=== PATIENT | female | born 1940 | race Caucasian/White ===

== ENCOUNTER 2019-07-07 08:59 | Outpatient (CLI) | payer MEDICARE, SELFPAY ==
--- NOTE | ~2019-07-07 | MM_ITS ---
EXAMINATION: MM screening [facility] BI w mihaela HISTORY: Screening mammogram TECHNIQUE: Craniocaudal and mediolateral oblique 3-D tomosynthesis images were obtained and synthetic 2-D images were generated. CAD analysis was submitted and interpreted. COMPARISON: 08/16/2017, 07/07/2016 BREAST PARENCHYMAL COMPOSITION: There are scattered areas of fibroglandular density. FINDINGS: Scattered benign-appearing calcifications are present. There is no evidence of suspicious m ass, calcification, or architectural distortion to suggest malignancy in either breast. There has bee n no suspicious interval change. IMPRESSION: 1. No mammographic evidence of malignancy. 2. Recommend routine screening mammography in one year. BI-RADS Category 2: Benign finding(s). Reviewed, dictated and finalized at location A.
== END 2019-07-07 09:00 | disposition home or self-care (01) ==
LOC: ANHIMG 09:05
PROVIDERS: PCP Nurse Practitioner Family; Visit Provider Nurse Practitioner Family
DX: Z12.31 Encounter for screening mammogram for malignant neoplasm of breast (principal)
CPT/HCPCS: 77063; 77067

== ENCOUNTER 2019-09-05 00:14 | Outpatient (CLI) | payer MEDICARE, SELFPAY ==
[2019-09-05 17:26] LABS: SARS-CoV-2 RNA PCR Negative
== END 2019-09-05 00:15 | disposition home or self-care (01) ==
PROVIDERS: PCP Nurse Practitioner Family; Visit Provider Internal Medicine Gastroenterology
DX: Z01.812 Encounter for preprocedural laboratory examination (principal); Z20.828 Contact with and (suspected) exposure to other viral communicable diseases
CPT/HCPCS: 87635; C9803; U0003

== ENCOUNTER 2019-09-08 00:06 | Day surgery (SDC) | payer MEDICARE, SELFPAY ==
[2019-08-28 14:21] VITALS: BMI 28.4
[2019-09-08] MEDS: LACTATED RINGERS 1,000 ML 150 ML IV CONT (06:40)
[2019-09-08 06:42] VITALS: BP 153/73; PULSE 80; RESP 18; TEMP 36.6; O2SAT 97; BMI 27.3
--- NOTE | 2019-09-08 07:20 | WPDANESEPPF ---
Anes - Initial Pre Proc Eval Procedure: Operation Date: 09/08/19 07:30 Proposed Procedures p Screening Colonoscopy - Rosas Yuen MD Date/Time: 09/08/19 07:20 Surgeon: Rosas Yuen MD Pre Op Diagnosis: Hx Colon Polyps Patient Data Age: 79 Gender: F Height: 5 ft 10 in Weight: 86.3 kg Last Vital Signs Temp 97.8 F 09/08/19 06:42 Pulse 80 09/08/19 06:42 Resp 18 09/08/19 06:42 BP 153/73 H 09/08/19 06:42 Pulse Ox 97 09/08/19 06:42 Allergies Allergy/AdvReac Type Severity Reaction Status Date / Time No Known Allergies Allergy Unverified 11/08/16 09:32 Home Medications Medication Instructions Recorded Confirmed Type aspirin 325 mg PO DAILY 08/28/19 08/28/19 History atorvastatin 80 mg PO DAILY 08/28/19 08/28/19 History coenzyme Q10 [CoQ-10] 100 mg PO DAILY 08/28/19 08/28/19 History omeprazole 20 mg PO DAILY 08/28/19 08/28/19 History Patient hx anesthesia problems: none Family hx anesthesia problems: none [facility] Past Medical History Medical History (Updated 09/08/19 @ 07:20 by Ankit Gonzáles MD) Hyperlipidemia TIA (transient ischemic attack) had one episode while on vacation in [place]; none since; w/u normal Family History Family History (Updated 10/05/16 @ 08:22 by DOCTOR UNKNOWN) Other Family history of Alzheimer's disease Family history of cardiovascular disease Hypertension Social History Social History Smoking status: Never smoker Alcohol intake: current Anes - Eval Final PreProcedure Day of Procedure 09/08/19 07:20 Patient weight: overweight Heart: regular rate and rhythm Lungs: clear to auscultation Airway: Mallampati scale class III Neurological: alert and oriented Last oral intake: >/= 8 hours ASA classification: II Emergent: no Anesthetic plan: proceed Anesthesia type and monitoring: general GIVS and standard monitoring Informed Consent: The patient's anesthetic plan and its attendant risks and benefits were discussed with the patient/family/POA. Questions were solicited and answers provided to the satisfaction of the patient/family/POA.
--- NOTE | 2019-09-08 07:55 | WPDGICN ---
Assessment and Plan Assessment and plan (1) Encounter for colonoscopy due to history of adenomatous colonic polyps: Code(s): Z12.11 - Encounter for screening for malignant neoplasm of colon; Z86.010 - Personal history of colonic polyps Status: Acute Assessment and Plan: Patient has a history of a rectal polyp at the anal verge in 2016. She presents today for follow-up examination. Repeat colonoscopy will be performed further recommendations will be given after endoscopy. GI Consult Note Consult date/time: 09/08/19 07:55 HPI: Catherine Murphy is a 79 year old female Seen in evaluation at the request of nurse practitioner Chavez Guardado. Patient has a history of a rectal polyp removed by endoscopic snare in 2016. This was found to be an adenomatous colon polyp. Her current weight appetite bowel movements are normal. She denies abdominal pain. She returns today for follow-up examination. Her family history is Noncontributory. Current medications include atorvastatin, omeprazole. No stated drug allergies. Review of Systems Review of Systems: All systems reviewed & are unremarkable except as noted in HPI and below PMFSH Past Medical History Medical History Hyperlipidemia TIA (transient ischemic attack) had one episode while on vacation in [place]; none since; w/u normal Family History Family History (Updated 10/05/16 @ 08:22 by DOCTOR UNKNOWN) Other Family history of Alzheimer's disease Family history of cardiovascular disease Hypertension Social History Social History Smoking status: Never smoker Alcohol intake: current Meds Home Medications and Allergies Home Medications Medication Instructions Recorded Confirmed Type aspirin 325 mg PO DAILY 08/28/19 08/28/19 History atorvastatin 80 mg PO DAILY 08/28/19 08/28/19 History coenzyme Q10 [CoQ-10] 100 mg PO DAILY 08/28/19 08/28/19 History omeprazole 20 mg PO DAILY 08/28/19 08/28/19 History Allergies Allergy/AdvReac Type Severity Reaction Status Date / Time No Known Allergies Allergy Unverified 11/08/16 09:32 Vital Signs Vital Signs - 24 hr 09/08/19 06:42 Temperature 36.6 C Pulse Rate 80 Respiratory Rate 18 Blood Pressure 153/73 H Pulse Oximetry 97 Exam Narrative: Exam Narrative: Physical exam reveals patient to be alert. Vital signs are stable. HEENT exam unremarkable. Lungs are clear to auscultation and percussion. Heart is without murmur or extra sounds. Abdominal exam bowel sounds are present soft nontender with no hepatosplenomegaly. Digital external rectal exam is normal.
[2019-09-08 07:57] VITALS: BP 101/51; PULSE 70; RESP 26; O2SAT 99
[2019-09-08 08:07] VITALS: BP 130/65; PULSE 68; RESP 15; O2SAT 99
[2019-09-08 08:17] VITALS: BP 141/64; PULSE 73; RESP 20; O2SAT 99
== END 2019-09-08 08:36 | disposition home or self-care (01) ==
PROVIDERS: PCP Nurse Practitioner Family; Visit Provider Internal Medicine Gastroenterology
PROC: 0DJD8ZZ Inspection of Lower Intestinal Tract, Via Natural or Artificial Opening Endoscopic (ICD-10-PCS; CPT 45378; principal; 2019-09-08 07:30)
DX: Z12.11 Encounter for screening for malignant neoplasm of colon (principal); D12.8 Benign neoplasm of rectum; K57.30 Diverticulosis of large intestine without perforation or abscess without bleeding; E78.5 Hyperlipidemia, unspecified; Z79.82 Long term (current) use of aspirin
CPT/HCPCS: 45385; 88305; J2704; J7120

== ENCOUNTER 2020-09-02 10:58 | Outpatient (CLI) | payer MEDICARE, SELFPAY ==
--- NOTE | ~2020-09-02 | MM_ITS ---
EXAMINATION: MM screening [facility] BI w mihaela HISTORY: Screening mammogram TECHNIQUE: Craniocaudal and mediolateral oblique 3-D tomosynthesis images were obtained and synthetic 2-D images were generated. CAD analysis was submitted and interpreted. COMPARISON: 07/07/2019, 08/16/2017, 07/07/2016, 07/01/2015, 06/23/2014, 05/06/2013 bilateral digital screen ing mammogram examinations BREAST PARENCHYMAL COMPOSITION: There are scattered areas of fibroglandular density. FINDINGS: There is no evidence of suspicious mass, calcification, or architectural distortion to sugg est malignancy in either breast. There has been no suspicious interval change. IMPRESSION: 1. No mammographic evidence of malignancy. 2. Recommend routine screening mammography in one year. BI-RADS Category 1: Negative Reviewed, dictated and finalized at location A.
== END 2020-09-02 10:59 | disposition home or self-care (01) ==
PROVIDERS: PCP Nurse Practitioner Family; Visit Provider Nurse Practitioner Family
DX: Z12.31 Encounter for screening mammogram for malignant neoplasm of breast (principal)
CPT/HCPCS: 77063; 77067

== ENCOUNTER → 2020-09-28 01:23 | Outpatient (CLI) | payer MEDICARE, SELFPAY ==
[2020-09-30 08:35] LABS: SARS-CoV-2 RNA PCR Negative
== END ==
PROVIDERS: PCP Nurse Practitioner Family; Visit Provider Internal Medicine Gastroenterology
DX: Z01.812 Encounter for preprocedural laboratory examination (principal); Z20.822 Contact with and (suspected) exposure to COVID-19
CPT/HCPCS: C9803; U0003; U0005

== ENCOUNTER 2020-10-01 01:02 | Day surgery (SDC) | payer MEDICARE, SELFPAY ==
[2020-09-13 13:44] VITALS: BMI 34.7
--- NOTE | 2020-09-30 12:23 | WPDANESEPPF ---
Anes - Initial Pre Proc Eval Procedure: Operation Date: 10/01/20 07:30 Proposed Procedures p Screening Colonoscopy - Rosas Yuen MD Date/Time: 09/30/20 12:23 Surgeon: Rosas Yuen MD Pre Op Diagnosis: hx of colon polyp Patient Data Age: 80 Gender: F Height: 1.57 m Weight: 86.3 kg Allergies Allergy/AdvReac Type Severity Reaction Status Date / Time No Known Allergies Allergy Verified 10/01/20 06:28 Home Medications Medication Instructions Recorded Confirmed Type aspirin 325 mg PO DAILY 08/28/19 10/01/20 History atorvastatin 80 mg PO DAILY 08/28/19 10/01/20 History coenzyme Q10 [CoQ-10] 100 mg PO DAILY 08/28/19 10/01/20 History omeprazole 20 mg PO DAILY 08/28/19 10/01/20 History sodium,potassium,mag sulfates 17.5 See Rx Instructions PO .COMPLEX 08/26/20 10/01/20 Rx gram-3.13 gram-1.6 gram oral soln #354 ml Patient hx anesthesia problems: none Family hx anesthesia problems: none PMFSH Past Medical History Medical History (Updated 09/30/20 @ 12:24 by Srinivasa Potts MD) Hyperlipidemia Obesity TIA (transient ischemic attack) had one episode while on vacation in [place]; none since; w/u normal Family History Family History (Updated 10/05/16 @ 08:22 by DOCTOR UNKNOWN) Other Family history of Alzheimer's disease Family history of cardiovascular disease Hypertension Social History Social History Smoking status: Never smoker Alcohol intake: current Substance use type: does not use Living arrangements: alone Gender identity (if verbalized by the patient): Female Spiritual care concerns: No Anes - Eval Final PreProcedure Day of Procedure 09/30/20 12:23 Patient weight: overweight Heart: regular rate and rhythm Lungs: clear to auscultation and normal air movement Airway: Mallampati scale class II Neurological: alert and oriented Last oral intake: >/= 8 hours ASA classification: II Emergent: no Anesthetic plan: proceed Anesthesia type and monitoring: general GIVS Informed Consent: The patient's anesthetic plan and its attendant risks and benefits were discussed with the patient/family/POA. Questions were solicited and answers provided to the satisfaction of the patient/family/POA.
[2020-10-01 06:29] VITALS: BP 158/75; PULSE 73; RESP 16; TEMP 36; O2SAT 98; BMI 34.9
[2020-10-01] MEDS: LACTATED RINGERS 1,000 ML 150 ML IV CONT (06:43)
--- NOTE | 2020-10-01 07:23 | P.CONGI_ITS ---
Assessment and Plan Assessment and plan (1) Encounter for colonoscopy due to history of adenomatous colonic polyps: Code(s): Z12.11 - Encounter for screening for malignant neoplasm of colon; Z86.010 - Personal history of colonic polyps Status: Acute Assessment and Plan: Patient has had recurrent colon polyps in the past. Most recent colonoscopy was 2015. Patient presents today for surveillance examination. Plan is for high-fiber diet. Further recommendations will be given after endoscopy. (2) Obesity: Code(s): E66.9 - Obesity, unspecified Status: Acute Assessment and Plan: Patient should continue to monitor her calorie intake. Increase activity and try to control or weight. GI Consult Note Consult date/time: 10/01/20 07:23 HPI: Catherine Murphy is a 80 year old female Presents for follow-up colonoscopy. Patient has a history of colon polyps in the past. Most recently 2015. At various time she has had larger colon polyps. Patient states that her current weight appetite bowel movements are normal. Patient denies abdominal pain. She has had no bleeding. Her family history is noncontributory. Review of Systems Review of Systems: All systems reviewed & are unremarkable except as noted in HPI and below PMFSH Past Medical History Medical History (Updated 09/30/20 @ 12:24 by Srinivasa Potts MD) Hyperlipidemia Obesity TIA (transient ischemic attack) had one episode while on vacation in [place]; none since; w/u normal Family History Family History (Updated 10/05/16 @ 08:22 by DOCTOR UNKNOWN) Other Family history of Alzheimer's disease Family history of cardiovascular disease Hypertension Social History Social History Smoking status: Never smoker Alcohol intake: current Substance use type: does not use Living arrangements: alone Gender identity (if verbalized by the patient): Female Spiritual care concerns: No Meds Home Medications and Allergies Home Medications Medication Instructions Recorded Confirmed Type aspirin 325 mg PO DAILY 08/28/19 10/01/20 History atorvastatin 80 mg PO DAILY 08/28/19 10/01/20 History coenzyme Q10 [CoQ-10] 100 mg PO DAILY 08/28/19 10/01/20 History omeprazole 20 mg PO DAILY 08/28/19 10/01/20 History sodium,potassium,mag sulfates 17.5 See Rx Instructions PO .COMPLEX 08/26/20 10/01/20 Rx gram-3.13 gram-1.6 gram oral soln #354 ml Allergies Allergy/AdvReac Type Severity Reaction Status Date / Time No Known Allergies Allergy Verified 10/01/20 06:28 Vital Signs Vital Signs - 24 hr 10/01/20 06:29 Temperature 96.8 F L Pulse Rate 73 Respiratory Rate 16 Blood Pressure 158/75 H Pulse Oximetry 98 Exam Narrative: Exam Narrative: Physical exam reveals patient be alert. Vital signs stable. HEENT exam is unremarkable. Patient is anicteric. Lungs are clear to auscultation and percussion. Heart is without murmur or extra sounds. Abdominal exam bowel sounds are present soft nontender with no organomegaly. Digital external rectal exam is normal.
[2020-10-01 07:57] VITALS: BP 123/59; PULSE 65; RESP 21; O2SAT 98
[2020-10-01 08:07] VITALS: BP 138/55; PULSE 63; RESP 21; O2SAT 97
[2020-10-01 08:17] VITALS: BP 141/78; PULSE 63; RESP 15; O2SAT 98
== END 2020-10-01 08:28 | disposition home or self-care (01) ==
PROVIDERS: PCP Nurse Practitioner Family; Visit Provider Internal Medicine Gastroenterology
PROC: 0DJD8ZZ Inspection of Lower Intestinal Tract, Via Natural or Artificial Opening Endoscopic (ICD-10-PCS; CPT 45378; principal; 2020-10-01 07:30)
DX: Z12.11 Encounter for screening for malignant neoplasm of colon (principal); K57.30 Diverticulosis of large intestine without perforation or abscess without bleeding; E78.5 Hyperlipidemia, unspecified; Z86.73 Personal history of transient ischemic attack (TIA), and cerebral infarction without residual deficits; Z79.82 Long term (current) use of aspirin; K62.1 Rectal polyp
CPT/HCPCS: 45385; 88305; J2001; J2704; J7120

== ENCOUNTER 2021-10-18 09:07 | Outpatient (CLI) | payer MEDICARE, SELFPAY ==
--- NOTE | ~2021-10-18 | MM_ITS ---
EXAMINATION: MM screening [facility] BI w mihaela HISTORY: Screening mammogram TECHNIQUE: Craniocaudal and mediolateral oblique 3-D tomosynthesis images were obtained and synthetic 2-D images were generated. CAD analysis was submitted and interpreted. COMPARISON: 09/02/2020, 07/07/2019, 08/16/2017 BREAST PARENCHYMAL COMPOSITION: There are scattered areas of fibroglandular density. FINDINGS: There is no suspicious mass, calcification, or architectural distortion to suggest malignan cy in either breast. There has been no suspicious interval change. IMPRESSION: 1. No mammographic evidence of malignancy. 2. Recommend routine screening mammography while the patient remains in good health. BI-RADS Category 1: Negative Reviewed, dictated and finalized at location A. IMPRESSION: 1. No mammographic evidence of malignancy. 2. Recommend routine screening mammography while the patient remains in good he alth. BI-RADS Category 1: Negative
== END 2021-10-18 09:08 | disposition home or self-care (01) ==
PROVIDERS: PCP Nurse Practitioner Family; Visit Provider Nurse Practitioner Family
DX: Z12.31 Encounter for screening mammogram for malignant neoplasm of breast (principal)
CPT/HCPCS: 77063; 77067

== ENCOUNTER 2022-12-27 13:10 | Outpatient (CLI) | payer MEDICARE, SELFPAY ==
--- NOTE | ~2022-12-27 | MM_ITS ---
EXAMINATION: MM screening [facility] BI w mihaela HISTORY: Screening TECHNIQUE: Craniocaudal and mediolateral oblique 3-D tomosynthesis images were obtained and synthetic 2-D images were generated. CAD analysis was submitted and interpreted. COMPARISON: Comparison to multiple prior studies sequentially, with oldest reviewed study dated 06/30. BREAST PARENCHYMAL COMPOSITION: Breast composed of scattered areas of fibroglandular density FINDINGS: There is no evidence of suspicious mass, calcification, or architectural distortion to sugg est malignancy in either breast. There has been no suspicious interval change. IMPRESSION: 1. No mammographic evidence of malignancy. 2. Recommend routine screening mammography in one year. BI-RADS Category 1: Negative Reviewed, dictated and finalized at location A.
== END 2022-12-27 13:11 | disposition home or self-care (01) ==
LOC: ANHIMG 13:12
PROVIDERS: PCP Nurse Practitioner Family; Visit Provider Nurse Practitioner Family
DX: Z12.31 Encounter for screening mammogram for malignant neoplasm of breast (principal)
CPT/HCPCS: 77063; 77067

== ENCOUNTER 2023-01-08 02:48 | Day surgery (SDC) | payer MEDICARE, SELFPAY ==
[2022-12-27 13:43] VITALS: BMI 33.0
[2023-01-08 06:30] VITALS: BP 153/72; PULSE 74; RESP 16; TEMP 36.3; O2SAT 97; BMI 32.6
[2023-01-08] MEDS: LACTATED RINGERS 1,000 ML 150 ML IV CONT (06:53)
--- NOTE | 2023-01-08 07:51 | PM.HPGS ---
History of Present Illness History of Present Illness Consent: Risks, benefits, and alternatives have been discussed and questions answered. Patient agrees to proceed with procedure. Chief complaint: hx of colon polyps Narrative: Catherine Murpyh is a 82 year old female Presents for screening colonoscopy. Patient's current weight appetite and bowel movements are normal. Patient denies abdominal pain. She has had no bleeding. Family history noncontributory. Previous colonoscopy in 2020 revealed adenomatous colon polyps. She has had colon polyps in the past. She presents today for screening colonoscopy. Review of Systems Review of Systems: Review of systems noncontributory. [facility] Past Medical History Medical History (Updated 09/30/20 @ 12:24 by Srinivasa Potts MD) Hyperlipidemia Obesity TIA (transient ischemic attack) had one episode while on vacation in [place]; none since; w/u normal Family History Family History (Updated 10/05/16 @ 08:22 by DOCTOR UNKNOWN) Other Family history of Alzheimer's disease Family history of cardiovascular disease Hypertension Social History Social History Smoking status: Never smoker Alcohol intake: current Substance use type: does not use Living arrangements: alone Gender identity (if verbalized by the patient): Female Spiritual care concerns: No Meds Home Medications and Allergies Home Medications Medication Instructions Recorded Confirmed Type aspirin 325 mg tablet 325 mg PO DAILY 08/28/19 01/08/23 History atorvastatin 80 mg tablet 80 mg PO DAILY 08/28/19 01/08/23 History coenzyme Q10 100 mg capsule 100 mg PO DAILY 08/28/19 01/08/23 History (CoQ-10) omeprazole 20 mg capsule,delayed 20 mg PO DAILY 08/28/19 01/08/23 History release Allergies Allergy/AdvReac Type Severity Reaction Status Date / Time No Known Allergies Allergy Verified 01/08/23 06:39 Vital Signs Vital Signs - 24 hr 01/08/23 06:30 Temperature 97.3 F L Pulse Rate 74 Respiratory Rate 16 Blood Pressure 153/72 H Pulse Oximetry 97 Oxygen Delivery Room Air Exam Narrative: Physical exam reveals patient to be alert. Vital signs stable. HEENT exam is unremarkable. Patient is anicteric. Lungs are clear to auscultation and percussion. Heart is without murmur or extra sounds. Abdomen bowel sounds are present soft nontender with no organomegaly. Digital external rectal exam is normal. Assessment and Plan Assessment and plan (1) Encounter for colonoscopy due to history of adenomatous colonic polyps: Code(s): Z12.11 - Encounter for screening for malignant neoplasm of colon; Z86.010 - Personal history of colonic polyps Status: Acute Assessment and Plan: Patient presents today for screening colonoscopy. She has a prior history of colon polyps. Further recommendations may be given after endoscopy.
--- NOTE | 2023-01-08 07:56 | P.PNAN_ITS ---
Anes - Initial Pre Proc Eval Procedure: Operation Date: 01/08/23 08:00 Proposed Procedures p Colonoscopy - Rosas Yuen MD Date/Time: 01/08/23 07:56 Surgeon: Rosas Yuen MD Pre Op Diagnosis: hx of colon polyps Patient Data Age: 82 Gender: F Height: 1.57 m Weight: 81 kg Last Vital Signs Temp 97.3 F L 01/08/23 06:30 Pulse 74 01/08/23 06:30 Resp 16 01/08/23 06:30 BP 153/72 H 01/08/23 06:30 Pulse Ox 97 01/08/23 06:30 O2 Del Method Room Air 01/08/23 06:30 Allergies Allergy/AdvReac Type Severity Reaction Status Date / Time No Known Allergies Allergy Verified 01/08/23 06:39 Home Medications Medication Instructions Recorded Confirmed Type aspirin 325 mg tablet 325 mg PO DAILY 08/28/19 01/08/23 History atorvastatin 80 mg tablet 80 mg PO DAILY 08/28/19 01/08/23 History coenzyme Q10 100 mg capsule 100 mg PO DAILY 08/28/19 01/08/23 History (CoQ-10) omeprazole 20 mg capsule,delayed 20 mg PO DAILY 08/28/19 01/08/23 History release Patient hx anesthesia problems: none Family hx anesthesia problems: none Results Review: All pre-operative results and documents have been reviewed as part of the pre- operative evaluation. [facility] Past Medical History Medical History (Updated 09/30/20 @ 12:24 by Srinivasa Potts MD) Hyperlipidemia Obesity TIA (transient ischemic attack) had one episode while on vacation in [place]; none since; w/u normal Family History Family History (Updated 10/05/16 @ 08:22 by DOCTOR UNKNOWN) Other Family history of Alzheimer's disease Family history of cardiovascular disease Hypertension Social History Social History Smoking status: Never smoker Alcohol intake: current Substance use type: does not use Living arrangements: alone Gender identity (if verbalized by the patient): Female Spiritual care concerns: No Anes - Eval Final PreProcedure Day of Procedure 01/08/23 07:56 Patient weight: obese Heart: regular rate and rhythm Lungs: clear to auscultation Airway: Mallampati scale class II Neurological: alert and oriented Last oral intake: >/= 8 hours ASA classification: III Emergent: no Anesthetic plan: proceed Anesthesia type and monitoring: general GIVS and standard monitoring Results Review: All pre-operative results and documents have been reviewed as part of the pre- operative evaluation. Informed Consent: The patient's anesthetic plan and its attendant risks and benefits were discussed with the patient/family/POA. Questions were solicited and answers provided to the satisfaction of the patient/family/POA.
[2023-01-08 08:24] VITALS: BP 116/58; PULSE 63; RESP 16; O2SAT 100
[2023-01-08 08:34] VITALS: BP 126/67; PULSE 63; RESP 21; O2SAT 100
[2023-01-08 08:44] VITALS: BP 151/61; PULSE 61; RESP 18; O2SAT 100
== END 2023-01-08 09:00 | disposition home or self-care (01) ==
PROVIDERS: PCP Nurse Practitioner Family; Visit Provider Internal Medicine Gastroenterology
PROC: 0DJD8ZZ Inspection of Lower Intestinal Tract, Via Natural or Artificial Opening Endoscopic (ICD-10-PCS; CPT 45378; principal; 2023-01-08 08:00)
DX: Z12.11 Encounter for screening for malignant neoplasm of colon (principal); K62.1 Rectal polyp; K64.8 Other hemorrhoids; E78.5 Hyperlipidemia, unspecified; Z86.73 Personal history of transient ischemic attack (TIA), and cerebral infarction without residual deficits; E66.9 Obesity, unspecified; Z68.32 Body mass index [BMI] 32.0-32.9, adult; Z79.82 Long term (current) use of aspirin
CPT/HCPCS: 45385; 88305; J2704; J7120

== ENCOUNTER 2023-01-24 17:56 | Emergency (ER) | payer MEDICARE, SELFPAY ==
[2023-01-24 18:14] VITALS: BP 147/70; PULSE 75; RESP 18; TEMP 36.9; O2SAT 96
[2023-01-24 18:39] LABS: Basophils Percent Auto 0.3 % (0.2-1.2); Eosinophils Absolute Auto 0.1 K/mm3 (0-0.3); Eosinophils Percent Auto 0.8 % (0-4.4); Hemoglobin 11.6 g/dL (12.0-15.0); Immature Granulocyte Absolute 0.04 K/mm3 (0.00-0.031); Immature Granulocyte Percent A 0.4 % (0-0.5); Lymphocytes Absolute Auto 1.71 K/mm3 (0.9-3.2); Lymphocytes Percent Auto 16.1 % (18.3-44.2); Mean Corpuscular HGB Conc 31.4 g/dl (32-36); Mean Corpuscular Hemoglobin 29.4 pg (26-34); Mean Corpuscular Volume 93.7 fl (80-100); Monocytes Percent Auto 9.4 % (2.6-8.5); Neutrophils Absolute Auto 7.7 K/mm3 (1.3-6.7); Platelet Count Result 265 k/mm3 (150-375); Red Blood Count 3.95 M/mm3 (4.2-5.4); White Blood Count 10.6 K/mm3 (4.5-10.0)
[2023-01-24 18:48] LABS: Alanine Aminotransferase 12 U/L (6-35); Albumin Level 4.1 g/dL (3.5-5.1); Alkaline Phosphatase 124 U/L (38-126); Anion Gap 6 mmol/L (8-16); Aspartate Amino Transferase 21 U/L (14-36); Bilirubin,Total 0.7 mg/dL (0.2-1.3); Blood Urea Nitrogen 24 mg/dL (7-17); Calcium 8.6 mg/dL (8.4-10.2); Carbon Dioxide 29 mmol/L (22-30); Chloride 101 mmol/L (98-107); Estimated CRCL calculation 46 ml/min; Estimated Glomerular Filt Rate > 60; Glucose 118 mg/dL (65-110); Lipase 43 U/L (23-300); Potassium 3.8 mmol/L (3.4-5.0); Sodium 136 mmol/L (137-145)
[2023-01-24 20:04] LABS: Appearance Urine Cloudy (Clear); Bacteria Urine 4+ /hpf; Bilirubin Urine Negative (Negative); Blood Urine Negative (Negative); Color Urine Dark Yellow (Yellow); Glucose Urine UA Negative (Negative); Ketones Urine Negative (Negative); Leukocyte Esterase Ur 1+ LEU/UL (Negative); Nitrate Urine Negative (Negative); Protein Urine Trace mg/dL (Negative); RBC Urine 0-2 /hpf (0-2); Specific Grav Ur 1.024 (1.001-1.035); Squamous Epithelial Cell Urine Moderate /hpf (Few); pH Urine 5.5 (5.0-9.0)
[2023-01-24 20:11] LABS: Add Urine Microscopic? YES
--- NOTE | 2023-01-24 20:37 | PC.NURSE ---
Pt wants to leave, left before being seen.
== END 2023-01-24 21:18 | disposition left against medical advice (07) ==
PROVIDERS: Emergency Medicine; PCP Nurse Practitioner Family
DX: R10.9 Unspecified abdominal pain (principal)
CPT/HCPCS: 36415; 80053; 81001; 83690; 85025; 87077; 87086; 87186; 99199

== ENCOUNTER 2023-01-25 06:06 | Emergency (ER) | payer MEDICARE, SELFPAY ==
[2023-01-25] VITALS (8 sets, daily range): BP systolic 117–144; BP diastolic 55–79; PULSE 79–97; RESP 13–20; TEMP 36.6–37.1; O2SAT 95–99
--- NOTE | ~2023-01-25 | CT_ITS ---
Impression: Moderate abdominopelvic ascites, with extensive infiltrative change of the mese ntery, which presumably represents mesenteric edema. Peritoneal carcinomatosis is difficult to exclude based on imaging appearance. Correlate clinically. Cons ider diagnostic paracentesis for cytology as indicated. Wall thickening of the transverse colon, presumably reactive due to the presenc e of ascites. Correlate for infectious/inflammatory colitis. Suspected early cirrhotic change of the liver. CT of the Abdomen and Pelvis: Indication: Abdominal pain Technique: 2.5 mm axial scans were obtained through the abdomen and pelvis following intravenous adm inistration of 100 cc of Omnipaque 350. Dose reduction technique was used on this scan by utilizing a utomated exposure control and iterative reconstruction technique. The dose-length product (DLP) was 6 57.39 mGy-cm. Findings: Scans through the lung bases are unremarkable. Probable micronodular contour of liver. The spleen, pancreas, gallbladder, adrenals and kidneys are w ithin normal limits. There are atherosclerotic calcifications of the aorta. No lymphadenopathy. No bowel obstruction. Wall thickening of the transverse colon is present. There is small to moderate abdominopelvic ascites with extensive infiltrative changes in the mesentery. Images through the pelvis were performed. Urinary bladder unremarkable. No definite abnormal adnexal mass seen. Impression: Moderate abdominopelvic ascites, with extensive infiltrative change of the mesentery, which presumabl y represents mesenteric edema. Peritoneal carcinomatosis is difficult to exclude based on imaging sandra earance. Correlate clinically. Consider diagnostic paracentesis for cytology as indicated. Wall thickening of the transverse colon, presumably reactive due to the presence of ascites. Correlat e for infectious/inflammatory colitis. Suspected early cirrhotic change of the liver. Reviewed, dictated and finalized at location M.
--- NOTE | ~2023-01-25 | US_ITS ---
EXAMINATION: US paracentesis abd w/image DATE: 01/25/2023 13:03 INDICATION: Ascites. TECHNIQUE: The procedure and its risks and benefits were discussed with the patient. Potential risks discussed included bleeding and infection. The skin was prepped and draped in sterile fashion. 1% lid ocaine was used for local anesthesia. Under ultrasound guidance, a 5 Fr catheter with trochar was adv anced into the ascites in the right lower quadrant. Fluid was aspirated into vacuum bottles. The cath eter was removed, and a dressing was applied. There were no immediate complications. FINDINGS: Ultrasound images demonstrate ascites and the catheter within the fluid. IMPRESSION: 1. Successful ultrasound-guided paracentesis yielding 700 mL of dark orange fluid. Reviewed, dictated and finalized at location A. IMPRESSION: 1. Successful ultrasound-guided paracentesis yielding 700 mL of dark orange fl uid.
[2023-01-25 07:07] LABS: Alanine Aminotransferase 12 U/L (6-35); Alkaline Phosphatase 132 U/L (38-126); Anion Gap 9 mmol/L (8-16); Aspartate Amino Transferase 22 U/L (14-36); Blood Urea Nitrogen 21 mg/dL (7-17); Calcium 8.8 mg/dL (8.4-10.2); Carbon Dioxide 24 mmol/L (22-30); Chloride 104 mmol/L (98-107); Estimated CRCL calculation 45 ml/min; Estimated Glomerular Filt Rate > 60; Glucose 116 mg/dL (65-110); Lipase 30 U/L (23-300); Sodium 137 mmol/L (137-145)
--- NOTE | 2023-01-25 07:17 | ED.ABDPAIN ---
HPI - Abdominal Pain General Chief Complaint: Abdominal Pain Stated Complaint: cramps and pressure in stomach, clear stool Time Seen by Provider: 01/25/23 06:54 History of Present Illness HPI narrative: 82-year-old female presenting to the emergency department for evaluation of increasing generalized abdominal pain and pressure. Patient states that she has had increased cough and had been having increased lower abdominal pressure. Patient denies any pain with urination. Patient suspected constipation and did take a laxative. Patient states that she did have a clear bowel movement in response to laxative but has not been passing much other stool. Patient states she has had decreased p.o. intake as well. Patient now describes increased abdominal pain throughout her entire abdomen that feels like menstrual cramping. Patient does have a prior history of a partial hysterectomy and a cholecystectomy bladder surgery. Patient had a colonoscopy in January. Related Data Home Medications Medication Instructions Recorded Confirmed aspirin 325 mg tablet 325 mg PO DAILY 08/28/19 01/08/23 atorvastatin 80 mg tablet 80 mg PO DAILY 08/28/19 01/08/23 coenzyme Q10 100 mg capsule 100 mg PO DAILY 08/28/19 01/08/23 (CoQ-10) omeprazole 20 mg capsule,delayed 20 mg PO DAILY 08/28/19 01/08/23 release Allergies Allergy/AdvReac Type Severity Reaction Status Date / Time No Known Allergies Allergy Verified 01/08/23 06:39 Review of Systems Review of Systems: All systems reviewed & are unremarkable except as noted in HPI and below PMFSH Past Medical History Medical History (Updated 01/25/23 @ 14:17 by Reji Mace MD) Hyperlipidemia Obesity TIA (transient ischemic attack) had one episode while on vacation in [place]; none since; w/u normal Family History Family History (Updated 10/05/16 @ 08:22 by DOCTOR UNKNOWN) Other Family history of Alzheimer's disease Family history of cardiovascular disease Hypertension Social History Social History Smoking status: Never smoker Alcohol intake: current Substance use type: does not use Living arrangements: alone Gender identity (if verbalized by the patient): Female Spiritual care concerns: No Exam Narrative: APPEARANCE: Well appearing, no pain, no distress, well-nourished. HEAD: normocephalic, atraumatic. EYES: PERRLA/EOMI, conjunctivae clear. NOSE: Normal no drainage NECK: Supple. No adenopathy, no masses. RESPIRATORY: Airway patent, respirations nonlabored. Clear to auscultation bilaterally, no rales, rhonchi, wheezing. CARDIOVASCULAR: Regular rate and rhythm without murmurs rubs or gallops. ABDOMINAL: Normal bowel sounds, generalized tenderness to palpation without rebound MUSCULOSKELETAL: Moves all extremities. Strength/ROM intact, No edema, No calf tenderness. NEURO: Alert. Cranial nerves II through XII intact. SKIN: Warm, dry. Normal Color Course Course Emergency Course: 82-year-old female with significant abdominal surgical history presenting to the ED for evaluation of constipation and increased abdominal pressure. Baseline labs were ordered. Patient denies any current nausea or vomiting. Patient and family are updated on the plan for labs and imaging. 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 Ultrasound-guided paracentesis with fluid analysis was ordered. Patient was agreeable to have the paracentesis with analysis but patient does not want to stay. Family is present during the discussion when trying to convince patient to stay. I did discuss the case with the patient's primary care physician and she will follow up in with the patient's labs. After the paracentesis patient states she does feel improved. Patient is afebrile but does have a leukocytosis of 10.7. Hemoglobin is stable. No significant electrolyte abnormalities including normal AST ALT. Slightly elevated alk phos but no massimo
[2023-01-25 07:22] LABS: Basophils Percent Auto 0.3 % (0.2-1.2); Eosinophils Absolute Auto 0.1 K/mm3 (0-0.3); Eosinophils Percent Auto 0.8 % (0-4.4); Hematocrit 37.5 % (37.0-47.0); Hemoglobin 11.9 g/dL (12.0-15.0); Immature Granulocyte Absolute 0.04 K/mm3 (0.00-0.031); Immature Granulocyte Percent A 0.4 % (0-0.5); Lymphocytes Absolute Auto 1.83 K/mm3 (0.9-3.2); Lymphocytes Percent Auto 17.1 % (18.3-44.2); Mean Corpuscular HGB Conc 31.7 g/dl (32-36); Mean Corpuscular Hemoglobin 29.2 pg (26-34); Mean Corpuscular Volume 92.1 fl (80-100); Mean Platelet Volume 9.6 fl (7.4-10.4); Monocytes Percent Auto 8.9 % (2.6-8.5); Neutrophils Absolute Auto 7.8 K/mm3 (1.3-6.7); Neutrophils Percent Auto 72.5 % (45.5-73.1); Platelet Count Result 290 k/mm3 (150-375); Red Blood Count 4.07 M/mm3 (4.2-5.4); Red Cell Distribution Width 14.1 % (11.5-14.5); White Blood Count 10.7 K/mm3 (4.5-10.0)
[2023-01-25 09:02] LABS: INR 1.1
[2023-01-25 09:03] LABS: Partial Thromboplastin Time 30.5 SECONDS (22.3-36.8)
--- NOTE | 2023-01-25 12:15 | PC.NURSE ---
PT TAKEN TO IR FOR PROCEDURE
[2023-01-25 14:01] LABS: Appearance Peritoneal Fluid Cloudy (Clear); Color Peritoneal Fluid Yellow (Colorless); Source Peritoneal Fluid Peritoneal Fluid
[2023-01-25 14:02] LABS: Nucleated Cells Peritoneal Flu 4339 /uL (0-500); RBC Peritoneal Fluid 4000 /uL (0-100000)
[2023-01-25 14:04] LABS: Lymphocytes Peritoneal Fluid 17 %; Macrophages Peritoneal Fluid 27 %; Mesothelial Cells Peritoneal Fluid 22 %; Neutrophils Peritoneal Fluid 34 % (0-25)
[2023-01-28 21:43] LABS: Amylase Peritoneal Fluid <10 U/L; Lipase Peritoneal Fluid 5 U/L (<10)
[2023-01-29 06:12] LABS: Glucose Peritoneal Fluid 94 mg/dL
[2023-01-29 06:35] LABS: LDH Peritoneal Fluid 674 U/L (<63); Total Protein Peritoneal Fluid 4.8 g/dL
[2023-01-30 22:17] LABS: Albumin Peritoneal Fluid 2.8 g/dL
== END 2023-01-25 14:31 | disposition home or self-care (01) ==
PROVIDERS: Student in an Organized Health Care Education/Training Program; Emergency Provider Emergency Medicine; PCP Nurse Practitioner Family
DX: R18.8 Other ascites (principal); R10.84 Generalized abdominal pain; E78.5 Hyperlipidemia, unspecified; E66.9 Obesity, unspecified; Z68.32 Body mass index [BMI] 32.0-32.9, adult; Z86.73 Personal history of transient ischemic attack (TIA), and cerebral infarction without residual deficits; Z90.49 Acquired absence of other specified parts of digestive tract; Z90.711 Acquired absence of uterus with remaining cervical stump
CPT/HCPCS: 36415; 49083; 74177; 80053; 82042; 82150; 82945; 83615; 83690; 84157; 84478; 85025; 85610; 85730; 87070; 87075; 87205; 88104; 88108; 88271; 88275; 88291; 88305; 88342; 89051; 99284; Q9967

== ENCOUNTER 2023-01-25 16:49 | Inpatient (IN) | payer MEDICARE, SELFPAY ==
[2023-01-25 17:21] VITALS: BP 145/81; PULSE 85; RESP 18; TEMP 36.2; O2SAT 98
--- NOTE | 2023-01-25 17:37 | ED.GENADULT ---
HPI - General Adult General Chief complaint: Recheck/Abnormal Lab/Rx Stated complaint: Infection Time Seen by Provider: 01/25/23 16:52 History of Present Illness HPI narrative: 82-year-old female present to the emergency department for evaluation of abdominal pain. Patient was seen earlier in the day and had a paracentesis and patient was recommended to stay. The paracentesis cell count came back concerning for SBP and GI recommended the patient return to the emergency department. Patient is being started on Rocephin and blood cultures are being ordered. Case was discussed with the hospitalist patient was accepted for admission. Related Data Home Medications Medication Instructions Recorded Confirmed aspirin 325 mg tablet 325 mg PO DAILY 08/28/19 01/08/23 atorvastatin 80 mg tablet 80 mg PO DAILY 08/28/19 01/08/23 coenzyme Q10 100 mg capsule 100 mg PO DAILY 08/28/19 01/08/23 (CoQ-10) omeprazole 20 mg capsule,delayed 20 mg PO DAILY 08/28/19 01/08/23 release Allergies Allergy/AdvReac Type Severity Reaction Status Date / Time No Known Allergies Allergy Verified 01/08/23 06:39 Review of Systems Review of Systems: All systems reviewed & are unremarkable except as noted in HPI and below PMFSH Past Medical History Medical History (Updated 01/25/23 @ 19:08 by Reji Mace MD) Hyperlipidemia Obesity TIA (transient ischemic attack) had one episode while on vacation in [place]; none since; w/u normal Family History Family History (Updated 10/05/16 @ 08:22 by DOCTOR UNKNOWN) Other Family history of Alzheimer's disease Family history of cardiovascular disease Hypertension Social History Social History Smoking status: Never smoker Alcohol intake: current Substance use type: does not use Living arrangements: alone Gender identity (if verbalized by the patient): Female Spiritual care concerns: No Exam Narrative: APPEARANCE: Well appearing, no pain, no distress, well-nourished. HEAD: normocephalic, atraumatic. EYES: PERRLA/EOMI, conjunctivae clear. NOSE: Normal no drainage NECK: Supple. No adenopathy, no masses. RESPIRATORY: Airway patent, respirations nonlabored. Clear to auscultation bilaterally, no rales, rhonchi, wheezing. CARDIOVASCULAR: Regular rate and rhythm without murmurs rubs or gallops. ABDOMINAL: Soft, nontender, nondistended, normal bowel sounds MUSCULOSKELETAL: Moves all extremities. Strength/ROM intact, No edema, No calf tenderness. NEURO: Alert. Cranial nerves II through XII intact. Good gait. Good coordination SKIN: Warm, dry. Normal Color Course Course Emergency Course: 82-year-old female returning to the emergency department. Patient was started on antibiotics blood cultures were ordered. Case was discussed with the hospitalist and patient was accepted for admission. Vital Signs Vital signs: Vital Signs Temperature 97.1 F L 01/25/23 17:21 Pulse Rate 85 01/25/23 17:21 Respiratory Rate 18 01/25/23 17:21 Blood Pressure 145/81 H 01/25/23 17:21 Pulse Oximetry 98 01/25/23 17:21 Oxygen Delivery Room Air 01/25/23 17:21 Temperature 97.1 F L 01/25/23 17:21 Pulse Rate 94 01/25/23 18:13 Respiratory Rate 15 01/25/23 18:13 Blood Pressure 137/68 01/25/23 18:13 Pulse Oximetry 94 01/25/23 18:13 Oxygen Delivery Room Air 01/25/23 17:21 Medical Decision Making Vital Signs Vital Signs: Vital Signs Temperature 97.1 F L 01/25/23 17:21 Pulse Rate 85 01/25/23 17:21 Respiratory Rate 18 01/25/23 17:21 Blood Pressure 145/81 H 01/25/23 17:21 Pulse Oximetry 98 01/25/23 17:21 Oxygen Delivery Room Air 01/25/23 17:21 Temperature 97.1 F L 01/25/23 17:21 Pulse Rate 94 01/25/23 18:13 Respiratory Rate 15 01/25/23 18:13 Blood Pressure 137/68 01/25/23 18:13 Pulse Oximetry 94 01/25/23 18:13 Oxygen Delivery Room Air 01/25/23 17:21 Discharge Plan Discharge Clinical Impression: SB
[2023-01-25] MEDS: cefTRIAXone 2 GM/NS 100 ML 2 GM/100 ML BAG IVPB (18:01)
[2023-01-25 18:13] VITALS: BP 137/68; PULSE 94; RESP 15; O2SAT 94
--- NOTE | 2023-01-25 20:06 | PM.IMHP ---
H&P: HPI History of Present Illness Date/Time: 01/25/23 20:06 Chief Complaint: ABDOMINAL PAIN Narrative: THIS IS AN 82-YEAR-OLD FEMALE WITH PAST MEDICAL HISTORY SIGNIFICANT FOR DEPRESSION, DYSLIPIDEMIA, GERD. PATIENT PRESENTS TO THE EMERGENCY ROOM DUE TO LOWER ABDOMEN DISTENSION AND PAIN CRAMPING, NO NAUSEA NO VOMITING NO DIARRHEA NO FEVERS NO RIGORS NO CHILLS. PRELIMINARY WORKUP WAS SIGNIFICANT FOR CT OF ABDOMEN AND PELVIS WITH ASCITES PATIENT HAD PARACENTESES PERFORMED AND WENT HOME HOWEVER RETURNED DUE TO ABNORMAL FINDINGS ON THE PERITONEAL FLUID ANALYSIS WAS CALLED IN. PATIENT IS BEEN ADMITTED FOR FURTHER EVALUATION MANAGEMENT AND TREATMENT. CT of the Abdomen and Pelvis: Indication: Abdominal pain Technique:? 2.5 mm axial scans were obtained through the abdomen and pelvis following intravenous administration of 100 cc of Omnipaque 350. Dose reduction technique was used on this scan by utilizing automated exposure control and iterative reconstruction technique. The dose-length product (DLP) was 657.39 mGy-cm. Findings:? Scans through the lung bases are unremarkable. Probable micronodular contour of liver. The spleen, pancreas, gallbladder, adrenals and kidneys are within normal limits. There are atherosclerotic calcifications of the aorta.? No lymphadenopathy. No bowel obstruction. Wall thickening of the transverse colon is present. There is small to moderate abdominopelvic ascites with extensive infiltrative changes in the mesentery. Images through the pelvis were performed. Urinary bladder unremarkable. No definite abnormal adnexal mass seen. Impression: Moderate abdominopelvic ascites, with extensive infiltrative change of the mesentery, which presumably represents mesenteric edema. Peritoneal carcinomatosis is difficult to exclude based on imaging appearance. Correlate clinically. Consider diagnostic paracentesis for cytology as indicated. Wall thickening of the transverse colon, presumably reactive due to the presence of ascites. Correlate for infectious/inflammatory colitis. Suspected early cirrhotic change of the liver. Review of Systems Review of Systems: ABDOMINAL PAIN, ABDOMINAL DISTENTION Constitutional: Constitutional: Denies chills, Denies fatigue, Denies fever(s), Denies malaise, Denies night sweats, Denies poor appetite and Denies weakness Eyes: Eyes: Denies change in vision ENT: Denies dysphagia and Denies odynophagia Cardiovascular: Cardiovascular: Denies chest pain, Denies radiating jaw, neck or arm pain and Denies palpitations Respiratory: Respiratory: Denies cough, Denies excessive phlegm production and Denies dyspnea Gastrointestinal: Gastrointestinal: Reports abdominal pain, Denies melena, Denies hematochezia, Denies coffee ground emesis, Reports GI cramping, Denies dyspepsia, Denies heartburn, Denies diarrhea, Denies nausea and Denies vomiting Genitourinary: Genitourinary: Denies dysuria and Denies flank pain Musculoskeletal: Musculoskeletal: Denies abnormal gait, Denies arthralgias and Denies joint swelling Integumentary/Breasts: Skin/Breast: Denies rash Neurologic: Denies vertigo, Denies dizziness, Denies focal weakness and Denies Sensory deficit (Neuro) Psychiatric: Psychiatric: Reports no additional psychiatric complaints and Reports as per HPI Endocrine: Endocrine: Denies cold intolerance, Denies fatigue, Denies flushing, Denies heat intolerance, Denies polyphagia, Denies polydipsia and Denies palpitations Hematologic/Lymphatic: Hematologic/Lymphatic: Reports no additional hematologic/lymphatic complaints and Reports as per HPI Allergic/Immunologic: Allergic/Immunologic: Reports no additional allergic/immunologic complaints and Reports as per HPI [facility] Past Medical History Medical History (Updated 01/26/23 @ 00:01 by Background Daemon) Hyperlipidemia Obesity TIA (transient ischemic attack) had one episode while on vacation in [place]; none since; w/u normal Family
[2023-01-25 20:14] VITALS: BP 144/49; PULSE 72; RESP 16; TEMP 37; O2SAT 98
[2023-01-25 21:45] VITALS: BMI 32.6
--- NOTE | 2023-01-25 21:51 | ADMGEN ---
This patient, Catherine Murphy, was admitted to 3 Med Surg Room 307-02. Patient/family oriented to hospital policies and general routines including ID bracelet, bed and alarms, visiting hours, pain management, procedures, bathroom and other care routines, personal items, smoking policy, room service/diet, and visiting hours. Information on how to activate the Rapid Response Team has been discussed. Patient/Family are encouraged to report perceived risks to care and to ask questions if they do not understand what they are told or what they should do.
[2023-01-25 22:13] VITALS: BMI 32.2
[2023-01-26 04:45] VITALS: BP 117/40; PULSE 76; RESP 16; TEMP 36.2; O2SAT 96
[2023-01-26] MEDS: cefTRIAXone 2 GM/NS 100 ML 2 GM/100 ML BAG IVPB ×2 (06:40→17:23)
[2023-01-26] MEDS: ASPIRIN 325 MG TABLET PO (08:25)
[2023-01-26] MEDS: PANTOPRAZOLE 40 MG TABLET PO (08:25)
[2023-01-26 10:00] VITALS: BP 123/53; PULSE 81; RESP 16; O2SAT 98
--- NOTE | 2023-01-26 10:55 | PM.IMPN ---
Progress Note: A&P Assessment and Plan (1) SBP (spontaneous bacterial peritonitis): Code(s): K65.2 - Spontaneous bacterial peritonitis Status: Acute Assessment and Plan: Rocephin initiated 01/25, follow-up cultures from paracentesis (2) Abdominal pain: Code(s): R10.9 - Unspecified abdominal pain Status: Acute Assessment and Plan: See above (3) Abdominal ascites: Code(s): R18.8 - Other ascites Status: Inactive Assessment and Plan: New onset, unsure of etiology, concerning for underlying carcinomatosis GI consult ordered and pending, may also need Oncology consult, hold off for now Follow-up cytology from paracentesis Plan DVT prophylaxis with SCDs GI prophylaxis with PPI Code status full code Subjective Date/time seen: 01/26/23 10:55 Interval history: 82-year-old female with history of GERD, hyperlipidemia and depression presenting with abdominal pain and found to have ascites, concerning for underlying carcinomatosis, status post paracentesis 01/25. No overnight events noted. No chest pain or shortness of breath. No nausea, vomiting or diarrhea. No fevers or chills. Patient states she feels much better than when she came in, almost no abdominal pain today. Review of Systems Review of Systems: 12 point review of systems was assessed and was negative except as noted in the HPI Exam Narrative: General: No acute distress, alert and oriented per baseline HEENT: Atraumatic, normocephalic, mucous membranes moist CV: Regular rate and rhythm, S1, S2 Lungs: Clear to auscultation bilaterally, no rales or crackles noted, no wheezes, good air entry Abdomen: Soft, nontender, mildly distended Extremities: Normal to inspection Skin: No rashes noted, no lesions or wounds seen Psych: Euthymic, normal affect Objective Data Vital Signs Vital Signs: Vital Signs - 24 hr 01/25/23 17:21 01/25/23 18:13 01/25/23 20:14 Temperature 97.1 F L 98.6 F Pulse Rate 85 94 72 Respiratory Rate 18 15 16 Blood Pressure 145/81 H 137/68 144/49 H Pulse Oximetry 98 94 98 Oxygen Delivery Room Air 01/26/23 04:45 01/26/23 08:25 01/26/23 10:00 Temperature 97.2 F L Pulse Rate 76 81 Respiratory Rate 16 16 Blood Pressure 117/40 L 123/53 L Pulse Oximetry 96 98 Oxygen Delivery Room Air Intake/Output Intake/Output: Intake & Output 01/23/23 01/24/23 01/25/23 01/26/23 23:59 23:59 23:59 23:59 Intake Total 100 428 Balance 100 428 Meds/Results Medications: Active Medications Generic Name Dose Route Start Last Admin Trade Name Freq PRN Reason Stop Dose Admin Aspirin 325 mg 01/26/23 08:00 01/26/23 08:25 Aspirin 325 Mg Tablet PO 325 mg DAILY@0800 [facility] Administration Atorvastatin Calcium 80 mg 01/26/23 18:00 Atorvastatin 40 Mg Tablet PO QPM [facility] Escitalopram Oxalate 5 mg 01/26/23 18:00 Escitalopram Oxalate 5 Mg Tablet PO QPM [facility] Fentanyl Citrate 50 mcg 01/25/23 17:39 Fentanyl Citrate Inj (*Crx) 100 Mcg/2 Ml Vial IV PUSH Q2H PRN Pain Rated 7-10 Ceftriaxone Sodium 2 gm in 100 mls @ 200 mls/hr 01/26/23 06:00 01/26/23 07:27 Rocephin 2 Gm/Ns 100 Ml IVPB Infused Q12H [facility] Infusion Non-Formulary Medication 1 each 01/26/23 09:00 Nonformulary Nutritional Supplement XX 02/25/23 08:59 DAILY [facility] Ondansetron HCl 4 mg 01/25/23 17:39 Ondansetron Inj 4 Mg/2 Ml Vial IV PUSH Q4H PRN Nausea Pantoprazole Sodium 40 mg 01/26/23 09:00 01/26/23 08:25 Pantoprazole 40 Mg Tablet PO 40 mg QAM [facility] Administration
--- NOTE | 2023-01-26 13:42 | WPDGICN ---
Assessment and Plan Assessment and plan (1) SBP (spontaneous bacterial peritonitis): Code(s): K65.2 - Spontaneous bacterial peritonitis Status: Acute Assessment and Plan: Patient with markedly elevated PMNs on ascitic fluid analysis suggesting SBP. Agree with broad-spectrum antibiotic coverage. Additional lab tests from paracentesis are pending. Etiology for infection and ascites remains unclear. Workup for underlying cirrhosis will be implemented . (2) Abdominal pain: Code(s): R10.9 - Unspecified abdominal pain Status: Acute Assessment and Plan: patient's initial abdominal pain is improved after paracentesis and implementation of a antibiotics. Diuretics and low-salt diet may be of additional benefit pending review of Ascitic fluid. (3) Abnormal CT scan: Code(s): R93.89 - Abnormal findings on diagnostic imaging of other specified body structures Status: Acute Assessment and Plan: CT scan suggest possible underlying cirrhosis. Laboratory analysis for is cirrhosis will be obtain. Liver biopsy may be consider but should be deferred until ascitic fluid has diminished to some degree. CT scan suggest the potential for underlying carcinomatosis. Ascitic fluid for cytology is pending will be reviewed. She may benefit from follow-up CT scan imaging if this fails to identify etiology for ascitic fluid. (4) History of colon polyps: Code(s): Z86.010 - Personal history of colonic polyps Status: Acute Assessment and Plan: Benign colon polyps were identified. Plan follow-up colonoscopy in 3 years. GI Consult Note Consult date/time: 01/26/23 13:42 Reason for consult: Spontaneous bacterial peritonitis HPI: Catherine Murphy is a 82 year old female I am asked to see at the request of the hospitalist service because of spontaneous bacterial peritonitis. Patient has a history of rectal polyps dating back to 2019. Most recent colonoscopy 3-4 weeks ago was performed in small rectal polyp was identified. Patient apparently did well however has noticed some vague generalized abdominal pain over recent weeks. Pain became rather intense in on Sunday call the office was advised to go to the ER. Patient subsequently presented the ER with rather significant diffuse abdominal pain on . CT scan imaging was obtained which revealed evidence of ascites. There was edema and thickening of the mesentery. there is a question of possible nodularity in the liver raising the question of cirrhosis of the liver. Patient denies significant alcohol intake. She has no prior history of hepatitis. She denies any recent travel. She has never had ascites or liver disease previous to this. Last evening paracentesis was performed and she was placed on broad-spectrum antibiotics with some improved symptoms. Paracentesis revealed a large amount a white blood cell counts in her ascitic fluid. Review of Systems Review of Systems: Review of systems noncontributory. [facility] Past Medical History Medical History (Updated 01/26/23 @ 13:46 by Rosas Yuen MD) Hyperlipidemia Obesity TIA (transient ischemic attack) had one episode while on vacation in [place]; none since; w/u normal Family History Family History (Updated 10/05/16 @ 08:22 by DOCTOR UNKNOWN) Other Family history of Alzheimer's disease Family history of cardiovascular disease Hypertension Social History Social History Smoking status: Never smoker Alcohol intake: never Substance use: never Substance use type: does not use Lack of Transportation: No Lack of Food: Never True Current Housing: I Have Housing Concerned About Future Housing: No Difficulty Paying Gas/Electric Bills: No Difficulty Paying for Meds: No Currently Unemployed: No Education: High School Diploma/GED Difficulty w/ Childcare or Family Care: No Living arrangements: alone Gender identity (if
[2023-01-26 14:00] VITALS: BP 134/56; PULSE 87; RESP 14; TEMP 36.8; O2SAT 99
[2023-01-26] MEDS: ATORVASTATIN 40 MG TABLET 80 MG PO (17:23)
[2023-01-26] MEDS: ESCITALOPRAM OXALATE 5 MG TABLET PO (17:23)
[2023-01-26 20:06] VITALS: BP 140/60; PULSE 80; RESP 16; TEMP 36.2; O2SAT 96
[2023-01-27 05:26] VITALS: BP 115/48; PULSE 74; RESP 16; TEMP 36.5; O2SAT 92
[2023-01-27] MEDS: cefTRIAXone 2 GM/NS 100 ML 2 GM/100 ML BAG IVPB ×2 (05:30→17:38)
[2023-01-27 06:50] LABS: Basophils Percent Auto 0.3 % (0.2-1.2); Eosinophils Absolute Auto 0.1 K/mm3 (0-0.3); Eosinophils Percent Auto 1.6 % (0-4.4); Hematocrit 34.4 % (37.0-47.0); Hemoglobin 10.7 g/dL (12.0-15.0); Immature Granulocyte Absolute 0.03 K/mm3 (0.00-0.031); Immature Granulocyte Percent A 0.4 % (0-0.5); Lymphocytes Absolute Auto 1.47 K/mm3 (0.9-3.2); Lymphocytes Percent Auto 18.5 % (18.3-44.2); Mean Corpuscular HGB Conc 31.1 g/dl (32-36); Mean Corpuscular Hemoglobin 28.9 pg (26-34); Mean Platelet Volume 8.6 fl (7.4-10.4); Monocytes Absolute Auto 0.7 K/mm3 (0.1-0.6); Monocytes Percent Auto 9.2 % (2.6-8.5); Neutrophils Absolute Auto 5.6 K/mm3 (1.3-6.7); Platelet Count Result 250 k/mm3 (150-375); White Blood Count 7.9 K/mm3 (4.5-10.0)
[2023-01-27 07:03] LABS: Alanine Aminotransferase 13 U/L (6-35); Albumin Level 3.5 g/dL (3.5-5.1); Alkaline Phosphatase 110 U/L (38-126); Anion Gap 6 mmol/L (8-16); Aspartate Amino Transferase 24 U/L (14-36); Bilirubin,Total 0.5 mg/dL (0.2-1.3); Blood Urea Nitrogen 20 mg/dL (7-17); Calcium 8.5 mg/dL (8.4-10.2); Carbon Dioxide 27 mmol/L (22-30); Chloride 103 mmol/L (98-107); Estimated CRCL calculation 51 ml/min; Estimated Glomerular Filt Rate > 60; Glucose 114 mg/dL (65-110); Potassium 3.8 mmol/L (3.4-5.0); Sodium 136 mmol/L (137-145)
[2023-01-27 08:00] VITALS: PULSE 74; RESP 16; O2SAT 92
[2023-01-27 08:56] LABS: Hepatitis B Surface Antigen Negative (Negative)
--- NOTE | 2023-01-27 08:56 | WPDGIPROGNO ---
Progress Note: A&P Assessment and Plan (1) SBP (spontaneous bacterial peritonitis): Code(s): K65.2 - Spontaneous bacterial peritonitis Status: Acute Assessment and Plan: Patient with apparent spontaneous bacterial peritonitis. Etiology unclear. CT scan imaging raises the question of micronodular cirrhosis. Also a question of whether there could be carcinomatosis. Await results of ascitic fluid analysis. Will start low-dose diuretic. Low-salt diet. Daily weights. Laboratory workup in progress for possible underlying cirrhosis. Await cytology results. (2) Abnormal CT scan: Code(s): R93.89 - Abnormal findings on diagnostic imaging of other specified body structures Status: Acute Assessment and Plan: CT scan imaging revealed ascites. Now known to be consistent with SBP. There is a question of underlying cirrhosis as well as a question of possible carcinomatosis. Await cytology. Liver biopsy may be considered ultimately but we would be safer if ascitic fluid has diminished. (3) History of colon polyps: Code(s): Z86.010 - Personal history of colonic polyps Status: Acute Assessment and Plan: Benign colon polyps noted in past. Subjective Date/time seen: 01/27/23 08:56 Interval history: Patient alert. Reports being fairly comfortable. Some residual vague diffuse abdominal pain but is improved somewhat. Tolerating diet. Review of Systems Review of Systems: Review of systems noncontributory. Exam Narrative: Physical exam reveals patient to be alert. Vital signs stable. HEENT exam is unremarkable she is anicteric. Lungs are clear. Heart without murmur. Abdomen bowel sounds are present soft , Mild tenderness diffusely. Modest distention noted. No obvious shifting dullness. No obvious organomegaly. Objective Data Vital Signs Vital Signs: Vital Signs - 24 hr 01/26/23 10:00 01/26/23 14:00 01/26/23 20:00 Temperature 98.3 F Pulse Rate 81 87 Respiratory Rate 16 14 Blood Pressure 123/53 L 134/56 L Pulse Oximetry 98 99 Oxygen Delivery Room Air 01/26/23 20:06 01/27/23 05:26 Temperature 97.2 F L 97.7 F Pulse Rate 80 74 Respiratory Rate 16 16 Blood Pressure 140/60 115/48 L Pulse Oximetry 96 92 Oxygen Delivery Intake/Output Intake/Output: Intake & Output 01/24/23 01/25/23 01/26/23 01/27/23 23:59 23:59 23:59 23:59 Intake Total 100 768 Balance 100 768 Meds/Results Medications: Active Medications Generic Name Dose Route Start Last Admin Trade Name Melinda PRN Reason Stop Dose Admin Aspirin 325 mg 01/26/23 08:00 01/26/23 08:25 Aspirin 325 Mg Tablet PO 325 mg DAILY@0800 [facility] Administration Atorvastatin Calcium 80 mg 01/26/23 18:00 01/26/23 17:23 Atorvastatin 40 Mg Tablet PO 80 mg QPM [facility] Administration Escitalopram Oxalate 5 mg 01/26/23 18:00 01/26/23 17:23 Escitalopram Oxalate 5 Mg Tablet PO 5 mg QPM [facility] Administration Fentanyl Citrate 50 mcg 01/25/23 17:39 Fentanyl Citrate Inj (*Crx) 100 Mcg/2 Ml Vial IV PUSH Q2H PRN Pain Rated 7-10 Ceftriaxone Sodium 2 gm in 100 mls @ 200 mls/hr 01/26/23 06:00 01/27/23 05:30 Rocephin 2 Gm/Ns 100 Ml IVPB 200 mls/hr Q12H [facility] Administration Non-Formulary Medication 1 each 01/26/23 09:00 Nonformulary Nutritional Supplement XX 02/25/23 08:59 DAILY [facility] Ondansetron HCl 4 mg 01/25/23 17:39 Ondansetron Inj 4 Mg/2 Ml Vial IV PUSH Q4H PRN Nausea Pantoprazole Sodium 40 mg 01/26/23 09:00 01/26/23 08:25 Pantoprazole 40 Mg Tablet PO 40 mg QAM [facility] Administration Spironolactone 25 mg 01/27/23 09:00 Spironolactone 25 Mg Tablet PO BID [facility] Labs Labs: Laboratory Results - last 24 hr 01/26/23 01/27/23 01/27/23 16:44 06:43 06:45 WBC 7.9 RBC 3.70 L Hgb 10.7 L Hct 34.4 L MCV 93.0 MCH 28.9 MCHC 31.1 L RDW 14.0 Plt Count 250 MP
[2023-01-27 09:01] LABS: HAV RESULT Negative (Negative); Hepatitis B Core IgM Result Negative (Negative)
[2023-01-27 09:13] LABS: Hepatitis C Virus Antibody Negative (Negative)
--- NOTE | 2023-01-27 09:13 | PM.IMPN ---
Progress Note: A&P Assessment and Plan (1) SBP (spontaneous bacterial peritonitis): Code(s): K65.2 - Spontaneous bacterial peritonitis Status: Acute Assessment and Plan: Rocephin initiated 01/25 Paracentesis 01/25 showed elevated PMNs consistent with SBP, follow-up cytology and culture results (2) Abdominal pain: Code(s): R10.9 - Unspecified abdominal pain Status: Acute Assessment and Plan: See above (3) Abdominal ascites: Code(s): R18.8 - Other ascites Status: Inactive Assessment and Plan: New onset, unsure of etiology, concerning for underlying carcinomatosis GI consult ordered and appreciated, may also need Oncology consult, hold off for now Follow-up cytology from paracentesis Recommending low-salt diet, started on low-dose diuretic Plan DVT prophylaxis with SCDs GI prophylaxis with PPI Code status full code Subjective Date/time seen: 01/27/23 09:13 Interval history: 82-year-old female with history of GERD, hyperlipidemia and depression presenting with abdominal pain and found to have ascites, concerning for underlying carcinomatosis, status post paracentesis 01/25. No overnight events noted. No chest pain or shortness of breath. No nausea, vomiting or diarrhea. No fevers or chills. Patient feels much better than yesterday and is eager to go home. Review of Systems Review of Systems: 12 point review of systems was assessed and was negative except as noted in the HPI Exam Narrative: General: No acute distress, alert and oriented per baseline HEENT: Atraumatic, normocephalic, mucous membranes moist CV: Regular rate and rhythm, S1, S2 Lungs: Clear to auscultation bilaterally, no rales or crackles noted, no wheezes, good air entry Abdomen: Soft, nontender, mildly distended Extremities: Normal to inspection Skin: No rashes noted, no lesions or wounds seen Psych: Euthymic, normal affect Objective Data Vital Signs Vital Signs: Vital Signs - 24 hr 01/26/23 10:00 01/26/23 14:00 01/26/23 20:00 Temperature 98.3 F Pulse Rate 81 87 Respiratory Rate 16 14 Blood Pressure 123/53 L 134/56 L Pulse Oximetry 98 99 Oxygen Delivery Room Air 01/26/23 20:06 01/27/23 05:26 Temperature 97.2 F L 97.7 F Pulse Rate 80 74 Respiratory Rate 16 16 Blood Pressure 140/60 115/48 L Pulse Oximetry 96 92 Oxygen Delivery Intake/Output Intake/Output: Intake & Output 01/24/23 01/25/23 01/26/23 01/27/23 23:59 23:59 23:59 23:59 Intake Total 100 768 Balance 100 768 Meds/Results Medications: Active Medications Generic Name Dose Route Start Last Admin Trade Name Freq PRN Reason Stop Dose Admin Aspirin 325 mg 01/26/23 08:00 01/26/23 08:25 Aspirin 325 Mg Tablet PO 325 mg DAILY@0800 [facility] Administration Atorvastatin Calcium 80 mg 01/26/23 18:00 01/26/23 17:23 Atorvastatin 40 Mg Tablet PO 80 mg QPM [facility] Administration Escitalopram Oxalate 5 mg 01/26/23 18:00 01/26/23 17:23 Escitalopram Oxalate 5 Mg Tablet PO 5 mg QPM [facility] Administration Fentanyl Citrate 50 mcg 01/25/23 17:39 Fentanyl Citrate Inj (*Crx) 100 Mcg/2 Ml Vial IV PUSH Q2H PRN Pain Rated 7-10 Ceftriaxone Sodium 2 gm in 100 mls @ 200 mls/hr 01/26/23 06:00 01/27/23 05:30 Rocephin 2 Gm/Ns 100 Ml IVPB 200 mls/hr Q12H [facility] Administration Non-Formulary Medication 1 each 01/26/23 09:00 Nonformulary Nutritional Supplement XX 02/25/23 08:59 DAILY [facility] Ondansetron HCl 4 mg 01/25/23 17:39 Ondansetron Inj 4 Mg/2 Ml Vial IV PUSH Q4H PRN Nausea Pantoprazole Sodium 40 mg 01/26/23 09:00 01/26/23 08:25 Pantoprazole 40 Mg Tablet PO 40 mg QAM [facility] Administration Spironolactone 25 mg 01/27/23 09:00 Spironolactone 25 Mg Tablet PO BID [facility] Labs Labs: Laboratory Results - last 24 hr 01/26/23 01/27/23 01/27/23 16:44 06:43 06:45 WBC 7.9 RBC
[2023-01-27] MEDS: SPIRONOLACTONE 25 MG TABLET PO ×2 (10:26→17:38)
[2023-01-27] MEDS: PANTOPRAZOLE 40 MG TABLET PO (10:27)
[2023-01-27] MEDS: ASPIRIN 325 MG TABLET PO (10:27)
[2023-01-27 14:00] VITALS: BP 139/66; PULSE 84; RESP 18; TEMP 37.2; O2SAT 99
[2023-01-27] MEDS: ATORVASTATIN 40 MG TABLET 80 MG PO (17:38)
[2023-01-27] MEDS: ESCITALOPRAM OXALATE 5 MG TABLET PO (17:38)
[2023-01-27 20:00] VITALS: PULSE 83; RESP 20; O2SAT 94
[2023-01-27 21:07] VITALS: BP 133/62; PULSE 83; RESP 20; TEMP 36.5; O2SAT 94
[2023-01-28] MEDS: cefTRIAXone 2 GM/NS 100 ML 2 GM/100 ML BAG IVPB ×2 (05:13→16:08)
[2023-01-28 06:00] VITALS: BP 103/61; PULSE 70; RESP 18; TEMP 36.5; O2SAT 95
[2023-01-28 06:09] LABS: Basophils Percent Auto 0.1 % (0.2-1.2); Eosinophils Absolute Auto 0.2 K/mm3 (0-0.3); Eosinophils Percent Auto 2.1 % (0-4.4); Hematocrit 32.4 % (37.0-47.0); Immature Granulocyte Absolute 0.03 K/mm3 (0.00-0.031); Immature Granulocyte Percent A 0.4 % (0-0.5); Lymphocytes Absolute Auto 1.56 K/mm3 (0.9-3.2); Lymphocytes Percent Auto 19.3 % (18.3-44.2); Mean Corpuscular HGB Conc 30.9 g/dl (32-36); Mean Corpuscular Hemoglobin 28.7 pg (26-34); Mean Corpuscular Volume 93.1 fl (80-100); Mean Platelet Volume 9.1 fl (7.4-10.4); Monocytes Absolute Auto 0.8 K/mm3 (0.1-0.6); Monocytes Percent Auto 9.7 % (2.6-8.5); Neutrophils Absolute Auto 5.5 K/mm3 (1.3-6.7); Neutrophils Percent Auto 68.4 % (45.5-73.1); Platelet Count Result 249 k/mm3 (150-375); Red Blood Count 3.48 M/mm3 (4.2-5.4); Red Cell Distribution Width 13.8 % (11.5-14.5); White Blood Count 8.1 K/mm3 (4.5-10.0)
[2023-01-28 06:30] LABS: Alanine Aminotransferase 11 U/L (6-35); Albumin Level 3.1 g/dL (3.5-5.1); Alkaline Phosphatase 95 U/L (38-126); Anion Gap 7 mmol/L (8-16); Aspartate Amino Transferase 22 U/L (14-36); Bilirubin,Total 0.3 mg/dL (0.2-1.3); Blood Urea Nitrogen 20 mg/dL (7-17); Calcium 8.1 mg/dL (8.4-10.2); Carbon Dioxide 24 mmol/L (22-30); Chloride 106 mmol/L (98-107); Estimated CRCL calculation 52 ml/min; Estimated Glomerular Filt Rate > 60; Glucose 112 mg/dL (65-110); Sodium 137 mmol/L (137-145)
[2023-01-28 08:00] VITALS: O2SAT 95
[2023-01-28] MEDS: SPIRONOLACTONE 25 MG TABLET PO ×2 (08:07→16:10)
[2023-01-28] MEDS: ASPIRIN 325 MG TABLET PO (08:07)
[2023-01-28] MEDS: PANTOPRAZOLE 40 MG TABLET PO (08:08)
--- NOTE | 2023-01-28 09:46 | WPDGIPROGNO ---
Progress Note: A&P Assessment and Plan (1) UTI (urinary tract infection): Code(s): N39.0 - Urinary tract infection, site not specified Status: Acute Assessment and Plan: Patient with Klebsiella urinary tract infection confirmed by urinalysis. Remains on broad-spectrum antibiotic coverage. (2) SBP (spontaneous bacterial peritonitis): Code(s): K65.2 - Spontaneous bacterial peritonitis Status: Acute Assessment and Plan: Patient with SBP. Ascitic fluid analysis not yet complete. Await cytology results specifically. Continue broad-spectrum antibiotics. Oral antibiotics after discharge suggested for an extended period of time. Aldactone started along with low-salt diet to encourage diuresis. Will monitor daily weights and follow electrolytes. (3) Abnormal CT scan: Code(s): R93.89 - Abnormal findings on diagnostic imaging of other specified body structures Status: Acute Assessment and Plan: CT scan imaging raises the question carcinomatosis. Await cytology of ascitic fluid. (4) History of colon polyps: Code(s): Z86.010 - Personal history of colonic polyps Status: Acute Assessment and Plan: History of colon polyps. Follow-up colonoscopy at 5 year intervals advised. Subjective Date/time seen: 01/28/23 09:46 Interval history: Patient is alert comfortable this morning. She reports being somewhat more bloated and distended this morning. She denies overt abdominal pain. Review of Systems Review of Systems: Review of systems noncontributory. Exam Narrative: Physical exam reveals patient be lying in bed comfortable at rest. Vital signs stable. HEENT exam reveals no icterus. Lungs are clear. Heart without murmur. Abdomen bowel sounds present soft nontender. Only mild distention noted. No specific tenderness nor organomegaly. Objective Data Vital Signs Vital Signs: Vital Signs - 24 hr 01/27/23 14:00 01/27/23 21:07 01/27/23 20:00 Temperature 98.9 F 97.7 F Pulse Rate 84 83 83 Respiratory Rate 18 20 20 Blood Pressure 139/66 133/62 Pulse Oximetry 99 94 94 Oxygen Delivery Room Air 01/28/23 06:00 Temperature 97.7 F Pulse Rate 70 Respiratory Rate 18 Blood Pressure 103/61 Pulse Oximetry 95 Oxygen Delivery Intake/Output Intake/Output: Intake & Output 01/25/23 01/26/23 01/27/23 01/28/23 23:59 23:59 23:59 23:59 Intake Total 100 366 803 1259 Balance 100 251 355 2929 Meds/Results Medications: Active Medications Generic Name Dose Route Start Last Admin Trade Name Duongq PRN Reason Stop Dose Admin Aspirin 325 mg 01/26/23 08:00 01/28/23 08:07 Aspirin 325 Mg Tablet PO 325 mg DAILY@0800 [facility] Administration Atorvastatin Calcium 80 mg 01/26/23 18:00 01/27/23 17:38 Atorvastatin 40 Mg Tablet PO 80 mg QPM [facility] Administration Escitalopram Oxalate 5 mg 01/26/23 18:00 01/27/23 17:38 Escitalopram Oxalate 5 Mg Tablet PO 5 mg QPM [facility] Administration Fentanyl Citrate 50 mcg 01/25/23 17:39 Fentanyl Citrate Inj (*Crx) 100 Mcg/2 Ml Vial IV PUSH Q2H PRN Pain Rated 7-10 Ceftriaxone Sodium 2 gm in 100 mls @ 200 mls/hr 01/26/23 06:00 01/28/23 05:58 Rocephin 2 Gm/Ns 100 Ml IVPB Infused Q12H [facility] Infusion Non-Formulary Medication 1 each 01/26/23 09:00 Nonformulary Nutritional Supplement XX 02/25/23 08:59 DAILY [facility] Ondansetron HCl 4 mg 01/25/23 17:39 Ondansetron Inj 4 Mg/2 Ml Vial IV PUSH Q4H PRN Nausea Pantoprazole Sodium 40 mg 01/26/23 09:00 01/28/23 08:08 Pantoprazole 40 Mg Tablet PO 40 mg QAM [facility] Administration Polyethylene Glycol 238 gm 01/28/23 09:44 Polyethylene Glycol 3350 238 Gm Bottle PO 01/28/23 09:45 ONCE ONE Polyethylene Glycol 17 gm 01/28/23 09:44 Polyethylene Glycol 3350 17 Gm Powd.Pack PO QAM PRN Constipation Spironolactone 25 mg 01/27/23 09:00 01/28/23 08:07 Spironolactone 25 Mg
--- NOTE | 2023-01-28 12:14 | PM.IMPN ---
Progress Note: A&P Assessment and Plan (1) SBP (spontaneous bacterial peritonitis): Code(s): K65.2 - Spontaneous bacterial peritonitis Status: Acute Assessment and Plan: Rocephin initiated 01/25 Paracentesis 01/25 showed elevated PMNs consistent with SBP, follow-up cytology and culture results (2) Abdominal pain: Code(s): R10.9 - Unspecified abdominal pain Status: Acute Assessment and Plan: See above (3) Abdominal ascites: Code(s): R18.8 - Other ascites Status: Inactive Assessment and Plan: New onset, unsure of etiology, concerning for underlying carcinomatosis GI consult ordered and appreciated, may also need Oncology consult, hold off for now Follow-up cytology from paracentesis Recommending low-salt diet, started on low-dose diuretic (4) Constipation: Code(s): K59.00 - Constipation, unspecified Status: Acute Assessment and Plan: miralax + senna-s Plan DVT prophylaxis with SCDs GI prophylaxis with PPI Code status full code Subjective Date/time seen: 01/28/23 12:14 Interval history: 82-year-old female with history of GERD, hyperlipidemia and depression presenting with abdominal pain and found to have ascites, concerning for underlying carcinomatosis, status post paracentesis 01/25. No overnight events noted. No chest pain or shortness of breath. No nausea, vomiting or diarrhea. No fevers or chills. Patient is complaining of some constipation. She would like to stay here until all of the cytology results come back regarding her possible carcinomatosis. Review of Systems Review of Systems: 12 point review of systems was assessed and was negative except as noted in the HPI Exam Narrative: General: No acute distress, alert and oriented per baseline HEENT: Atraumatic, normocephalic, mucous membranes moist CV: Regular rate and rhythm, S1, S2 Lungs: Clear to auscultation bilaterally, no rales or crackles noted, no wheezes, good air entry Abdomen: Soft, nontender, mildly distended Extremities: Normal to inspection Skin: No rashes noted, no lesions or wounds seen Psych: Euthymic, normal affect Objective Data Vital Signs Vital Signs: Vital Signs - 24 hr 01/27/23 14:00 01/27/23 21:07 01/27/23 20:00 Temperature 98.9 F 97.7 F Pulse Rate 84 83 83 Respiratory Rate 18 20 20 Blood Pressure 139/66 133/62 Pulse Oximetry 99 94 94 Oxygen Delivery Room Air 01/28/23 06:00 Temperature 97.7 F Pulse Rate 70 Respiratory Rate 18 Blood Pressure 103/61 Pulse Oximetry 95 Oxygen Delivery Intake/Output Intake/Output: Intake & Output 01/25/23 01/26/23 01/27/23 01/28/23 23:59 23:59 23:59 23:59 Intake Total 100 093 760 3254 Balance 100 470 590 4782 Meds/Results Medications: Active Medications Generic Name Dose Route Start Last Admin Trade Name Freq PRN Reason Stop Dose Admin Aspirin 325 mg 01/26/23 08:00 01/28/23 08:07 Aspirin 325 Mg Tablet PO 325 mg DAILY@0800 [facility] Administration Atorvastatin Calcium 80 mg 01/26/23 18:00 01/27/23 17:38 Atorvastatin 40 Mg Tablet PO 80 mg QPM [facility] Administration Escitalopram Oxalate 5 mg 01/26/23 18:00 01/27/23 17:38 Escitalopram Oxalate 5 Mg Tablet PO 5 mg QPM [facility] Administration Fentanyl Citrate 50 mcg 01/25/23 17:39 Fentanyl Citrate Inj (*Crx) 100 Mcg/2 Ml Vial IV PUSH Q2H PRN Pain Rated 7-10 Ceftriaxone Sodium 2 gm in 100 mls @ 200 mls/hr 01/26/23 06:00 01/28/23 05:58 Rocephin 2 Gm/Ns 100 Ml IVPB Infused Q12H [facility] Infusion Non-Formulary Medication 1 each 01/26/23 09:00 Nonformulary Nutritional Supplement XX 02/25/23 08:59 DAILY [facility] Ondansetron HCl 4 mg 01/25/23 17:39 Ondansetron Inj 4 Mg/2 Ml Vial IV PUSH Q4H PRN Nausea Pantoprazole Sodium 40 mg 01/26/23 09:00 01/28/23 08:08 Pantoprazole 40 Mg Tablet PO 40 mg QAM [facility] Administration Polye
[2023-01-28] MEDS: SENNA/DOCUSATE SODIUM TABLET 1 TAB PO ×2 (12:39→20:42)
[2023-01-28] MEDS: polyethylene glycoL 3350 238 GM BOTTLE PO (12:40)
[2023-01-28 14:00] VITALS: BP 114/73; PULSE 70; RESP 18; TEMP 37.2; O2SAT 95
[2023-01-28] MEDS: ESCITALOPRAM OXALATE 5 MG TABLET PO (16:10)
[2023-01-28] MEDS: ATORVASTATIN 40 MG TABLET 80 MG PO (16:10)
[2023-01-28 20:00] VITALS: PULSE 70; RESP 18; O2SAT 95
[2023-01-28 22:00] VITALS: BP 112/55; PULSE 73; RESP 17; TEMP 36.2; O2SAT 96
[2023-01-29 05:43] VITALS: BP 130/59; PULSE 80; RESP 17; TEMP 36.2; O2SAT 97
[2023-01-29] MEDS: cefTRIAXone 2 GM/NS 100 ML 2 GM/100 ML BAG IVPB (06:17)
[2023-01-29 06:36] LABS: Basophils Percent Auto 0.2 % (0.2-1.2); Eosinophils Absolute Auto 0.2 K/mm3 (0-0.3); Eosinophils Percent Auto 1.9 % (0-4.4); Hematocrit 33.2 % (37.0-47.0); Hemoglobin 10.2 g/dL (12.0-15.0); Immature Granulocyte Absolute 0.04 K/mm3 (0.00-0.031); Immature Granulocyte Percent A 0.5 % (0-0.5); Lymphocytes Percent Auto 19.4 % (18.3-44.2); Mean Corpuscular HGB Conc 30.7 g/dl (32-36); Mean Corpuscular Hemoglobin 28.5 pg (26-34); Mean Corpuscular Volume 92.7 fl (80-100); Mean Platelet Volume 9.3 fl (7.4-10.4); Monocytes Absolute Auto 0.6 K/mm3 (0.1-0.6); Monocytes Percent Auto 7.6 % (2.6-8.5); Neutrophils Absolute Auto 5.8 K/mm3 (1.3-6.7); Neutrophils Percent Auto 70.4 % (45.5-73.1); Platelet Count Result 275 k/mm3 (150-375); Red Blood Count 3.58 M/mm3 (4.2-5.4); Red Cell Distribution Width 13.8 % (11.5-14.5); White Blood Count 8.2 K/mm3 (4.5-10.0)
[2023-01-29 06:48] LABS: Alanine Aminotransferase 11 U/L (6-35); Albumin Level 3.2 g/dL (3.5-5.1); Alkaline Phosphatase 102 U/L (38-126); Anion Gap 5 mmol/L (8-16); Aspartate Amino Transferase 22 U/L (14-36); Bilirubin,Total 0.4 mg/dL (0.2-1.3); Blood Urea Nitrogen 19 mg/dL (7-17); Calcium 8.2 mg/dL (8.4-10.2); Carbon Dioxide 27 mmol/L (22-30); Chloride 104 mmol/L (98-107); Estimated CRCL calculation 52 ml/min; Estimated Glomerular Filt Rate > 60; Glucose 105 mg/dL (65-110); Potassium 3.9 mmol/L (3.4-5.0); Sodium 136 mmol/L (137-145)
[2023-01-29 08:00] VITALS: PULSE 80; RESP 17; O2SAT 97
[2023-01-29] MEDS: SPIRONOLACTONE 25 MG TABLET PO (09:53)
[2023-01-29] MEDS: ASPIRIN 325 MG TABLET PO (09:53)
[2023-01-29] MEDS: PANTOPRAZOLE 40 MG TABLET PO (09:53)
[2023-01-29] MEDS: polyethylene glycoL 3350 17 GM POWD.PACK PO (10:02)
--- NOTE | 2023-01-29 12:49 | WPDGIPROGNO ---
Progress Note: A&P Assessment and Plan (1) SBP (spontaneous bacterial peritonitis): Code(s): K65.2 - Spontaneous bacterial peritonitis Status: Acute Assessment and Plan: Patient with complaints of abdominal distention pain ascitic fluid identified initial analysis shows large amount of PMNs suggesting spontaneous bacterial peritonitis. she may have underlying cirrhosis x-ray imaging suggests possibility of carcinomatosis. Plan to continue oral antibiotics after discharge. Diuretics have been started along with low-salt diet. Daily weights. Currently monitoring electrolytes. (2) Abnormal CT scan: Code(s): R93.89 - Abnormal findings on diagnostic imaging of other specified body structures Status: Acute Assessment and Plan: Question of underlying cirrhosis and possible carcinomatosis. Awaiting final lab studies from paracentesis. (3) History of colon polyps: Code(s): Z86.010 - Personal history of colonic polyps Status: Acute Subjective Date/time seen: 01/29/23 12:49 Interval history: Patient alert comfortable this morning. Tolerating diet. Still notes abdominal distention. No significant change in diuresis after starting diuretics. Histology and studies from ascitic fluid analysis still pending. Review of Systems Review of Systems: Review of systems noncontributory. Exam Narrative: Physical exam reveals patient be alert. Vital signs stable. HEENT exam reveals no icterus. Lungs are clear. Heart without murmur. Abdomen somewhat distended. Question of shifting dullness no organomegaly appreciated. Objective Data Vital Signs Vital Signs: Vital Signs - 24 hr 01/28/23 14:00 01/28/23 20:00 01/28/23 22:00 Temperature 98.9 F 97.1 F L Pulse Rate 70 70 73 Respiratory Rate 18 18 17 Blood Pressure 114/73 112/55 L Pulse Oximetry 95 95 96 Oxygen Delivery Room Air 01/29/23 05:43 01/29/23 08:00 Temperature 97.1 F L Pulse Rate 80 80 Respiratory Rate 17 17 Blood Pressure 130/59 L Pulse Oximetry 97 97 Oxygen Delivery Room Air Intake/Output Intake/Output: Intake & Output 01/26/23 01/27/23 01/28/23 01/29/23 23:59 23:59 23:59 23:59 Intake Total 300 399 7994 240 Balance 610 363 1582 240 Meds/Results Medications: Active Medications Generic Name Dose Route Start Last Admin Trade Name Freq PRN Reason Stop Dose Admin Aspirin 325 mg 10/20/23 08:00 01/29/23 09:53 Aspirin 325 Mg Tablet PO 325 mg DAILY@0800 [facility] Administration Atorvastatin Calcium 80 mg 01/26/23 18:00 01/28/23 16:10 Atorvastatin 40 Mg Tablet PO 80 mg QPM [facility] Administration Escitalopram Oxalate 5 mg 01/26/23 18:00 01/28/23 16:10 Escitalopram Oxalate 5 Mg Tablet PO 5 mg QPM [facility] Administration Fentanyl Citrate 50 mcg 01/25/23 17:39 Fentanyl Citrate Inj (*Crx) 100 Mcg/2 Ml Vial IV PUSH Q2H PRN Pain Rated 7-10 Ceftriaxone Sodium 2 gm in 100 mls @ 200 mls/hr 01/26/23 06:00 01/29/23 06:17 Rocephin 2 Gm/Ns 100 Ml IVPB 200 mls/hr Q12H [facility] Administration Non-Formulary Medication 1 each 01/26/23 09:00 Nonformulary Nutritional Supplement XX 02/25/23 08:59 DAILY [facility] Ondansetron HCl 4 mg 01/25/23 17:39 Ondansetron Inj 4 Mg/2 Ml Vial IV PUSH Q4H PRN Nausea Pantoprazole Sodium 40 mg 01/26/23 09:00 01/29/23 09:53 Pantoprazole 40 Mg Tablet PO 40 mg QAM [facility] Administration Polyethylene Glycol 17 gm 01/28/23 09:44 01/29/23 10:02 Polyethylene Glycol 3350 17 Gm Powd.Pack PO 17 gm QAM PRN Administration Constipation Senna/Docusate Sodium 1 tab 01/28/23 12:15 01/28/23 20:42 Senna/Docusate Sodium Tablet PO 1 tab HS [facility] Administration Spironolactone 25 mg 01/27/23 09:00 01/29/23 09:53 Spironolactone 25 Mg Tablet PO 25 mg BID [facility] Administration Labs Labs: Laboratory Results - last 24 hr 01/29/23 05:54 WBC 8.2 RBC 3.58 L Hgb
[2023-01-29 14:00] VITALS: BP 111/45; PULSE 72; RESP 16; TEMP 36.7; O2SAT 96
--- NOTE | 2023-01-29 16:01 | PM.IMPN ---
Progress Note: A&P Assessment and Plan (1) SBP (spontaneous bacterial peritonitis): Code(s): K65.2 - Spontaneous bacterial peritonitis Status: Acute Assessment and Plan: Rocephin initiated 01/25 Paracentesis 01/25 showed elevated PMNs consistent with SBP, follow-up cytology and culture results (2) Abdominal pain: Code(s): R10.9 - Unspecified abdominal pain Status: Acute Assessment and Plan: See above (3) Abdominal ascites: Code(s): R18.8 - Other ascites Status: Inactive Assessment and Plan: New onset, unsure of etiology, concerning for underlying carcinomatosis GI consult ordered and appreciated, may also need Oncology consult, hold off for now Follow-up cytology from paracentesis Recommending low-salt diet, started on low-dose diuretic (4) Constipation: Code(s): K59.00 - Constipation, unspecified Status: Acute Assessment and Plan: miralax + senna-s Plan DVT prophylaxis with SCDs GI prophylaxis with PPI Code status full code Subjective Date/time seen: 01/29/23 16:01 Interval history: 82-year-old female with history of GERD, hyperlipidemia and depression presenting with abdominal pain and found to have ascites, concerning for underlying carcinomatosis, status post paracentesis 01/25. No overnight events noted. No chest pain or shortness of breath. No nausea, vomiting or diarrhea. No fevers or chills. Constipation resolved. Awaiting cytology results. Review of Systems Review of Systems: 12 point review of systems was assessed and was negative except as noted in the HPI Exam Narrative: General: No acute distress, alert and oriented per baseline HEENT: Atraumatic, normocephalic, mucous membranes moist CV: Regular rate and rhythm, S1, S2 Lungs: Clear to auscultation bilaterally, no rales or crackles noted, no wheezes, good air entry Abdomen: Soft, nontender, mildly distended Extremities: Normal to inspection Skin: No rashes noted, no lesions or wounds seen Psych: Euthymic, normal affect Objective Data Vital Signs Vital Signs: Vital Signs - 24 hr 01/28/23 20:00 01/28/23 22:00 01/29/23 05:43 Temperature 97.1 F L 97.1 F L Pulse Rate 70 73 80 Respiratory Rate 18 17 17 Blood Pressure 112/55 L 130/59 L Pulse Oximetry 95 96 97 Oxygen Delivery Room Air 01/29/23 08:00 01/29/23 14:00 Temperature 98.1 F Pulse Rate 80 72 Respiratory Rate 17 16 Blood Pressure 111/45 L Pulse Oximetry 97 96 Oxygen Delivery Room Air Intake/Output Intake/Output: Intake & Output 01/26/23 01/27/23 01/28/23 01/29/23 23:59 23:59 23:59 23:59 Intake Total 462 201 1828 660 Balance 475 166 0988 660 Meds/Results Medications: Active Medications Generic Name Dose Route Start Last Admin Trade Name Freq PRN Reason Stop Dose Admin Aspirin 325 mg 01/26/23 08:00 01/29/23 09:53 Aspirin 325 Mg Tablet PO 325 mg DAILY@0800 [facility] Administration Atorvastatin Calcium 80 mg 01/26/23 18:00 01/28/23 16:10 Atorvastatin 40 Mg Tablet PO 80 mg QPM [facility] Administration Escitalopram Oxalate 5 mg 01/26/23 18:00 01/28/23 16:10 Escitalopram Oxalate 5 Mg Tablet PO 5 mg QPM [facility] Administration Fentanyl Citrate 50 mcg 01/25/23 17:39 Fentanyl Citrate Inj (*Crx) 100 Mcg/2 Ml Vial IV PUSH Q2H PRN Pain Rated 7-10 Ceftriaxone Sodium 2 gm in 100 mls @ 200 mls/hr 01/26/23 06:00 01/29/23 06:17 Rocephin 2 Gm/Ns 100 Ml IVPB 200 mls/hr Q12H [facility] Administration Non-Formulary Medication 1 each 01/26/23 09:00 Nonformulary Nutritional Supplement XX 02/25/23 08:59 DAILY [facility] Ondansetron HCl 4 mg 01/25/23 17:39 Ondansetron Inj 4 Mg/2 Ml Vial IV PUSH Q4H PRN Nausea Pantoprazole Sodium 40 mg 01/26/23 09:00 01/29/23 09:53 Pantoprazole 40 Mg Tablet PO 40 mg QAM [facility] Administration Polyethylene Glycol 17 gm 01/28/23 09:44 01/29/23 10:02
[2023-01-29] MEDS: ATORVASTATIN 40 MG TABLET 80 MG PO (17:03)
[2023-01-29] MEDS: SPIRONOLACTONE 50 MG TABLET PO (17:03)
[2023-01-29] MEDS: ESCITALOPRAM OXALATE 5 MG TABLET PO (17:03)
[2023-01-29] MEDS: SENNA/DOCUSATE SODIUM TABLET 1 TAB PO (20:09)
[2023-01-29 22:00] VITALS: BP 143/71; PULSE 86; RESP 16; TEMP 36.9; O2SAT 96
[2023-01-30 06:00] VITALS: BP 117/55; PULSE 72; RESP 16; TEMP 36.8; O2SAT 94
[2023-01-30] MEDS: cefTRIAXone 2 GM/NS 100 ML 2 GM/100 ML BAG IVPB (06:03)
[2023-01-30 06:56] LABS: Basophils Percent Auto 0.2 % (0.2-1.2); Eosinophils Absolute Auto 0.1 K/mm3 (0-0.3); Eosinophils Percent Auto 1.6 % (0-4.4); Hematocrit 34.1 % (37.0-47.0); Hemoglobin 10.4 g/dL (12.0-15.0); Immature Granulocyte Absolute 0.03 K/mm3 (0.00-0.031); Immature Granulocyte Percent A 0.3 % (0-0.5); Lymphocytes Absolute Auto 1.69 K/mm3 (0.9-3.2); Lymphocytes Percent Auto 18.9 % (18.3-44.2); Mean Corpuscular HGB Conc 30.5 g/dl (32-36); Mean Corpuscular Hemoglobin 28.4 pg (26-34); Mean Corpuscular Volume 93.2 fl (80-100); Mean Platelet Volume 9.2 fl (7.4-10.4); Monocytes Absolute Auto 0.8 K/mm3 (0.1-0.6); Monocytes Percent Auto 9.2 % (2.6-8.5); Neutrophils Absolute Auto 6.3 K/mm3 (1.3-6.7); Neutrophils Percent Auto 69.8 % (45.5-73.1); Platelet Count Result 312 k/mm3 (150-375); Red Blood Count 3.66 M/mm3 (4.2-5.4); Red Cell Distribution Width 13.9 % (11.5-14.5)
[2023-01-30 08:09] LABS: Alanine Aminotransferase 12 U/L (6-35); Albumin Level 3.4 g/dL (3.5-5.1); Alkaline Phosphatase 107 U/L (38-126); Anion Gap 6 mmol/L (8-16); Aspartate Amino Transferase 22 U/L (14-36); Bilirubin,Total 0.4 mg/dL (0.2-1.3); Blood Urea Nitrogen 20 mg/dL (7-17); Calcium 8.6 mg/dL (8.4-10.2); Carbon Dioxide 27 mmol/L (22-30); Chloride 104 mmol/L (98-107); Estimated CRCL calculation 52 ml/min; Estimated Glomerular Filt Rate > 60; Glucose 101 mg/dL (65-110); Potassium 4.1 mmol/L (3.4-5.0); Sodium 137 mmol/L (137-145)
[2023-01-30] MEDS: PANTOPRAZOLE 40 MG TABLET PO (09:12)
[2023-01-30] MEDS: SPIRONOLACTONE 50 MG TABLET PO (09:13)
[2023-01-30] MEDS: ASPIRIN 325 MG TABLET PO (09:13)
--- NOTE | 2023-01-30 13:54 | WPDGIPROGNO ---
Progress Note: A&P Assessment and Plan (1) SBP (spontaneous bacterial peritonitis): Code(s): K65.2 - Spontaneous bacterial peritonitis Status: Acute Assessment and Plan: Patient with spontaneous bacterial peritonitis. Okay with me for discharge. She will continue diuretics and low-salt diet. Continuing Oral antibiotics long tolerated term is advised. we will see her in follow-up in the office a week or 2 after discharge. Cytology of her ascitic fluid is pending at this time and will need to be reviewed. 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 Also suspicious for carcinomatosis. Patient will follow up in the office. Currently laboratory workup for cirrhosis in progress. Cytology pending from ascitic fluid analysis. Patient may need liver biopsy but hopefully this can be deferred until ascitic fluid diminishes as this will be safer approach. Patient should follow up in the office 1-2 weeks after discharge. May discharge from GI perspective when okay with primary care service. (3) History of colon polyps: Code(s): Z86.010 - Personal history of colonic polyps Status: Acute Subjective Date/time seen: 01/30/23 13:54 Interval history: Patient alert comfortable this morning. Tolerating diet. Continues to have abdominal distention. No severe pain described. Review of Systems Review of Systems: Review of systems noncontributory. Exam Narrative: Physical exam reveals patient be alert. She is afebrile and anicteric. Comfortable at rest. HEENT exam unremarkable. Lungs are clear. Heart without murmur. Abdomen is somewhat distended. No organomegaly or tenderness appreciated. Objective Data Vital Signs Vital Signs: Vital Signs - 24 hr 01/29/23 14:00 01/29/23 20:00 01/29/23 22:00 Temperature 98.1 F 98.4 F Pulse Rate 72 86 Respiratory Rate 16 16 Blood Pressure 111/45 L 143/71 H Pulse Oximetry 96 96 Oxygen Delivery Room Air 01/30/23 06:00 01/30/23 08:00 Temperature 98.3 F Pulse Rate 72 Respiratory Rate 16 Blood Pressure 117/55 L Pulse Oximetry 94 Oxygen Delivery Room Air Intake/Output Intake/Output: Intake & Output 01/27/23 01/28/23 01/29/23 10/24/23 23:59 23:59 23:59 23:59 Intake Total 800 3582 1340 576 Output Total 5 Balance 800 3582 1335 576 Meds/Results Medications: Active Medications Generic Name Dose Route Start Last Admin Trade Name Freq PRN Reason Stop Dose Admin Aspirin 325 mg 01/26/23 08:00 01/30/23 09:13 Aspirin 325 Mg Tablet PO 325 mg DAILY@0800 [facility] Administration Atorvastatin Calcium 80 mg 01/26/23 18:00 01/29/23 17:03 Atorvastatin 40 Mg Tablet PO 80 mg QPM [facility] Administration Escitalopram Oxalate 5 mg 01/26/23 18:00 01/29/23 17:03 Escitalopram Oxalate 5 Mg Tablet PO 5 mg QPM [facility] Administration Fentanyl Citrate 50 mcg 01/25/23 17:39 Fentanyl Citrate Inj (*Crx) 100 Mcg/2 Ml Vial IV PUSH Q2H PRN Pain Rated 7-10 Ceftriaxone Sodium 2 gm in 100 mls @ 200 mls/hr 01/30/23 06:00 01/30/23 06:35 Rocephin 2 Gm/Ns 100 Ml IVPB 01/31/23 06:29 Infused Q24H [facility] Infusion Non-Formulary Medication 1 each 01/26/23 09:00 Nonformulary Nutritional Supplement XX 02/25/23 08:59 DAILY [facility] Ondansetron HCl 4 mg 01/25/23 17:39 Ondansetron Inj 4 Mg/2 Ml Vial IV PUSH Q4H PRN Nausea Pantoprazole Sodium 40 mg 01/26/23 09:00 01/30/23 09:12 Pantoprazole 40 Mg Tablet PO 40 mg QAM [facility] Administration Polyethylene Glycol 17 gm 01/28/23 09:44 01/29/23 10:02 Polyethylene Glycol 3350 17 Gm Powd.Pack PO 17 gm QAM PRN Administration Constipation Senna/Docusate Sodium 1 tab 01/28/23 12:15 01/29/23 20:09 Senna/Docusate Sodium Tablet PO 1 tab
[2023-01-30 14:00] VITALS: BP 141/65; PULSE 78; RESP 26; TEMP 36.4; O2SAT 95
--- NOTE | 2023-01-30 14:19 | PM.DS ---
DS: Admitting Diagnosis Discharge Date 01/30/23 Admitting Diagnosis abdominal pain DS: Discharge Diagnosis Discharge Diagnosis (1) SBP (spontaneous bacterial peritonitis): Code(s): K65.2 - Spontaneous bacterial peritonitis Status: Acute Assessment and Plan: Rocephin initiated 01/25 Paracentesis 01/25 showed elevated PMNs consistent with SBP, follow-up cytology and culture results (2) Abdominal pain: Code(s): R10.9 - Unspecified abdominal pain Status: Acute Assessment and Plan: See above (3) Abdominal ascites: Code(s): R18.8 - Other ascites Status: Inactive Assessment and Plan: New onset, unsure of etiology, concerning for underlying carcinomatosis GI consult ordered and appreciated, may also need Oncology consult, hold off for now Follow-up cytology from paracentesis Recommending low-salt diet, started on low-dose diuretic (4) Constipation: Code(s): K59.00 - Constipation, unspecified Status: Acute Assessment and Plan: miralax + senna-s Plan DVT prophylaxis with SCDs GI prophylaxis with PPI Code status full code DS: Summary Hospital Course Hospital Course: 82-year-old female with history of GERD, hyperlipidemia and depression presenting with abdominal pain and found to have ascites, concerning for underlying carcinomatosis, status post paracentesis 01/25. Paracentesis 01/25 showed elevated PMNs consistent with SBP, follow-up cytology and culture results. New onset, unsure of etiology, concerning for underlying carcinomatosis GI consult ordered and appreciated, may also need Oncology consult, hold off for now Follow-up cytology from paracentesis Recommending low-salt diet, started on low-dose diuretic Please see above and med rec for details. Patient was discharged in stable condition with close outpatient follow up. Time Spent with Patient Time attestation: Total time spent providing and/or coordinating discharge services: Exam Narrative: General: No acute distress, alert and oriented per baseline HEENT: Atraumatic, normocephalic, mucous membranes moist CV: Regular rate and rhythm, S1, S2 Lungs: Clear to auscultation bilaterally, no rales or crackles noted, no wheezes, good air entry Abdomen: Soft, nontender, mildly distended Extremities: Normal to inspection Skin: No rashes noted, no lesions or wounds seen Psych: Euthymic, normal affect DS: Data Data Completed and Pending Labs on day of discharge: Labs from last 24 hours 01/30/23 06:09 WBC 9.0 RBC 3.66 L Hgb 10.4 L Hct 34.1 L MCV 93.2 MCH 28.4 MCHC 30.5 L RDW 13.9 Plt Count 312 MPV 9.2 Immature Gran % (Auto) 0.3 Neut % (Auto) 69.8 Lymph % (Auto) 18.9 Grimes % (Auto) 9.2 H Eos % (Auto) 1.6 Baso % (Auto) 0.2 Lymph # (Auto) 1.69 Grimes # (Auto) 0.8 H Eos # (Auto) 0.1 Baso # (Auto) 0.0 Abs Immat Gran (auto) 0.03 Absolute Neuts (auto) 6.3 Absolute Nucleated RBC 0.0 Nucleated RBC % 0.0 Sodium 137 Potassium 4.1 Chloride 104 Carbon Dioxide 27 Anion Gap 6 L BUN 20 H Creatinine 0.70 Estim Creat Clear Calc 52 Estimated GFR > 60 Glucose 101 Calcium 8.6 Total Bilirubin 0.4 AST 22 ALT 12 Alkaline Phosphatase 107 Total Protein 6.0 L Albumin 3.4 L Preliminary micro results at discharge 01/25/23 18:00 Blood Culture - Preliminary Blood 01/25/23 18:00 Blood Culture - Preliminary Blood Discharge Plan Discharge Attending physician on discharge: Jailene Mueller Consulting providers: Rosas Yuen Discharging Clinician: Jailene Mueller Patient Disposition: Home, Self-Care Activity: as tolerated Diet: as tolerated Patient Instructions: Antibiotic Form Stand Alone Forms: General Discharge Information Follow-up/Referrals: Louis Montanez MD [Physician] - Debby,LEXX Andrews- [Primary Care Provider] - Rosas Yuen MD [Physician] -
--- NOTE | 2023-01-30 15:51 | PC.NURSE ---
iv out, patient picked up by family member, d/c papers signed, no questions, taken out by wheelchair.
[2023-01-30 21:28] LABS: Mitochondrial (M2) Ab (IgG) <=20.0 U (<=20.0)
[2023-02-01 13:12] LABS: Ceruloplasmin 42 mg/dL (18-53)
[2023-02-02 17:12] LABS: Alpha Fetoprotein Tumor Marker 2.8 ng/mL (<6.1)
== END 2023-01-30 15:30 | disposition home or self-care (01) | DRG 372 ==
LOC: ANHED 17:54 → ANH3MEDSUR 18:41
PROVIDERS: Internal Medicine Gastroenterology; Admitting Provider Chiropractor; Emergency Provider Emergency Medicine; PCP Nurse Practitioner Family; Visit Provider Student in an Organized Health Care Education/Training Program
DX: K65.2 Spontaneous bacterial peritonitis (principal); R18.8 Other ascites; E78.5 Hyperlipidemia, unspecified; E66.9 Obesity, unspecified; F32.A Depression, unspecified; K21.9 Gastro-esophageal reflux disease without esophagitis; Z86.010 Personal history of colon polyps; Z79.82 Long term (current) use of aspirin; Z86.73 Personal history of transient ischemic attack (TIA), and cerebral infarction without residual deficits
CPT/HCPCS: 36415; 49083; 74177; 80053; 80074; 82042; 82105; 82150; 82390; 82728; 82945; 83520; 83615; 83690; 84157; 84478; 85025; 85610; 85730; 86235; 87040; 87070; 87075; 87205; 88104; 88108; 88271; 88275; 88305; 88342; 89051; 96365; 96366; 99284; 99285; A9270; G0378; J0696; Q9967

== ENCOUNTER 2023-03-04 19:33 | Emergency (ER) | payer MEDICARE, SELFPAY ==
[2023-03-04] VITALS (12 sets, daily range): BP systolic 109–162; BP diastolic 60–83; PULSE 71–96; RESP 12–21; TEMP 36.5; O2SAT 95–100
--- NOTE | ~2023-03-04 | CT_ITS ---
EXAMINATION: CT abdomen pelvis w con DATE: 03/04/2023 21:46 INDICATION: abdominal pain, recent sbp, no bowel mvmt in 7 day TECHNIQUE: Computed tomography (CT) of the abdomen and pelvis was performed with 100 mL Omnipaque-350 intravenous contrast. Automated exposure control and iterative reconstruction technique were employe d. The dose-length product was 715.30 mGy-cm. COMPARISON: 01/25/2023. FINDINGS: Lower thorax: Moderate hiatal hernia. Liver: Slightly nodular liver contour.. Biliary/Gallbladder: Gallbladder is absent. No bile duct dilation. Pancreas: Fatty atrophy. Spleen: Normal. Adrenals:No mass. Kidneys: No suspicious mass, obstructing stone, or hydronephrosis. GI tract: Mild distal esophageal and moderate antral wall edema. Mild dilation of the rectum to 5.3 c m, by formed stool. Colonic fluid in the ascending and transverse colon. No small bowel dilation. Nor mal appendix. Mesentery/Peritoneum: Moderate volume ascites. Fluid and soft tissue stranding throughout the mesente ry. Irregular hyperdense debris or thickening along the pelvic sidewalls and dependent pleural surfac e. Retroperitoneum: No mass. Atherosclerotic abdominal aortic and/or arterial calcifications. Pelvis: Partially distended urinary bladder. Absent uterus. Soft Tissues: Soft tissues and body wall unremarkable. Bones: No acute osseous finding. IMPRESSION: Possible early cirrhotic liver changes. Esophagitis/gastritis. Interval resolution of the edema/inflammation and the transverse colon. Similar moderate volume, complex ascites, with inferior peritoneal enhancement/debris. Diffuse mesent cathy edema and stranding, infection and carcinomatosis are not excluded. Mild fecal impaction. Reviewed, dictated and finalized at location K. ERSET PRESS SET UP OPERATOR IMPRESSION: Possible early cirrhotic liver changes. Esophagitis/gastritis. Interval resolution of the edema/inflammation and the transverse colon. Similar moderate volume, complex ascites, with inferior peritoneal enhancement/ debris. Diffuse mesenteric edema and stranding, infection and carcinomatosis ar e not excluded. Mild fecal impaction.
--- NOTE | ~2023-03-04 | XR_ITS ---
EXAMINATION: XR chest 1V portable Exam Date/Time: 03/04/2023 20:39 REFURBISH TECHNICIAN HISTORY: cough Comparison: 01/01/2009. RESULT: Lines, tubes, and devices: None. Lungs and pleura: Streaky bibasilar opacities, likely atelectasis, otherwise clear. Cardiomediastinal silhouette: Stable. Other: No acute osseous or upper abdominal finding. IMPRESSION: No acute cardiopulmonary process. Reviewed, dictated and finalized at location K. RBISH TECHNICIAN
--- NOTE | 2023-03-04 20:32 | ED.GENADULT ---
HPI - General Adult General Chief complaint: Nausea/Vomiting/Diarrhea Stated complaint: n/v, dizziness, constipation Time Seen by Provider: 03/04/23 20:20 History of Present Illness HPI narrative: Patient is a 82-year-old female who presents to emergency department with chief complaint of abdominal pain nausea vomiting and dizziness. The patient reports that she was recently diagnosed with ascites had a tap had SBP and then ultimately has been found to have a neoplasm the 3rd determining what the primary is. Patient states that she went to [place] and just got back has not had a bowel movement in 7 days the patient reports she is passing gas denies fever reports that she has had 2 episodes of vomiting and had had nausea she also reports that she had a couple of episodes of dizziness which she described as feeling lightheaded. Related Data Home Medications Medication Instructions Recorded Confirmed aspirin 325 mg tablet 325 mg PO DAILY 08/28/19 01/25/23 atorvastatin 80 mg tablet 80 mg PO QPM 08/28/19 01/25/23 coenzyme Q10 100 mg capsule 100 mg PO DAILY 08/28/19 01/25/23 (CoQ-10) omeprazole 20 mg capsule,delayed 20 mg PO DAILY 08/28/19 01/25/23 release escitalopram oxalate 5 mg tablet 5 mg PO QPM anxiety 01/25/23 01/25/23 ibuprofen 600 mg tablet 600 mg PO TID PRN Pain 01/25/23 01/25/23 Allergies Allergy/AdvReac Type Severity Reaction Status Date / Time No Known Allergies Allergy Verified 02/07/23 15:25 Review of Systems Review of Systems: A 10 system review of systems was completed on the patient and is negative except for what is stated in the HPI. Nursing and ancillary documentation was reviewed. [facility], [facility] Past Medical History Medical History Hyperlipidemia Obesity TIA (transient ischemic attack) had one episode while on vacation in [place]; none since; w/u normal Family History Family History Other Family history of Alzheimer's disease Family history of cardiovascular disease Hypertension Social History Social History Smoking status: Never smoker Alcohol intake: never Substance use: never Substance use type: does not use Lack of Transportation: No Lack of Food: Never True Current Housing: I Have Housing Concerned About Future Housing: No Difficulty Paying Gas/Electric Bills: No Difficulty Paying for Meds: No Currently Unemployed: No Education: High School Diploma/GED Difficulty w/ Childcare or Family Care: No Living arrangements: alone Gender identity (if verbalized by the patient): Female Spiritual care concerns: No Exam Narrative: GENERAL: Well-appearing, well-nourished, and in no acute distress. HEAD: Normocephalic, atraumatic. EYES: PERRLA and EOMI. ENT: Nares clear, no rhinorrhea or epistaxis. Mucous membranes moist. NECK: Supple. CHEST: Clear to auscultation. No respiratory distress. HEART: Regular rate and rhythm. No murmur heard. Normal peripheral pulses. ABDOMEN: Soft, mild tenderness in the left upper quadrant, nondistended, normal active bowel sounds. EXTREMITIES: Normal range of motion. No edema. SKIN: Warm, dry, no rash. NEURO: No focal deficits. Alert and oriented x3. PSYCH: Normal mood and affect. Course Vital Signs Vital signs: Vital Signs Temperature 36.5 C 03/04/23 19:36 Pulse Rate 90 03/04/23 19:36 Respiratory Rate 18 03/04/23 19:36 Blood Pressure 142/60 H 03/04/23 19:36 Pulse Oximetry 97 03/04/23 19:36 Oxygen Delivery Room Air 03/04/23 19:36 Temperature 36.5 C 03/04/23 19:36 Pulse Rate 71 03/04/23 23:44 Respiratory Rate 15 03/04/23 23:44 Blood Pressure 126/62 03/04/23 23:44 Pulse Oximetry 95 03/04/23 23:44 Oxygen Delivery Room Air 03/04/23 19:36 Medical Decision Making MDM Narrat
[2023-03-04 21:04] LABS: Basophils Percent Auto 0.2 % (0.2-1.2); Eosinophils Absolute Auto 0.1 K/mm3 (0-0.3); Eosinophils Percent Auto 0.7 % (0-4.4); Hematocrit 35.9 % (37.0-47.0); Hemoglobin 11.2 g/dL (12.0-15.0); Immature Granulocyte Absolute 0.03 K/mm3 (0.00-0.031); Immature Granulocyte Percent A 0.4 % (0-0.5); Lymphocytes Absolute Auto 1.94 K/mm3 (0.9-3.2); Mean Corpuscular HGB Conc 31.2 g/dl (32-36); Mean Corpuscular Hemoglobin 28.1 pg (26-34); Mean Corpuscular Volume 90.2 fl (80-100); Mean Platelet Volume 9.4 fl (7.4-10.4); Monocytes Absolute Auto 0.6 K/mm3 (0.1-0.6); Monocytes Percent Auto 7.5 % (2.6-8.5); Neutrophils Absolute Auto 5.8 K/mm3 (1.3-6.7); Neutrophils Percent Auto 68.2 % (45.5-73.1); Platelet Count Result 239 k/mm3 (150-375); Red Blood Count 3.98 M/mm3 (4.2-5.4); Red Cell Distribution Width 14.7 % (11.5-14.5); White Blood Count 8.4 K/mm3 (4.5-10.0)
[2023-03-04 21:26] LABS: Alanine Aminotransferase 15 U/L (6-35); Albumin Level 4.3 g/dL (3.5-5.1); Alkaline Phosphatase 137 U/L (38-126); Anion Gap 13 mmol/L (8-16); Aspartate Amino Transferase 26 U/L (14-36); Bilirubin,Total 0.8 mg/dL (0.2-1.3); Blood Urea Nitrogen 35 mg/dL (7-17); Calcium 9.4 mg/dL (8.4-10.2); Carbon Dioxide 21 mmol/L (22-30); Chloride 102 mmol/L (98-107); Estimated CRCL calculation 36 ml/min; Estimated Glomerular Filt Rate 53; Glucose 133 mg/dL (65-110); Lipase 48 U/L (23-300); Potassium 4.2 mmol/L (3.4-5.0); Sodium 136 mmol/L (137-145)
[2023-03-04] MEDS: SODIUM CHLORIDE 0.9% IV 1,000 ML 999 ML IV CONT (21:30)
[2023-03-04] MEDS: ONDANSETRON INJ 4 MG/2 ML VIAL IV PUSH (21:31)
[2023-03-04 22:43] LABS: Appearance Urine Clear (Clear); Bilirubin Urine Negative (Negative); Blood Urine Negative (Negative); Color Urine Yellow (Yellow); Glucose Urine UA Negative (Negative); Ketones Urine Negative (Negative); Leukocyte Esterase Ur Negative LEU/UL (Negative); Nitrate Urine Negative (Negative); Protein Urine Negative (Negative); Urobilinogen Urine 0.2 mg/dL (<2.0); pH Urine 5.5 (5.0-9.0)
[2023-03-04 23:01] LABS: Specific Grav Ur 1.037 (1.001-1.035)
[2023-03-04 23:37] LABS: Add Urine Microscopic? NO
[2023-03-05 00:30] VITALS: BP 125/60; PULSE 72; RESP 15; O2SAT 95
== END 2023-03-05 00:30 | disposition home or self-care (01) ==
PROVIDERS: Emergency Provider Emergency Medicine; PCP Nurse Practitioner Family
DX: K59.00 Constipation, unspecified (principal); R10.9 Unspecified abdominal pain; C80.1 Malignant (primary) neoplasm, unspecified; E78.5 Hyperlipidemia, unspecified; E66.9 Obesity, unspecified; Z68.30 Body mass index [BMI] 30.0-30.9, adult; Z86.73 Personal history of transient ischemic attack (TIA), and cerebral infarction without residual deficits; Z79.82 Long term (current) use of aspirin; K20.90 Esophagitis, unspecified without bleeding; K29.70 Gastritis, unspecified, without bleeding
CPT/HCPCS: 36415; 71045; 74177; 80053; 81003; 83690; 85025; 96361; 96374; 99284; J2405; J7030; Q9967

== ENCOUNTER 2023-03-15 14:14 | Outpatient (CLI) | payer MEDICARE, SELFPAY ==
[2023-03-15 14:32] LABS: Basophils Percent Auto 0.3 % (0.2-1.2); Eosinophils Absolute Auto 0.1 K/mm3 (0-0.3); Eosinophils Percent Auto 1.3 % (0-4.4); Hematocrit 36.2 % (37.0-47.0); Hemoglobin 11.2 g/dL (12.0-15.0); Immature Granulocyte Absolute 0.02 K/mm3 (0.00-0.031); Immature Granulocyte Percent A 0.3 % (0-0.5); Lymphocytes Absolute Auto 2.21 K/mm3 (0.9-3.2); Lymphocytes Percent Auto 29.4 % (18.3-44.2); Mean Corpuscular HGB Conc 30.9 g/dl (32-36); Mean Corpuscular Hemoglobin 28.4 pg (26-34); Mean Corpuscular Volume 91.9 fl (80-100); Mean Platelet Volume 8.9 fl (7.4-10.4); Monocytes Absolute Auto 0.6 K/mm3 (0.1-0.6); Monocytes Percent Auto 7.8 % (2.6-8.5); Neutrophils Absolute Auto 4.6 K/mm3 (1.3-6.7); Neutrophils Percent Auto 60.9 % (45.5-73.1); Platelet Count Result 233 k/mm3 (150-375); Red Blood Count 3.94 M/mm3 (4.2-5.4); Red Cell Distribution Width 15.2 % (11.5-14.5); White Blood Count 7.5 K/mm3 (4.5-10.0)
[2023-03-15 17:00] LABS: Alanine Aminotransferase 13 U/L (6-35); Alkaline Phosphatase 150 U/L (38-126); Anion Gap 7 mmol/L (8-16); Aspartate Amino Transferase 27 U/L (14-36); Bilirubin,Total 0.9 mg/dL (0.2-1.3); Blood Urea Nitrogen 20 mg/dL (7-17); Calcium 9.2 mg/dL (8.4-10.2); Carbon Dioxide 30 mmol/L (22-30); Chloride 102 mmol/L (98-107); Estimated Glomerular Filt Rate 60; Glucose 106 mg/dL (65-110); Potassium 4.2 mmol/L (3.4-5.0); Sodium 139 mmol/L (137-145)
[2023-03-17 23:42] LABS: CA-125 439 U/mL (<35)
== END 2023-03-15 14:15 | disposition home or self-care (01) ==
LOC: ANHLAB 14:17
PROVIDERS: PCP Nurse Practitioner Family; Visit Provider Internal Medicine Hematology & Oncology
DX: C56.9 Malignant neoplasm of unspecified ovary (principal)
CPT/HCPCS: 36415; 80053; 85025; 86304

== ENCOUNTER 2023-03-28 12:26 | Outpatient (CLI) | payer MEDICARE, SELFPAY ==
--- NOTE | ~2023-03-28 | MR_ITS ---
EXAMINATION: MR pelvis wo/w con DATE: 03/28/2023 14:22 INDICATION: Malignant neoplasm of ovary. TECHNIQUE: Magnetic resonance imaging (MRI) of the pelvis was performed without and with 15 mL MultiH ance intravenous contrast. COMPARISON: CT abdomen and pelvis 03/04/2023 FINDINGS: There are no dilated loops of bowel. There is diverticulosis of the colon without evidence of diverti culitis. There is a large volume of ascites. There is nodular peroneal thickening, consistent with ca rcinomatosis. IMPRESSION: 1. 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 Reviewed, dictated and finalized at location E. T CUSTODIAN
--- NOTE | ~2023-03-28 | MR_ITS ---
EXAMINATION: MR abdomen wo/w con DATE: 03/28/2023 14:22 INDICATION: Malignant neoplasm of ovary. TECHNIQUE: Magnetic resonance imaging (MRI) of the abdomen was performed without and with 15 mL Multi Laxmi intravenous contrast. COMPARISON: CT abdomen and pelvis 03/04/2023 FINDINGS: The liver is normal. There are changes of cholecystectomy. There is a small sliding hiatal hernia. Th e spleen, pancreas, and adrenal glands are normal. There is cortical thinning of the kidneys. There a re no dilated loops of bowel. There is a large volume of ascites. There is nodular thickening of the peritoneum, consistent with carcinomatosis. There are no pathologically enlarged lymph nodes. IMPRESSION: 1. 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 2. Small sliding hiatal hernia. Reviewed, dictated and finalized at location E. AR STITCHER
--- NOTE | ~2023-03-28 | CT_ITS ---
EXAMINATION:CT diagnostic chest w con DATE: 03/28/2023 14:27 INDICATION: Malignant neoplasm of ovary. TECHNIQUE: Computed tomography (CT) of the chest was performed with 75 mL Omnipaque 350 intravenous c ontrast. Automated exposure control and iterative reconstruction technique were employed. The dose-le ngth product (DLP) was 227.38 mGy-cm. COMPARISON: CT abdomen and pelvis 03/04/2023 FINDINGS: The lungs demonstrate mild atelectasis. There is mild bronchiectasis in right middle lobe a nd lingula. There is mild scarring at the lung apices and in paraspinal right lower lobe. Calcified r ight lung nodules and calcified mediastinal lymph nodes are consistent with old granulomatous disease . No pleural effusion. The heart size is normal. No pericardial effusion. There is a small sliding hi atal hernia. There is a large volume of ascites. There is nodular peritoneal thickening, consistent w ith carcinomatosis. There is severe thoracic spondylosis. IMPRESSION: 1. 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 2. Small sliding hiatal hernia. Reviewed, dictated and finalized at location E. ARY DIRECTOR
== END 2023-03-28 12:27 | disposition home or self-care (01) ==
LOC: ANHIMG 12:35
PROVIDERS: PCP Nurse Practitioner Family; Visit Provider Internal Medicine Hematology & Oncology
DX: C56.9 Malignant neoplasm of unspecified ovary (principal); K44.9 Diaphragmatic hernia without obstruction or gangrene; R18.8 Other ascites
CPT/HCPCS: 71260; 72197; 74183; A9577; Q9967

== ENCOUNTER 2023-04-11 11:44 | Outpatient (CLI) | payer MEDICARE, SELFPAY ==
--- NOTE | ~2023-04-11 | US_ITS ---
EXAMINATION: US paracentesis abd w/image DATE: 04/11/2023 13:08 INDICATION: Ascites. TECHNIQUE: The procedure and its risks and benefits were discussed with the patient. Potential risks discussed included bleeding and infection. The skin was prepped and draped in sterile fashion. 1% lid ocaine was used for local anesthesia. Under ultrasound guidance, a 5 Fr catheter with trochar was adv anced into the ascites in the right lower quadrant. Fluid was aspirated into vacuum bottles. The cath eter was removed, and a dressing was applied. There were no immediate complications. FINDINGS: Ultrasound images demonstrate ascites and the catheter within the fluid. IMPRESSION: 1. Successful ultrasound-guided paracentesis yielding 4350 mL of cloudy dark yellow fluid. Reviewed, dictated and finalized at location A. SETTER IMPRESSION: 1. Successful ultrasound-guided paracentesis yielding 4350 mL of cloudy dark y ellow fluid.
[2023-04-11 12:02] LABS: Platelet Count Result 241 k/mm3 (150-375)
== END 2023-04-11 11:45 | disposition home or self-care (01) ==
LOC: ANHIMG 11:45
PROVIDERS: PCP Nurse Practitioner Family; Referring Provider Radiology Diagnostic Radiology; Visit Provider Internal Medicine Hematology & Oncology
DX: C56.9 Malignant neoplasm of unspecified ovary (principal); R18.0 Malignant ascites
CPT/HCPCS: 36415; 49083; 85049; 85610

== ENCOUNTER 2023-04-20 03:51 | Day surgery (SDC) | payer MEDICARE, SELFPAY ==
[2023-04-17 12:41] VITALS: BMI 30.7
--- NOTE | 2023-04-17 12:42 | PC.NURSE ---
Report to the Outpatient Waiting Room, entrance under the green pavilion located off [facility], at time _1130_ on date _[id number]_. Planned Procedure Time: _130pm_. Time changes happen often and if your time is changed the preop area will call you the afternoon before. - You and your visitor will be asked to self-screen and do not enter if you have any COVID symptoms. - A mask is optional within the hospital at this time. Patients may have clear liquids (water, carbonated beverages, clear teas, apple juice) until 3 hours prior to surgery with a maximum of 20 ounces. - No food from midnight until time of surgery Take the following medications with a SIP of water the morning of surgery: __None DO NOT STOP ANY OF YOUR OTHER PRESCRIPTION MEDICATIONS PRIOR TO SURGERY ?EXCEPT THE FOLLOWING Medications to discontinue per physician ___CoQ10 Date to take last bsdz___[id number] Please no make-up, nail vietnamese, hairspray, perfume, deodorant, or body powder the day of surgery. No jewelry (including any body piercings) or valuables the day of surgery, leave them at home. Please take a shower or bath the night before, or the morning of, surgery with an antibacterial soap. Wear comfortable, loose fitting clothing. - Jewelry must be removed prior to entering the operating room. Rings and piercings that are not removed may be cut off. - The hospital will not accept responsibility for valuables. - Please leave all valuables, including medications, at home the day of surgery. If you are going home after surgery, a licensed [employer] company driver must drive you home. - NO public transportation without another adult if you receive anesthesia. - We recommend that an adult stay with you for 24 hours following discharge. - We also recommend that you do not drive, make important decision, drink alcoholic beverages, or take any drugs that were not prescribed by your health care provider for at least 24 hours after your discharge time. Follow any additional instructions given to you from your surgeon. If you or anyone in your household have experienced Covid symptoms in the past week, please notify your surgeon or the nurse liaison at the phone number below for possible testing. Telephone instructions given to __Donna___and asked if any additional questions and then verbalized understanding. Patient advised to call surgeon office or pre surgery nurse liaison [phone] if any additional questions.
--- NOTE | ~2023-04-20 | XR_ITS ---
EXAMINATION: XR fl guide central line place DATE: 04/20/2023 13:30 AQUATIC INSTRUCTOR INDICATION: INSERT TENISHA CATH . TECHNIQUE: 1 fluoroscopic image of the chest were obtained during Port-A-Cath insertion performed by the surgeon. I was not present in the operating room. Fluoroscopy exposure time was 18 seconds. Air K ramiro 3.3365 mGy. DAP 0.0661 mGym2. COMPARISON: 04/20/2023 at 2:15 PM FINDINGS: A single image demonstrates the Port-A-Cath tip at the cavoatrial junction. IMPRESSION: Fluoroscopic documentation of Port-A-Cath insertion. Please refer to the operative note for complete procedural details . Reviewed, dictated and finalized at location K. TIC INSTRUCTOR IMPRESSION: Fluoroscopic documentation of Port-A-Cath insertion. Please refer to the operat christian note for complete procedural details .
--- NOTE | ~2023-04-20 | XR_ITS ---
XR chest port-a-cath/central DATE: 04/20/2023 14:17 INDICATION: Port-A-Cath insertion TECHNIQUE: Portable AP chest on 04/20/2023 at 1414 hours COMPARISON: 03/04/2023 portable AP chest 03/28/2023 CT chest FINDINGS: Right internal jugular Port-A-Cath catheter tip overlies the lower superior vena cava near the superior cavoatrial junction. No pneumothorax. Heart size appears normal. Thoracic aortic arch calcification. No hilar or mediastinal enlargement. Minimal infiltrate or atelectasis is suggested at the lung bases. The lungs otherwise appear clear. N o pleural effusion or pulmonary vascular congestion or pneumothorax. IMPRESSION: Right Port-A-Cath insertion, distal tip overlying superior vena cava near superior cavoat rial junction Reviewed, dictated and finalized at Location A. Reviewed, dictated and finalized at location B. Y MAKER HELPER IMPRESSION: Right Port-A-Cath insertion, distal tip overlying superior vena cav a near superior cavoatrial junction
[2023-04-20 11:55] VITALS: BP 139/69; PULSE 84; RESP 18; TEMP 36.4; O2SAT 94
[2023-04-20] MEDS: LACTATED RINGERS 1,000 ML 30 ML IV CONT (12:00)
--- NOTE | 2023-04-20 12:44 | WPDANESEPPF ---
Anes - Initial Pre Proc Eval Procedure: Operation Date: 04/20/23 13:30 Proposed Procedures p Insertion Morris Cath - Miguel Pillai DO Date/Time: 04/20/23 12:44 Surgeon: Miguel Pillai DO Pre Op Diagnosis: Malig Neoplasm of Ovary Patient Data Age: 82 Gender: F Height: 1.59 m Weight: 76 kg Last Vital Signs Temp 36.4 C 04/20/23 11:55 Pulse 84 04/20/23 11:55 Resp 18 04/20/23 11:55 BP 139/69 04/20/23 11:55 Pulse Ox 94 04/20/23 11:55 O2 Del Method Room Air 04/20/23 11:55 Allergies Allergy/AdvReac Type Severity Reaction Status Date / Time No Known Allergies Allergy Verified 04/20/23 12:03 Home Medications Medication Instructions Recorded Confirmed Type aspirin 325 mg tablet 325 mg PO DAILY 08/28/19 04/20/23 History atorvastatin 80 mg tablet 80 mg PO QPM 08/28/19 04/20/23 History omeprazole 20 mg capsule,delayed 20 mg PO DAILY 08/28/19 04/20/23 History release escitalopram oxalate 5 mg tablet 5 mg PO QPM anxiety 01/25/23 04/20/23 History ibuprofen 600 mg tablet 600 mg PO TID PRN Pain 01/25/23 04/20/23 History coenzyme Q10 100 mg capsule 300 mg PO DAILY 03/07/23 04/20/23 History (CoQ-10) lorazepam 0.5 mg tablet 0.5 mg PO DAILY PRN Anxiety 03/07/23 04/20/23 History polyethylene glycol 3350 17 17 g PO DAILY 03/07/23 04/20/23 History gram/dose oral powder (Miralax) Laboratory Tests 04/20/23 12:31 APTT Pending Patient hx anesthesia problems: none Family hx anesthesia problems: none Results Review: All pre-operative results and documents have been reviewed as part of the pre-operative evaluation. [facility] Past Medical History Medical History Hyperlipidemia Obesity TIA (transient ischemic attack) had one episode while on vacation in [place]; none since; w/u normal Family History Family History Other Family history of Alzheimer's disease Family history of cardiovascular disease Hypertension Social History Social History Smoking status: Never smoker Alcohol intake: never Substance use: never Substance use type: does not use Lack of Transportation: No Lack of Food: Never True Current Housing: I Have Housing Concerned About Future Housing: No Difficulty Paying Gas/Electric Bills: No Difficulty Paying for Meds: No Currently Unemployed: No Education: High School Diploma/GED Difficulty w/ Childcare or Family Care: No Living arrangements: alone Gender identity (if verbalized by the patient): Female Spiritual care concerns: No Anes - Eval Final PreProcedure Day of Procedure 04/20/23 12:44 Patient weight: overweight Heart: regular rate and rhythm Lungs: clear to auscultation Airway: Mallampati scale class II Neurological: alert and oriented Last oral intake: >/= 8 hours ASA classification: III Emergent: no Anesthetic plan: proceed Anesthesia type and monitoring: general GIVS and standard monitoring Results Review: All pre-operative results and documents have been reviewed as part of the pre-operative evaluation. Informed Consent: The patient's anesthetic plan and its attendant risks and benefits were discussed with the patient/family/POA. Questions were solicited and answers provided to the satisfaction of the patient/family/POA.
--- NOTE | 2023-04-20 12:48 | WPDHPUPDATE1 ---
History and Physical Update Update Date/Time: 04/20/23 12:48 History and Physical has been reviewed, including an updated exam of the patient. There are NO changes in the patient's condition. Risks, benefits, and alternatives have been discussed and questions answered. Patient agrees to proceed with procedure.
--- NOTE | 2023-04-20 12:48 | PM.IMHP ---
H&P: HPI History of Present Illness Date/Time: 04/20/23 12:48 Chief Complaint: Ovarian cancer Narrative: This is an 82-year-old woman who presents with stage IIIC ovarian cancer. 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 She has seen Gynecologic Oncology and Medical Oncology. She is now in need of port placement to start chemotherapy. Review of Systems Review of Systems: All systems reviewed & are unremarkable except as noted in HPI and below Constitutional: Constitutional: Denies chills, Denies fever(s), Denies headache(s) and Denies weight loss Eyes: Eyes: Denies change in vision ENT: Denies dizziness, Denies headache(s), Denies neck mass and Denies throat swelling Cardiovascular: Cardiovascular: Denies chest pain, Denies lightheadedness and Denies dyspnea Respiratory: Respiratory: Denies cough, Denies dyspnea and Denies wheezing Gastrointestinal: Gastrointestinal: Denies abdominal pain, Denies change in bowel habits, Denies nausea and Denies vomiting Genitourinary: Genitourinary: Denies hematuria and Denies dysuria Musculoskeletal: Musculoskeletal: Reports as per HPI Integumentary/Breasts: Skin/Breast: Reports as per HPI Neurologic: Denies dizziness and Denies headache(s) Allergic/Immunologic: Allergic/Immunologic: Denies throat swelling and Denies wheezing PMFSH Past Medical History Medical History Hyperlipidemia Obesity TIA (transient ischemic attack) had one episode while on vacation in [place]; none since; w/u normal Family History Family History Other Family history of Alzheimer's disease Family history of cardiovascular disease Hypertension Social History Social History Smoking status: Never smoker Alcohol intake: never Substance use: never Substance use type: does not use Lack of Transportation: No Lack of Food: Never True Current Housing: I Have Housing Concerned About Future Housing: No Difficulty Paying Gas/Electric Bills: No Difficulty Paying for Meds: No Currently Unemployed: No Education: High School Diploma/GED Difficulty w/ Childcare or Family Care: No Living arrangements: alone Gender identity (if verbalized by the patient): Female Spiritual care concerns: No Meds Home Medications and Allergies Home Medications Medication Instructions Recorded Confirmed Type aspirin 325 mg tablet 325 mg PO DAILY 08/28/19 04/20/23 History atorvastatin 80 mg tablet 80 mg PO QPM 08/28/19 04/20/23 History omeprazole 20 mg capsule,delayed 20 mg PO DAILY 08/28/19 04/20/23 History release escitalopram oxalate 5 mg tablet 5 mg PO QPM anxiety 01/25/23 04/20/23 History ibuprofen 600 mg tablet 600 mg PO TID PRN Pain 01/25/23 04/20/23 History coenzyme Q10 100 mg capsule 300 mg PO DAILY 03/07/23 04/20/23 History (CoQ-10) lorazepam 0.5 mg tablet 0.5 mg PO DAILY PRN Anxiety 03/07/23 04/20/23 History polyethylene glycol 3350 17 17 g PO DAILY 03/07/23 04/20/23 History gram/dose oral powder (Miralax) Allergies Allergy/AdvReac Type Severity Reaction Status Date / Time No Known Allergies Allergy Verified 04/20/23 12:03 Vital Signs Vital Signs - 24 hr 04/20/23 11:55 Temperature 36.4 C Pulse Rate 84 Respiratory Rate 18 Blood Pressure 139/69 Pulse Oximetry 94 Oxygen Delivery Room Air Exam Const: General: no acute distress and alert Orientation/consciousness: patient oriented x3 HENMT: Head: normocephalic and atraumatic Ears: hearing grossly normal bilaterally Face/Nose/Sinus: Normal nares present Mouth: Yes Normal oral and palatal mucosa present Eyes: Periorbital: periorbital findings normal Sclera: sclerae normal EOM: EOMs intact bilaterally Neck: Neck: normal visual inspection, no lymphadenopathy and trachea midline Chest: Ches
[2023-04-20 12:54] LABS: Partial Thromboplastin Time 27.6 SECONDS (22.3-36.8)
[2023-04-20] MEDS: ceFAZolin 2 GM/D5W 50 ML 2 GM/50 ML BAG IVPB (13:06)
[2023-04-20] MEDS: LIDO 1%/EPINEPHRINE 1:100,000 50 ML VIAL 20 ML INFILTRATE (13:43)
[2023-04-20] MEDS: HEPARIN SODIUM, PORCINE 10,000 UNITS/10 ML VIAL 10000 UNITS IV PUSH (13:44)
[2023-04-20] MEDS: HEPARIN SODIUM 5,000 UNITS/ML VIAL 5000 UNITS IRRIGATION (13:46)
--- NOTE | 2023-04-20 13:59 | W.PM.PROC2 ---
Procedure Note - Detailed Date of Procedure 04/20/23 Pre-op Diagnosis Malig Neoplasm of Ovary Post-op Diagnosis Same Procedure Performed Right Internal Jugular tunneled Port-a-Cath placement using ultrasound and fluoroscopic guidance Surgeon Miguel Pillai, DO Anesthesia MAC and Local (0.5% bupivicaine with epinephrine) Indications This is an 82-year-old woman who presented with a recent finding of ovarian cancer. She was noted to have malignant ascites with signs of peritoneal carcinomatosis. 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 She now is in need of Port-A-Cath placement to initiate chemotherapy. Findings SonoSite ultrasound was used to identify the right internal jugular vein. This was visualized as a compressible vessel just lateral to the pulsatile carotid artery. The 18 gauge introducer needle was advanced under ultrasound guidance directly into the lumen of the right internal jugular vein. Dark nonpulsatile blood was aspirated. Fluoroscopy was then used to guide advancement of the guidewire followed by the dilator and sheath. The final fluoroscopic images demonstrated the catheter tip in the distal SVC and no kinks along its path. Description of Procedure Procedure as well as risks, benefits, and alternatives were discussed with patient. Written consent was obtained and placed in chart prior to procedure. Patient was brought back to surgical suite. Was placed supine on operating table. Time-out was done confirm patient procedure. IV sedation was then administered by the Anesthesia Department. The chest and neck area was prepped and draped in sterile fashion using chlorhexidine prep. Patient was placed in Trendelenburg position. SonoSite ultrasound was used to identify the right internal jugular vein. It was visualized as a compressible vessel just lateral to the carotid artery. 1% lidocaine with epinephrine was infiltrated directly over the vessel under ultrasound guidance. An 18 gauge introducer needle was then advanced under ultrasound guidance directly into the right internal jugular vein. Dark nonpulsatile blood was aspirated. A 0.035 in guidewire was then advanced through the needle under fluoroscopic guidance. The guidewire was visualized advancing all the way down into the superior vena cava. 1% lidocaine with epinephrine was then infiltrated on the right anterior chest and along the tract up to the guidewire insertion site. A 3 cm incision was made with a 15 blade scalpel, and electrocautery was then used for dissection down through the subcutaneous tissue to the pectoral fascia. A pocket was created just inferior to the incision using blunt dissection. A small kassandra incision was then also made at the insertion site at the neck. The tunneler was then advanced from the chest incision up to the neck incision and the catheter tubing was brought up through this tract. The dilator and sheath were then advanced over the guidewire under fluoroscopic visualization. The dilator and guidewire were then removed leaving the sheath in place. The catheter tubing was then advanced through the sheath under fluoroscopic guidance. The sheath was unsnapped and carefully peeled away. The catheter tubing was released underneath the neck incision. Fluoroscopy was used to confirm proper placement of the catheter tubing and no kinks along its path. The catheter was then cut to proper length and secured to the port. The port was then accessed with a Manley needle and aspirated and flushed with heparinized saline. The port function with ease. The port was then hep-locked with Hep-Lock solution. The port was then placed within the pocket that was created, and was secured to the fascia using 3 0 Prolene simple interrupted sutures. The patient was flattened out in bed. Babar's fascia was reapproximated using 3 0 Vicryl simple interrupted sutures. The skin of the incisions was then approximated using 4-0 Monoc
[2023-04-20 14:00] VITALS: BP 121/100; PULSE 63; RESP 16; O2SAT 96
[2023-04-20 14:20] VITALS: BP 130/66; PULSE 67; RESP 17; O2SAT 100
[2023-04-20 14:50] VITALS: BP 132/64; PULSE 72; RESP 16; O2SAT 96
== END 2023-04-20 14:56 | disposition home or self-care (01) ==
PROVIDERS: PCP Nurse Practitioner Family; Visit Provider Surgery
PROC: (CPT 36561; principal; 2023-04-20 13:30)
DX: C56.9 Malignant neoplasm of unspecified ovary (principal); R18.0 Malignant ascites; E78.5 Hyperlipidemia, unspecified; Z86.73 Personal history of transient ischemic attack (TIA), and cerebral infarction without residual deficits; E66.9 Obesity, unspecified; Z68.30 Body mass index [BMI] 30.0-30.9, adult; Z79.82 Long term (current) use of aspirin
CPT/HCPCS: 36561; 36415; 77001; 85730; C1788; J0690; J1644; J2371; J2704; J3010; J7030; J7120

== ENCOUNTER 2023-06-18 08:26 | Outpatient (CLI) | payer MEDICARE, SELFPAY ==
--- NOTE | ~2023-06-18 | CT_ITS ---
Clinical Indication: Ovarian cancer CT Scan of the Chest, Abdomen, and Pelvis with Contrast: Technique: Contiguous sections were acquired throughout the chest, abdomen, and pelvis after intraven ous administration of 100 cc of Omnipaque 350. Dose reduction technique was used on this scan by keyur guido automated exposure control and iterative reconstruction technique. The dose-length product (DL P) was 818.74 mGy-cm. COMPARISON: 03/28/2023 Findings: There is no evidence of any significant mediastinal, hilar or axillary lymphadenopathy. The mediastin al soft tissues and vascular structures appear normal. There is no evidence of pleural or pericardial effusion. The lungs are clear. No pulmonary nodules or infiltrates are noted. The liver, spleen, pancreas, adrenals and kidneys are within normal limits. Gallbladder absent. No ev idence of aortic aneurysm. No lymphadenopathy. No bowel obstruction. Scattered areas of bowel thickening and presumably reactive related to the pres ence of ascites.. There is probable peritoneal carcinomatosis predominantly the left upper quadrant, possibly mildly improved from prior exam. Moderate ascites present. Urinary bladder is unremarkable. Patient is post hysterectomy. Impression: Peritoneal carcinomatosis and moderate abdominal ascites, consistent with metastatic ovarian cancer. Extent of peritoneal carcinomatosis is probably similar to possibly mildly improved from prior exam. Reviewed, dictated and finalized at location M. Impression: Peritoneal carcinomatosis and moderate abdominal ascites, consistent with metas tatic ovarian cancer. Extent of peritoneal carcinomatosis is probably similar t o possibly mildly improved from prior exam.
== END 2023-06-18 08:27 | disposition home or self-care (01) ==
PROVIDERS: PCP Nurse Practitioner Family; Visit Provider Internal Medicine Hematology & Oncology
DX: C56.9 Malignant neoplasm of unspecified ovary (principal)
CPT/HCPCS: 71260; 74177; Q9967

== ENCOUNTER 2023-08-20 13:15 | Outpatient (CLI) | payer MEDICARE, SELFPAY ==
[2023-08-20 15:43] LABS: Cholesterol 155 mg/dL (0-200); HDL Direct 45 mg/dL; Triglycerides 148 mg/dL (<150)
[2023-08-20 15:54] LABS: LDL Cholesterol Direct 78 mg/dL
== END 2023-08-20 13:16 | disposition home or self-care (01) ==
LOC: ANHLAB 13:18
PROVIDERS: PCP Nurse Practitioner Family; Visit Provider Internal Medicine Hematology & Oncology
DX: R10.9 Unspecified abdominal pain (principal); K59.00 Constipation, unspecified; E78.00 Pure hypercholesterolemia, unspecified
CPT/HCPCS: 36415; 80061; 84443

== ENCOUNTER 2023-11-07 07:39 | Outpatient (CLI) | payer MEDICARE, SELFPAY ==
--- NOTE | ~2023-11-07 | CT_ITS ---
Clinical Indication: Ovarian cancer CT Scan of the Chest, Abdomen, and Pelvis with Contrast: Technique: Contiguous sections were acquired throughout the chest, abdomen, and pelvis after intraven ous administration of 100 cc of Omnipaque 350. Dose reduction technique was used on this scan by keyur tamezing automated exposure control and iterative reconstruction technique. The dose-length product (DL P) was 690.15 mGy-cm. COMPARISON: 06/18/2023 Findings: There is no evidence of any significant mediastinal, hilar or axillary lymphadenopathy. The mediastin al soft tissues appear normal. There is no evidence of pleural or pericardial effusion. The lungs are clear, aside from calcified right upper lobe granuloma. There is diffuse hepatic steatosis. Cholecystectomy clips are present. The spleen, pancreas, adrenals and kidneys are within normal limits. There are atherosclerotic calcifications of the aorta. No lym phadenopathy. Possible mild wall thickening of distal sigmoid colon/rectum. There is also probable wall thickening of the cecum/proximal ascending colon. No bowel obstruction. Peritoneal carcinomatosis is significant ly improved from prior exam, with probable several scattered small peritoneal nodules/implants presen t. Urinary bladder is unremarkable. No pelvic mass evident. No ascites. Impression: Significant interval improvement in peritoneal carcinomatosis from prior exam, with several scattered residual small peritoneal nodules/implants present. Ascites is resolved. Probable wall thickening of the cecum/proximal ascending colon, as well as the distal sigmoid/rectum. Correlate for infectious/inflammatory colitis. Diffuse hepatic steatosis. Reviewed, dictated and finalized at [facility]. Impression: Significant interval improvement in peritoneal carcinomatosis from prior exam, with several scattered residual small peritoneal nodules/implants present. Asci tang is resolved. Probable wall thickening of the cecum/proximal ascending colon, as well as the distal sigmoid/rectum. Correlate for infectious/inflammatory colitis. Diffuse hepatic steatosis.
== END 2023-11-07 07:40 | disposition home or self-care (01) ==
PROVIDERS: PCP Nurse Practitioner Family; Visit Provider Internal Medicine Hematology & Oncology
DX: C56.9 Malignant neoplasm of unspecified ovary (principal); K76.0 Fatty (change of) liver, not elsewhere classified
CPT/HCPCS: 71260; 74177; Q9967

== ENCOUNTER 2024-02-18 09:41 | Outpatient (CLI) | payer MEDICARE, SELFPAY ==
--- NOTE | ~2024-02-18 | CT_ITS ---
EXAMINATION: CT abdomen pelvis w con DATE: 02/18/2024 10:18 INDICATION: Ovarian cancer TECHNIQUE: Computed tomography (CT) of the abdomen and pelvis was performed with 100 mL Omnipaque-350 intravenous contrast. Automated exposure control and iterative reconstruction technique were employe d. The dose-length product was 519.09 mGy-cm. COMPARISON: 02/07/2024 FINDINGS: Lung bases are clear. Heart size normal. No pericardial or pleural effusion. Distal tip of a central venous catheter extends from the superior vena cava into the right atrium. Small sliding-type hiatal hernia. Cholecystectomy clips the gallbladder fossa. Liver, pancreas, bilateral adrenal glands and ki dneys are normal. Splenic calcification consistent with old granulomatous disease. Bladder is normal. The uterus is not identified and has likely been surgically resected. There is persistent colonic wa ll thickening most prominent at the proximal colon and to lesser degree at the sigmoid colon consiste nt with colitis. No bowel obstruction. Normal appendix. Compressed bladder is unremarkable. The uteru s and bilateral ovaries are not identified and have likely been surgically resected. Small amount of free fluid in the pelvis. No abscess or free intraperitoneal gas. No pathologically enlarged abdomina l or pelvic lymphadenopathy or definitive peritoneal nodularity to suggest residual peritoneal implan ts. Moderate lumbar spondylosis with minimal anterolisthesis L4 on L5. There is unilateral right-side d L5 pars interarticularis defects without spondylolisthesis. IMPRESSION: 1. Persistent colonic wall thickening consistent with colitis which could be infectious, inflammatory , ischemic in etiology or given the chronicity potentially related to radiation or chemotherapy treat ment. 2. Minimal ascites in the deep pelvis. No evident metastatic disease. Reviewed, dictated and finalized at location B. OVOLTAIC INSTALLATION TECHNICIAN IMPRESSION: 1. Persistent colonic wall thickening consistent with colitis which could be in fectious, inflammatory, ischemic in etiology or given the chronicity potentiall y related to radiation or chemotherapy treatment. 2. Minimal ascites in the deep pelvis. No evident metastatic disease.
[2024-02-18 10:07] LABS: Estimated Glomerular Filt Rate > 60
== END 2024-02-18 09:42 | disposition home or self-care (01) ==
LOC: ANHIMG 09:42
PROVIDERS: PCP Nurse Practitioner Family; Visit Provider Internal Medicine Hematology & Oncology
DX: C56.9 Malignant neoplasm of unspecified ovary (principal)
CPT/HCPCS: 74177; Q9967

== ENCOUNTER 2024-05-05 08:15 | Outpatient (CLI) | payer MEDICARE, SELFPAY ==
--- NOTE | ~2024-05-05 | CT_ITS ---
CT of the Abdomen and Pelvis: Indication: Lung cancer Technique: 2.5 mm axial scans were obtained through the abdomen and pelvis following intravenous adm inistration of 100 cc of Omnipaque 350. Dose reduction technique was used on this scan by utilizing a utomated exposure control and iterative reconstruction technique. The dose-length product (DLP) was 4 15.18 mGy-cm. COMPARISON: 02/18/2024 Findings: Scans through the lung bases are unremarkable. The liver, spleen, pancreas, adrenals and kidneys are within normal limits. Cholecystectomy clips are present. There are atherosclerotic calcifications of the aorta. No lymphadenopathy. There is probable diffuse large bowel wall thickening with extensive pericolonic inflammatory change, especially at the rectum. Small amount of pelvic ascites. Images through the pelvis were performed. Urinary bladder unremarkable. No pelvic mass evident. Impression: Diffuse infectious/inflammatory colitis, similar to prior exam. No distinct evidence for active malignancy or metastatic disease. Reviewed, dictated and finalized at [facility]. [employer] CHIEF EXPERIENCE OFFICER Impression: Diffuse infectious/inflammatory colitis, similar to prior exam. No distinct evidence for active malignancy or metastatic disease.
--- OUTSIDE RECORDS SUMMARY | 2024-05-05 08:23 | XMS_ITS | Clinical Summary ---
Author Organization [facility] Address [address] [place] [address] Care Team Providers Care Parts Chaser Name Role Phone Tanika Bardales MD Primary Care Provider [phone] Source Comments [facility],non-owned Affiliates and Associated Physician Practices is amultiple site organization consisting of ambulatory clinics and hospital sitesin [place], [place], [place] and [place]. This disclosure is being madepursuant to the Care Everywhere program and may not contain all information available regarding this patient. Last updated 17.[employer] Allergies No known active allergies Medications * Be aware that medications may not be up to date on this document. Alwaysverify current medications with the patient. Medication Sig Dispensed Refills Start Date End Date Status aspirin (ASPIRIN) 325 MG tablet every 24 hours Active Coenzyme Q10 400 MG Co Q-10 400 mg capsule Take by oral route. Active atorvastatin (LIPITOR) 80 MG tablet atorvastatin 80 mg tablet TAKE 1 TABLET BY MOUTH EVERY DAY 01/22/2019 Active omeprazole (PRILOSEC) 20 MG capsule omeprazole 20 mg capsule,delayed release Take by oral route. Active Active Problems Problem Noted Date Diagnosed Date Anxiety 04/01/2020 Gastroesophageal reflux disease 04/01/2020 Hyperlipidemia 04/01/2020 Borderline high blood pressure 01/22/2019 Social History Tobacco Use Types Packs/Day Years Used Date Smoking Tobacco: Never Assessed Sex and Gender Information Value Date Recorded Sex Assigned at Not on file Gender Identity Not on file Sexual Orientation Not on file Last Filed Vital Signs Vital Sign Reading Time Taken Comments Blood Pressure 138/80 07/12/2020 2:23 PM CDT Pulse 80 07/12/2020 2:23 PM CDT Temperature 36.6 ??C (97.9 ??F) 07/12/2020 2:23 PM CD T Respiratory Rate 20 07/12/2020 2:23 PM CDT Oxygen Saturation 99% 04/01/2020 12:31 PM BREAKFAST SERVER Inhaled Oxygen Concentration - - Weight - - Height - - Body Mass Index - - Plan of Treatment Health Maintenance Due Date Last Done Comments BONE DENSITY TESTING 1940 MEDICARE AWV ? 12 MONTHS 1940 DTAP/TDAP/TD VACCINES (1 - Tdap) 1958 PNEUMOCOCCAL VACCINE 50+ (1 of 1 - PCV) 1989 ZOSTER VACCINE (1 of 2) 1989 Respiratory Syncytial Virus (RSV) Vaccine Pt: or over 60 yrs (1 - 1-dose 75+ series) 2014 COVID-19 VACCINE ( - season) 2023 07/03/2020, 06/04/2020 INFLUENZA VACCINE (#1) 2023 , 01/08/2018, 01/20/2017, Additional history exists DEPRESSION SCREENING 04/09/2024 MEDICARE AWV ? CALENDAR YEAR 2024 HEPATITIS B VACCINE Aged Out No longe r eligible based on patient's age to complete this topic HIB VACCINE Aged Out No longer eligi ble based on patient's age to complete this topic HPV VACCINE Aged Out No longer eligi ble based on patient's age to complete this topic MENINGOCOCCAL (Group B) VACCINE Aged Out No longer eligible based on patient's age to complete this topic MENINGOCOCCAL VACCINE Aged Out No delfino joslyn eligible based on patient's age to complete this topic Care Teams Parts Chaser Relationship Specialty Start Date End Date Tanika Bardales MD [facility] [place] [address] PCP - General 09/09/19
--- OUTSIDE RECORDS SUMMARY | 2024-05-05 08:23 | XMS_ITS | Referral Summary ---
Author Organization [facility] Address [address] [place] [address] Care Team Providers Care Pie Chef Name Role Phone Tanika Bardales MD Primary Care Provider [phone] Source Comments [facility],non-owned Affiliates and Associated Physician Practices is amultiple site organization consisting of ambulatory clinics and hospital sitesin [place], [place], [place] and [place]. This disclosure is being madepursuant to the Care Everywhere program and may not contain all information available regarding this patient. Last updated 17.[employer] Allergies No known active allergies Medications * [...] CDT Oxygen Saturation 99% 04/01/2020 12:31 PM TEST MAN Inhaled Oxygen Concentration - - Weight - - Height - - Body Mass Index - - Plan of Treatment Not on file Care Teams Pie Chef Relationship Specialty Start Date End Date Tanika Bardales MD [address] [place] [address] [address] [place] [id number] (work) PCP - General 09/09/19
--- OUTSIDE RECORDS SUMMARY | 2024-05-05 08:23 | XMS_ITS | Clinical Summary ---
Author Organization [facility] Betzy Montoya Address [address] [place] [address] Care Team Providers Care Top Icer Name Role Phone Unavailable Primary Care Provider Unavailabl e Allergies No known active allergies Medications aspirin (MARISEL) 325 mg tablet Take 325 mg by mouth daily. Active atorvastatin (LIPITOR) 80 mg tablet Take 80 mg by mouth daily. 05/07/19 21 Active escitalopram oxalate (LEXAPRO) 5 mg tablet Take 5 mg by mouth daily. 07/06/19 22 Active omeprazole (PriLOSEC) 20 mg Capsule, Delayed Release(E.C.) Take 20 mg by mouth daily. Active Coenzyme Q10 400 mg Capsule Take 400 mg by mouth daily. Active magnesium citrate solution Take 296 mL by mouth one time only. Active polyethylene glycol (MIRALAX) 17 gram Powder in Packet Take by mouth daily. Active lidocaine-prilo wade (EMLA) 2.5-2.5 % CreamIndication s:Malignant neoplasm of ovary, unspecified laterality (CMS/HCC) Apply to affected area see administration instructions. 30 Gram 1 04/25/19 24 Active ondansetron (ZOFRAN ODT) 8 mg Tablet, Rapid DissolveIndicat ions:Malignant neoplasm of ovary, unspecified laterality (CMS/HCC) Dissolve 1 tablet on top of tongue then swallow with saliva every 8 hours as needed for nausea or vomiting 30 Tablet 1 04/25/19 24 Active IRON, CARBONYL ORAL Take by mouth. Activ e CYANOCOBALAMIN, VITAMIN B-12, ORAL Take by mouth. Activ e dexAMETHasone (DECADRON) 4 mg tabletIndicatio ns:Malignant neoplasm of ovary, unspecified laterality (CMS/HCC) TAKE 1 TABLET BY MOUTH TWICE A DAY THE DAY BEFORE TREATMENT, DAY OF TREATMENT, AND DAY AFTER TREATMENT 6 Tablet 3 08/21/19 24 Active Active Problems Problem Noted Date Diagnosed Date Family history of melanoma 09/13/2023 Encounters Date Type Department Care Team Description 2024 External Device Data STL ABSTRACTION Provider, Abstract 04/28/2024 Orders Only [facility] Oncology and Hematology - Alo 222Agnes Charles [address] Louis Montanez MD Malignant neoplasm of ovary, unspecified laterality (CMS/HCC) 04/25/2024 Orders Only [facility] On[facility] Hematology - Alo 222Agnes Charles [address] Louis Montanez MD 04/21/2024 Orders Only [facility] Oncology and Hematology - Alo 222Agnes [address] Louis Montanez MD Malignant neoplasm of ovary, unspecified laterality (CMS/HCC) 04/17/2024 Telephone [facility] Oncology and Hematology - Alo Agnes Charles [address] [place] [id number] Louis Montanez MD Lab Results 04/14/2024 Orders Only [facility] Hematology - Alo Josselyn Charles [address] [place] [phone] Louis Montanez MD Malignant neoplasm of ovary, unspecified laterality (CMS/HCC) 04/10/2024 Orders Only [facility] Oncology and Hematology - Alo 222Agnes [address] [place] [phone] Louis Montanez MD 04/07/2024 Orders Only [facility] Oncology and Hematology - [place]o Josselyn Charles [address] [place] [phone] Louis Montanez MD Malignant neoplasm of ovary, unspecified laterality (CMS/HCC) 04/04/2024 Orders Only [facility] Oncology and Hematology - Alo 222Agnes Charles [address] Louis Montanez MD 04/03/2024 9:00 AM LOGISTICS OPERATIONS DIRECTOR Office Visit [facility] Oncology and Hematology [facility] Josselyn Charles [address] Regine Prajapati MD Malignant neoplasm of ovary, unspecified laterality (CMS/HCC) (Primary Dx) 03/31/2024 Orders Only [facility] Oncology and Hematology [facility] Josselyn Charles [address] [place] [id number] Louis Montanez MD Malignant neoplasm of ovary, unspecified laterality (CMS/HCC) 03/24/2024 Orders Only [facility] Hematology [facility] Josselyn Charles [address] [place] [id number] Louis Montanez MD Malignant neoplasm of ovary, unspecified laterality (CMS/HCC) 03/17/2024 Orders Only [facility] Oncology and Hematology [facility] Josselyn Charles [address] [place] [phone] Louis Montanez MD Malignant neoplasm of ovary, unspecified laterality (CMS/HCC) 03/10/2024 Orders Only [facility] Oncology and Hematology [facility] Josselyn Charles [address] Louis Montanez MD Malignant neoplasm of ovary, unspecified laterality (CMS/HCC) 03/04/2024 Telephone [facility] Oncology and Hematology [facility] Josselyn Charles [address] [place] [phone] Louis Montanez MD Lab Results 03/03/2024 Orders Only [facility] Oncology and Hematology - [place] Josselyn Charles [address] [place] [phone] Louis Montanez MD Malignant neoplasm of ovary, unspecified laterality (CMS/HCC) 02/29/2024 Orders Only [facility] Oncology and Hematology - [place]o Josselyn Charles [address] [place] [phone] Louis Montanez MD 02/25/2024 9:45 AM LOGISTICS OPERATIONS DIRECTOR Office Visit [facility] Oncology and Hematology - Alo 222 Lindsay Charles [address] [place] [phone] Louis Montanez MD Malignant neoplasm of ovary, unspecified laterality (CMS/HCC) 02/21/2024 Orders Only [facility] Oncology and Hematology - Alo [address] Lindsay [address] [place] [address] Louis Montanez MD 02/20/2024 Orders Only [facility] Oncology and Hematology - Alo Lindsay Charles [address] [place] [phone] Louis Montanez MD 02/18/2024 Orders Only [facility] Oncology and Hematology - Alo [address] Lindsay [address] [place] [phone] Louis Montanez MD Malignant neoplasm of ovary, unspecified laterality (CMS/HCC) 02/11/2024 Orders Only [facility] Oncology and Hematology - Alo 7 Lindsay [address] [place] [phone] Louis Montanez MD Malignant neoplasm of ovary, unspecified laterality (CMS/HCC) 02/04/2024 Telephone [facility] Oncology and Hematology - Alo [address] [place] [address] Louis Montanez MD Minor Surgery (Medication questions) 02/04/2024 Orders Only [facility] Oncology and Hematology - Aol [address] [place] [address] Louis Montanez MD Malignant neoplasm of ovary, unspecified laterality (CMS/HCC) from Last 3 Months Family History Medical History Relation Name Comments Diabetes Brother 1 Heart Disease Brother 1 Stomach Cancer Brother 1 Diabetes Brother 2 Heart Disease Brother 2 Heart Disease Brother 3 Skin Cancer Brother 3 Ovarian Cancer Daughter 1 No Known Problems Daughter 2 Heart Attack Father Heart Disease Father Obesity Grandson Heart Attack Maternal Grandfather Alzheimer's Disease Maternal Grandmother Alzheimer's Disease Mother Cervical Cancer Mother Diabetes Mother Alcohol abuse Nephew 1 Drug Abuse Nephew 1 Breast Cancer Nephew 2 No Known Problems Niece/Nephew x5 Unknown Paternal Grandfather Unknown Paternal Grandmother Melanoma Son sun, neck Relation Name Status Comments Brother 1 Brother 2 Brother 3 Daughter 1 Daughter 2 Alive Father Granddaughter Alive Grandson Alive Maternal Aunt x4 Maternal Grandfather Maternal Grandmother Maternal Uncle Mother Nephew 1 Alive Nephew 2 Alive Niece/Nephew x5 Alive Paternal Aunt x4 Paternal Grandfather Paternal Grandmother Paternal Uncle x2 Son Alive Social History Tobacco Use Types Packs/Day Years Used Date Smoking Tobacco: Never Smokeless Tobacco: Never Tobacco Cessation:Counseling Given: Not Answered Alcohol Use Standard Drinks/Week Comments Not Currently 0 (1 standard drink = 0.6 oz pur e alcohol) Feeling Safe Answer Date Recorded Are you in a relationship wi th someone who hurts you emotionally and/or physically? No 07/30/2023 Food Insecurity Answer Date Recorded Social/Environmental Concerns No concerns Transportation Needs Answer Date Record ed Social/Environmental Concerns No concerns Housing Stability Answer Date Recorded Social/Environmental Concerns No concerns Utility Needs Answer Date Recorded Social/Environmental Concerns No concerns Comments No Sex and Gender Information Value Date Recorded Sex Assigned at Not on file Legal Sex Female 8:31 AM LOGISTICS OPERATIONS DIRECTOR Gender Identity Not on file Sexual Orientation Not on file Last Filed Vital Signs Vital Sign Reading Time Taken Comments Blood Pressure 140/83 04/03/2024 8:54 AM LOGISTICS OPERATIONS DIRECTOR Pulse 90 04/03/2024 8:54 AM LOGISTICS OPERATIONS DIRECTOR Temperature 36.3 ??C (97.3 ??F) 04/03/2024 8:54 AM CS T Respiratory Rate 18 04/03/2024 8:54 AM LOGISTICS OPERATIONS DIRECTOR Oxygen Saturation 93% 04/03/2024 8:54 AM LOGISTICS OPERATIONS DIRECTOR Inhaled Oxygen Concentration - - Weight 65.3 kg (144 lb) 04/03/2024 8:54 AM LOGISTICS OPERATIONS DIRECTOR Height 157.5 cm (5' 2 ) 08/16/2023 2:37 PM CDT Body Mass Index 26.34 08/16/2023 2:37 PM CDT Plan of Treatment Upcoming Encounters Date Type Department Care Team (Late st Contact Info) Description 05/15/2024 8:30 AM LOGISTICS OPERATIONS DIRECTOR Office Visit [facility] Oncology and Hematology - Alo [address] [facility] [address] [place] [address] Louis Montanez MD [address] [place] [address] Health Maintenance Due Date Last Done Comments DTAP/TDAP/TD VACCINES (1 - Tdap) 1958 PNEUMOCOCCAL VACCINE 65+ YEARS (1 of 1 - PCV) 05/01/18 90 ZOSTER VACCINE (1 of 2) 1989 OSTEOPOROSIS SCREENING 2004 RSV VACCINE (60+ or ) (1 - 1-dose 75+ series) 2014 INFLUENZA VACCINE (#1) 2023 Procedures Procedure Name Priority Date/Time Associated Diagnosis Comments BASIC METABOLIC PANEL Routine 04/24/2024 12:47 PM LOGISTICS OPERATIONS DIRECTOR COMPREHENSIVE METABOLIC PANEL Routine 04/03/2024 3:36 PM LOGISTICS OPERATIONS DIRECTOR BASIC METABOLIC PANEL Routine 04/03/2024 2:10 PM LOGISTICS OPERATIONS DIRECTOR CBC WITH DIFFERENTIAL Routine 04/03/2024 1:53 PM LOGISTICS OPERATIONS DIRECTOR CANCER ANTIGEN 15-3 Routine 04/03/2024 1 0:59 AM LOGISTICS OPERATIONS DIRECTOR BASIC METABOLIC PANEL Routine 03/13/2024 9:31 AM LOGISTICS OPERATIONS DIRECTOR CBC WITH DIFFERENTIAL Routine 03/13/2024 9:29 AM LOGISTICS OPERATIONS DIRECTOR URINALYSIS DIPSTICK ONLY Routine 024 8:27 AM LOGISTICS OPERATIONS DIRECTOR CANCER ANTIGEN 125 Routine 02/27/2024 1: 36 PM LOGISTICS OPERATIONS DIRECTOR BASIC METABOLIC PANEL Routine 02/20/2024 11:31 AM LOGISTICS OPERATIONS DIRECTOR CBC WITH DIFFERENTIAL Routine 02/20/2024 10:51 AM LOGISTICS OPERATIONS [address] CT ABDOMEN PELVIS W CONTRAST Routine 02/18/2024 10:53 AM LOGISTICS OPERATIONS DIRECTOR from Last 3 Months Results * BASIC METABOLIC PANEL (04/24/2024 12:47 PM LOGISTICS OPERATIONS DIRECTOR) Only the most recent of4 resultswithin the time period is included. Blood us Louis Montanez MD CHEMISTRY ORDERABLES Final Resu lt * COMPREHENSIVE METABOLIC PANEL (04/03/2024 3:36 PM LOGISTICS OPERATIONS DIRECTOR) Blood Result Janene Montanez MD CHEMISTRY ORDERABLES Final Resu lt * CBC WITH DIFFERENTIAL (04/03/2024 1:53 PM LOGISTICS OPERATIONS DIRECTOR) Only the most recent of3 resultswithin the time period is included. Blood Result Janene Montanez MD HEMATOLOGY ORDERABLES Final Res ult * CANCER ANTIGEN 15-3 (04/03/2024 10:59 AM LOGISTICS OPERATIONS DIRECTOR) Blood Result Janene Montanez MD CHEMISTRY ORDERABLES Final Resu lt * URINALYSIS DIPSTICK ONLY (03/13/2024 8:27 AM LOGISTICS OPERATIONS DIRECTOR) Urine URINE SPECIMEN OBTAINED BY CLEAN CATCH PROCEDURE / Unknown Result Janene Montanez MD URINE ORDERABLES Final Result * CANCER ANTIGEN 125 (02/27/2024 1:36 PM LOGISTICS OPERATIONS DIRECTOR) Blood Result Janene Montanez MD CHEMISTRY ORDERABLES Final Resu lt * CT ABDOMEN PELVIS W CONTRAST (02/18/2024 10:53 AM LOGISTICS OPERATIONS DIRECTOR) Anatomical Region Laterality Modality Abdomen Other Result Janene Montanez MD CT ORDERABLES Final Result from Last 3 Months Insurance [facility] SUPP MEDICARE PART A AND B MEDICARE PART A AND B BCBS SUPP RX [employer] Medicare Part D [facility] Commercial Advance Directives For more information, please contact: [phone] * Full Code (Latest Code Status on File) Date Activated Date Inactivated Comments 07/30/2023 8:32 PM 07/31/2023 12:10 PM * Full Code Date Activated Date Inactivated Comments 07/30/2023 12:16 PM 07/30/2023 8:32 PM * Full Code Date Activated Date Inactivated Comments 07/30/2023 10:39 AM 07/30/2023 12:16 PM
--- OUTSIDE RECORDS SUMMARY | 2024-05-05 08:23 | XMS_ITS | Continuity of Care Document ---
Author Organization [facility] Address [address] [place] [address] Phone Care Team Providers Care Joint Setter Name Role Phone Daniel Mcfarland MD Unavailable Unavailable Allergies, Adverse Reactions, Alerts Substance Reaction Status Criticality No Known allergies Medications Medication Instructions Dosage Effective Dates (start - stop) Status Comments POTASSIUM (unknown strength) Not Available - Active BIOTIN (unknown strength) Not Available - Active SIMVASTATIN (unknown strength) Not Available - Active VITAMIN D2 (unknown strength) Not Available - Active Procedures Procedure Date OFFICE/OUTPATIENT VISIT [facility] Advance Directives Directive Yes / No Effective Date File Name Resuscitation Not Answered N/A N/A Life Support Not Answered N/A N/A Intubation Not Answered N/A N/A Antibiotics Not Answered N/A N/A IV Fluid Support Not Answered N/A N/A Tube Feed Not Answered N/A N/A Other Directive N/A N/A WARNING:The information contained in this section is historical and is provided for information only and does not constitute a legal document or any assurance that the information is still accurate. Please verify the information with the espana of the legal document before using it for clinical purposes. Encounters Encounter Description Practice Location Reason(s) For Visit Diagnoses Date Provider Providers Copied on Encounter OFFICE/OUTPAT IENT VISIT [facility], [address], [place], [address], [place] tel:[phone] [facility] knee arthritis 3 Bruna Sanchez. [address], [place], [place], [id number] . tel: [phone] Family History Family Member Type Diagnosis Age At Onset No Information Payers Payer name Insurance type Covered constitution party ID Authoriza tion(s) No Information Social History Type Description Quantity Date Captured Comments Alcohol Use Details Unknown Caffeine Use Details Unknown Tobacco Use Status No Information Smoking Status Never smoker Non-Smoking Tobacco Use Details : No Details Available : No Details Available Sex Female Vital Signs Date / Time: Height Weight BMI Pulse Rate Blood Pressure Temperature Respiratory Rate Body Surface Area Head Circumference Head Circ. Percentile Wt./Erasmo. Percentile BMI percentile Pulse Ox Inhaled Ox 10:50 AM 62.00 in 200.00 lbs 36.5 8 kg/m eter (2) 151/83 mm[Hg] Chief Complaint And Reason For Visit No Information Reason For Referral Reason For Referral No Information Plan Of Treatment Date Type Action Status Referral Ordered: RADEX KNE 3 VIEWS RT ordered History Of Present Illness Encounter Date Complaint History Of Prese nt Illness No Information Functional Status Date Functional Assessmen t No Information Instructions Date Instruction Additional Infor mation No Information Assessments Type Assessment Date No Information Patient Care Teams Name Effective Dates (start - stop) Status Members No Information
--- OUTSIDE RECORDS SUMMARY | 2024-05-05 08:23 | XMS_ITS | Patient Health Summary ---
Author Organization [facility] [employer] Address [address] [place] [address] Care Team Providers Care Reacher Name Role Phone Tanika Bardales MD Primary Care Provider [phone] Note from [facility] [employer] [facility] [employer],non-owned Affiliates and Associated Physician Practices is amultiple site organization consisting of ambulatory clinics and hospital sitesin [place], [place], [place] and [place]. This disclosure is being madepursuant to the Care Everywhere program and may not contain all information available regarding this patient. Last updated 17.[facility] [employer] Allergies No known active allergies Medications * Be aware that medications may not be up to date on this document. Alwaysverify current medications with the patient. * aspirin (ASPIRIN) 325 MG tablet every 24 hours * Coenzyme Q10 400 MG Co Q-10 400 mg capsule Take by oral route. * atorvastatin (LIPITOR) 80 MG tablet(Started 01/22/2019) atorvastatin 80 mg tablet TAKE 1 TABLET BY MOUTH EVERY DAY * omeprazole (PRILOSEC) 20 MG capsule omeprazole 20 mg capsule,delayed release Take by oral route. Active Problems Problem Noted Date Diagnosed Date [...] CDT Oxygen Saturation 99% 04/01/2020 12:31 PM [employer] Inhaled Oxygen Concentration - - Weight - - Height - - Body Mass Index - - Care Teams Reacher Relationship Specialty Start Date End Date Tanika Bardales MD [address] [place] [address] PCP - General 09/09/19
== END 2024-05-05 08:16 | disposition home or self-care (01) ==
PROVIDERS: PCP Nurse Practitioner Family; Visit Provider Internal Medicine Medical Oncology
DX: C56.9 Malignant neoplasm of unspecified ovary (principal)
CPT/HCPCS: 74177; Q9967

== ENCOUNTER 2024-05-22 01:22 | Day surgery (SDC) | payer MEDICARE, SELFPAY ==
[2024-05-16 13:15] VITALS: BMI 25.7
--- OUTSIDE RECORDS SUMMARY | 2024-05-22 01:24 | XMS_ITS | Referral Summary ---
Author Organization [facility] Address [address] [place] [address] Care Team Providers Care Social Science Professor Name Role Phone Alfonso Guardadoapolinar Bravo PATEL Primary Care Provider + Encounters Date Type Department Care Team Description 05/06/2024 Telephone [facility] Ophthalmology [address] [place] [phone] Shruthi Whittaker MD PhD 05/06/2024 Telephone [facility] Ophthalmology [address] [place] [phone] Shruthi Whittaker MD PhD 04/23/2024 9:45 AM WAXING MACHINE OPERATOR Office Visit [facility] Ophthalmology [address] [place] [phone] Sue Diaz MD S/P cataract surgery, right (Primary Dx) 03/31/2024 10:00 AM WAXING MACHINE OPERATOR Office Visit [facility] Ophthalmology [address] [place] [phone] Sue Diaz MD S/P cataract surgery, right (Primary Dx) 03/26/2024 9:15 AM WAXING MACHINE OPERATOR Office Visit [facility] Ophthalmology [address] [place] [phone] Shruthi Whittaker MD PhD S/P cataract surgery, right (Primary Dx); Cataract, left 03/25/2024 9:10 AM WAXING MACHINE OPERATOR - 03/25/2024 10:00 AM WAXING MACHINE OPERATOR Surgery [facility] Operating Room [address] [place] [address] Shruthi Whittaker MD PhD RIGHT EXTRACTION CATARACT - PHACOEMULSIFICATION AND LENS IMPLANT 03/25/2024 9:34 AM WAXING MACHINE OPERATOR Anesthesia Event [facility] Operating Room [address] [place] [address] Chavez Schuster MD Wilkinson, Christina A., NP 03/25/2024 7:21 AM WAXING MACHINE OPERATOR - 03/25/2024 10:35 AM WAXING MACHINE OPERATOR Hospital Encounter [facility] Operating Room [address] [place] [address] Shruthi Whittaker MD PhD Age-related nuclear cataract of right eye (Primary Dx) Discharge Disposition: Discharge to home or self care 03/10/2024 Telephone [facility] Ophthalmology [address] [place] [phone] Shruthi Whittaker MD PhD SX check list 02/21/2024 Telephone [facility] Ophthalmology [address] [place] [phone] Shruthi Whittaker MD PhD 02/21/2024 8:00 AM WAXING MACHINE OPERATOR Imaging Exam [facility] Ophthalmology [address] [place] [phone] Age-related nuclear cataract of both eyes 02/21/2024 8:45 AM WAXING MACHINE OPERATOR Office Visit [facility] Ophthalmology [address] [place] [phone] Shruthi Whittaker MD PhD Age-related nuclear cataract of both eyes (Primary Dx); Fuchs' corneal dystrophy of both eyes from Last 3 Months Allergies No known active allergies Medications sodium chloride (DEANNA 128) 5 % ophthalmic solutionIndication s:Corneal Edema Administer 1 drop into both eyes 2 (two) times a day Active aspirin 325 mg tabletIndications: prevention of thrombosis Take 1 tablet (325 mg total) by mouth every morning Active coenzyme Q10 400 mg capsuleIndications :health Take 300 mg by mouth every morning Active LORazepam (ATIVAN) 0.5 mg tabletIndications: anxiety Take 1 tablet (0.5 mg total) by mouth as needed for anxiety Takes when she flies - none in past month 0 11/27/19 19 Active atorvastatin (LIPITOR) 80 mg tabletIndications: TIA (transient ischemic attack) Take 1 tablet (80 mg total) by mouth daily 90 tablet 1 05/07/19 21 Active Additional Information Patient taking differently:80 mg oralNightly, Indications: hyperlipidemia, Informant: Self, Reported on 05/08/2024 escitalopram (LEXAPRO) 5 mg tabletIndications: Anxiety with Depression Take 1 tablet (5 mg total) by mouth nightly 07/06/19 22 Active omeprazole (PriLOSEC) 20 mg capsuleIndications :Treatment of Non-Bleeding Gastric Disorder Take 1 capsule (20 mg total) by mouth every morning Active ondansetron ODT (ZOFRAN-ODT) 8 mg disintegrating tablet Take 1 tablet (8 mg total) by mouth every 8 (eight) hours as needed for nausea None in past month (used when in chemo) - Never had to take this 04/25/19 24 Active lidocaine-prilocai ne cream Apply 1 g (1 Application total) topically as needed for pain Uses every time she goes for infusion every 3 weeks - Next infusion in Mar 13, 2024 12/21/19 24 Active ferrous sulfate 325 mg (65 mg of elemental iron) tabletIndications: health Take 1 tablet (325 mg total) by mouth daily with breakfast With Vitamin C Active cyanocobalamin (Vitamin B-12) 1,000 mcg sublingual tabletIndications: Prevention of Vitamin B12 Deficiency Take 1 tablet (1,000 mcg total) by mouth nightly Active moxifloxacin (VIGAMOX) 0.5 % ophthalmic solution Administer 1 drop into the left eye 4 (four) times a day for 7 days For use after surgery with Dr. Whittaker 3 mL 05/27/19 25 025 Active prednisoLONE acetate (PRED FORTE) 1 % ophthalmic suspension Administer 1 drop into the left eye 4 (four) times a day For use after surgery with Dr. Whittaker 5 mL 05/27/19 25 025 Active prednisoLONE acetate (PRED FORTE) 1 % ophthalmic suspension Administer 1 drop into the right eye 4 (four) times a day For use after surgery with Dr. Whittaker 5 mL 03/25/20 24 025 Active Problems Problem Noted Date Diagnosed Date Anterior subcapsular polar cataract, nonsenile 0 05/06/2024 Nuclear sclerotic cataract of left eye 5 Age-related nuclear cataract of right eye 2023 Arthritis of knee 02/21/2024 Anxiety 04/01/2020 Gastroesophageal reflux disease 04/01/2020 TIA (transient ischemic attack) 01/22/2019 Borderline high blood pressure 01/22/2019 Obesity (BMI 30-39.9) 01/22/2019 Myelinated optic nerve fiber layer, left 019 Assessment & Plan (01/26/2020 9:19 AM CDT): Follow Impaired glucose tolerance 08/11/2014 Overview (07/14/2016): Prediabetes Hyperlipidemia 06/26/2012 Overview (07/14/2016): Hypercholesterolemia Fuchs' corneal dystrophy 11/21/2010 Assessment & Plan (09/06/2022 11:37 AM CDT): Annual exam for Fuchs OU, cat both eyes (OU) TODAY VA 20/40 and 20/20 (stable) BAT VA 20/60 OD CCT 609/618 (stable) DIFFICULTY IN DRIVING AT NIGHT, feels OD is worse than OS Corneal pachymetry 2012 2016 2018 2020 2021 2022 right eye (OD) 610 [phone] 609 left eye (OS) 605 606 [phone] 618 Moderate cat OU Defer EK or cataract extraction (CE) for now CPM: Deanna 128 QID both eyes (OU) RTC one year Assessment & Plan (08/01/2021 11:07 AM CDT): Minimal visual significance, although now with early Annual exam for Fuchs OU, cat both eyes (OU) DIFFICULTY IN DRIVING AT NIGHT, She feels tOD is worse than OS Stable and defer EK or cataract extraction (CE) CPM: Deanna 128 QID both eyes (OU) Corneal pachymetry 2012 2016 2018 2020 2021 right eye (OD) 610 616 633 620 605 left eye (OS) 605 606 627 609 610 Moderate cat OU BCVA 20/50 and 20.30 today Defer cataract extraction (CE) for now RTC one year Assessment & Plan (07/26/2020 10:51 AM CDT): Annual exam for Fuchs OU, cat both eyes (OU) Doing well Stable and defer EK or cataract extraction (CE) CPM: Deanna 128 QID both eyes (OU) Corneal pachymetry 2012 2016 2018 2020 right eye (OD) 610 616 633 620 left eye (OS) 605 [phone] Assessment & Plan (01/26/2020 8:37 AM CDT): Annual exam for Fuchs OU, cat OU Doing well Stable, defer cataract extraction (CE) CPM: Deanna 128 QID OU Assessment & Plan (10/21/2018 2:31 PM CDT): Annual exam for Fuchs OU, cat OU Doing well Stable and defer EK or cataract extraction (CE) CPM: Deanna 128 QID OU Assessment & Plan (10/17/2017 3:40 PM CDT): Annual exam for Fuchs OU, cat OU No pain or discomfort Stable and defer EK or cataract extraction (CE) CPM: Deanna 128 QID OU Cataract of both eyes 06/15/2010 Assessment & Plan (07/26/2020 10:48 AM CDT): Minimal visual significance, although now with early cortical changes. BCVA 20/25 OU with MRx today Defer cataract extraction (CE) for now Assessment & Plan (01/26/2020 9:18 AM CDT): Visually sig right eye (OD). Patient would like to defer cat eval until spring due to COVID Hold new srx Dr Osman 6 months Assessment & Plan (10/21/2018 2:31 PM CDT): Minimal visual significance, although now with early cortical changes. BCVA 20/25 OU with updated MRx. Patient interested in updated prescription today. Social History Tobacco Use Types Packs/Day Years Used Date Smoking Tobacco: Never Passive Smoke Exposure: Never Smokeless Tobacco: Never Tobacco Cessation:Counseling Given: Not Answered Alcohol Use Standard Drinks/Week Comments No 0 (1 standard drink = 0.6 oz pur e alcohol) AUDIT-C Answer Date Recorded Q1: How often do you have a drink containing alc ohol? Monthly or less 05/08/2024 Q2: How many drinks containi ng alcohol do you have on a typical day when you are drinking? 1 or 2 05/08/2024 Q3: How often do you have si x or more drinks on one occasion? Never 05/08/2024 Personal Safety Answer Date Recorded Have you ever been in or are you currently in a harmful physical or emotional relationship or is someone making you feel afraid or unsafe? Denies 03/25/2024 Comments No Sex and Gender Information Value Date Recorded Sex Assigned at Not on file Legal Sex Female 4:23 AM WAXING MACHINE OPERATOR Gender Identity Not on file Sexual Orientation Not on file Last Filed Vital Signs Vital Sign Reading Time Taken Comments Blood Pressure 167/82 03/25/2024 10:25 AM WAXING MACHINE OPERATOR Pulse 68 03/25/2024 10:30 AM WAXING MACHINE OPERATOR Temperature 36.1 C (97 F) 03/25/2024 10:10 AM WAXING MACHINE OPERATOR Respiratory Rate 19 03/25/2024 10:30 AM WAXING MACHINE OPERATOR Oxygen Saturation 98% 03/25/2024 10:30 AM WAXING MACHINE OPERATOR Inhaled Oxygen Concentration - - Weight 66 kg (145 lb 8.1 oz) 05/08/2024 1:00 PM WAXING MACHINE OPERATOR Height 158.8 cm (5' 2.5 ) 05/08/2024 1:00 PM WAXING MACHINE OPERATOR Body Mass Index 26.19 05/08/2024 1:00 PM WAXING MACHINE OPERATOR Plan of Treatment Upcoming Encounters Date Type Department Care Team (Latest Contact Info) Description 05/27/2024 10:45 AM WAXING MACHINE OPERATOR Hospital Encounter [facility] Operating Room [address] [facility] [place] [phone] Shruthi Whittaker MD PhD [address] [place] [address] 05/27/2024 10:45 AM WAXING MACHINE OPERATOR Anesthesia Event [facility] [place] Operating Room [address] [place] [phone] GanglKaelyn walters, LABOR GANG SUPERVISOR [address] [facility] [phone] [place] [address] 05/27/2024 10:45 AM WAXING MACHINE OPERATOR - 05/27/2024 11:30 AM WAXING MACHINE OPERATOR Surgery [facility] Operating Room [address] [place] [phone] Shruthi Whittaker MD PhD [address] [place] [address] EXTRACTION CATARACT - PHACOEMULSIFICATION AND LENS IMPLANT - left eye Scheduled Procedures Name Priority Associated Diagnoses Date/Ti me EXTRACTION CATARACT - PHACOEMULSIFICATION AND LENS IMPLANT Anterior subcapsular polar cataract, nonsenile Nuclear sclerotic cataract of left eye 05/27/2024 10:45 AM WAXING MACHINE OPERATOR Medical Devices Implanted Type Area Legal Operations Manager Device Identifier Shelf Expiration Date Model / Serial / Lot [employer] Lens Iol Tecnis Smplcty 1-Pc Clr [place] 21.5 Diopter [id number] - [id number] - [id number] Implanted:Qty: 1 on 03/25/2024 by Shruthi Whittaker MD PhD at [facility] [place] Right: Eye [employer] [id number] 03/06/2026 [id number] / [id number] / Procedures Procedure Name Priority Date/Time Associated Diagnosis Comments IOL CALCULATION 2ND EYE 65968 - OS - LEFT EYE Routine 03/26/2024 9:15 AM WAXING MACHINE OPERATOR Cataract, left EXTRACTION CATARACT - PHACOEMULSIFICATION AND LENS IMPLANT 03/25/2024 9:37 AM WAXING MACHINE OPERATOR Age-related nuclear cataract of right eye IOL BIOMETRY - OU - BOTH EYES Routine 02/21/2024 7:50 AM WAXING MACHINE OPERATOR Age-related nuclear cataract of both eyes from Last 3 Months Results * IOL Calculation 2nd Eye 69382 - OS - Left Eye (03/26/2024 9:15 AM WAXING MACHINE OPERATOR) Anatomical Region Laterality Modality Head Ophthalmic Axial Measurements Narrative 05/03/2024 12:45 PM WAXING MACHINE OPERATOR Reviewed IOLM, lens choices entered in cataract planning tab Shruthi Whittaker MD PhD OPH ULTRASOUND Claribel l Result * IOL Biometry - OU - Both Eyes (02/21/2024 7:50 AM WAXING MACHINE OPERATOR) AC IOL (OS) 3.52 mm CONTINUUM AC IOL (OD) 3.75 mm CONTINUUM White to White (OS) 12.2 mm CONTINUUM White to White (OD) 11.9 mm CONTINUUM A LENGTH (OS) 23.64 mm CONTINUUM A LENGTH (OD) 23.85 mm CONTINUUM Anatomical Region Laterality Modality Head Ophthalmic Axial Measurements Narrative 02/21/2024 2:42 PM WAXING MACHINE OPERATOR Right Eye Axial length was 23.85 mm. White to white was 11.9 mm. AC Depth was 3.75 mm. Left Eye Axial length was 23.64 mm. White to white was 12.2 mm. AC Depth was 3.52 mm. Notes Reviewed IOLM, lens choices entered in cataract planning tab Shruthi Whittaker MD PhD OPHTH ULTRASOUND Claribel l Result from Last 3 Months Insurance MEDICARE FORMERLY [facility] MEDICARE BLUE CROSS MEDIC[place] [address] [facility] MEDICARE SUPPLEMENT Care Teams Social Science Professor Relationship Specialty Start Date End Date Minna Guardado NP PCP - General Nurse Practitioner 05/08/18
--- OUTSIDE RECORDS SUMMARY | 2024-05-22 01:24 | XMS_ITS | Referral Summary ---
Author Organization [facility] Address [address] [facility] [place] [address] Care Team Providers Care Ream Cutter Name Role Phone Tanika Bardales MD Primary Care Provider [phone] Source Comments [facility],non-owned Affiliates and Associated Physician Practices is amultiple site organization consisting of ambulatory clinics and hospital sitesin [place], [place], [place] and [place]. This disclosure is being madepursuant to the Care Everywhere program and may not contain all information available regarding this patient. Last updated 17.[employer] Allergies No known active allergies Medications * [...] 80 07/12/2020 2:23 PM CDT Temperature 36.6 C (97.9 F) 07/12/2020 2:23 PM CDT Respiratory Rate 20 07/12/2020 2:23 PM CDT Oxygen Saturation 99% 04/01/2020 12:31 PM CLAIMS AUDITOR Inhaled Oxygen Concentration - - Weight - - Height - - Body Mass Index - - Plan of Treatment Not on file Care Teams Ream Cutter Relationship Specialty Start Date End Date Tanika Bardales MD [address] [place] [address] [address] [place] [address] [facility] - General 09/09/19
--- OUTSIDE RECORDS SUMMARY | 2024-05-22 01:24 | XMS_ITS | Clinical Summary ---
Author Organization [facility] Address [address] [place] [address] Care Team Providers Care Engineer Internship Name Role Phone Minna Guardado SALES ASSISTANT Primary Care Provider + Allergies No known active allergies Medications sodium [...] MRx. Patient interested in updated prescription today. Encounters Date Type Department Care Team Description 05/06/2024 Telephone [facility] Ophthalmology [address] [place] [phone] Shruthi Whittaker MD PhD 05/06/2024 Telephone [facility] Ophthalmology [address] [place] [phone] Shruthi Whittaker MD PhD 04/23/2024 9:45 AM PEWTER FABRICATOR Office Visit [facility] Ophthalmology [address] [place] [phone] Sue Diaz MD S/P cataract surgery, right (Primary Dx) 03/31/2024 10:00 AM PEWTER FABRICATOR Office Visit [facility] Ophthalmology [address] [place] [phone] Sue Diaz MD S/P cataract surgery, right (Primary Dx) 03/26/2024 9:15 AM PEWTER FABRICATOR Office Visit [facility] Ophthalmology [address] [place] [phone] Shruthi Whittaker MD PhD S/P cataract surgery, right (Primary Dx); Cataract, left 03/25/2024 9:34 AM PEWTER FABRICATOR Anesthesia Event [facility] Operating Room [address] [place] [facility] [place] [phone] Chavez Schuster MD Wilkinson, Christina A., NP 03/25/2024 9:10 AM PEWTER FABRICATOR - 03/25/2024 10:00 AM PEWTER FABRICATOR Surgery [facility] Operating Room [address] [place] [phone] Shruthi Whittaker MD PhD RIGHT EXTRACTION CATARACT - PHACOEMULSIFICATION AND LENS IMPLANT 03/25/2024 7:21 AM PEWTER FABRICATOR - 03/25/2024 10:35 AM PEWTER FABRICATOR Hospital Encounter [facility] Operating Room [address] [place] [phone] Shruthi Whittaker MD PhD Age-related nuclear cataract of right eye (Primary Dx) Discharge Disposition: Discharge to home or self care 03/10/2024 Telephone [facility] Ophthalmology [address] [place] [phone] Shruthi hWittaker MD PhD SX check list 02/21/2024 8:45 AM PEWTER FABRICATOR Office Visit [facility] Ophthalmology [address] [place] [phone] Shruthi Whittaker MD PhD Age-related nuclear cataract of both eyes (Primary Dx); Fuchs' corneal dystrophy of both eyes 02/21/2024 8:00 AM PEWTER FABRICATOR Imaging Exam [facility] Ophthalmology [address] [place] [phone] Age-related nuclear cataract of both eyes 02/21/2024 Telephone [facility] Ophthalmology [address] [facility] 6th [place] [address] Shruthi Whittaker MD PhD from Last 3 Months Surgical History Surgery Date Site/Laterality Comments RECTOCELE REPAIR 04/09/2011 - 04/08/2012 erosion of mesh into the vaginal/bladder wall: excision of mesh, bladder repair, rectocele repair BLADDER SUSPENSION 04/09/2009 - 04/08/2010 urinary incontinence/bladder prolapse: anterior colporrhaphy and bladder support w/mesh ABDOMINAL HYSTERECTOMY 04/09/1983 - 04/08/1984 menorrhagia: Partial Hysterectomy CHOLECYSTECTOMY 11/08/2016 TONSILLECTOMY N/A ANKLE FRACTURE SURGERY Right TUBAL LIGATION Bilateral Years ago SALPINGOOPHORECTOMY 07/30/2023 SALPINGO-OOPHORECTOMY ROBOTIC; OMENTECTOMY performed by Bhargav Oh MD at [facility] CARPAL TUNNEL RELEASE 04/09/1984 - 04/08/1985 Right CARPAL TUNNEL RELEASE 04/09/2021 - 04/08/2022 Right RECTAL VILLOUS ADENOMA EXCISION Has colonoscopy every 2-3 years - they find these polyps and remove EYE SURGERY 03/09/2024 - 04/08/2024 Right PORTACATH PLACEMENT 04/09/2023 - 05/09/2023 Right Medical History Medical History Date Comments Cataract Fuchs' corneal dystrophy Erosion of bladder suspensio n mesh (CMS/HCC) (HCC) 02/2012 erosion of mesh into the vaginal/bladder wall Bladder prolapse, congenital 07/2009 uri nary incontinence/bladder prolapse Menorrhagia 1986 menorrhagia Diabetes mellitus (HCC) Hyperlipidemia Gallstones Anxiety TIA (transient ischemic attack) 12/2018 Skin cancer History of claustrophobia History of chemotherapy Family History Medical History Relation Name Comments Heart disease Brother 3 SD age 67. Hypertension Brother 3 Hypertension; Stomach cancer Brother 3 Diabetes Brother 4 Diabetes mellit us; Heart attack Father of SD age 83 Heart disease Father Alzheimer's disease Mother Alzheime r's Disease; also had HTN and DM Cervical cancer Mother Hypertension Mother Melanoma Son Melanoma; Anesthesia problems Neg Hx Fuchs' dystrophy Neg Hx Glaucoma Neg Hx Macular degeneration Neg Hx Relation Name Status Comments Brother 1 Alive Brother 2 Alive Brother 3 (Age 69) Brother 4 Father Mother Alive Son Social History Tobacco Use Types Packs/Day Years [...] on file Legal Sex Female 4:23 AM PEWTER FABRICATOR Gender Identity Not on file Sexual Orientation Not on file Obstetrics History Para Term AB IAB SAB Ectopic Multiple Livin g Live Births 3 3 3 3 3 Date Outcome GA Total Labor Labor/2nd/3rd Weight Sex Type Anes PTL Angela A1 A5 Name Clin 06/21 Term 4.281 kg (9 lb 7 oz) M Vag-S pont N Rico Clarke 03/16 Term 3.572 kg (7 lb 14 oz) F Vag-S pont N Carlota 12/21 Term 3.997 kg (8 lb 13 oz) F Vag-S pont N Noa Last Filed Vital Signs Vital Sign Reading Time Taken Comments Blood Pressure 167/82 03/25/2024 10:25 AM PEWTER FABRICATOR Pulse 68 03/25/2024 10:30 AM PEWTER FABRICATOR Temperature 36.1 C (97 F) 03/25/2024 10:10 AM PEWTER FABRICATOR Respiratory Rate 19 03/25/2024 10:30 AM PEWTER FABRICATOR Oxygen Saturation 98% 03/25/2024 10:30 AM PEWTER FABRICATOR Inhaled Oxygen Concentration - - Weight 66 kg (145 lb 8.1 oz) 05/08/2024 1:00 PM PEWTER FABRICATOR Height 158.8 cm (5' 2.5 ) 05/08/2024 1:00 PM PEWTER FABRICATOR Body Mass Index 26.19 05/08/2024 1:00 PM PEWTER FABRICATOR Plan of Treatment Upcoming Encounters Date Type Department Care Team (Latest Contact Info) Description 05/27/2024 10:45 AM PEWTER FABRICATOR Hospital Encounter [facility] Operating Room [address] [place] [address] Shruthi Whittaker MD PhD [address] [place] [address] 05/27/2024 10:45 AM PEWTER FABRICATOR Anesthesia Event [facility] Operating Room [address] [place] [phone] Kaelyn Teixeira, PATEL [address] [facility] [id number] [place] [address] 05/27/2024 10:45 AM PEWTER FABRICATOR - 05/27/2024 11:30 AM PEWTER FABRICATOR Surgery [facility] Operating Room [address] [place] [phone] Shruthi Whittaker MD PhD [address] [place] [address] EXTRACTION CATARACT - PHACOEMULSIFICATION AND LENS IMPLANT - left eye Scheduled Procedures Name Priority Associated Diagnoses Date/Ti me EXTRACTION CATARACT - PHACOEMULSIFICATION AND LENS IMPLANT Anterior subcapsular polar cataract, nonsenile Nuclear sclerotic cataract of left eye 05/27/2024 10:45 AM PEWTER FABRICATOR Health Maintenance Due Date Last Done Comments Depression Screening 1940 Osteoporosis Screening-Bone Density Scan 1940 Hepatitis B Screening 1957 Zoster Vaccine (2 of 3) 06/28/2007 05/03/2007 Well Visit 65+ 11/08/2018 11/08/2017, 09/18/2016 DTaP/Tdap/Td Vaccine (2 - Td or Tdap) 02/15/2021 02/15/2011 Influenza Vaccine (#1) 2023 8, 01/19/2017, 03/17/2016, Additional history exists Fall Risk Assessment 03/25/2025 03/25/2024 Pneumococcal vaccine 65+ Completed 01/08/2018, 04/2008 Medical Devices Implanted Type Area Bioinformatics Research Technician Device Identifier Shelf Expiration Date Model / Serial / Lot [employer] Lens Iol Tecnis Smplcty 1-Pc Clr Obion 21.5 Diopter [id number] - [id number] - [id number] Implanted:Qty: 1 on 03/25/2024 by Shruthi Whittaker MD PhD at [facility] Right: Eye [employer] [id number] 03/06/2026 [id number] / [id number] / Procedures Procedure Name Priority Date/Time Associated Diagnosis Comments IOL CALCULATION 2ND EYE 98160 - OS - LEFT EYE Routine 03/26/2024 9:15 AM PEWTER FABRICATOR Cataract, left EXTRACTION CATARACT - PHACOEMULSIFICATION AND LENS IMPLANT 03/25/2024 9:37 AM PEWTER FABRICATOR Age-related nuclear cataract of right eye IOL BIOMETRY - OU - BOTH EYES Routine 02/21/2024 7:50 AM PEWTER FABRICATOR Age-related nuclear cataract of both eyes from Last 3 Months Results * IOL Calculation 2nd Eye 74174 - OS - Left Eye (03/26/2024 9:15 AM PEWTER FABRICATOR) Anatomical Region Laterality Modality Head Ophthalmic Axial Measurements Narrative 05/03/2024 12:45 PM PEWTER FABRICATOR Reviewed IOLM, lens choices entered in cataract planning tab us Shruthi Whittaker MD PhD OPHTH ULTRASOUND Claribel l Result * IOL Biometry - OU - Both Eyes (02/21/2024 7:50 AM PEWTER FABRICATOR) AC IOL (OS) 3.52 mm CONTINUUM AC IOL (OD) 3.75 mm CONTINUUM White to White (OS) 12.2 mm CONTINUUM White to White (OD) 11.9 mm CONTINUUM A LENGTH (OS) 23.64 mm CONTINUUM A LENGTH (OD) 23.85 mm CONTINUUM Anatomical Region Laterality Modality Head Ophthalmic Axial Measurements Narrative 02/21/2024 2:42 PM PEWTER FABRICATOR Right Eye Axial length was 23.85 mm. White to white was 11.9 mm. AC Depth was 3.75 mm. Left Eye Axial length was 23.64 mm. White to white was 12.2 mm. AC Depth was 3.52 mm. Notes Reviewed IOLM, lens choices entered in cataract planning tab us Shruthi Whittaker MD PhD OPHTH ULTRASOUND Claribel l Result from Last 3 Months Insurance MEDICARE [facility] MEDICARE [facility] MEDICARE SUPPLEMENT MEDICARE [facility] MEDICARE SUPPLEMENT Care Teams Engineer Internship Relationship Specialty Start Date End Date Minna Guardado NP PCP - General Nurse Practitioner 05/08/18
--- OUTSIDE RECORDS SUMMARY | 2024-05-22 01:24 | XMS_ITS | Patient Health Summary ---
Author Organization [facility] [employer] Address [address] [facility] [place] [address] Care Team Providers Care Launch Commander Harbor Police Name Role Phone Tanika Bardales MD Primary Care Provider [phone] Note from [facility] [employer] [facility] [employer],non-owned Affiliates and Associated Physician Practices is amultiple site organization consisting of ambulatory clinics and hospital sitesin [place], [place], [place] and [place]. This disclosure is being madepursuant to the Care Everywhere program and may not contain all information available regarding this patient. Last updated 17.[facility] [employer] Allergies No known active allergies Medications * [...] CDT Oxygen Saturation 99% 04/01/2020 12:31 PM [employer]OPLES[employer]FT HCM DEVELOPER Inhaled Oxygen Concentration - - Weight - - Height - - Body Mass Index - - Care Teams Launch Commander Harbor Police Relationship Specialty Start Date End Date Tanika Bardales MD [employer] [place] [phone] PCP - General 09/09/19
--- OUTSIDE RECORDS SUMMARY | 2024-05-22 01:24 | XMS_ITS | Clinical Summary ---
Author Organization [employer] Address [address] [place] [address] Care Team Providers Care Timber Grader Name Role Phone Tanika Bardales MD Primary Care Provider [phone] Source Comments [facility] [employer],non-owned Affiliates and Associated Physician Practices is amultiple site organization consisting of ambulatory clinics and hospital sitesin [place], [place] and [place]. This disclosure is being madepursuant to the Care Everywhere program and may not contain all information available regarding this patient. Last updated [email or web address] Allergies No known active allergies Medications * [...] CDT Oxygen Saturation 99% 04/01/2020 12:31 PM ELECTRICITY TRADING ANALYST Inhaled Oxygen Concentration - - Weight - - Height - - Body Mass Index - - Plan of Treatment Health Maintenance Due Date Last Done Comments BONE DENSITY TESTING 1940 MEDICARE AWV 12 MONTHS 1940 DTAP/TDAP/TD VACCINES (1 - Tdap) 1958 PNEUMOCOCCAL VACCINE 50+ (1 of 1 - PCV) 1989 ZOSTER VACCINE (1 of 2) 1989 Respiratory Syncytial Virus (RSV) Vaccine Pt: or over 60 yrs (1 - 1-dose 75+ series) 2014 COVID-19 VACCINE ( - season) 2023 07/03/2020, 06/04/2020 INFLUENZA VACCINE (#1) 2023 0, 01/08/2018, 01/20/2017, Additional history exists DEPRESSION SCREENING 04/09/2024 MEDICARE AWV CALENDAR YEAR 2024 HEPATITIS B VACCINE Aged [...] age to complete this topic Care Teams Timber Grader Relationship Specialty Start Date End Date Tanika Bardales MD [facility] [place] [address] PCP - General 09/09/19
--- OUTSIDE RECORDS SUMMARY | 2024-05-22 01:24 | XMS_ITS | Encounter Summary ---
Author Organization [facility] Address [address] [place] [address] Phone Care Team Providers Care Iv Therapy Nurse Name Role Phone Minna Guardado TAPE KELLER OPERATOR Primary Care Provider + Encounter Details Date Type Department Care Team (Late st Contact Info) Description 05/06/2024 Telephone [facility] Ophthalmology [address] 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 Whittaker 5 mL 05/27/2024 5 moxifloxacin (VIGAMOX) 0.5 % ophthalmic solution Administer 1 drop into the left eye 4 (four) times a day for 7 days For use after surgery with Dr. Whittaker 3 mL 05/27/2024 5 documented in this encounter Plan of Treatment Upcoming Encounters Date Type Department Care Team (Latest Contact Info) Description 05/27/2024 10:45 AM [facility] Hospital Encounter [facility] Operating Room [address] [place] [address] Shruthi Whittaker MD PhD [address] [place] [address] 05/27/2024 10:45 AM [facility] Anesthesia Event [facility] Operating Room [address] [place] [phone] Kaelyn Teixeira, PATEL [address] [facility] [phone] [place] [address] 05/27/2024 10:45 AM GLOBAL SUPPLY CHAIN VICE PRESIDENT - 05/27/2024 11:30 AM [facility] Surgery [facility] Operating Room [address] [place] [phone] Shruthi Whittaker MD PhD [address] [place] [address] EXTRACTION CATARACT - PHACOEMULSIFICATION AND LENS IMPLANT - left eye Scheduled Procedures Name Priority Associated Diagnoses Date/Ti me EXTRACTION CATARACT - PHACOEMULSIFICATION AND LENS IMPLANT Anterior subcapsular polar cataract, nonsenile Nuclear sclerotic cataract of left eye 05/27/2024 10:45 AM GLOBAL SUPPLY CHAIN VICE PRESIDENT documented as of this encounter Visit Diagnoses Not on filedocumented in this encounter Care Teams Iv Therapy Nurse Relationship Specialty Start Date End Date Minna Guardado NP PCP - General Nurse Practitioner 05/08/18 documented as of this encounter
--- OUTSIDE RECORDS SUMMARY | 2024-05-22 01:24 | XMS_ITS | Continuity of Care Document ---
Author Organization [facility] Address [address] [place] [address] Phone Care Team Providers Care Corporate Real Estate Manager Name Role Phone Daniel Mcfarland MD Unavailable [...] - Active Procedures Procedure Date OFFICE/OUTPATIENT VISIT [facility] Advance Directives Directive Yes / No Effective [...] Providers Copied on Encounter OFFICE/OUTPAT IENT VISIT [facility], [address], [place], [address], [place] tel:[phone] [facility] knee arthritis [address]. [address], [place], [place], [id number] . tel: [phone] Family History Family Member Type Diagnosis Age At Onset No Information Payers Payer name Insurance type Covered green party ID Authoriza tion(s) No Information Social [...]
--- OUTSIDE RECORDS SUMMARY | 2024-05-22 01:24 | XMS_ITS | Clinical Summary ---
Author Organization [facility] Betzy Montoya Address [address] [place] [address] Care Team Providers Care Hepatology Physician Name Role Phone Unavailable Primary Care Provider [...] Encounters Date Type Department Care Team Description 05/15/2024 8:30 AM HR ADMINISTRATOR Office Visit [facility] [address] [place] [address] Louis Montanez MD Malignant neoplasm of ovary, unspecified laterality (CMS/HCC) (Primary Dx) 05/15/[address] [facility] - [place] [address] [place] [address] Louis Montanez MD Malignant neoplasm of ovary, unspecified laterality (CMS/HCC) (Primary Dx) 05/12/[address] [facility] - [place] [address] [place] [address] Louis Montanez MD Malignant neoplasm of ovary, unspecified laterality (CMS/HCC) 05/07/2024 External Device Data STL ABSTRACTION Provider, Abstract 05/07/[address] [facility] - [place] [address] [place] [address] Louis Montanez MD 05/07/[address] [facility] - [place] [address] [place] [address] Louis Montanez MD 05/05/[address] [facility] - [place] [address] [place] [address] Louis Montanez MD 2024 External Device Data STL ABSTRACTION Provider, Abstract 04/28/[address] [facility] - [place] [address] [place] [address] Louis Montanez MD Malignant neoplasm of ovary, unspecified laterality (CMS/HCC) 04/25/[address] [facility] - [place] [address] [place] [address] Louis Montanez MD 04/21/[address] [facility] - [place] [address] [place] [address] Louis Montanez MD Malignant neoplasm of ovary, unspecified laterality (CMS/HCC) 04/17/[address] [facility] - [place] [address] [place] [address] Louis Montanez MD Lab Results 04/14/[address] [facility] - [place] [address] [place] [address] Louis Montanez MD Malignant neoplasm of ovary, unspecified laterality (CMS/HCC) 04/10/[address] [facility] - [place] [address] [place] [address] Louis Montanez MD 04/07/[address] [facility] - [place] [address] [place] [address] Louis Montanez MD Malignant neoplasm of ovary, unspecified laterality (CMS/HCC) 04/04/[address] [facility] - [place] [address] [place] [address] Louis Montanez MD 04/03/2024 9:00 AM HR ADMINISTRATOR Office Visit [facility] - [place] [address] [place] [id number] Regine Prajapati MD Malignant neoplasm of ovary, unspecified laterality (CMS/HCC) (Primary Dx) 03/31/[address] [facility] - [place] [address] [place] [address] Louis Montanez MD Malignant neoplasm of ovary, unspecified laterality (CMS/HCC) 03/24/[address] [facility] - [place] [address] Louis Montanez MD Malignant neoplasm of ovary, unspecified laterality (CMS/HCC) 03/17/[address] [facility] - [place] [address] Louis Montanez MD Malignant neoplasm of ovary, unspecified laterality (CMS/HCC) 03/10/[address] [facility] - [place] [address] Louis Montanez MD Malignant neoplasm of ovary, unspecified laterality (CMS/HCC) 03/04/[address] [facility] - [place] [address] Louis Montanez MD Lab Results 03/03/[address] [facility] - [place] [address] Louis Montanez MD Malignant neoplasm of ovary, unspecified laterality (CMS/HCC) 02/29/[address] [facility] - [place] [address] Louis Montanez MD 02/25/2024 9:45 AM HR ADMINISTRATOR Office Visit [facility] - [place] [address] [place] [id number] Louis Montanez MD Malignant neoplasm of ovary, unspecified laterality (CMS/HCC) 02/21/[address] [facility] - [place] [address] Louis Montanez MD 02/20/[address] [facility] - [place] [address] [place] [address] Louis Montanez MD from Last 3 Months Family History Medical [...] on file Legal Sex Female 8:31 AM HR ADMINISTRATOR Gender Identity Not on file Sexual Orientation Not on file Last Filed Vital Signs Vital Sign Reading Time Taken Comments Blood Pressure 137/83 05/15/2024 8:37 AM HR ADMINISTRATOR Pulse 77 05/15/2024 8:37 AM HR ADMINISTRATOR Temperature 35.9 C (96.7 F) 05/15/2024 8:37 AM HR ADMINISTRATOR Respiratory Rate 15 05/15/2024 8:37 AM HR ADMINISTRATOR Oxygen Saturation 94% 05/15/2024 8:37 AM HR ADMINISTRATOR Inhaled Oxygen Concentration - - Weight 64.1 kg (141 lb 6.4 oz) 05/15/2024 8:37 A M HR ADMINISTRATOR Height 157.5 cm (5' 2 ) 08/16/2023 2:37 PM CDT Body Mass Index 25.86 08/16/2023 2:37 PM CDT Plan of Treatment Upcoming Encounters Date Type Department Care Team (Late st Contact Info) Description 06/12/2024 8:45 AM HR ADMINISTRATOR Office Visit [facility] - [place] [address] [facility] [address] [place] [address] Louis Montanez MD [address] [facility] [address] [place] [address] Health Maintenance Due Date Last Done Comments DTAP/TDAP/TD VACCINES (1 - Tdap) 1959 Traditional Medicare (ACO) Annual Wellness Visit 05/01 PNEUMOCOCCAL VACCINE 65+ YEARS (1 of 1 - PCV) 05/01/18 90 ZOSTER VACCINE (1 of 2) 1989 OSTEOPOROSIS SCREENING 2004 RSV VACCINE (60+ or ) (1 - 1-dose 75+ series) 2014 INFLUENZA VACCINE (#1) 2023 Procedures Procedure Name Priority Date/Time Associated Diagnosis Comments BASIC METABOLIC PANEL Routine 05/15/2024 9:56 AM HR ADMINISTRATOR CBC WITH DIFFERENTIAL Routine 05/12/2024 2:[address] ABDOMEN PELVIS W CONTRAST Routine 05/05/2024 11:46 AM HR ADMINISTRATOR BASIC METABOLIC PANEL Routine 04/24/2024 12:47 PM HR ADMINISTRATOR COMPREHENSIVE METABOLIC PANEL Routine 04/03/2024 3:36 PM HR ADMINISTRATOR BASIC METABOLIC PANEL Routine 04/03/2024 2:10 PM HR ADMINISTRATOR CBC WITH DIFFERENTIAL Routine 04/03/2024 1:53 PM HR ADMINISTRATOR CANCER ANTIGEN 15-3 Routine 04/03/2024 1 0:59 AM HR ADMINISTRATOR BASIC METABOLIC PANEL Routine 03/13/2024 9:31 AM HR ADMINISTRATOR CBC WITH DIFFERENTIAL Routine 03/13/2024 9:29 AM HR ADMINISTRATOR URINALYSIS DIPSTICK ONLY Routine 024 8:27 AM HR ADMINISTRATOR CANCER ANTIGEN 125 Routine 02/27/2024 1: 36 PM HR ADMINISTRATOR BASIC METABOLIC PANEL Routine 02/20/2024 11:31 AM HR ADMINISTRATOR CBC WITH DIFFERENTIAL Routine 02/20/2024 10:51 AM HR ADMINISTRATOR from Last 3 Months Results * BASIC METABOLIC PANEL (05/15/2024 9:56 AM HR ADMINISTRATOR) Only the most recent of5 resultswithin the time period is included. Blood us Louis Montanez MD CHEMISTRY ORDERABLES Final Resu lt * CBC WITH DIFFERENTIAL (05/12/2024 2:02 PM HR ADMINISTRATOR) Only the most recent of4 resultswithin the time period is included. Blood Provider Scanning HEMATOLOGY ORDERABLES Final Re sult * CT ABDOMEN PELVIS W CONTRAST (05/05/2024 11:46 AM HR ADMINISTRATOR) Anatomical Region Laterality Modality Abdomen Other us Louis Montanez MD CT ORDERABLES Final Result * COMPREHENSIVE METABOLIC PANEL (04/03/2024 3:36 PM HR ADMINISTRATOR) Blood us Louis Montanez MD CHEMISTRY ORDERABLES Final Resu lt * CANCER ANTIGEN 15-3 (04/03/2024 10:59 AM HR ADMINISTRATOR) Blood us Louis Montanez MD CHEMISTRY ORDERABLES Final Resu lt * URINALYSIS DIPSTICK ONLY (03/13/2024 8:27 AM HR ADMINISTRATOR) Urine URINE SPECIMEN OBTAINED BY CLEAN CATCH PROCEDURE / Unknown us Louis Montanez MD URINE ORDERABLES Final Result * CANCER ANTIGEN 125 (02/27/2024 1:36 PM HR ADMINISTRATOR) Blood Louis Montanez MD CHEMISTRY ORDERABLES Final Resu lt from Last 3 Months Insurance [facility] MEDICARE PART A AND B MEDICARE PART A AND B [facility] SUPP RX [employer] Medicare Part D RX [employer] Commercial Advance Directives For more information, please contact: [phone] * Full Code (Latest Code Status on File) Date Activated Date Inactivated Comments 07/30/2023 8:32 PM 07/31/2023 12:10 PM * Full Code Date Activated Date Inactivated Comments 07/30/2023 12:16 PM 07/30/2023 8:32 PM * Full Code Date Activated Date Inactivated Comments 07/30/2023 10:39 AM 07/30/2023 12:16 PM
[2024-05-22 09:16] VITALS: BP 131/73; PULSE 71; RESP 20; TEMP 36.2; O2SAT 71
--- NOTE | 2024-05-22 09:33 | WPDANESEPPF ---
Anes - Initial Pre Proc Eval Procedure: Operation Date: 05/22/24 10:00 Proposed Procedures p Colonoscopy - Atif Haley MD Date/Time: 05/22/24 09:33 Surgeon: Atif Haley MD Pre Op Diagnosis: personal hx colon polyps, abnormal findings Patient Data Age: 84 Gender: F Height: 1.57 m Weight: 63.5 kg Last Vital Signs Temp 36.2 C L 05/22/24 09:16 Pulse 71 05/22/24 09:16 Resp 20 05/22/24 09:16 BP 131/73 05/22/24 09:16 Pulse Ox 71 L 05/22/24 09:16 O2 Del Method Room Air 05/22/24 09:16 Allergies Allergy/AdvReac Type Severity Reaction Status Date / Time No Known Allergies Allergy Verified 05/22/24 09:14 Home Medications ?Medication ?Instructions ?Recorded ?Confirmed ?Type aspirin 325 mg tablet 325 mg PO DAILY 08/28/19 05/22/24 History coenzyme Q10 100 mg capsule 300 mg PO DAILY 03/07/23 05/22/24 History (CoQ-10) atorvastatin 80 mg tablet 80 mg PO QPM #90 tabs 07/10/23 05/22/24 Rx escitalopram oxalate 5 mg tablet 5 mg PO QPM anxiety #90 tabs 07/10/23 05/22/24 Rx mecobalamin (vitamin B12) 1,000 1,000 mcg PO DAILY 07/10/23 05/22/24 History mcg chewable tablet omeprazole 20 mg capsule,delayed 20 mg PO DAILY #90 caps 07/10/23 05/22/24 Rx release mesalamine 1,000 mg rectal 1 g RECTAL QHS 30 days #90 ea 05/15/24 05/16/24 Rx suppository Patient hx anesthesia problems: none Family hx anesthesia problems: none Results Review: All pre-operative results and documents have been reviewed as part of the pre-operative evaluation. [facility] Past Medical History Medical History Anxiety and depression Skin cancer Broken ankle Pure hypercholesterolemia Neurotic disorder Obstructive sleep apnea Esophageal reflux Chronic cholecystitis Ovarian cancer Obesity Hyperlipidemia TIA (transient ischemic attack) had one episode while on vacation in [place]; none since; w/u normal Surgical History Surgical History History of ankle surgery History of cholecystectomy H/O bladder repair surgery History of carpal tunnel release History of partial hysterectomy H/O tubal ligation History of tonsillectomy Family History Family History Mother Cervical cancer Diabetes mellitus Hypertension Alzheimers disease Father Acute myocardial infarction Sibling Diabetes mellitus Hypertension Skin cancer Stomach cancer Sibling Hypertension Other Family history of Alzheimer's disease Family history of cardiovascular disease Social History Social History Smoking status: Never smoker Alcohol intake: never Substance use: never Substance use type: does not use Do You Feel Safe in your Home?: Yes Lack of Transportation: No Lack of Food: Never True Current Housing: I Have Housing Concerned About Future Housing: No Difficulty Paying Gas/Electric Bills: No Difficulty Paying for Meds: No Currently Unemployed: No Education: High School Diploma/GED Difficulty w/ Childcare or Family Care: No Living arrangements: alone Occupation/Education: retired Gender identity (if verbalized by the patient): Female Spiritual care concerns: No Agree to blood products: Yes Anes - Eval Final PreProcedure Day of Procedure 05/22/24 09:33 Patient weight: normal Heart: regular rate and rhythm Lungs: clear to auscultation Airway: Mallampati scale class II Neurological: alert and oriented Last oral intake: >/= 8 hours ASA classification: III Emergent: no Anesthetic plan: proceed Anesthesia type and monitoring: general GIVS and standard monitoring Results Review: All pre-operative results and documents have been reviewed as part of the pre-operative evaluation. Informed Consent: The patient's anesthetic plan and its attendant risks and benefits were discussed with the patient/family/POA. Questions were solicited and answers provided to the satisfaction of the patient/family/POA.
[2024-05-22] MEDS: LACTATED RINGERS 1,000 ML 150 ML IV CONT (09:36)
--- NOTE | 2024-05-22 10:06 | P.HP_ITS ---
H&P: HPI History of Present Illness Date/Time: 05/22/24 10:06 Chief Complaint: History of colon polyps-diarrhea Narrative: the patient has a history of stage III ovarian cancer, having received several courses of chemotherapy , with evidence of recurrence. She has been having persistent diarrhea, and a CT scan recently performed was suggestive for colitis. In addition, the patient has a history of villous adenomas. The last colonoscopy was in 2022. Review of Systems Review of Systems: All systems reviewed & are unremarkable except as noted in HPI and below PMFSH Past Medical History Medical History Anxiety and depression Skin cancer Broken ankle Pure hypercholesterolemia Neurotic disorder Obstructive sleep apnea Esophageal reflux Chronic cholecystitis Ovarian cancer Obesity Hyperlipidemia TIA (transient ischemic attack) had one episode while on vacation in [place]; none since; w/u normal Surgical History Surgical History History of ankle surgery History of cholecystectomy H/O bladder repair surgery History of carpal tunnel release History of partial hysterectomy H/O tubal ligation History of tonsillectomy Family History Family History Mother Cervical cancer Diabetes mellitus Hypertension Alzheimers disease Father Acute myocardial infarction Sibling Diabetes mellitus Hypertension Skin cancer Stomach cancer Sibling Hypertension Other Family history of Alzheimer's disease Family history of cardiovascular disease Social History Social History Smoking status: Never smoker Alcohol intake: never Substance use: never Substance use type: does not use Do You Feel Safe in your Home?: Yes Lack of Transportation: No Lack of Food: Never True Current Housing: I Have Housing Concerned About Future Housing: No Difficulty Paying Gas/Electric Bills: No Difficulty Paying for Meds: No Currently Unemployed: No Education: High School Diploma/GED Difficulty w/ Childcare or Family Care: No Living arrangements: alone Occupation/Education: retired Gender identity (if verbalized by the patient): Female Spiritual care concerns: No Agree to blood products: Yes Meds Home Medications and Allergies Home Medications ?Medication ?Instructions ?Recorded ?Confirmed ?Type aspirin 325 mg tablet 325 mg PO DAILY 08/28/19 05/22/24 History coenzyme Q10 100 mg capsule 300 mg PO DAILY 03/07/23 05/22/24 History (CoQ-10) atorvastatin 80 mg tablet 80 mg PO QPM #90 tabs 07/10/23 05/22/24 Rx escitalopram oxalate 5 mg tablet 5 mg PO QPM anxiety #90 tabs 07/10/23 05/22/24 Rx mecobalamin (vitamin B12) 1,000 1,000 mcg PO DAILY 07/10/23 05/22/24 History mcg chewable tablet omeprazole 20 mg capsule,delayed 20 mg PO DAILY #90 caps 07/10/23 05/22/24 Rx release mesalamine 1,000 mg rectal 1 g RECTAL QHS 30 days #90 ea 05/15/24 05/16/24 Rx suppository Allergies Allergy/AdvReac Type Severity Reaction Status Date / Time No Known Allergies Allergy Verified 05/22/24 09:14 Vital Signs Vital Signs - 24 hr 05/22/24 09:16 Temperature 97.2 F L Pulse Rate 71 Respiratory Rate 20 Blood Pressure 131/73 Pulse Oximetry 71 L Oxygen Delivery Room Air Exam Const: General: cooperative and healthy appearing Resp: Effort & Inspection: normal respiratory effort and able to speak in complete sentences Auscultation: clear to auscultation bilaterally Cardio: Rate: regular rate Rhythm: regular rhythm GI: Inspection: normal to inspection GI Palp: No No hepatosplenomegaly present Auscultation: normal bowel sounds Rectal Exam: deferred Skin: General skin exam: normal color Psych: Appearance: grossly normal Mental Status: mental status grossly normal Assessment and Plan Assessment and plan (1) Encounter for colonoscopy due to history of adenomatous colonic polyps: Code(s): Z12.11 - Encounter for screening for malignant neoplasm of colon; Z86.010 - Personal history of colon polyps Status: Acute Assessment and Plan: The patient is deemed a good candidate for the procedure. Consent signed. Will proceed. (2) Diarrhea: Qualifiers: Diarrhea type: unspecified type Qualified Code(s): R19.7 - Diarrhea, unspecified Code(s): R19.7 - Diarrhea, unspecified Status: Acute (3) Colitis: Code(s): K52.9 - Noninfective gastroenteritis and colitis, unspecified Status: Acute
[2024-05-22 11:18] VITALS: BP 97/42; PULSE 64; RESP 17; O2SAT 98
[2024-05-22 11:28] VITALS: BP 106/59; PULSE 68; RESP 18; O2SAT 98
== END 2024-05-22 11:51 | disposition home or self-care (01) ==
PROVIDERS: PCP Nurse Practitioner Family; Referring Provider Nurse Practitioner Family; Visit Provider Internal Medicine Gastroenterology
PROC: 0DJD8ZZ Inspection of Lower Intestinal Tract, Via Natural or Artificial Opening Endoscopic (ICD-10-PCS; CPT 45378; principal; 2024-05-22 10:00)
DX: R19.7 Diarrhea, unspecified (principal); K57.30 Diverticulosis of large intestine without perforation or abscess without bleeding; E78.00 Pure hypercholesterolemia, unspecified; G47.33 Obstructive sleep apnea (adult) (pediatric); F41.8 Other specified anxiety disorders; Z79.82 Long term (current) use of aspirin; Z98.890 Other specified postprocedural states; Z90.49 Acquired absence of other specified parts of digestive tract; Z98.51 Tubal ligation status; Z86.0100 Personal history of colon polyps, unspecified; Z92.21 Personal history of antineoplastic chemotherapy; Z85.43 Personal history of malignant neoplasm of ovary; Z85.828 Personal history of other malignant neoplasm of skin; Z87.19 Personal history of other diseases of the digestive system; Z86.73 Personal history of transient ischemic attack (TIA), and cerebral infarction without residual deficits; Z80.49 Family history of malignant neoplasm of other genital organs; Z84.0 Family history of diseases of the skin and subcutaneous tissue; Z80.0 Family history of malignant neoplasm of digestive organs; Z82.49 Family history of ischemic heart disease and other diseases of the circulatory system
CPT/HCPCS: 45380; 88305; J2003; J2704; J7120

== ENCOUNTER 2024-06-18 08:40 | Outpatient (CLI) | payer MEDICARE, SELFPAY ==
--- NOTE | ~2024-06-18 | MM_ITS ---
EXAMINATION: MM screening [facility] BI w mihaela HISTORY: Screening mammogram TECHNIQUE: Craniocaudal and mediolateral oblique 3-D tomosynthesis images were obtained and synthetic 2-D images were generated. CAD analysis was submitted and interpreted. COMPARISON: 12/27/2022, 09/02/2020, 07/07/2019 BREAST PARENCHYMAL COMPOSITION:Not Dense. There are scattered areas of fibroglandular density. FINDINGS: There is a 14 mm low-density mass at the upper, posterior left breast, not seen on cc view. Stable appearance of the right breast. No suspicious calcifications. IMPRESSION: 14 mm upper, posterior left breast mass. Spot compression view and exaggerated left CC view, and poss ibly ultrasound, are recommended for further evaluation.. BI-RADS Category 0: Incomplete: Needs additional imaging evaluation. Reviewed, dictated and finalized at [facility]. IMPRESSION: 14 mm upper, posterior left breast mass. Spot compression view and exaggerated left CC view, and possibly ultrasound, are recommended for further evaluation.. BI-RADS Category 0: Incomplete: Needs additional imaging evaluation.
--- OUTSIDE RECORDS SUMMARY | 2024-06-18 09:02 | XMS_ITS | Clinical Summary ---
Author Organization [facility] Address [address] [place] [address] Care Team Providers Care Insulation Cupola Charger Name Role Phone Minna Guardado HISTORICAL SITE GUIDE Primary Care Provider + Allergies No known active allergies Medications sodium chloride (DEANNA 128) 5 % ophthalmic solutionIndicatio ns:Corneal Edema Administer 1 drop into both eyes 2 (two) times a day Active aspirin 325 mg tabletIndications :prevention of thrombosis Take 1 tablet (325 mg total) by mouth every morning Active coenzyme Q10 400 mg capsuleIndication s:health Take 300 mg by mouth every morning Active atorvastatin (LIPITOR) 80 mg tabletIndications :TIA (transient ischemic attack) Take 1 tablet (80 mg total) by mouth daily 90 tablet 1 021 Active escitalopram (LEXAPRO) 5 mg tabletIndications :Anxiety with Depression Take 1 tablet (5 mg total) by mouth nightly 022 Active omeprazole (PriLOSEC) 20 mg capsuleIndication s:Treatment of Non-Bleeding Gastric Disorder Take 1 capsule (20 mg total) by mouth every morning Active ondansetron ODT (ZOFRAN-ODT) 8 mg disintegrating tablet Take 1 tablet (8 mg total) by mouth every 8 (eight) hours as needed for nausea None in past month (used when in chemo) - Never had to take this 024 Active lidocaine-priloca ine cream Apply 1 g (1 Application total) topically as needed for pain Uses every time she goes for infusion every 3 weeks - Next infusion in Mar 13, 2024 024 Active ferrous sulfate 325 mg (65 mg of elemental iron) tabletIndications :health Take 1 tablet (325 mg total) by mouth daily with breakfast With Vitamin C Active cyanocobalamin (Vitamin B-12) 1,000 mcg sublingual tabletIndications :Prevention of Vitamin B12 Deficiency Take 1 tablet (1,000 mcg total) by mouth nightly Active prednisoLONE acetate (PRED FORTE) 1 % ophthalmic suspension Administer 1 drop into the left eye 4 (four) times a day for 1 week, then 3 times/day for 1 week, then 2 times/day for 1 week, then 1 time/day for 1 week, then stop Active triamcinolone (KENALOG) 0.1 % paste Apply 0.25 inches to teeth 2 (two) times a day as needed Active LORazepam (ATIVAN) 0.5 mg tabletIndications :anxiety Take 1 tablet (0.5 mg total) by mouth as needed for anxiety Takes when she flies - none in past month 0 019 2024 Discontinued(P atient Reported) moxifloxacin (VIGAMOX) 0.5 % ophthalmic solution Administer 1 drop into the left eye 4 (four) times a day for 7 days For use after surgery with Dr. Whittaker 3 mL 025 2024 prednisoLONE acetate (PRED FORTE) 1 % ophthalmic suspension Administer 1 drop into the left eye 4 (four) times a day For use after surgery with Dr. Whittaker 5 mL 025 2024 Discontinued Active Problems Problem Noted Date Diagnosed Date Anterior subcapsular polar cataract, nonsenile 0 05/06/2024 Nuclear sclerotic cataract of left eye 5 Age-related nuclear cataract of right eye 2023 Arthritis of knee 02/21/2024 Anxiety 04/01/2020 Gastroesophageal reflux disease 04/01/2020 TIA (transient ischemic attack) 01/22/2019 Borderline high blood pressure 01/22/2019 Obesity (BMI 30-39.9) 01/22/2019 Myelinated optic nerve fiber layer, left Assessment & Plan (01/26/2020 9:19 AM CDT): [...] cataract extraction (CE) for now CPM: Deanna Garcia QID both eyes (OU) RTC one year [...] Encounters Date Type Department Care Team Description 06/04/2024 9:30 AM BOOK SALESMAN Office Visit [facility] [address] [facility] [address]th [place] [address] Shruthi Whittaker MD PhD S/P cataract surgery, left (Primary Dx); S/P cataract surgery, right 05/27/2024 1:30 PM BOOK SALESMAN Office Visit [facility] [address] [facility] 2nd [address], [address] [place] [address] Sue Diaz MD S/P cataract surgery, left (Primary Dx) 05/27/2024 10:47 AM BOOK SALESMAN Anesthesia Event [facility] Center Operating Room [address] [place] [address] Chavez Schuster MD Gangloff, Kerry Marie, NP 05/27/2024 10:45 AM BOOK SALESMAN - 05/27/2024 11:30 AM BOOK SALESMAN Surgery [facility] Operating Room [address] [facility] [place] [phone] Shruthi Whittaker MD PhD EXTRACTION CATARACT - PHACOEMULSIFICATION AND LENS IMPLANT - left eye 05/27/2024 8:54 AM BOOK SALESMAN - 05/27/2024 11:43 AM BOOK SALESMAN [facility] Surgery Center Operating Room [address] [facility] [place] [phone] Shruthi Whittaker MD PhD Nuclear sclerotic cataract of left eye (Primary Dx) Discharge Disposition: Discharge to home or self care 05/26/2024 Telephone [facility] [address] [place] [phone] Shruthi Whittaker MD PhD 05/06/2024 Telephone [facility] [address] [place] [phone] Shruthi Whittaker MD PhD 05/06/2024 Telephone [facility] [address] [place] [phone] Shruthi Whittaker MD PhD 04/23/2024 9:45 AM BOOK SALESMAN Office Visit [facility] [address] [place] [phone] Sue Diaz MD S/P cataract surgery, right (Primary Dx) 03/31/2024 10:00 AM BOOK SALESMAN Office Visit [facility] [address] [place] [phone] Sue Diaz MD S/P cataract surgery, right (Primary Dx) 03/26/2024 9:15 AM BOOK SALESMAN Office Visit [facility] [address] [place] [phone] Shruthi Whittaker MD PhD S/P cataract surgery, right (Primary Dx); Cataract, left 03/25/2024 9:34 AM BOOK SALESMAN Anesthesia Event [facility] Center Operating Room [address] [facility] [place] [address] Chavez Schuster MD Wilkinson, Christina A., NP 03/25/2024 9:10 AM BOOK SALESMAN - 03/25/2024 10:00 AM BOOK SALESMAN Surgery [facility] Surgery [facility] Operating Room [address] [facility] [place] [phone] Shruthi Whittaker MD PhD RIGHT EXTRACTION CATARACT - PHACOEMULSIFICATION AND LENS IMPLANT 03/25/2024 7:21 AM BOOK SALESMAN - 03/25/2024 10:35 AM [facility] Hospital Encounter [facility] Center Operating Room [address] [facility] [place] [phone] Shruthi Whitatker MD PhD Age-related nuclear cataract of right eye (Primary Dx) Discharge Disposition: Discharge to home or self care from Last 3 Months Surgical History Surgery [...] OMENTECTOMY performed by Bhargav Oh MD at 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 Hypertension Brother 3 Hypertension; Stomach cancer Brother 3 Diabetes Brother 4 Diabetes mellit us; Heart attack Father of CA age 83 Heart disease Father Alzheimer's disease [...] drink containing alc ohol? Monthly or less 05/27/2024 Q2: How many drinks containi ng alcohol do you have on a typical day when you are drinking? 1 or 2 05/27/2024 Q3: How often do you have si x or more drinks on one occasion? Never 05/27/2024 Personal Safety Answer Date Recorded Have you ever been in or are you currently in a harmful physical or emotional relationship or is someone making you feel afraid or unsafe? Denies 05/27/2024 Comments No Sex and Gender Information Value Date Recorded Sex Assigned at Not on file Legal Sex Female 4:23 AM BOOK SALESMAN Gender Identity Not on file Sexual Orientation Not on file Obstetrics History Para Term AB IAB SAB Ectopic Multiple Livin g Live Births 3 3 3 3 3 Date Outcome GA Total Labor Labor/2nd/3rd Weight Sex Type Anes PTL Angela A1 A5 Name Clin 06/21 Term 4.281 kg (9 lb 7 oz) M Vag-S pont N Rico Mir 03/16 Term 3.572 kg (7 lb 14 oz) F Vag-S pont N Carlota 12/21 Term 3.997 kg (8 lb 13 oz) F Vag-S pont N Noa Last Filed Vital Signs Vital Sign Reading Time Taken Comments Blood Pressure 160/70 05/27/2024 11:35 AM BOOK SALESMAN Pulse 75 05/27/2024 11:35 AM BOOK SALESMAN Temperature 36.5 C (97.7 F) 05/27/2024 11:13 AM BOOK SALESMAN Respiratory Rate 22 05/27/2024 11:35 AM BOOK SALESMAN Oxygen Saturation 100% 05/27/2024 11:35 AM BOOK SALESMAN Inhaled Oxygen Concentration - - Weight 64.9 kg (143 lb) 05/27/2024 9:05 AM BOOK SALESMAN Height 158.8 cm (5' 2.5 ) 05/27/2024 9:05 AM BOOK SALESMAN Body Mass Index 25.74 05/27/2024 9:05 AM BOOK SALESMAN Plan of Treatment Health Maintenance Due Date Last Done Comments Depression Screening 1940 Osteoporosis Screening-Bone Density Scan 1940 Hepatitis B Screening 1957 Zoster Vaccine (2 of 3) 06/28/2007 05/03/2007 Well Visit 65+ 11/08/2018 11/08/2017, 09/18/2016 DTaP/Tdap/Td Vaccine (2 - Td or Tdap) 02/15/2021 02/15/2011 Influenza Vaccine (#1) 2023 8, 01/19/2017, 03/17/2016, Additional history exists Fall Risk Assessment 05/27/2025 05/27/2024 Pneumococcal vaccine 65+ Completed 01/08/2018, 04/2008 Medical Devices Implanted Type Area Circulating Process Inspector Device Identifier Shelf Expiration Date Model / Serial / Lot [employer] Lens Iol Tecnis Smplcty 1-Pc Clr Hoke 21.5 Diopter [id number] - [id number] - [id number] Implanted:Qty: 1 on 03/25/2024 by Shruthi Whittaker MD PhD at [facility] Right: Eye [employer] [id number] 03/06/2026 [id number] / [id number] / [employer] Lens Iol Tecnis Simplicity Single Piece Clear Hoke 22.5 Diopter [id number] - [id number] - [id number] Implanted:Qty: 1 on 05/27/2024 by Shruthi Whittaker MD PhD at [facility] Left: Eye [employer] [id number] 01/30/2026 [id number] / [id number] / Procedures Procedure Name Priority Date/Time Associated Diagnosis Comments EXTRACTION CATARACT - PHACOEMULSIFICATION AND LENS IMPLANT 05/27/2024 10:47 AM BOOK SALESMAN Anterior subcapsular polar cataract, nonsenile Nuclear sclerotic cataract of left eye IOL CALCULATION 2ND EYE 43529 - OS - LEFT EYE Routine 03/26/2024 9:15 AM BOOK SALESMAN Cataract, left EXTRACTION CATARACT - PHACOEMULSIFICATION AND LENS IMPLANT 03/25/2024 9:37 AM BOOK SALESMAN Age-related nuclear cataract of right eye from Last 3 Months Results * IOL Calculation 2nd Eye 83949 - OS - Left Eye (03/26/2024 9:15 AM BOOK SALESMAN) Anatomical Region Laterality Modality Head Ophthalmic Axial Measurements Narrative 05/03/2024 12:45 PM BOOK SALESMAN Reviewed IOLM, lens choices entered in cataract planning tab us Shruthi Whittaker MD PhD OPHTH ULTRASOUND Claribel l Result from Last 3 Months Insurance MEDICARE [facility] MEDICARE [employer] MEDICARE SUPPLEMENT MEDICARE [facility] MEDICARE SUPPLEMENT Care Teams Insulation Cupola Charger Relationship Specialty Start Date End Date Minna Guardado NP PCP - General Nurse Practitioner 05/08/18
--- OUTSIDE RECORDS SUMMARY | 2024-06-18 09:02 | XMS_ITS ---
Author Organization [facility] Address [address] [facility] [address] [place] [address] Care Team Providers Care Brim Rounder Name Role Phone Minna Guardado Primary Care Provider Bhargav Saenz Unavailable [phone] Louis Montanez Unavailable Unavailable REASON FOR VISIT RE:Catherine Murphy. 1940 Encounters Encounter Location Date Provider Diagnosis [facility] [address] [facility] [address] [place] [address] 04/18/2024 Bhargav Oh Plan Of Treatment No Information Progress Notes * Beny MURPHYnoahDOB:1940 (83 yo F)Acc No.[id number]:04/18/2024 Patient: Catherine LUCIA :1940 A ge:83 Y S ex:Female Address:[facility] [place], [address] * true * Date: Generated for Cheikhi mariaelena/Fakaeg/eTransmitting on: 0 06/18/2024 09:02 AM CDT
--- OUTSIDE RECORDS SUMMARY | 2024-06-18 09:02 | XMS_ITS | Referral Summary ---
Author Organization [facility] Address [address] [facility] [place] [address] Care Team Providers Care Electrical Prospecting Supervisor Name Role Phone Tanika Bardales MD Primary Care Provider [phone] Source Comments [facility],non-owned Affiliates and Associated Physician Practices is amultiple site organization consisting of ambulatory clinics and hospital sitesin [place], [place], [place] and [place]. This disclosure is being madepursuant to the Care Everywhere program and may not contain all information available regarding this patient. Last updated 17.[employer] Top-Level Domain Allergies No known active allergies Medications * [...] CDT Oxygen Saturation 99% 04/01/2020 12:31 PM SHELL MAKER LOCKSTITCH Inhaled Oxygen Concentration - - Weight - - Height - - Body Mass Index - - Plan of Treatment Not on file Care Teams Electrical Prospecting Supervisor Relationship Specialty Start Date End Date Tanika Bardales MD [address] [place] [address] PCP - General 09/09/19
--- OUTSIDE RECORDS SUMMARY | 2024-06-18 09:02 | XMS_ITS | Clinical Summary ---
Author Organization [facility] Address [address] [place] [address] Care Team Providers Care Material Assembler Name Role Phone Tanika Bardales MD Primary Care Provider [phone] Source Comments [facility],non-owned Affiliates and Associated Physician Practices is amultiple site organization consisting of ambulatory clinics and hospital sitesin [place], [place], [place] and [place]. This disclosure is being madepursuant to the Care Everywhere program and may not contain all information available regarding this patient. Last updated 17.[employer] Allergies No known active allergies Medications * [...] CDT Oxygen Saturation 99% 04/01/2020 12:31 PM ELECTRONICS ASSEMBLER AND TESTER Inhaled Oxygen Concentration - - Weight - [...] complete this topic MENINGOCOCCAL (Group B) VACCINE SHARED DECISION-MAKING Aged Out No longer eligible based on patient's age to complete this topic MENINGOCOCCAL GROUPS A/C/Y/W VACCINE Aged Out No longer eligible based on patient's age to complete this topic Care Teams Material Assembler Relationship Specialty Start Date End Date Tanika Bardales MD [facility] [place] [phone] PCP - General 09/09/19
--- OUTSIDE RECORDS SUMMARY | 2024-06-18 09:02 | XMS_ITS ---
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 Vital Signs Weight 152 lbs 05/06/2024 Height 5'2 in 05/06/2024 BMI 27.8 kg/m2 05/06/2024 Oximetry 96 % 05/06/2024 Temperature 98.6 degrees Fahrenheit 05/06/19 25 Blood pressure systolic 124 mm Hg 05/06/19 25 Blood pressure diastolic 66 mm Hg 025 Heart Rate 77 /min 05/06/2024 Weight-kg 68.95 kg 05/06/2024 Height-cm 157.48 cm 05/06/2024 Encounters Encounter Location Date Provider Diagnosis [facility] [address] [facility] [address] [place] [address] 05/06/2024 Bhargav Oh Primary peritoneal adenocarcinoma C48.2 ; 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 We discussed the findings, both radiologic and clinical (VIDAL). We discussed the value of CA125 levels, as well as possible confounding factors, such as colitis. 2. I recommended pursuing another test for CA125. This will help better characterize a trend (erratic versus rising). If the CA125 levels continue to rise, consideration can be given to laparoscopy, to assess whether Catherine's disease is progressing with bevacizumab maintenance. This is unlikely and the most likely etiology for the laboratory findings are the patient's colitis. 3. An etiology for the colitis is not evident. Catherine was treated in the past with bevacizumab both in the neoadjuvant and adjuvant setting and she did not have these symptoms or radiology findings. I recommended pursuing a flexible sigmoidoscopy or colonoscopy, with biopsies. This may help elucidate the etiology of the patient's colitis and subsequent symptoms. 4. We also discussed the possibility of decreasing the dose of bevacizumab or skipping 1-2 cycles and re-evaluating the symptoms. Catherine was recently treated by her primary care physician with maybe metronidazole and her symptoms improved significantly. We will obtain that information and it will help in managing her diarrhea. 5. Regarding possible hearing loss in the left ear after systemic therapy, I recommended an audiology consult. 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 We discussed the findings, both radiologic and clinical (VIDAL). We discussed the value of CA125 levels, as well as possible confounding factors, such as colitis. 2. I recommended pursuing another test for CA125. This will help better characterize a trend (erratic versus rising). If the CA125 levels continue to rise, consideration can be given to laparoscopy, to assess whether Catherine's disease is progressing with bevacizumab maintenance. This is unlikely and the most likely etiology for the laboratory findings are the patient's colitis. 3. An etiology for the colitis is not evident. Catherine was treated in the past with bevacizumab both in the neoadjuvant and adjuvant setting and she did not have these symptoms or radiology findings. I recommended pursuing a flexible sigmoidoscopy or colonoscopy, with biopsies. This may help elucidate the etiology of the patient's colitis and subsequent symptoms. 4. We also discussed the possibility of decreasing the dose of bevacizumab or skipping 1-2 cycles and re-evaluating the symptoms. Catherine was recently treated by her primary care physician with maybe metronidazole and her symptoms improved significantly. We will obtain that information and it will help in managing her diarrhea. 5. Regarding possible hearing loss in the left ear after systemic therapy, I recommended an audiology consult. E&M [id number] Progress Notes * Catherine MURPHYDOB:1940 (84 yo F)Acc No.[id number]:05/06/2024 Progress Notes Patient: Catherine LUCIA Provider: Lei Kingston MD :1940 A ge:84 Y S ex:Female Date:05/06/2024 [address] [address] [address] Pcp:Minna Guardado Subjective: * Chief Complaints: * S tage IIIC high-grade serous primary peritoneal carcinoma * HPI: O ncology: REFERRING PROVIDER: Louis Montanez MD Oncology treatments 1. NACT carboplatin + paclitaxel + bevacizumab x 4 cycles 04/30/2023 - 07/02/2023. 2. Robotic R0 tumor debulking, total omentectomy, BSO 07/30/2023. 3. Carboplatin + paclitaxel + bevacizumab x 3 cycles 08/27/2023 - 10/17/2023. 4. Bevacizumab q21 days 11/26/2023 - NGS / IHC [id number] 0 TMB 1.1 mut/mB MSI cannot be assessed because tumor content is <30% No actionable mutations Blood TMB 4.4 mut/mB MSI-H not detected Chief complaint: I am seeing Catherine Murphy for evaluation and management of stage IIIC high- grade serous primary peritoneal carcinoma. HPI: Catherine Murphy is a 84-year-old who was diagnosed with stage IIIC high-grade serous primary peritoneal carcinoma. She was treated with neoadjuvant systemic therapy x 4 cycles, completed 07/02/2023. She is status post R0 tumor debulking. This was followed by 3 cycles of chemotherapy in the adjuvant setting. She is currently on bevacizumab maintenance. Catherine reports severe diarrhea, sometimes accentuated in the post infusion period. Her bladder functions are within normal limits. Her daughter from ovarian cancer approximately 15 months ago. Catherine is accompanied by her other daughter, they are fairly sure that her daughter has been tested for germline mutations and none were found. Also, no somatic mutations were evident for Catherine on NGS. Lab Results CA125 04/03/2024 102 units/mL 02/25/2024 63 units/mL 11/13/2023 18 units/mL 10/19/2023 25 units/mL 09/26/2023 37 units/mL 08/20/2023 116 units/mL 07/02/2023 129 units/mL 06/19/2023 161 units/mL 03/15/2023 435 U/mL Pertinent imaging studies 05/05/2024 CT [facility] ([facility]) Diffuse large bowel wall thickening with extensive pericolonic inflammatory changes, especially at the rectum. Small amount of pelvic ascites. Impression:Diffuse infectious/inflammatory colitis, similar to prior exam. No distinct evidence for active malignancy or metastatic disease. 02/18/2024 CT [facility] ([facility]) Persistent colonic wall thickening consistent with colitis which could be infectious, inflammatory, ischemic in etiology or given the chronicity potentially related to radiation or chemotherapy treatment. Minimal ascites in the deep pelvis. No evidence of metastatic disease. 11/07/2023 CT [facility] ([facility]) Significant interval improvement in peritoneal carcinomatosis from prior exam, with several scattered residual small peritoneal nodules/implants present. Ascites is resolved. Probably probable wall thickening of the cecum/proximal ascending colon as well as the distal sigmoid/rectum. Correlate for inflammatory/infectious colitis. Diffuse hepatic steatosis. 06/18/2023 CT CAP There is no evidence of any significant mediastinal, hilar, or axillary lymphadenopathy. The mediastinal soft tissues and vascular structures appear normal. There is no evidence of pleural or pericardial effusion. The lungs are clear. No pulmonary nodules or infiltrates are noted. The liver, spleen, pancreas, adrenals, kidneys are within normal limits. Gallbladder absent. No evidence of aortic aneurysm. No lymphadenopathy. No bowel obstruction. Scattered areas of bowel thickening and presumably reactive related to the presence of ascites. There is probable peritoneal carcinomatosis predominantly in the left upper quadrant, possibly mildly improved from prior examination. Moderate ascites present. 03/28/2023 CT C 1. 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 2. Small sliding hiatal hernia. MRI P 03/28/2023 Large volume of ascites with peritoneal carcinomatosis. Diverticulosis of the colon without evidence of diverticulitis. There is nodular peritoneal thickening, consistent with carcinomatosis. Histology/cytology results 07/30/2023 A. Soft tissue, right hemidiaphragm, biopsy: Dense fibrous tissue and skeletal muscle, focally involved by high-grade serous carcinoma (see microscopic description). B. Right hemidiaphragm peritoneum, biopsy: Fragments of fibroadipose tissue, focally involved by high-grade serous carcinoma. C. Right ovary and fallopian tube, salpingo-oophorectomy: Fibrous adhesions with implants of high-grade serous adenocarcinoma. Benign fallopian tube to include fimbriated end, complete cross-sections. Unremarkable atrophic ovarian parenchyma. D. Left ovary and fallopian tube, salpingo-oophorectomy: Benign fallopian tube to include fimbriated end, complete cross-sections. Unremarkable atrophic ovarian parenchyma. E. Omentum, omentectomy: Omental adipose tissue with multiple implants of high-grade serous adenocarcinoma. SYNOPTIC REPORT OVARY or FALLOPIAN TUBE or PRIMARY PERITONEUM 8th Edition - Protocol posted: 06/28/2022OVARY OR FALLOPIAN TUBE OR PRIMARY PERITONEUM - E SPECIMEN Procedure Bilateral salpingo-oophorectomy Omentectomy Peritoneal biopsies Peritoneal washing Hysterectomy Type Laparoscopic, robotic-assisted Specimen Integrity Not applicable TUMOR Tumor Site Primary peritoneum: favored Tumor Size Cannot be determined: implants, no primary mass Histologic Type High grade serous carcinoma Histologic Grade High grade Ovarian Surface Involvement Not identified Fallopian Tube Surface Involvement Not identified Implants Present: right hemidiaphragm, peritoneum, pelvic sidewall, omentum Other Tissue / Organ Involvement Pelvic peritoneum Omentum Peritoneal / Ascitic Fluid Involvement Malignant cells present Chemotherapy Response Score (CRS) CRS1 (no definite or minimal response) REGIONAL LYMPH NODES Regional Lymph Node Status Not applicable (no regional lymph nodes submitted or found) pTNM CLASSIFICATION (AJCC 8th Edition) Modified Classification pT Category pT3c pN Category pN not assigned (no nodes submitted or found) ADDITIONAL FINDINGS Additional Findings None identified 01/25/2023 Peritoneal fluid: - Positive for malignant cells; metastatic carcinoma of m\'fcllerian/peritoneal origin. The cellblock slides show many single highly atypical cells with high NC ratio, marked nuclear pleomorphism and prominent nucleolus. Tumor cells a re positive for PAX8, WT1, p16, ER (patchy), MOC31, CK7, and CHAD-EP4, while negative for CK20, S100, TTF-1. BAP 1 is retained per report. Strong diffuse positivity for Chad-EP4 and MOC31 argues against a diagnosis of mesothelioma. The overall findings are consistent with metastatic carcinoma of muellerian/peritoneal origin. D ifferential diagnosis includes serous carcinoma and others. Block/unstained slides have been requested to perform additional immunostains to further characterize the tumor which will be reported i n an addendum. MHx GERD Anxiety disorder Hyperlipidemia CVA Primary peritoneal carcinoma SHx Ankle surgery Bladder suspension surgery Carpal tunnel release Cholecystectomy Malignant skin lesion excision Rectal villous adenoma excision Tonsillectomy Tumor debulking surgery 07/30/2023 Family Hx Melanoma in patient's son Stomach cancer in her brother Ovarian cancer in her daughter Allergies NKDA Medications Escitalopram Atorvastatin Oncology treatments see above Preventative medicine Catherine reports a colonoscopy more than a year ago. * Medical History: * Surgical History: * Hospitalization/Major Diagno stic Procedure: * Medications: Objective: * Vitals: W t:152lbs, Ht:5'2 , BMI: 27.8 Index, Oxygen sat %:96%, Temp:98.6F, BP:124/66mm Hg, HR:77/min, Wt-k.95 kg, Ht-cm: 157.48 cm, Body Surface Area: 1.73. * Examination: G eneral Examination: General appearance: C haperone present in room , Reflector Driller And Deburrer present in room. Eyes: N o icteric sclerae , No icteric sclerae. Neck / thyroid: N o thyromegaly , No thyromegaly. Lymph nodes: N o cervical or inguinal lymphadenopathy , No cervical or inguinal lymphadenopathy. Skin: N o rashes , No rashes. Heart: R egular rate and rhythm , Regular rate and rhythm.? Lungs: C lear to clear to auscultation bilaterally , Clear to clear to auscultation bilaterally. Abdomen: S oft, non-tender, not distended, no masses, no hernias , Soft, non-tender, not distended, no masses, no hernias. Female genitourinary: N ormal external genitalia, normal anus and perineum, no vaginal lesions, cervix and uterus were surgically absent, no pelvic masses, no tenderness on palpation. Musculoskeletal: N ormal ROM , Normal ROM. Extremities: N o peripheral edema , No peripheral edema.? Neurologic: C N 2-12 intact , CN 2-12 intact. ? Assessment: * Assessment: 1. P rimary peritoneal adenocarcinoma - C48.2 (Primary) 2 . O ther hearing loss of left ear with unrestricted hearing of right ear - H91.8X2 3 . C olitis - K52.9 4 . M aintenance antineoplastic chemotherapy - Z51.11 Plan: * Treatment: * Procedure Codes: * Billing Information: * Visit Code: * Procedure Codes: * RNATIONAL BROADCAST MUSIC LIBRARIAN Sign off status: Completed true * Provider: Lei Kingston MD Date: 0 05/06/2024 Generated for Cheikhi mariaelena/[place]/eTransmitting on: 0 06/18/2024 09:02 AM CDT History and Physical Notes * HPI (History of Present Illness) Category Sub-Category Detail Notes Category Not es Oncology REFERRING PROVIDER: Louis Montanez MD Oncology treatments 1. NACT carboplatin + paclitaxel + bevacizumab x 4 cycles 04/30/2023 - 07/02/2023. 2. Robotic R0 tumor debulking, total omentectomy, BSO 07/30/2023. 3. Carboplatin + paclitaxel + bevacizumab x 3 cycles 08/27/2023 - 10/17/2023. 4. 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 HPI: Catherine Murphy is a 84-year-old who was diagnosed with stage IIIC high-grade serous primary peritoneal carcinoma. She was treated with neoadjuvant systemic therapy x 4 cycles, completed 07/02/2023. She is status post R0 tumor debulking. This was followed by 3 cycles of chemotherapy in the adjuvant setting. She is currently on bevacizumab maintenance. Catherine reports severe diarrhea, sometimes accentuated in the post infusion period. Her bladder functions are within normal limits. Her daughter from ovarian cancer approximately 15 months ago. Catherine is accompanied by her other daughter, they are fairly sure that her daughter has been tested for germline mutations and none were found. Also, no somatic mutations were evident for Catherine on NGS. Lab Results CA125 04/03/2024 102 units/mL 02/25/2024 63 units/mL 11/13/2023 18 units/mL 10/19/2023 25 units/mL 09/26/2023 37 units/mL 08/20/2023 116 units/mL 07/02/2023 129 units/mL 06/19/2023 161 units/mL 03/15/2023 435 U/mL Pertinent imaging studies 05/05/2024 CT [facility] ([facility]) Diffuse large bowel wall thickening with extensive pericolonic inflammatory changes, especially at the rectum. Small amount of pelvic ascites. Impression:Diffuse infectious/inflammatory colitis, similar to prior exam. No distinct evidence for active malignancy or metastatic disease. 02/18/2024 CT [facility] ([facility]) Persistent colonic wall thickening consistent with colitis which could be infectious, inflammatory, ischemic in etiology or given the chronicity potentially related to radiation or chemotherapy treatment. Minimal ascites in the deep pelvis. No evidence of metastatic disease. 11/07/2023 CT [facility] ([facility]) Significant interval improvement in peritoneal carcinomatosis from prior exam, with several scattered residual small peritoneal nodules/implants present. Ascites is resolved. Probably probable wall thickening of the cecum/proximal ascending colon as well as the distal sigmoid/rectum. Correlate for inflammatory/infectious colitis. Diffuse hepatic steatosis. 06/18/2023 CT [facility] There is no evidence of any significant mediastinal, hilar, or axillary lymphadenopathy. The mediastinal soft tissues and vascular structures appear normal. There is no evidence of pleural or pericardial effusion. The lungs are clear. No pulmonary nodules or infiltrates are noted. The liver, spleen, pancreas, adrenals, kidneys are within normal limits. Gallbladder absent. No evidence of aortic aneurysm. No lymphadenopathy. No bowel obstruction. Scattered areas of bowel thickening and presumably reactive related to the presence of ascites. There is probable peritoneal carcinomatosis predominantly in the left upper quadrant, possibly mildly improved from prior examination. Moderate ascites present. 03/28/2023 CT C 1. 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 2. Small sliding hiatal hernia. MRI P 03/28/2023 Large volume of ascites with peritoneal carcinomatosis. Diverticulosis of the colon without evidence of diverticulitis. There is nodular peritoneal thickening, consistent with carcinomatosis. Histology/cytology results 07/30/2023 A. Soft tissue, right hemidiaphragm, biopsy: Dense fibrous tissue and skeletal muscle, focally involved by high-grade serous carcinoma (see microscopic description). B. Right hemidiaphragm peritoneum, biopsy: Fragments of fibroadipose tissue, focally involved by high-grade serous carcinoma. C. Right ovary and fallopian tube, salpingo-oophorectomy: Fibrous adhesions with implants of high-grade serous adenocarcinoma. Benign fallopian tube to include fimbriated end, complete cross-sections. Unremarkable atrophic ovarian parenchyma. D. Left ovary and fallopian tube, salpingo-oophorectomy: Benign fallopian tube to include fimbriated end, complete cross-sections. Unremarkable atrophic ovarian parenchyma. E. Omentum, omentectomy: Omental adipose tissue with multiple implants of high-grade serous adenocarcinoma. SYNOPTIC REPORT OVARY or FALLOPIAN TUBE or PRIMARY PERITONEUM 8th Edition - Protocol posted: 06/28/2022OVARY OR FALLOPIAN TUBE OR PRIMARY PERITONEUM - E SPECIMEN Procedure Bilateral salpingo-oophorectomy Omentectomy Peritoneal biopsies Peritoneal washing Hysterectomy Type Laparoscopic, robotic-assisted Specimen Integrity Not applicable TUMOR Tumor Site Primary peritoneum: favored Tumor Size Cannot be determined: implants, no primary mass Histologic Type High grade serous carcinoma Histologic Grade High grade Ovarian Surface Involvement Not identified Fallopian Tube Surface Involvement Not identified Implants Present: right hemidiaphragm, peritoneum, pelvic sidewall, omentum Other Tissue / Organ Involvement Pelvic peritoneum Omentum Peritoneal / Ascitic Fluid Involvement Malignant cells present Chemotherapy Response Score (CRS) CRS1 (no definite or minimal response) REGIONAL LYMPH NODES Regional Lymph Node Status Not applicable (no regional lymph nodes submitted or found) pTNM CLASSIFICATION (AJCC 8th Edition) Modified Classification pT Category pT3c pN Category pN not assigned (no nodes submitted or found) ADDITIONAL FINDINGS Additional Findings None identified 01/25/2023 Peritoneal fluid: - Positive for malignant cells; metastatic carcinoma of m\'fcllerian/peritoneal origin. The cellblock slides show many single highly atypical cells with high NC ratio, marked nuclear pleomorphism and prominent nucleolus. Tumor cells are positive for PAX8, WT1, p16, ER (patchy), MOC31, CK7, and CHAD-EP4, while negative for CK20, S100, TTF-1. BAP 1 is retained per report. Strong diffuse positivity for Chad-EP4 and MOC31 argues against a diagnosis of mesothelioma. The overall findings are consistent with metastatic carcinoma of muellerian/peritoneal origin. Differential diagnosis includes serous carcinoma and others. Block/unstained slides have been requested to perform additional immunostains to further characterize the tumor which will be reported in an addendum. MHx GERD Anxiety disorder Hyperlipidemia CVA Primary peritoneal carcinoma SHx Ankle surgery Bladder suspension surgery Carpal tunnel release Cholecystectomy Malignant skin lesion excision Rectal villous adenoma excision Tonsillectomy Tumor debulking surgery 07/30/2023 Family Hx Melanoma in patient's son Stomach cancer in her brother Ovarian cancer in her daughter Allergies NKDA Medications Escitalopram Atorvastatin Oncology treatments see above Preventative medicine Catherine reports a colonoscopy more than a year ago. Examination Category Sub-Category Detail Notes Category Not es General Examination General appearance: Training Project Manager e present in room , Reflector Driller And Deburrer present in room Eyes: No icteric sclerae , No icteric sclerae Neck / thyroid: No thyromegaly , No thyromegaly Heart: Regular rate and rhy thm , Regular rate and rhythm Lungs: Clear to clear to au scultation bilaterally , Clear to clear to auscultation bilaterally Abdomen: Soft, non-tender, no t distended, no masses, no hernias , Soft, non- tender, not distended, no masses, no hernias Neurologic: CN 2-12 intact , CN 2-12 intact Skin: No rashes , No rashe s Extremities: No peripheral edema , No peripheral edema Musculoskeletal: Normal ROM , Normal ROM Lymph nodes: No cervical or ingui nal lymphadenopathy , No cervical or inguinal lymphadenopathy Female genitourinary: Normal external ge nitalia, normal anus and perineum, no vaginal lesions, cervix and uterus were surgically absent, no pelvic masses, no tenderness on palpation
--- OUTSIDE RECORDS SUMMARY | 2024-06-18 09:02 | XMS_ITS | Clinical Summary ---
Author Organization [facility] Betzy Montoya Address [address] [place] [address] Care Team Providers Care Strategic Debriefing Specialist Name Role Phone Unavailable Primary Care Provider [...] TREATMENT 6 Tablet 3 08/21/19 24 Active doxycycline hyclate (VIBRAMYCIN) 100 mg tablet Take 100 mg by mouth daily. 06/04/19 25 Active Active Problems Problem Noted Date Diagnosed Date Family history of melanoma 09/13/2023 Encounters Date Type Department Care Team Description 06/12/2024 8:45 AM TRUCK DRIVER HELPER Office Visit [facility] Oncology and Hematology [facility] Josselyn Charles [address] [phone] Louis Montanez MD Malignant neoplasm of ovary, unspecified laterality (CMS/HCC) (Primary Dx); Visit for screening mammogram 06/10/2024 Orders Only [facility] H[facility] Josselyn Charles [address] [place] [phone] Louis Montanez MD 06/09/2024 Orders Only [facility] H[facility]ology [facility] Josselyn Charles [address] [place] [phone] Louis Montanez MD Malignant neoplasm of ovary, unspecified laterality (CMS/HCC) 05/28/2024 External Device Data STL ABSTRACTION Provider, Abstract 05/26/2024 Orders Only [facility] Oncology and Hematology [facility] Josselyn Charles [address] [place] [address] Louis Montanez MD Malignant neoplasm of ovary, unspecified laterality (CMS/HCC) 05/15/2024 8:30 AM TRUCK DRIVER HELPER Office Visit [facility] Oncology and Hematology [facility] Josselyn Charles [address] [place] [address] Louis Montanez MD Malignant neoplasm of ovary, unspecified laterality (CMS/HCC) (Primary Dx) 05/15/2024 Orders Only [facility] Oncology and Hematology [facility] Josselyn Charles [address] [place] [address] Louis Montanez MD Malignant neoplasm of ovary, unspecified laterality (CMS/HCC) (Primary Dx) 05/12/2024 Orders Only [facility] Oncology and Hematology - [place] [address] Charles [address] [phone] Louis Montanez MD Malignant neoplasm of ovary, unspecified laterality (CMS/HCC) 05/07/2024 External Device Data STL ABSTRACTION Provider, Abstract 05/07/2024 Abstract [facility] and Hematology - [place] [address] Charles [address] [address] Louis Montanez MD 05/07/2024 Abstract [facility] and Hematology - [place] [address] Charles [address] [address] Louis Montanez MD 05/05/2024 Orders Only [facility] and Hematology - [place] [address] Charles [address] Louis Montanez MD 2024 External Device Data STL ABSTRACTION Provider, Abstract 04/28/2024 Orders Only [facility] and Hematology - [place] [address] Charles [address] [phone] Louis Montanez MD Malignant neoplasm of ovary, unspecified laterality (CMS/HCC) 04/25/2024 Orders Only [facility] On[facility] and Hematology - [place] [address] Lindsay Charles [address] Louis Montanez MD 04/21/2024 Orders Only [facility] and Hematology - [place] [address] [place] [address] Louis Montanez MD Malignant neoplasm of ovary, unspecified laterality (CMS/HCC) 04/17/2024 Telephone [facility] and Hematology - [place] [address] Charles [address] [place] [phone] Louis Montanez MD Lab Results 04/14/2024 Orders Only [facility] Oncology and Hematology - [place] 222Agnes Charles [address] [place] [phone] Louis Montanez MD Malignant neoplasm of ovary, unspecified laterality (CMS/HCC) 04/10/2024 Orders Only [facility] On[facility] and Hematology - [place] [address] Lindsay Charles [address] [place] [address] Louis Montanez MD 04/07/2024 Orders Only [facility] and Hematology - [place] [address] Lindsay Charles [address] [place] [address] Louis Montanez MD Malignant neoplasm of ovary, unspecified laterality (CMS/HCC) 04/04/2024 Orders Only [facility] Oncology and Hematology - [place] [address] [place] [address] Louis Montanez MD 04/03/2024 9:00 AM TRUCK DRIVER HELPER Office Visit [facility] On[facility] and Hematology - [place] [address] [place] [phone] Regine Prajapati MD Malignant neoplasm of ovary, unspecified laterality (CMS/HCC) (Primary Dx) 03/31/2024 Orders Only [facility] Oncology and Hematology - [place] [address] [place] [address] Louis Montanez MD Malignant neoplasm of ovary, unspecified laterality (CMS/HCC) 03/24/2024 Orders Only [facility] On[facility] and Hematology - [place] [address] [place] [address] Louis Montanez MD Malignant neoplasm of ovary, [...] on file Legal Sex Female 8:31 AM TRUCK DRIVER HELPER Gender Identity Not on file Sexual Orientation Not on file Last Filed Vital Signs Vital Sign Reading Time Taken Comments Blood Pressure 124/73 06/12/2024 8:53 AM TRUCK DRIVER HELPER Pulse 73 06/12/2024 8:53 AM TRUCK DRIVER HELPER Temperature 35.5 C (95.9 F) 06/12/2024 8:53 AM TRUCK DRIVER HELPER Respiratory Rate 15 06/12/2024 8:53 AM TRUCK DRIVER HELPER Oxygen Saturation 96% 06/12/2024 8:53 AM TRUCK DRIVER HELPER Inhaled Oxygen Concentration - - Weight 63.4 kg (139 lb 12.8 oz) 06/12/2024 8:53 AM TRUCK DRIVER HELPER Height 157.5 cm (5' 2 ) 08/16/2023 2:37 PM CDT Body Mass Index 25.57 08/16/2023 2:37 PM CDT Plan of Treatment Upcoming Encounters Date Type Department Care Team (Late st Contact Info) Description 07/02/2024 4:00 PM CDT Telephone Check Up [facility] and Hematology - [place] Lindsay Charles [address] [place] [phone] Louis Montanez MD [address] [facility] [address] [place] [address] 07/24/2024 9:30 AM CDT Office Visit [facility] Oncology and Hematology [facility] [address] [facility] [address] [place] [address] Louis Montanez MD [address] [facility] [address] [place] [address] Health Maintenance Due Date Last Done Comments DTAP/TDAP/TD VACCINES (1 - Tdap) 1959 PNEUMOCOCCAL VACCINE 50+ YEARS (1 of 1 - PCV) 05/01/18 90 ZOSTER VACCINE (1 of 2) 1989 OSTEOPOROSIS SCREENING 2004 RSV VACCINE (60+ or ) (1 - 1-dose 75+ series) 2014 INFLUENZA VACCINE (#1) 2023 Procedures Procedure Name Priority Date/Time Associated Diagnosis Comments BASIC METABOLIC PANEL Routine 06/09/2024 2:44 PM TRUCK DRIVER HELPER CHG CA 125 Routine 06/09/2024 1:30 PM TRUCK DRIVER HELPER BASIC METABOLIC PANEL Routine 05/15/2024 9:56 AM TRUCK DRIVER HELPER CBC WITH DIFFERENTIAL Routine 05/12/2024 2:[address] ABDOMEN PELVIS W CONTRAST Routine 05/05/2024 11:46 AM TRUCK DRIVER HELPER BASIC METABOLIC PANEL Routine 04/24/2024 12:47 PM TRUCK DRIVER HELPER COMPREHENSIVE METABOLIC PANEL Routine 04/03/2024 3:36 PM TRUCK DRIVER HELPER BASIC METABOLIC PANEL Routine 04/03/2024 2:10 PM TRUCK DRIVER HELPER CBC WITH DIFFERENTIAL Routine 04/03/2024 1:53 PM TRUCK DRIVER HELPER CANCER ANTIGEN 15-3 Routine 04/03/2024 1 0:59 AM TRUCK DRIVER HELPER from Last 3 Months Results * BASIC METABOLIC PANEL (06/09/2024 2:44 PM TRUCK DRIVER HELPER) Only the most recent of4 resultswithin the time period is included. Blood Louis Montanez MD CHEMISTRY ORDERABLES Final Resu lt * CHG CA 125 (06/09/2024 1:30 PM TRUCK DRIVER HELPER) Result [facility] Louis Montanez MD CHG - LABORATORY Final Result * CBC WITH DIFFERENTIAL (05/12/2024 2:02 PM TRUCK DRIVER HELPER) Only the most recent of2 resultswithin the time period is included. Blood Provider Scanning HEMATOLOGY ORDERABLES Final Re sult * CT ABDOMEN PELVIS W CONTRAST (05/05/2024 11:46 AM TRUCK DRIVER HELPER) Anatomical Region Laterality Modality Abdomen Other Result [facility] Louis Montanez MD CT ORDERABLES Final Result * COMPREHENSIVE METABOLIC PANEL (04/03/2024 3:36 PM TRUCK DRIVER HELPER) Blood Result [facility] Louis Montanez MD CHEMISTRY ORDERABLES Final Resu lt * CANCER ANTIGEN 15-3 (04/03/2024 10:59 AM TRUCK DRIVER HELPER) Blood Result [facility] Louis Montanez MD CHEMISTRY ORDERABLES Final Resu lt from Last 3 Months Insurance [facility] SUPP MEDICARE PART A AND B BCBS SUPP RX [employer] Medicare Part D RX [employer] Commercial Advance Directives For more information, please contact: [phone] * Full Code (Latest Code Status on File) Date Activated Date Inactivated Comments 07/30/2023 8:32 PM 07/31/2023 12:10 PM * Full Code Date Activated Date Inactivated Comments 07/30/2023 12:16 PM 07/30/2023 8:32 PM * Full Code Date Activated Date Inactivated Comments 07/30/2023 10:39 AM 07/30/2023 12:16 PM
--- OUTSIDE RECORDS SUMMARY | 2024-06-18 09:02 | XMS_ITS | Patient Health Summary ---
Author Organization [facility] [employer] Address [address] [place] [address] Care Team Providers Care Accessibility Lift Technician Name Role Phone Tanika Bardales MD Primary Care Provider [phone] Note from [facility] [employer] [facility] [employer],non-owned Affiliates and Associated Physician Practices is amultiple site organization consisting of ambulatory clinics and hospital sitesin [place], [place], [place] and [place]. This disclosure is being madepursuant to the Care Everywhere program and may not contain all information available regarding this patient. Last updated 17.[facility] [employer] Allergies No known active allergies Medications * [...] CDT Oxygen Saturation 99% 04/01/2020 12:31 PM PRINT AND PATTERN DESIGNER Inhaled Oxygen Concentration - - Weight - - Height - - Body Mass Index - - Care Teams Accessibility Lift Technician Relationship Specialty Start Date End Date Tanika Bardales MD [facility] [place] [address] PCP - General 09/09/19
--- OUTSIDE RECORDS SUMMARY | 2024-06-18 09:02 | XMS_ITS ---
Author Organization [facility] Address [address] [facility] [address] [place] [address] Care Team Providers Care Oven Worker Name Role Phone Minna Guardado Primary Care Provider Bhargav Saenz Unavailable [phone] Louis Montanez Unavailable Unavailable REASON FOR VISIT Catherine Murphy. 1940 Encounters Encounter Location Date Provider Diagnosis [facility] [address] [facility] [address] [place] [address] 04/18/2024 Bhargav Oh Plan Of Treatment No Information Progress Notes * Beny MURPHYnoahDOB:1940 (83 yo F)Acc No.[id number]:04/18/2024 Patient: Catherine LUCIA :1940 A ge:83 Y S ex:Female Address:[facility] [address], [place], [address] * true * Date: Generated for Cheikhi mariaelena/Krystinag/eTransmitting on: 0 06/18/2024 09:02 AM CDT
--- OUTSIDE RECORDS SUMMARY | 2024-06-18 09:03 | XMS_ITS | Referral Summary ---
Author Organization [facility] Address [address] [place] [address] Care Team Providers Care Jockey Room Custodian Name Role Phone Minna Guardado ENGINE PILOT Primary Care Provider + Encounters Date Type Department Care Team Description 06/04/2024 9:30 AM DELIVERY TRUCK DRIVER Office Visit [facility] Ophthalmology [address] [facility] 6th [place] [address] Shruthi Whittaker MD PhD S/P cataract surgery, left (Primary Dx); S/P cataract surgery, right 05/27/2024 1:30 PM DELIVERY TRUCK DRIVER Office Visit [facility] Ophthalmology [address] [facility] 2nd [address], [address] [place] [address] Sue Diaz MD S/P cataract surgery, left (Primary Dx) 05/27/2024 10:45 AM DELIVERY TRUCK DRIVER - 05/27/2024 11:30 AM DELIVERY TRUCK DRIVER Surgery [facility] Operating Room [address] [place] [address] Shruthi Whittaker MD PhD EXTRACTION CATARACT - PHACOEMULSIFICATION AND LENS IMPLANT - left eye 05/27/2024 10:47 AM DELIVERY TRUCK DRIVER Anesthesia Event [facility] Operating Room [address] [place] [address] Chavez Schuster MD Gangloff, Kerry Marie, NP 05/27/2024 8:54 AM DELIVERY TRUCK DRIVER - 05/27/2024 11:43 AM [facility] Hospital Encounter [facility] Operating Room [address] [place] [phone] Shruthi Whittaker MD PhD Nuclear sclerotic cataract of left eye (Primary Dx) Discharge Disposition: Discharge to home or self care 05/26/2024 Telephone [facility] Ophthalmology [address] [place] [address] Shruthi Whittaker MD PhD 05/06/2024 Telephone [facility] Ophthalmology [address] [place] [address] Shruthi Whittaker MD PhD 05/06/2024 Telephone [facility] Ophthalmology [address] [place] [address] Shruthi Whittaker MD PhD 04/23/2024 9:45 AM DELIVERY TRUCK DRIVER Office Visit [facility] Ophthalmology [address] [place] [address] Sue Diaz MD S/P cataract surgery, right (Primary Dx) 03/31/2024 10:00 AM DELIVERY TRUCK DRIVER Office Visit [facility] Ophthalmology [address] [place] [address] Sue Diaz MD S/P cataract surgery, right (Primary Dx) 03/26/2024 9:15 AM DELIVERY TRUCK DRIVER Office Visit [facility] Ophthalmology [address] [place] [address] Shruthi Whittaker MD PhD S/P cataract surgery, right (Primary Dx); Cataract, left 03/25/2024 9:10 AM DELIVERY TRUCK DRIVER - 03/25/2024 10:00 AM DELIVERY TRUCK DRIVER Surgery [facility] Operating Room [address] [place] [address] Shruthi Whittaker MD PhD RIGHT EXTRACTION CATARACT - PHACOEMULSIFICATION AND LENS IMPLANT 03/25/2024 9:34 AM DELIVERY TRUCK DRIVER Anesthesia Event [facility] Operating Room [address] [facility] [place] [phone] Chavez Schuster MD Wilkinson, Christina A., NP 03/25/2024 7:21 AM DELIVERY TRUCK DRIVER - 03/25/2024 10:35 AM DELIVERY TRUCK DRIVER Hospital Encounter [facility] Operating Room [address] [place] [phone] Shruthi Whittaker MD PhD Age-related nuclear cataract of right eye (Primary Dx) Discharge Disposition: Discharge to home or self care from Last 3 Months Allergies No known [...] chemo) - Never had to take this Active lidocaine-priloca ine cream Apply 1 g [...] 05/06/2024 Nuclear sclerotic cataract of left eye Age-related nuclear cataract of right eye 2023 [...] on file Legal Sex Female 4:23 AM DELIVERY TRUCK DRIVER Gender Identity Not on file Sexual Orientation Not on file Last Filed Vital Signs Vital Sign Reading Time Taken Comments Blood Pressure 160/70 05/27/2024 11:35 AM DELIVERY TRUCK DRIVER Pulse 75 05/27/2024 11:35 AM DELIVERY TRUCK DRIVER Temperature 36.5 C (97.7 F) 05/27/2024 11:13 AM DELIVERY TRUCK DRIVER Respiratory Rate 22 05/27/2024 11:35 AM DELIVERY TRUCK DRIVER Oxygen Saturation 100% 05/27/2024 11:35 AM DELIVERY TRUCK DRIVER Inhaled Oxygen Concentration - - Weight 64.9 kg (143 lb) 05/27/2024 9:05 AM DELIVERY TRUCK DRIVER Height 158.8 cm (5' 2.5 ) 05/27/2024 9:05 AM DELIVERY TRUCK DRIVER Body Mass Index 25.74 05/27/2024 9:05 AM DELIVERY TRUCK DRIVER Plan of Treatment Not on file Medical Devices Implanted Type Area Door Maker Device Identifier Shelf Expiration Date Model / Serial / Lot [employer] Lens Iol Tecnis Smplcty 1-Pc Clr Whiteside 21.5 Diopter [id number] - [id number] - [id number] Implanted:Qty: 1 on 03/25/2024 by Shruthi Whittaker MD PhD at [facility] [place] Right: Eye [employer] [id number] 03/06/2026 [id number] / [id number] / [employer] Lens Iol Tecnis Simplicity Single Piece Clear Whiteside 22.5 Diopter [id number] - [id number] - [id number] Implanted:Qty: 1 on 05/27/2024 by Shruthi Whittaker MD PhD at [facility] [place] Left: Eye [employer] [id number] 01/30/2026 [id number] / [id number] / Procedures Procedure Name Priority Date/Time Associated Diagnosis Comments EXTRACTION CATARACT - PHACOEMULSIFICATION AND LENS IMPLANT 05/27/2024 10:47 AM DELIVERY TRUCK DRIVER Anterior subcapsular polar cataract, nonsenile Nuclear sclerotic cataract of left eye IOL CALCULATION 2ND EYE 07124 - OS - LEFT EYE Routine 03/26/2024 9:15 AM DELIVERY TRUCK DRIVER Cataract, left EXTRACTION CATARACT - PHACOEMULSIFICATION AND LENS IMPLANT 03/25/2024 9:37 AM DELIVERY TRUCK DRIVER Age-related nuclear cataract of right eye from Last 3 Months Results * IOL Calculation 2nd Eye 66484 - OS - Left Eye (03/26/2024 9:15 AM DELIVERY TRUCK DRIVER) Anatomical Region Laterality Modality Head Ophthalmic Axial Measurements Narrative 05/03/2024 12:45 PM DELIVERY TRUCK DRIVER Reviewed IOLM, lens choices entered in cataract planning tab us Shruthi Whittaker MD PhD OPHTH ULTRASOUND Claribel l Result from Last 3 Months Insurance MEDICARE [facility] MEDICARE [facility] MEDICARE SUPPLEMENT MEDICARE [facility] MEDICARE SUPPLEMENT Care Teams Jockey Room Custodian Relationship Specialty Start Date End Date Minna Guardado NP PCP - General Nurse Practitioner 05/08/18
--- OUTSIDE RECORDS SUMMARY | 2024-06-18 09:03 | XMS_ITS | Patient Health Record ---
Author Organization [facility] Address [address] [facility] [address] [place] [address] Care Team Providers Care Change Release Manager Name Role Phone Minna Guardado Primary Care Provider Bhargav Saenz Unavailable [phone] Louis Montanez Unavailable Unavailable Reason For Referral No Information Vital Signs Heart Rate 77 /min 05/06/2024 Temperature 98.6 degrees Fahrenheit 05/06/2024 Height-cm 157.48 cm 05/06/2024 Blood pressure diastolic 66 mm Hg 05/06/2024 Oximetry 96 % 05/06/2024 Weight-kg 68.95 kg 05/06/2024 Height 5'2 in 05/06/2024 Blood pressure systolic 124 mm Hg 05/06/2024 Weight 152 lbs 05/06/2024 BMI 27.8 kg/m2 05/06/2024 Encounters Encounter Location Date Provider Diagnosis [facility] [address] [facility] [address] [place] [address] 05/06/2024 Bhargav Oh 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 (ICD-10 - H91.8X2) 05/06/2024 Colitis (ICD-10 - K52.9) 05/06/2024 Maintenance antineoplastic chemotherapy (ICD-10 - Z51.11) Plan Of Treatment No Information Insurance Providers Payer Name Payer Address Payer Phone Subscriber Number Group Number Insured Name Patient Relationship to Insured Coverage Start Date Coverage End Date Medicare of [place] J5 [address] [address] [place], [place] [id number] Catherine Murphy Self - patient is the insured Blue Cross and Blue [facility] [address] [place], [place] [id number] [phone] [id number] Catherine Murphy Self - patient is the insured
== END 2024-06-18 08:41 | disposition home or self-care (01) ==
LOC: ANHIMG 08:43
PROVIDERS: PCP Nurse Practitioner Family; Visit Provider Internal Medicine Hematology & Oncology
DX: Z12.31 Encounter for screening mammogram for malignant neoplasm of breast (principal)
CPT/HCPCS: 77063; 77067

== ENCOUNTER 2024-06-24 09:00 | Outpatient (CLI) | payer MEDICARE, SELFPAY ==
--- NOTE | ~2024-06-24 | PE_ITS ---
EXAMINATION: PET skull to mid thigh DATE: 06/24/2024 11:05 INDICATION: Right ovarian cancer TECHNIQUE: Blood glucose level was 97 mg/dL. 9.537 mCi of 18-fluorodeoxyglucose (18-FDG) was administ ered i.v. Low dose computed tomography (CT) images were acquired from the base of the brain to the pr oximal thighs for attenuation correction and anatomic localization. Positron emission tomography (PET ) images were acquired in the same distribution beginning 51 minutes after injection. Images includin g fused PET/CT images were reconstructed in axial, coronal, and sagittal planes. Automated exposure c ontrol technique was employed. The dose-length product was 742.25 mGy-cm. COMPARISON: 05/05/2024 FINDINGS: Head/neck: There is symmetric increased activity in the oral cavity, palatine tonsils, laryngeal muscles and ocu lar muscles without CT correlate, likely physiologic. 1.9 x 0.9 cm left internal jugular chain lymph node with maximal SUV of 4.3. No other pathologically enlarged or FDG avid cervical lymphadenopathy. Chest: Calcified right upper lobe nodule along with calcified mediastinal lymph nodes consistent with old gr anulomatous disease. No other suspicious pulmonary nodules, pneumonia or other pulmonary infiltrates. No pleural effusion. Heart size is normal. Atherosclerotic coronary artery calcific lesion. No peric ardial effusion. Thoracic aorta is normal in caliber. Right internal jugular central venous port cath eter with distal tip at the superior cavoatrial junction. Small region of FDG avid focal skin thicken ing measuring approximately 1.5 cm diameter and measuring up to 6 mm in thickness in the left paraste rnal region with maximal SUV of 6.3. Possibly 6 x 4 mm right internal mammary chain lymph node with m ild FDG uptake with maximal SUV of 2.5. No other pathologically enlarged or FDG avid thoracic lymphad enopathy. Abdomen/pelvis/proximal thighs: Physiologic renal accumulation and excretion of FDG activity in the kidneys, bladder and along portio ns of ureters. 2 mm nonobstructing stone versus atherosclerotic calcification at the upper pole of th e right kidney. Cholecystectomy clips at the gallbladder fossa. Normal degree and heterogenous patter n of increased uptake throughout the liver without radiologic correlate or dominant FDG avid lesion. The pancreas, spleen and bilateral adrenal glands are normal. Mild uptake scattered throughout the donavon wels without radiologic correlate, also likely physiologic. The uterus and bilateral ovaries are not identified and have likely been surgically resected. Approximately 1 cm ill-defined focus of round gl ass density in the infraumbilical subcutaneous fat with mild associated FDG uptake with maximal SUV o f 2.5. Tiny focus of increased uptake with maximal SUV of 5.9 on the skin surface at the left side of the inferior gluteal cleft without radiologic correlate on CT likely related to skin contamination. No other abnormal foci of increased FDG uptake or pathologically enlarged lymphadenopathy in the abdo men, pelvis or proximal thighs. Musculoskeletal: Scattered degenerative skeletal changes most notable for severe thoracic spondylosis and severe facet osteoarthritis in the lumbar spine. No suspicious lytic, blastic or abnormally FDG avid bone lesions . IMPRESSION: 1. Small region of left parasternal focal skin thickening overlying the anterior left second rib with moderate increased FDG activity which could be either inflammatory or malignant in etiology. Recomme nd direct inspection of the skin with biopsy as clinically indicated. 2. Mildly prominent but still normal-sized and mildly FDG avid left internal jugular chain and right internal mammary chain lymph nodes which could be reactive or metastatic. 3. Small ill-defined focus of ground glass opacity with mild FDG uptake in the infraumbilical subcuta neous fat which could be due to fat necrosis, inflammation related to subcutaneous injection or less likely malignancy. Reviewed, dictated and finalized at location A. IMPRESSION: 1. Small region of left parasternal focal skin thickening overlying the anterio r left second rib with moderate increased FDG activity which could be either in flammatory or malignant in etiology. Recommend direct inspection of the skin wi th biopsy as clinically indicated. 2. Mildly prominent but still normal-sized and mildly FDG avid left internal ju gular chain and right internal mammary chain lymph nodes which could be reactiv e or metastatic. 3. Small ill-defined focus of ground glass opacity with mild FDG uptake in the infraumbilical subcutaneous fat which could be due to fat necrosis, inflammatio n related to subcutaneous injection or less likely malignancy.
[2024-06-24 09:38] LABS: Glucose Point of Care 97 mg/dl (65-105)
--- OUTSIDE RECORDS SUMMARY | 2024-06-24 09:38 | XMS_ITS ---
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 E&M 46665 05/06/2024 Other hearing loss of left ear [...] therapy, I recommended an audiology consult. E&M 02483 Progress Notes * Catherine MURPHYDOB:1940 (84 yo F)Acc No.[id number]:05/06/2024 Progress Notes Patient: Catherine LUCIA Provider: Lei Kingston MD :1940 A ge:84 Y S ex:Female Date:05/06/2024 [place] [place] [address] Pcp:Minna Guardado Subjective: * Chief Complaints: * [...] q21 days 11/26/2023 - NGS / IHC Uwx4ogl 0 TMB 1.1 mut/mB MSI cannot be [...] U/mL Pertinent imaging studies 05/05/2024 CT AP ([facility]) Diffuse large bowel wall thickening with extensive pericolonic inflammatory changes, especially at the rectum. Small amount of pelvic ascites. Impression:Diffuse infectious/inflammatory colitis, similar to prior exam. No distinct evidence for active malignancy or metastatic disease. 02/18/2024 CT AP ([facility]) Persistent colonic wall thickening consistent with colitis which could be infectious, inflammatory, ischemic in etiology or given the chronicity potentially related to radiation or chemotherapy treatment. Minimal ascites in the deep pelvis. No evidence of metastatic disease. 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 Eyes: N o icteric [...] * Visit Code: * Procedure Codes: * ONENT DESIGN ENGINEER Sign off status: Completed true * Provider: Lei Kingston MD Date: 0 05/06/2024 Generated for Cheikhi mariaelena/Alban/eTransmitting on: 0 06/24/2024 09:38 AM CDT History and Physical Notes * [...] q21 days 11/26/2023 - NGS / IHC [id number] 0 TMB 1.1 mut/mB MSI cannot be [...] U/mL Pertinent imaging studies 05/05/2024 CT AP ([facility]) Diffuse large bowel wall thickening with extensive pericolonic inflammatory changes, especially at the rectum. Small amount of pelvic ascites. Impression:Diffuse infectious/inflammatory colitis, similar to prior exam. No distinct evidence for active malignancy or metastatic disease. 02/18/2024 CT AP ([facility]) Persistent colonic wall thickening consistent with colitis which could be infectious, inflammatory, ischemic in etiology or given the chronicity potentially related to radiation or chemotherapy treatment. Minimal ascites in the deep pelvis. No evidence of metastatic disease. 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
--- OUTSIDE RECORDS SUMMARY | 2024-06-24 09:38 | XMS_ITS | Continuity of Care Document ---
Author Organization [facility] Address [address] [place] [address] Phone Care Team Providers Care Pad Tufter Name Role Phone Daniel Mcfarland MD Unavailable [...] - Active Procedures Procedure Date OFFICE/OUTPATIENT VISIT [facility] Advance Directives Directive Yes / [...] Providers Copied on Encounter OFFICE/OUTPAT IENT VISIT [facility], [address], [place], [address], [place] tel:[phone] [facility] knee arthritis 3 Bruna Sanchez. [address], [place], [place], [address] . tel: [phone] Family History Family Member Type Diagnosis Age [...]
--- OUTSIDE RECORDS SUMMARY | 2024-06-24 09:39 | XMS_ITS | Encounter Summary ---
Author Organization [facility] Address [address] [place] [address] Care Team Providers Care Hydrographic Surveyor Name Role Phone Unavailable Primary Care Provider Unavailabl e Encounter Details Date Type Department Care Team (Late Contact Info) Description 06/23/2024 Orders Only [facility] Oncology and Hematology - Alo [address] [facility] [address] [place] [address] Louis Montanez MD [address] [facility] [address] [place] [address] Malignant neoplasm of ovary, unspecified laterality (CMS/HCC) Social History Tobacco Use Types Packs/Day Years Used Date Smoking Tobacco: Never Smokeless Tobacco: Never Alcohol Use Standard Drinks/Week Comments Not Currently [...] on file Legal Sex Female 8:31 AM SEAM CHECKER Gender Identity Not on file Sexual Orientation Not on file documented as of this encounter Plan of Treatment Upcoming Encounters Date Type Department Care Team (Late Contact Info) Description 07/02/2024 4:00 PM CDT Telephone Check Up [facility] Oncology and Hematology [facility] [address] [place] [address] Louis Montanez MD [address] [facility] [address] [place] [address] 07/24/2024 9:30 AM CDT Office Visit [facility] Oncology and Hematology [facility] [address] [place] [address] Louis Montanez MD [address] [facility] [address] [place] [address] documented as of this encounter Visit Diagnoses Diagnosis Malignant neoplasm of ovary, unspecified laterality (CMS/HCC) documented in this encounter
--- OUTSIDE RECORDS SUMMARY | 2024-06-24 09:39 | XMS_ITS ---
Author Organization [facility] Address [address] [facility] [address] [place] [address] Care Team Providers Care Test And Balance Engineer Name Role Phone Minna Guardado Primary Care Provider Bhargav Saenz Unavailable [phone] Louis Montanez Unavailable Unavailable REASON FOR VISIT RE:Catherine Murphy. 1940 Encounters Encounter Location Date Provider Diagnosis [facility] [address] [facility] [address] [place] [address] 04/18/2024 Bhargav Oh Plan Of Treatment No Information Progress Notes * Beny MURPHYnoahDOB:1940 (83 yo F)Acc No.[id number]:04/18/2024 Patient: Catherine LUCIA :1940 A ge:83 Y S ex:Female [facility] [place], [address] * true * Date: Generated for Cheikhi ng/Fakaeg/eTransmitting on: 0 06/24/2024 09:38 AM CDT
--- OUTSIDE RECORDS SUMMARY | 2024-06-24 09:39 | XMS_ITS | Clinical Summary ---
Author Organization [facility] Betzy Montoya Address [address] [place] [address] Care Team Providers Care Rail Car Painter/Sandblaster Name Role Phone Unavailable Primary Care Provider [...] Encounters Date Type Department Care Team Description 06/23/2024 Orders Only [facility] Oncology and [facility] [address] [place] [address] Louis Montanez MD Malignant neoplasm of ovary, unspecified laterality (CMS/HCC) 06/18/2024 Orders Only [facility] Oncology and [facility] [address] [place] [address] Louis Montanez MD 06/18/2024 Telephone [facility] Oncology [facility] [address] [place] [address] Louis Montanez MD Abnormal Mammo Results 06/12/2024 8:45 AM DRY KILN LOADER Office Visit [facility] Oncology [facility] [address] [place] [address] Louis Montanez MD Malignant neoplasm of ovary, unspecified laterality (CMS/HCC) (Primary Dx); Visit for screening mammogram 06/10/2024 Orders Only [facility] Oncology and [facility] [address] [place] [address] Louis Montanez MD 06/09/2024 Orders Only [facility] Oncology and Hematology [facility] [address] [place] [address] Louis Montanez MD Malignant neoplasm of ovary, unspecified laterality (CMS/HCC) 05/28/2024 External Device Data STL ABSTRACTION Provider, Abstract 05/26/2024 Orders Only [facility] Oncology and [facility] [address] [place] [address] Louis Montanez MD Malignant neoplasm of ovary, unspecified laterality (CMS/HCC) 05/15/2024 8:30 AM DRY KILN LOADER Office Visit [facility] Oncology and Hematology - Al[address] Louis Montanez MD Malignant neoplasm of ovary, unspecified laterality (CMS/HCC) (Primary Dx) 05/15/2024 Orders Only [facility] Oncology and Hematology - Al[address] [place] [address] Louis Montanez MD Malignant neoplasm of ovary, unspecified laterality (CMS/HCC) (Primary Dx) 05/12/2024 Orders Only [facility] Oncology and Hematology - [address] [place] [address] Louis Montanez MD Malignant neoplasm of ovary, unspecified laterality (CMS/HCC) 05/07/2024 External Device Data STL ABSTRACTION Provider, Abstract 05/07/2024 Abstract [facility] Oncology and Hematology - Alo [address] [place] [address] Louis Montanez MD 05/07/2024 Abstract [facility] Oncology and Hematology - Alo [address] [place] [address] Louis Montanez MD 05/05/2024 Orders Only [facility] Oncology and Hematology - [address] [place] [address] Louis Montanez MD 2024 External Device Data STL ABSTRACTION Provider, Abstract 04/28/2024 Orders Only [facility] Oncology and Hematology - Alo [address] [place] [address] Louis Montanez MD Malignant neoplasm of ovary, unspecified laterality (CMS/HCC) 04/25/2024 Orders Only [facility] Oncology and Hematology - Alo [address] [place] [address] Louis Montanez MD 04/21/2024 Orders Only [facility] Oncology and Hematology - Al[address] [place] [address] Louis Montanez MD Malignant neoplasm of ovary, unspecified laterality (CMS/HCC) 04/17/2024 Telephone [facility] Oncology and Hematology - [address] [place] [address] Louis Montanez MD Lab Results 04/14/2024 Orders Only [facility] Oncology and Hematology - Al[address] [place] [address] Louis Montanez MD Malignant neoplasm of ovary, unspecified laterality (CMS/HCC) 04/10/2024 Orders Only [facility] Oncology and Hematology - Al[address] [place] [address] Louis Montanez MD 04/07/2024 Orders Only [facility] Oncology and Hematology - Al[address] [place] [address] Louis Montanez MD Malignant neoplasm of ovary, unspecified laterality (CMS/HCC) 04/04/2024 Orders Only [facility] Oncology and Hematology - [address] [place] [address] Louis Montanez MD 04/03/2024 9:00 AM DRY KILN LOADER Office Visit [facility] Oncology and Hematology - Al[address] Regine Prajapati MD Malignant neoplasm of ovary, unspecified laterality (CMS/HCC) (Primary Dx) 03/31/2024 Orders Only [facility] Oncology and Hematology - Alo [address] Louis Montanez MD Malignant neoplasm of [...] on file Legal Sex Female 8:31 AM DRY KILN LOADER Gender Identity Not on file Sexual Orientation Not on file Last Filed Vital Signs Vital Sign Reading Time Taken Comments Blood Pressure 124/73 06/12/2024 8:53 AM DRY KILN LOADER Pulse 73 06/12/2024 8:53 AM DRY KILN LOADER Temperature 35.5 C (95.9 F) 06/12/2024 8:53 AM DRY KILN LOADER Respiratory Rate 15 06/12/2024 8:53 AM DRY KILN LOADER Oxygen Saturation 96% 06/12/2024 8:53 AM DRY KILN LOADER Inhaled Oxygen Concentration - - Weight 63.4 kg (139 lb 12.8 oz) 06/12/2024 8:53 AM DRY KILN LOADER Height 157.5 cm (5' 2 ) 08/16/2023 2:37 PM CDT Body Mass Index 25.57 08/16/2023 2:37 PM CDT Plan of Treatment Upcoming Encounters Date Type Department Care Team (Late st Contact Info) Description 07/02/2024 4:00 PM CDT Telephone Check Up [facility] Oncology [place] [address] [place] [address] Louis Montanez MD [facility] [address] [place] [address] 07/24/2024 9:30 AM CDT Office Visit [facility] Oncology and [facility] [address] [place] [address] Louis Montanez MD [address] [place] [address] [address] [place] [address] Health Maintenance Due Date Last Done Comments DTAP/TDAP/TD VACCINES (1 - Tdap) 1959 Traditional Medicare (ACO) Annual Wellness Visit 05/01 PNEUMOCOCCAL VACCINE 50+ YEARS (1 of 1 - PCV) 05/01/18 90 ZOSTER VACCINE (1 of 2) 1989 OSTEOPOROSIS SCREENING 2004 RSV VACCINE (60+ or ) (1 - 1-dose 75+ series) 2014 INFLUENZA VACCINE (#1) 2023 Procedures Procedure Name Priority Date/Time Associated Diagnosis Comments MAMMO SCREENING BILAT Routine 06/18/2024 11:24 AM CDT BASIC METABOLIC PANEL Routine 06/09/2024 2:44 PM DRY KILN LOADER CHG CA 125 Routine 06/09/2024 1:30 PM DRY KILN LOADER BASIC METABOLIC PANEL Routine 05/15/2024 9:56 AM DRY KILN LOADER CBC WITH DIFFERENTIAL Routine 05/12/2024 2:[address] ABDOMEN PELVIS W CONTRAST Routine 05/05/2024 11:46 AM DRY KILN LOADER BASIC METABOLIC PANEL Routine 04/24/2024 12:47 PM DRY KILN LOADER COMPREHENSIVE METABOLIC PANEL Routine 04/03/2024 3:36 PM DRY KILN LOADER BASIC METABOLIC PANEL Routine 04/03/2024 2:10 PM DRY KILN LOADER CBC WITH DIFFERENTIAL Routine 04/03/2024 1:53 PM DRY KILN LOADER CANCER ANTIGEN 15-3 Routine 04/03/2024 1 0:59 AM DRY KILN LOADER from Last 3 Months Results * MAMMO SCREENING BILAT (06/18/2024 11:24 AM CDT) Anatomical Region Laterality Modality Breast Bilateral Other Louis Montanez MD MAMMO ORDERABLES Final Result * BASIC METABOLIC PANEL (06/09/2024 2:44 PM DRY KILN LOADER) Only the most recent of4 resultswithin the time period is included. Blood Result [facility] us Louis Montanez MD CHEMISTRY ORDERABLES Final Resu lt * CHG CA 125 (06/09/2024 1:30 PM DRY KILN LOADER) Result [facility] Louis Montanez MD CHG - LABORATORY Final Result * CBC WITH DIFFERENTIAL (05/12/2024 2:02 PM DRY KILN LOADER) Only the most recent of2 resultswithin the time period is included. Blood Provider Scanning HEMATOLOGY ORDERABLES Final Re sult * CT ABDOMEN PELVIS W CONTRAST (05/05/2024 11:46 AM DRY KILN LOADER) Anatomical Region Laterality Modality Abdomen Other Louis Montanez MD CT ORDERABLES Final Result * COMPREHENSIVE METABOLIC PANEL (04/03/2024 3:36 PM DRY KILN LOADER) Blood us Louis Montanez MD CHEMISTRY ORDERABLES Final Resu lt * CANCER ANTIGEN 15-3 (04/03/2024 10:59 AM DRY KILN LOADER) Blood Louis Montanez MD CHEMISTRY ORDERABLES Final Resu lt from Last 3 Months Insurance [facility] SUPP MEDICARE PART A AND B MEDICARE PART A AND B [facility] SUPP RX [employer] Medicare Part D RX [employer] Commercial Advance Directives For more information, please contact: [phone] * Full Code (Latest Code Status on File) Date Activated Date Inactivated Comments 07/30/2023 8:32 PM 07/31/2023 12:10 PM * Full Code Date Activated Date Inactivated Comments 07/30/2023 12:16 PM 07/30/2023 8:32 PM * Full Code Date Activated Date Inactivated Comments 07/30/2023 10:39 AM 07/30/2023 12:16 PM
--- OUTSIDE RECORDS SUMMARY | 2024-06-24 09:39 | XMS_ITS | Encounter Summary ---
Author Organization [facility] Address [address] [place] [address] Care Team Providers Care Diagrammer Name Role Phone Unavailable Primary Care Provider Unavailabl e Encounter Details Date Type Department Care Team (Late Contact Info) Description 06/18/2024 Orders Only [facility] Oncology and Hematology - Al[address] [place] [address] [place] [address] [place] [address] [address] [place] [address] Social History Tobacco Use Types Packs/Day Years [...] on file Legal Sex Female 8:31 AM BEHAVIORAL HEALTH RN Gender Identity Not on file Sexual Orientation Not on file documented as of this encounter Plan of Treatment Upcoming Encounters Date Type Department Care Team (Late Contact Info) Description 07/02/2024 4:00 PM CDT Telephone Check Up [facility] Oncology and Hematology - Al[address] [place] [address] Louis Montanez MD [address] [facility] [address] [place] [address] 07/24/2024 9:30 AM CDT Office Visit [facility] Oncology and Hematology [facility] [address] [place] [address] Louis Montanez MD [address] [facility] [address] [place] [address] documented as of this encounter Procedures Procedure Name Priority Date/Time Associated Diagnosis Comments MAMMO SCREENING BILAT Routine 06/18/2024 11:24 AM CDT documented in this encounter Results * MAMMO SCREENING BILAT (06/18/2024 11:24 AM CDT) Anatomical Region Laterality Modality Breast Bilateral Other Louis Montanez MD MAMMO ORDERABLES Final Result documented in this encounter Visit Diagnoses Not on filedocumented in this encounter
--- OUTSIDE RECORDS SUMMARY | 2024-06-24 09:39 | XMS_ITS | Patient Health Record ---
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
--- OUTSIDE RECORDS SUMMARY | 2024-06-24 09:39 | XMS_ITS ---
Author Organization [facility] Address [address] [facility] [address] [place] [address] Care Team Providers Care Light Bulb Tester Name Role Phone Minna Guardado Primary Care Provider Bhargav Saenz Unavailable [phone] Louis Montanez Unavailable Unavailable REASON FOR VISIT Catherine Murphy. 1940 Encounters Encounter Location Date Provider Diagnosis [facility] [address] [facility] [address] [place] [address] 04/18/2024 Bhargav Oh Plan Of Treatment No Information Progress Notes * Beny MURPHYnoahDOB:1940 (83 yo F)Acc No.[id number]:04/18/2024 Patient: Catherine LUCIA :1940 A ge:83 Y S ex:Female Address:[facility] [address], [place], [address] * true * Date: Generated for Cheikhi ng/Fakaeg/eTransmitting on: 0 06/24/2024 09:38 AM CDT
--- OUTSIDE RECORDS SUMMARY | 2024-06-24 09:39 | XMS_ITS | Referral Summary ---
Author Organization [facility] Address [address] [place] [address] Care Team Providers Care Healthcare Facility Administrator Name Role Phone Minna Guardado HEAD GOLF COACH Primary Care Provider + Encounters Date Type Department Care Team Description 06/04/2024 9:30 AM INDEXER Office Visit [facility] Ophthalmology [address] [facility] [address] 6th [place] [address] Shruthi Whittaker MD PhD S/P cataract surgery, left (Primary Dx); S/P cataract surgery, right 05/27/2024 1:30 PM INDEXER Office Visit [facility] Ophthalmology [address] [facility] 2nd [address], [address] [place] [address] Sue Diaz MD S/P cataract surgery, left (Primary Dx) 05/27/2024 10:45 AM INDEXER - 05/27/2024 11:30 AM INDEXER Surgery [facility] Operating Room [address] [place] [address] Shruthi Whittaker MD PhD EXTRACTION CATARACT - PHACOEMULSIFICATION AND LENS IMPLANT - left eye 05/27/2024 10:47 AM INDEXER Anesthesia Event [facility] Operating Room [address] [place] [address] Chavez Schuster MD Gangloff, Kerry Marie, NP 05/27/2024 8:54 AM INDEXER - 05/27/2024 11:43 AM INDEXER Hospital Encounter [facility] Operating Room [address] [facility] [place] [phone] Shruthi Whittaker MD PhD Nuclear sclerotic cataract of left eye (Primary Dx) Discharge Disposition: Discharge to home or self care 05/26/2024 Telephone [facility] Ophthalmology [address] [place] [address] Shruthi Whittaker MD PhD 05/06/2024 Telephone [facility] Ophthalmology [address] [place] [phone] Shruthi Whittaker MD PhD 05/06/2024 Telephone [facility] Ophthalmology [address] [place] [phone] Shruthi Whittaker MD PhD 04/23/2024 9:45 AM INDEXER Office Visit [facility] Ophthalmology [address] [place] [phone] Sue Diaz MD S/P cataract surgery, right (Primary Dx) 03/31/2024 10:00 AM INDEXER Office Visit [facility] Ophthalmology [address] [place] [phone] Sue Diaz MD S/P cataract surgery, right (Primary Dx) 03/26/2024 9:15 AM INDEXER Office Visit [facility] Ophthalmology [address] [place] [phone] Shruthi Whittaker MD PhD S/P cataract surgery, right (Primary Dx); Cataract, left from Last 3 Months Allergies No known [...] - Next infusion in Mar 13, 2024 Active ferrous sulfate 325 mg (65 mg [...] on file Legal Sex Female 4:23 AM INDEXER Gender Identity Not on file Sexual Orientation Not on file Last Filed Vital Signs Vital Sign Reading Time Taken Comments Blood Pressure 160/70 05/27/2024 11:35 AM INDEXER Pulse 75 05/27/2024 11:35 AM INDEXER Temperature 36.5 C (97.7 F) 05/27/2024 11:13 AM INDEXER Respiratory Rate 22 05/27/2024 11:35 AM INDEXER Oxygen Saturation 100% 05/27/2024 11:35 AM INDEXER Inhaled Oxygen Concentration - - Weight 64.9 kg (143 lb) 05/27/2024 9:05 AM INDEXER Height 158.8 cm (5' 2.5 ) 05/27/2024 9:05 AM INDEXER Body Mass Index 25.74 05/27/2024 9:05 AM INDEXER Plan of Treatment Not on file Medical Devices Implanted Type Area Bridge Builder Device Identifier Shelf Expiration Date Model / Serial / Lot [employer] Lens Iol Tecnis Smplcty 1-Pc Clr [place] 21.5 Diopter [id number] - [id number] - [id number] Implanted:Qty: 1 on 03/25/2024 by Shruthi Whittaker MD PhD at [facility] Right: Eye [employer] [id number] 03/06/2026 [id number] / [id number] / [employer] Lens Iol Tecnis Simplicity Single Piece Clear [place] 22.5 Diopter [id number] - [id number] - [id number] Implanted:Qty: 1 on 05/27/2024 by Shruthi Whittaker MD PhD at [facility] Left: Eye [employer] [id number] 01/30/2026 [id number] / [id number] / Procedures Procedure Name Priority Date/Time Associated Diagnosis Comments EXTRACTION CATARACT - PHACOEMULSIFICATION AND LENS IMPLANT 05/27/2024 10:47 AM INDEXER Anterior subcapsular polar cataract, nonsenile Nuclear sclerotic cataract of left eye IOL CALCULATION 2ND EYE 61090 - OS - LEFT EYE Routine 03/26/2024 9:15 AM INDEXER Cataract, left from Last 3 Months Results * IOL Calculation 2nd Eye 60921 - OS - Left Eye (03/26/2024 9:15 AM INDEXER) Anatomical Region Laterality Modality Head Ophthalmic Axial Measurements Narrative 05/03/2024 12:45 PM INDEXER Reviewed IOLM, lens choices entered in cataract planning tab Shruthi Whittaker MD PhD OPHTH ULTRASOUND Claribel l Result from Last 3 Months Insurance MEDICARE [facility] MEDICARE BLUE CROSS MEDICARE SUPPLEMENT MEDICARE [facility] MEDICARE SUPPLEMENT Member Subscriber Plan / Payer (Ef fective 2019-Present) Name:Kameron Murphy Relation to Subscriber:Self Name:Kameron Murphy Payer ID:[id number] Group ID:[id number] Type:COMMERCIAL Address: [facility] [id number] [place] [id number] Care Teams Healthcare Facility Administrator Relationship Specialty Start Date End Date Minna Guardado NP PCP - General Nurse Practitioner 05/08/18
--- OUTSIDE RECORDS SUMMARY | 2024-06-24 09:39 | XMS_ITS | Clinical Summary ---
Author Organization [facility] Address [address] [place] [address] Care Team Providers Care Iv Technician Name Role Phone Minna Guardado LEAK INSPECTOR Primary Care Provider + Allergies No known [...] Department Care Team Description 06/04/2024 9:30 AM PLASTIC MANAGER Office Visit [facility] Ophthalmology [facility] 6th [place] [address] Shruthi Whittaker MD PhD S/P cataract surgery, left (Primary Dx); S/P cataract surgery, right 05/27/2024 1:30 PM PLASTIC MANAGER Office Visit [facility] Ophthalmology [address] [facility] 2nd [address], [address] [place] [address] Sue Diaz MD S/P cataract surgery, left (Primary Dx) 05/27/2024 10:47 AM PLASTIC MANAGER Anesthesia Event [facility] Operating Room [address] [place] [address] Chavez Schuster MD Gangloff, Kerry Marie, NP 05/27/2024 10:45 AM PLASTIC MANAGER - 05/27/2024 11:30 AM PLASTIC MANAGER Surgery [facility] Operating Room [address] [facility] [place] [phone] Shruthi Whittaker MD PhD EXTRACTION CATARACT - PHACOEMULSIFICATION AND LENS IMPLANT - left eye 05/27/2024 8:54 AM PLASTIC MANAGER - 05/27/2024 11:43 AM PLASTIC MANAGER [facility] Operating Room [address] [facility] [place] [phone] Shruthi Whittaker MD PhD Nuclear sclerotic cataract of left eye (Primary Dx) Discharge Disposition: Discharge to home or self care 05/26/2024 Telephone [facility] Ophthalmology [address] [place] [address] Shruthi Whittaker MD PhD 05/06/2024 Telephone [facility] Ophthalmology [address] [place] [phone] Shruthi Whittaker MD PhD 05/06/2024 Telephone [facility] Ophthalmology [address] [place] [phone] Shruthi Whittaker MD PhD 04/23/2024 9:45 AM PLASTIC MANAGER Office Visit [facility] Ophthalmology [address] [place] [phone] Sue Diaz MD S/P cataract surgery, right (Primary Dx) 03/31/2024 10:00 AM PLASTIC MANAGER Office Visit [facility] Ophthalmology [address] [place] [phone] Sue Diaz MD S/P cataract surgery, right (Primary Dx) 03/26/2024 9:15 AM PLASTIC MANAGER Office Visit [facility] Ophthalmology [address] [place] [phone] Shruthi Whittaker MD PhD S/P cataract surgery, right (Primary Dx); Cataract, left from Last 3 Months Surgical History Surgery [...] OMENTECTOMY performed by Bhargav Oh MD at [facility] CARPAL TUNNEL RELEASE 04/09/1984 - 04/08/1985 [...] Relation Name Comments Heart disease Brother 3 DC age 67. Hypertension Brother 3 Hypertension; Stomach cancer Brother 3 Diabetes Brother 4 Diabetes mellit us; Heart attack Father of DC age 83 Heart disease Father Alzheimer's disease [...] on file Legal Sex Female 4:23 AM PLASTIC MANAGER Gender Identity Not on file Sexual Orientation [...] Comments Blood Pressure 160/70 05/27/2024 11:35 AM PLASTIC MANAGER Pulse 75 05/27/2024 11:35 AM PLASTIC MANAGER Temperature 36.5 C (97.7 F) 05/27/2024 11:13 AM PLASTIC MANAGER Respiratory Rate 22 05/27/2024 11:35 AM PLASTIC MANAGER Oxygen Saturation 100% 05/27/2024 11:35 AM PLASTIC MANAGER Inhaled Oxygen Concentration - - Weight 64.9 kg (143 lb) 05/27/2024 9:05 AM PLASTIC MANAGER Height 158.8 cm (5' 2.5 ) 05/27/2024 9:05 AM PLASTIC MANAGER Body Mass Index 25.74 05/27/2024 9:05 AM PLASTIC MANAGER Plan of Treatment Health Maintenance Due Date [...] 01/08/2018, 04/2008 Medical Devices Implanted Type Area Metal Solderer Device Identifier Shelf Expiration Date Model / Serial / Lot [employer] Lens Iol Tecnis Smplcty 1-Pc Clr [place] 21.5 Diopter [id number] - [id number] - [id number] Implanted:Qty: 1 on 03/25/2024 by Shruthi Whittaker MD PhD at [facility] [place] Right: Eye [employer] [id number] 03/06/2026 [id number] / [id number] / [employer] Lens Iol Tecnis Simplicity Single Piece Clear [place] 22.5 Diopter [id number] - [id number] - [id number] Implanted:Qty: 1 on 05/27/2024 by Shruthi Whittaker MD PhD at [facility] [place] Left: Eye [place] [employer] [id number] 01/30/2026 [id number] / [id number] / Procedures Procedure Name Priority Date/Time Associated Diagnosis Comments EXTRACTION CATARACT - PHACOEMULSIFICATION AND LENS IMPLANT 05/27/2024 10:47 AM PLASTIC MANAGER Anterior subcapsular polar cataract, nonsenile Nuclear sclerotic cataract of left eye IOL CALCULATION 2ND EYE 58101 - OS - LEFT EYE Routine 03/26/2024 9:15 AM PLASTIC MANAGER Cataract, left from Last 3 Months Results * IOL Calculation 2nd Eye 63683 - OS - Left Eye (03/26/2024 9:15 AM PLASTIC MANAGER) Anatomical Region Laterality Modality Head Ophthalmic Axial Measurements Narrative 05/03/2024 12:45 PM PLASTIC MANAGER Reviewed IOLM, lens choices entered in cataract planning tab us Shruthi Whittaker MD PhD OPHTH ULTRASOUND Claribel l Result from Last 3 Months Insurance MEDICARE [facility] MEDICARE [facility] MEDICARE SUPPLEMENT MEDICARE [facility] MEDICARE SUPPLEMENT Care Teams Iv Technician Relationship Specialty Start Date End Date Minna Guardado NP PCP - General Nurse Practitioner 05/08/18
--- OUTSIDE RECORDS SUMMARY | 2024-06-24 09:39 | XMS_ITS | Clinical Summary ---
Author Organization [employer] [facility] Address [address] [facility] [place] [address] Care Team Providers Care Cylinder Press Operator Helper Name Role Phone Tanika Bardales MD Primary Care Provider [phone] Source Comments [facility],non-owned Affiliates and Associated Physician Practices is amultiple site organization consisting of ambulatory clinics and hospital sitesin [place], [place], [place] and [place]. This disclosure is being madepursuant to the Care Everywhere program and may not contain all information available regarding this patient. Last updated 17.[facility] Allergies No known active allergies Medications * [...] CDT Oxygen Saturation 99% 04/01/2020 12:31 PM MINING ANALYST Inhaled Oxygen Concentration - - Weight [...] age to complete this topic Care Teams Cylinder Press Operator Helper Relationship Specialty Start Date End Date Tanika Bardales MD [facility] [place] [phone] PCP - General 09/09/19
== END 2024-06-24 09:01 | disposition home or self-care (01) ==
PROVIDERS: PCP Nurse Practitioner Family; Visit Provider Internal Medicine Hematology & Oncology
DX: C56.1 Malignant neoplasm of right ovary (principal)
CPT/HCPCS: 78815; 96523; A9552

== ENCOUNTER 2024-06-27 12:12 | Outpatient (CLI) | payer MEDICARE, SELFPAY ==
--- NOTE | ~2024-06-27 | MMUS_ITS ---
EXAMINATION: MM diagnostic ravin LT w mihaela, US breast LT limited HISTORY: Follow-up left breast asymmetry TECHNIQUE: Additional 3-D tomosynthesis images of the left breast were performed and synthetic 2-D im ages were generated. CAD analysis was submitted and interpreted. High resolution Limited left breast ultrasound was performed. COMPARISON: Comparison to multiple prior studies sequentially, with oldest reviewed study dated 08/16. BREAST PARENCHYMAL COMPOSITION: Not dense: There are scattered areas of fibroglandular density. FINDINGS: MAMMOGRAPHIC FINDINGS: The focal area of asymmetry posteriorly overlying the inferior aspect of the pectoralis muscle is les s dense with spot compression views, likely focal asymmetric fibroglandular content. No discrete mass es, calcifications or architectural distortion. ULTRASOUND: Limited left breast ultrasound: Normal heterogeneous echotexture without focal solid or cystic mass. IMPRESSION: 1. No evidence for malignancy in the left breast. 2. Routine yearly screening mammogram and regular clinical breast examination are recommended. BI-RADS Category 1: Negative Reviewed, dictated and finalized at location B. IMPRESSION: 1. No evidence for malignancy in the left breast. 2. Routine yearly screening mammogram and regular clinical breast examination a re recommended. BI-RADS Category 1: Negative
--- OUTSIDE RECORDS SUMMARY | 2024-06-27 12:59 | XMS_ITS ---
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 E&M 81365 05/06/2024 Other hearing loss of left ear [...] therapy, I recommended an audiology consult. E&M 99130 Progress Notes * Catherine MURPHYDOB:1940 (84 yo F)Acc No.[id number]:05/06/2024 Progress Notes Patient: Catherine LUCIA Provider: Lei Kingston MD :1940 A ge:84 Y S ex:Female Date:05/06/2024 [address] [place] [address] Pcp:Minna Guardado Subjective: * Chief Complaints: * [...] q21 days 11/26/2023 - NGS / IHC [id number] 0 TMB 1.1 mut/mB MSI cannot be [...] from ovarian cancer approximately 15 months ago. Cathreine is accompanied by her other daughter, they [...] U/mL Pertinent imaging studies 05/05/2024 CT AP ([facility]) Diffuse large bowel wall thickening with extensive pericolonic inflammatory changes, especially at the rectum. Small amount of pelvic ascites. Impression:Diffuse infectious/inflammatory colitis, similar to prior exam. No distinct evidence for active malignancy or metastatic disease. 02/18/2024 CT AP ([facility]) Persistent colonic wall thickening consistent with colitis which could be infectious, inflammatory, ischemic in etiology or given the chronicity potentially related to radiation or chemotherapy treatment. Minimal ascites in the deep pelvis. No evidence of metastatic disease. 11/07/2023 CT CAP ([facility]) Significant interval improvement in peritoneal carcinomatosis from [...] WT1, p16, ER (patchy), MOC31, CK7, and HCAD-EP4, while negative for CK20, S100, TTF-1. BAP [...] appearance: C haperone present in room , Javascript Web Developer present in room. Eyes: N o icteric [...] * Visit Code: * Procedure Codes: * IGN EXCHANGE TRADER Sign off status: Completed true * Provider: Lei Kingston MD Date: 0 05/06/2024 Generated for Cheikhi mariaelena/Alban/eTransmitting on: 0 06/27/2024 12:59 PM CDT History and Physical Notes * HPI [...] q21 days 11/26/2023 - NGS / IHC Rxd3hcy 0 TMB 1.1 mut/mB MSI cannot be [...] U/mL Pertinent imaging studies 05/05/2024 CT AP ([facility]) Diffuse large bowel wall thickening with extensive pericolonic inflammatory changes, especially at the rectum. Small amount of pelvic ascites. Impression:Diffuse infectious/inflammatory colitis, similar to prior exam. No distinct evidence for active malignancy or metastatic disease. 02/18/2024 CT AP ([facility]) Persistent colonic wall thickening consistent with colitis which could be infectious, inflammatory, ischemic in etiology or given the chronicity potentially related to radiation or chemotherapy treatment. Minimal ascites in the deep pelvis. No evidence of metastatic disease. 11/07/2023 CT CAP ([facility]) Significant interval improvement in peritoneal carcinomatosis from [...] Category Not es General Examination General appearance: Fight Manager e present in room , Javascript Web Developer present in room Eyes: No icteric sclerae [...]
--- OUTSIDE RECORDS SUMMARY | 2024-06-27 13:00 | XMS_ITS ---
Author Organization [facility] Address [address] [facility] [address] [place] [address] Care Team Providers Care Photostatic Copy Maker Name Role Phone Minna Guardado Primary Care Provider Bhargav Saenz Unavailable [phone] Louis Montanez Unavailable Unavailable REASON FOR VISIT RE:Catherine Murphy. 1940 Encounters Encounter Location Date Provider Diagnosis [facility] [address] [facility] [address] [place] [address] 04/18/2024 Bhargav Oh Plan Of Treatment No Information Progress Notes * Beny MURPHYnoahDOB:1940 (83 yo F)Acc No.[id number]:04/18/2024 Patient: Catherine LUCIA :1940 A ge:83 Y S ex:Female Address:[facility] [place], [address] * true * Date: Generated for Cheikhi ng/Fakaeg/eTransmitting on: 0 06/27/2024 12:59 PM CDT
--- OUTSIDE RECORDS SUMMARY | 2024-06-27 13:00 | XMS_ITS ---
Author Organization [facility] Address [address] [facility] [address] [place] [address] Care Team Providers Care Deaf Interpreter Name Role Phone Minna Guardado Primary Care Provider Bhargav Saenz Unavailable [phone] Louis Montanez Unavailable Unavailable REASON FOR VISIT Catherine Murphy. 1940 Encounters Encounter Location Date Provider Diagnosis [facility] [address] [facility] [address] [place] [address] 04/18/2024 Bhargav Oh Plan Of Treatment No Information Progress Notes * Beny MURPHYnoahDOB:1940 (83 yo F)Acc No.[id number]:04/18/2024 Patient: Catherine LUCIA :1940 A ge:83 Y S ex:Female Address:[facility] [address], [place], [address] * true * Date: Generated for Cheikhi ng/Fakaeg/eTransmitting on: 0 06/27/2024 12:59 PM CDT
--- OUTSIDE RECORDS SUMMARY | 2024-06-27 13:00 | XMS_ITS | Referral Summary ---
Author Organization [facility] Address [address] [place] [address] Care Team Providers Care Orthopedic Shoes Salesperson Name Role Phone Minna Guardado CHARGE PREPARATION TECHNICIAN Primary Care Provider + Encounters Date Type Department Care Team Description 06/04/2024 9:30 AM CONTRACT ATTORNEY Office Visit [facility] Ophthalmology [address] [facility] [address] 6th [place] [address] Shruthi Whittaker MD PhD S/P cataract surgery, left (Primary Dx); S/P cataract surgery, right 05/27/2024 1:30 PM CONTRACT ATTORNEY Office Visit [facility] Ophthalmology [address] [facility] 2nd [address], [address] [place] [address] Sue Diaz MD S/P cataract surgery, left (Primary Dx) 05/27/2024 10:45 AM CONTRACT ATTORNEY - 05/27/2024 11:30 AM CONTRACT ATTORNEY Surgery [facility] Operating Room [address] [place] [address] Shruthi Whittaker MD PhD EXTRACTION CATARACT - PHACOEMULSIFICATION AND LENS IMPLANT - left eye 05/27/2024 10:47 AM CONTRACT ATTORNEY Anesthesia Event [facility] Operating Room [address] [place] [address] Chavez Schuster MD Gangloff, Kerry Marie, NP 05/27/2024 8:54 AM CONTRACT ATTORNEY - 05/27/2024 11:43 AM CONTRACT ATTORNEY Hospital Encounter [facility] Operating Room [address] [facility] [facility] [place] [phone] Shruthi Whittaker MD PhD Nuclear sclerotic cataract of left eye (Primary Dx) Discharge Disposition: Discharge to home or self care 05/26/2024 Telephone [facility] Ophthalmology [address] [place] [address] Shruthi Whittaker MD PhD 05/06/2024 Telephone [facility] Ophthalmology [address] [place] [phone] Shruthi Whittaker MD PhD 05/06/2024 Telephone [facility] Ophthalmology [address] [place] [phone] Shruthi Whittaker MD PhD 04/23/2024 9:45 AM CONTRACT ATTORNEY Office Visit [facility]mology [address] [place] [phone] Sue Diaz MD S/P cataract surgery, right (Primary Dx) 03/31/2024 10:00 AM CONTRACT ATTORNEY Office Visit [facility] Ophthalmology [address] [place] [phone] Sue Diaz MD S/P cataract surgery, right (Primary Dx) from Last 3 Months Allergies No known [...] every morning Active atorvastatin (LIPITOR) 80 mg tabletIndications: TIA (transient ischemic attack) Take 1 tablet (80 mg total) by mouth daily 90 tablet 1 05/07/19 21 Active escitalopram (LEXAPRO) 5 mg tabletIndications: Anxiety with [...] 1 time/day for 1 week, then stop 05/27/19 25 Active triamcinolone (KENALOG) 0.1 % paste Apply 0.25 inches to teeth 2 (two) times a day as needed 05/14/19 25 Active moxifloxacin (VIGAMOX) 0.5 % ophthalmic solution Administer 1 drop into the left eye 4 (four) times a day for 7 days For use after surgery with Dr. Whittaker 3 mL 05/27/19 25 025 Active Problems Problem Noted Date Diagnosed [...] on file Legal Sex Female 4:23 AM CONTRACT ATTORNEY Gender Identity Not on file Sexual Orientation Not on file Last Filed Vital Signs Vital Sign Reading Time Taken Comments Blood Pressure 160/70 05/27/2024 11:35 AM CONTRACT ATTORNEY Pulse 75 05/27/2024 11:35 AM CONTRACT ATTORNEY Temperature 36.5 C (97.7 F) 05/27/2024 11:13 AM CONTRACT ATTORNEY Respiratory Rate 22 05/27/2024 11:35 AM CONTRACT ATTORNEY Oxygen Saturation 100% 05/27/2024 11:35 AM CONTRACT ATTORNEY Inhaled Oxygen Concentration - - Weight 64.9 kg (143 lb) 05/27/2024 9:05 AM CONTRACT ATTORNEY Height 158.8 cm (5' 2.5 ) 05/27/2024 9:05 AM CONTRACT ATTORNEY Body Mass Index 25.74 05/27/2024 9:05 AM CONTRACT ATTORNEY Plan of Treatment Not on file Medical Devices Implanted Type Area Horticultural Worker Device Identifier Shelf Expiration Date Model / Serial / Lot [employer] Lens Iol Tecnis Smplcty 1-Pc Clr [place] 21.5 Diopter [id number] - [id number] - [id number] Implanted:Qty: 1 on 03/25/2024 by Shruthi Whittaker MD PhD at [facility] [place] Right: Eye [place] [employer] [id number] 03/06/2026 [id number] / [id number] / [place] [employer] Lens Iol Tecnis Simplicity Single Piece Clear [place] 22.5 Diopter [id number] - [id number] - [id number] Implanted:Qty: 1 on 05/27/2024 by Shruthi Whittaker MD PhD at [facility] Left: Eye [employer] [id number] 01/30/2026 [id number] / [id number] / Procedures Procedure Name Priority Date/Time Associated Diagnosis Comments EXTRACTION CATARACT - PHACOEMULSIFICATION AND LENS IMPLANT 05/27/2024 10:47 AM CONTRACT ATTORNEY Anterior subcapsular polar cataract, nonsenile Nuclear sclerotic cataract of left eye from Last 3 Months Insurance MEDICARE [facility] MEDICARE [employer] MEDICARE SUPPLEMENT MEDICARE [facility] Address: [facility] [address] [place] [address] [facility] MEDICARE SUPPLEMENT Care Teams Orthopedic Shoes Salesperson Relationship Specialty Start Date End Date Minna Guardado NP PCP - General Nurse Practitioner 05/08/18
--- OUTSIDE RECORDS SUMMARY | 2024-06-27 13:00 | XMS_ITS | Encounter Summary ---
Author Organization [facility] [employer] [facility] Address [address] [place] [address] Care Team Providers Care Corporate Compliance Director Name Role Phone Unavailable Primary Care Provider Unavailabl e Encounter Details Date Type Department Care Team ( Contact Info) Description 06/27/2024 Orders Only [facility] Oncology and Hematology - [place] [address] [place] [phone] [place] [address] [place] [address] [email or web address] [address] [place] [address] Social History Tobacco Use Types [...] on file Legal Sex Female 8:31 AM HOME HEALTH SPECIALIST Gender Identity Not on file Sexual Orientation Not on file documented as of this encounter Plan of Treatment Upcoming Encounters Date Type Department Care Team (Late Contact Info) Description 07/02/2024 4:00 PM CDT Telephone Check Up [facility] Oncology and Hematology - [place] [address] [place] [phone] Louis Montanez MD [address] [facility] [address] [place] [phone] 07/24/2024 9:30 AM CDT Office Visit [facility] Oncology and Hematology [facility] [address] [place] [phone] Louis Montanez MD [address] [facility] [address] [place] [address] documented as of this encounter Procedures Procedure Name Priority Date/Time Associated Diagnosis Comments PET BONE IMG W CT SKL BSE MID THG Routine 06/24/2024 10:04 AM CDT documented in this encounter Results * PET BONE IMG W CT SKB MD (06/24/2024 10:04 AM CDT) Anatomical Region Laterality Modality Positron Emissio n Tomography (PET) Louis Montanez MD PE ORDERABLES Final Result documented in this encounter Visit Diagnoses Not on filedocumented in this encounter
--- OUTSIDE RECORDS SUMMARY | 2024-06-27 13:00 | XMS_ITS | Clinical Summary ---
Author Organization [facility] Address [address] [place] [address] Care Team Providers Care Instrument/Control Technician Name Role Phone Minna Guardado [employer] OP Primary Care Provider + Allergies No known [...] (two) times a day as needed 05/14/19 Active moxifloxacin (VIGAMOX) 0.5 % ophthalmic solution [...] Department Care Team Description 06/04/2024 9:30 AM AWNING MAKER Office Visit [facility] Ophthalmology [address] [facility] [address] 6th [place] [phone] Shruthi Whittaker MD PhD S/P cataract surgery, left (Primary Dx); S/P cataract surgery, right 05/27/2024 1:30 PM AWNING MAKER Office Visit [facility] Ophthalmology [address] [facility] [address], [address] [place] [address] Sue Diaz MD S/P cataract surgery, left (Primary Dx) 05/27/2024 10:47 AM AWNING MAKER Anesthesia Event [facility] Surgery [place] Operating Room [address] [place] [address] Chavez Schuster MD Gangloff, Kerry Marie, NP 05/27/2024 10:45 AM AWNING MAKER - 05/27/2024 11:30 AM AWNING MAKER Surgery [facility] Operating Room [address] [place] [address] Shruthi Whittaker MD PhD EXTRACTION CATARACT - PHACOEMULSIFICATION AND LENS IMPLANT - left eye 05/27/2024 8:54 AM AWNING MAKER - 05/27/2024 11:43 AM AWNING MAKER Hospital Encounter [facility] Operating Room [address] [facility] [facility] [place] [address] Shruthi Whittaker MD PhD Nuclear sclerotic cataract of left eye (Primary Dx) Discharge Disposition: Discharge to home or self care 05/26/2024 Telephone [facility] Op[facility] [place] [address] Shruthi Whittaker MD PhD 05/06/2024 Telephone [facility] Ophthalmology [address] [place] [phone] Shruthi Whittaker MD PhD 05/06/2024 Telephone [facility] Ophthalmology [address] [place] [phone] Shruthi Whittaker MD PhD 04/23/2024 9:45 AM AWNING MAKER Office Visit [facility] Ophthalmology [address] [place] [phone] Sue Diaz MD S/P cataract surgery, right (Primary Dx) 03/31/2024 10:00 AM AWNING MAKER Office Visit [facility] Ophthalmology [address] [place] [phone] Sue Diaz MD S/P cataract surgery, right (Primary Dx) from Last 3 Months Surgical History Surgery [...] OMENTECTOMY performed by Bhargav Oh MD at [facility] OR MAIN CARPAL TUNNEL RELEASE 04/09/1984 - [...] 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 Hypertension Brother 3 Hypertension; Stomach cancer Brother 3 Diabetes Brother 4 Diabetes mellit us; Heart attack Father of MS age 83 Heart disease Father Alzheimer's disease [...] on file Legal Sex Female 4:23 AM AWNING MAKER Gender Identity Not on file Sexual Orientation [...] Comments Blood Pressure 160/70 05/27/2024 11:35 AM AWNING MAKER Pulse 75 05/27/2024 11:35 AM AWNING MAKER Temperature 36.5 C (97.7 F) 05/27/2024 11:13 AM AWNING MAKER Respiratory Rate 22 05/27/2024 11:35 AM AWNING MAKER Oxygen Saturation 100% 05/27/2024 11:35 AM AWNING MAKER Inhaled Oxygen Concentration - - Weight 64.9 kg (143 lb) 05/27/2024 9:05 AM AWNING MAKER Height 158.8 cm (5' 2.5 ) 05/27/2024 9:05 AM AWNING MAKER Body Mass Index 25.74 05/27/2024 9:05 AM AWNING MAKER Plan of Treatment Health Maintenance Due Date [...] 01/08/2018, 04/2008 Medical Devices Implanted Type Area Rock Loader Device Identifier Shelf Expiration Date Model / Serial / Lot [place] [employer] Lens Iol Tecnis Smplcty 1-Pc Clr [place] 21.5 Diopter [id number] - [id number] - [id number] Implanted:Qty: 1 on 03/25/2024 by Shruthi Whittaker MD PhD at [facility] Surgery [place] Right: Eye [employer] [id number] 03/06/2026 [id number] / [id number] / [place] [employer] Lens Iol Tecnis Simplicity Single Piece Clear [place] 22.5 Diopter [id number] - [id number] - [id number] Implanted:Qty: 1 on 05/27/2024 by Shruthi Whittaker MD PhD at [facility] Left: Eye [place] [employer] [id number] 01/30/2026 [id number] / [id number] / Procedures Procedure Name Priority Date/Time Associated Diagnosis Comments EXTRACTION CATARACT - PHACOEMULSIFICATION AND LENS IMPLANT 05/27/2024 10:47 AM AWNING MAKER Anterior subcapsular polar cataract, nonsenile Nuclear sclerotic cataract of left eye from Last 3 Months Insurance MEDICARE [facility] MEDICARE [facility] MEDICARE SUPPLEMENT MEDICARE [facility] MEDICARE SUPPLEMENT Care Teams Instrument/Control Technician Relationship Specialty Start Date End Date Minna Guardado NP PCP - General Nurse Practitioner 05/08/18
--- OUTSIDE RECORDS SUMMARY | 2024-06-27 13:00 | XMS_ITS | Encounter Summary ---
Author Organization [facility] [employer] Address [address] [place] [address] Care Team Providers Care Coupler Name Role Phone Unavailable Primary Care Provider Unavailabl e Encounter Details Date Type Department Care Team (Late Contact Info) Description 06/23/2024 Orders Only [facility] Oncology and Hematology - [place] [address] [facility] [address] [place] [address] Louis Montanez MD [address] [facility] [address] [place] [address] Malignant neoplasm of ovary, unspecified [...] on file Legal Sex Female 8:31 AM WAREHOUSE SUPERVISOR Gender Identity Not on file Sexual Orientation Not on file documented as of this encounter Plan of Treatment Upcoming Encounters Date Type Department Care Team (Late Contact Info) Description 07/02/2024 4:00 PM CDT Telephone Check Up [facility] Oncology and Hematology [facility] [address] [place] [address] Louis Montanez MD [address] [facility] [address] [place] [address] 07/24/2024 9:30 AM CDT Office Visit [facility] Oncology and Hematology [facility] [address] [place] [address] Louis Montanez MD [address] [facility] [address] [place] [address] documented as of this encounter Visit Diagnoses Diagnosis Malignant neoplasm of ovary, unspecified laterality (CMS/HCC) documented in this encounter
--- OUTSIDE RECORDS SUMMARY | 2024-06-27 13:00 | XMS_ITS | Clinical Summary ---
Author Organization [employer] [facility] Address [address] [facility] [place] [address] Care Team Providers Care Spray Unit Feeder Name Role Phone Tanika Bardales MD Primary Care Provider [phone] Source Comments [facility],non-owned Affiliates and Associated Physician Practices is amultiple site organization consisting of ambulatory clinics and hospital sitesin [place], [place], [place] and [place]. This disclosure is being madepursuant to the Care Everywhere program and may not contain all information available regarding this patient. Last updated 17.[employer] Allergies No known active allergies Medications * [...] CDT Oxygen Saturation 99% 04/01/2020 12:31 PM BRINE SUPERVISOR Inhaled Oxygen Concentration - - Weight - [...] age to complete this topic Care Teams Spray Unit Feeder Relationship Specialty Start Date End Date Tanika Bardales MD [facility] [place] [phone] PCP - General 09/09/19
--- OUTSIDE RECORDS SUMMARY | 2024-06-27 13:00 | XMS_ITS | Continuity of Care Document ---
Author Organization [facility] Address [address] [place] [address] Phone Care Team Providers Care Water Resource Consultant Name Role Phone Daniel Mcfarland MD Unavailable [...] - Active Procedures Procedure Date OFFICE/OUTPATIENT VISIT [facility] Advance Directives Directive Yes / No Effective [...] Providers Copied on Encounter OFFICE/OUTPAT IENT VISIT [facility], [address], [place], [address], [place] tel:[phone] [facility] knee arthritis [address]. [address], [place], [place], [id number] . tel: [phone] Family History Family Member Type Diagnosis Age At Onset No Information Payers Payer name Insurance type Covered alliance party ID Authoriza tion(s) No Information Social [...]
--- OUTSIDE RECORDS SUMMARY | 2024-06-27 13:00 | XMS_ITS | Clinical Summary ---
Author Organization [facility] Betzy Montoya Address [address] [place] [address] Care Team Providers Care Powerhouse Attendant Name Role Phone Unavailable Primary Care Provider [...] Encounters Date Type Department Care Team Description 06/27/2024 Orders Only [facility] Oncology [place] [address] [address] Louis Montanez MD 06/23/2024 Orders Only [facility] Oncology [facility] Hematology [facility] Lindsay Charles [address] [place] [phone] Louis Montanez MD Malignant neoplasm of ovary, unspecified laterality (CMS/HCC) 06/18/2024 Orders Only [facility] Oncology [facility] Lindsay Charles [address] Louis Montanez MD 06/18/2024 Telephone [facility] Oncology [facility] Lindsay [address] [place] [id number] Louis Montanez MD Abnormal Mammo Results 06/12/2024 8:45 AM STAFF MECHANICAL ENGINEER Office Visit [facility] Oncology [place] [address] [address] [place] [phone] Louis Montanez MD Malignant neoplasm of ovary, unspecified laterality (CMS/HCC) (Primary Dx); Visit for screening mammogram 06/10/2024 Orders Only [facility] Oncology [facility] Lindsay [address] [place] [id number] Louis Montanez MD 06/09/2024 Orders Only [facility] Oncology [facility] Hematology [facility] Lindsay Charles [address] [place] [address] Louis Montanez MD Malignant neoplasm of ovary, unspecified laterality (CMS/HCC) 05/28/2024 External Device Data STL ABSTRACTION Provider, Abstract 05/26/2024 Orders Only [facility] Oncology and Hematology - [place] [address] [place] [address] Louis Montanez MD Malignant neoplasm of ovary, unspecified laterality (CMS/HCC) 05/15/2024 8:30 AM STAFF MECHANICAL ENGINEER Office Visit [facility] Oncology and Hematology - [place] [address] [place] [address] Louis Montanez MD Malignant neoplasm of ovary, unspecified laterality (CMS/HCC) (Primary Dx) 05/15/2024 Orders Only [facility] Oncology and Hematology - [place] [address] [place] [address] Louis Montanez MD Malignant neoplasm of ovary, unspecified laterality (CMS/HCC) (Primary Dx) 05/12/2024 Orders Only [facility] Oncology and Hematology - [place] [address] [place] [address] Louis Montanez MD Malignant neoplasm of ovary, unspecified laterality (CMS/HCC) 05/07/2024 External Device Data STL ABSTRACTION Provider, Abstract 05/07/2024 Abstract [facility] Oncology and Hematology - [place] [address] [place] [address] Louis Montanez MD 05/07/2024 Abstract [facility] Oncology and Hematology - [place] [address] [place] [address] Louis Montanez MD 05/05/2024 Orders Only [facility] Oncology and Hematology - [place] [address] [place] [address] Louis Montanez MD 2024 External Device Data STL ABSTRACTION Provider, Abstract 04/28/2024 Orders Only [facility] Oncology and Hematology - [place] [address] [place] [address] Louis Montanez MD Malignant neoplasm of ovary, unspecified laterality (CMS/HCC) 04/25/2024 Orders Only [facility] Oncology and Hematology - [place] [address] [place] [address] Louis Montanez MD 04/21/2024 Orders Only [facility] Oncology and Hematology - [place] [address] [place] [address] Louis Montanez MD Malignant neoplasm of ovary, unspecified laterality (CMS/HCC) 04/17/2024 Telephone [facility] Oncology and Hematology - [place] [address] [place] [address] Louis Montanez MD Lab Results 04/14/2024 Orders Only [facility] Oncology and Hematology - [place] [address]es [address] [place] [address] Louis Montanez MD Malignant neoplasm of ovary, unspecified laterality (CMS/HCC) 04/10/2024 Orders Only [facility] Oncology and Hematology - [place] [address] Louis Montanez MD 04/07/2024 Orders Only [facility] Oncology and Hematology - [place] Josselyn Charles [address] Louis Montanez MD Malignant neoplasm of ovary, unspecified laterality (CMS/HCC) 04/04/2024 Orders Only [facility] Oncology and Hematology - [place] Josselyn Charles [address] [place] [phone] Louis Montanez MD 04/03/2024 9:00 AM STAFF MECHANICAL ENGINEER Office Visit [facility] Oncology and Hematology - [place] Josselyn [address] Regine Prajapati MD Malignant neoplasm of ovary, unspecified laterality (CMS/HCC) (Primary Dx) 03/31/2024 Orders Only [facility] Oncology and Hematology - [place] Josselyn Charles [address] [place] [phone] Louis Montanez MD Malignant neoplasm of ovary, [...] on file Legal Sex Female 8:31 AM STAFF MECHANICAL ENGINEER Gender Identity Not on file Sexual Orientation Not on file Last Filed Vital Signs Vital Sign Reading Time Taken Comments Blood Pressure 124/73 06/12/2024 8:53 AM STAFF MECHANICAL ENGINEER Pulse 73 06/12/2024 8:53 AM STAFF MECHANICAL ENGINEER Temperature 35.5 C (95.9 F) 06/12/2024 8:53 AM STAFF MECHANICAL ENGINEER Respiratory Rate 15 06/12/2024 8:53 AM STAFF MECHANICAL ENGINEER Oxygen Saturation 96% 06/12/2024 8:53 AM STAFF MECHANICAL ENGINEER Inhaled Oxygen Concentration - - Weight 63.4 kg (139 lb 12.8 oz) 06/12/2024 8:53 AM STAFF MECHANICAL ENGINEER Height 157.5 cm (5' 2 ) 08/16/2023 2:37 PM CDT Body Mass Index 25.57 08/16/2023 2:37 PM CDT Plan of Treatment Upcoming Encounters Date Type Department Care Team (Late st Contact Info) Description 07/02/2024 4:00 PM CDT Telephone Check Up [facility] Oncology and Hematology [address] [address] [place] [address] Louis Montanez MD [address] [facility] [address] [place] [address] 07/24/2024 9:30 AM CDT Office Visit [facility] Oncology and Hematology [facility] [address] [place] [address] Louis Montanez MD [address] [place] [phone] Health Maintenance Due Date Last Done Comments [...] MID THG Routine 06/24/2024 10:04 AM CDT MAMMO SCREENING BILAT Routine 06/18/2024 11:24 AM CDT BASIC METABOLIC PANEL Routine 06/09/2024 2:44 PM STAFF MECHANICAL ENGINEER CHG CA 125 Routine 06/09/2024 1:30 PM STAFF MECHANICAL ENGINEER BASIC METABOLIC PANEL Routine 05/15/2024 9:56 AM STAFF MECHANICAL ENGINEER CBC WITH DIFFERENTIAL Routine 05/12/2024 2:02 PM STAFF MECHANICAL ENGINEER CT ABDOMEN PELVIS W CONTRAST Routine 05/05/2024 11:46 AM STAFF MECHANICAL ENGINEER BASIC METABOLIC PANEL Routine 04/24/2024 12:47 PM STAFF MECHANICAL ENGINEER COMPREHENSIVE METABOLIC PANEL Routine 04/03/2024 3:36 PM STAFF MECHANICAL ENGINEER BASIC METABOLIC PANEL Routine 04/03/2024 2:10 PM STAFF MECHANICAL ENGINEER CBC WITH DIFFERENTIAL Routine 04/03/2024 1:53 PM STAFF MECHANICAL ENGINEER CANCER ANTIGEN 15-3 Routine 04/03/2024 1 0:59 AM STAFF MECHANICAL ENGINEER from Last 3 Months Results * PET BONE IMG W CT SKB MDTH (06/24/2024 10:04 AM CDT) Anatomical Region Laterality Modality Positron Emissio n Tomography (PET) us Louis Montanez MD PE ORDERABLES Final Result * MAMMO SCREENING BILAT (06/18/2024 11:24 AM CDT) Anatomical Region Laterality Modality Breast Bilateral Mammography us Louis Montanez MD MAMMO ORDERABLES Final Result * BASIC METABOLIC PANEL (06/09/2024 2:44 PM STAFF MECHANICAL ENGINEER) Only the most recent of4 resultswithin the time period is included. Blood us Louis Montanez MD CHEMISTRY ORDERABLES Final Resu lt * CHG CA 125 (06/09/2024 1:30 PM STAFF MECHANICAL ENGINEER) us Louis Montanez MD CHG - LABORATORY Final Result * CBC WITH DIFFERENTIAL (05/12/2024 2:02 PM STAFF MECHANICAL ENGINEER) Only the most recent of2 resultswithin the time period is included. Blood Provider Scanning HEMATOLOGY ORDERABLES Final Re sult * CT ABDOMEN PELVIS W CONTRAST (05/05/2024 11:46 AM STAFF MECHANICAL ENGINEER) Anatomical Region Laterality Modality Abdomen Computed Tomogra phy Louis Montanez MD CT ORDERABLES Final Result * COMPREHENSIVE METABOLIC PANEL (04/03/2024 3:36 PM STAFF MECHANICAL ENGINEER) Blood Louis Montanez MD CHEMISTRY ORDERABLES Final Resu lt * CANCER ANTIGEN 15-3 (04/03/2024 10:59 AM STAFF MECHANICAL ENGINEER) Blood Louis Montanez MD CHEMISTRY ORDERABLES Final Resu lt from Last 3 Months Insurance [facility] MEDICARE PART A AND B MEDICARE PART A AND B BCBS SUPP RX [employer] Medicare Part D RX [employer] Commercial Advance Directives For more information, please contact: [phone] * Full Code (Latest Code Status on File) Date Activated Date Inactivated Comments 07/30/2023 8:32 PM 07/31/2023 12:10 PM * Full Code Date Activated Date Inactivated Comments 07/30/2023 12:16 PM 07/30/2023 8:32 PM * Full Code Date Activated Date Inactivated Comments 07/30/2023 10:39 AM 07/30/2023 12:16 PM
--- OUTSIDE RECORDS SUMMARY | 2024-06-27 13:00 | XMS_ITS | Patient Health Record ---
Author Organization [facility] Address [address] [facility] [address] [place] [address] Care Team Providers Care Livestock Trader Name Role Phone Minna Guardado Primary Care Provider Bhargav Saenz Unavailable [phone] Louis Montanez Unavailable Unavailable Reason For Referral [...] Provider Diagnosis 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 [address] [place] [address] 04/18/2024 Bhargav Oh [facility] [address] [facility] [address] [place] [address] 04/18/2024 Bhargav Oh Assessments Encounter Date Diagnosis [...] therapy, I recommended an audiology consult. 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
== END 2024-06-27 12:13 | disposition home or self-care (01) ==
LOC: ANHIMG 12:13
PROVIDERS: PCP Nurse Practitioner Family; Visit Provider Internal Medicine Hematology & Oncology
DX: R92.8 Other abnormal and inconclusive findings on diagnostic imaging of breast (principal)
CPT/HCPCS: 76642; 77061; 77065; G0279

== ENCOUNTER 2024-07-18 07:56 | Outpatient (CLI) | payer MEDICARE, SELFPAY ==
--- NOTE | ~2024-07-18 | CT_ITS ---
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 Automatic exposure control was used for this study. CONTRAST: 80 cc of Omnipaque 350 was used for this study COMPARISON: 11/07/2023 FINDINGS: CHEST: VISUALIZED LOWER NECK: Subcentimeter hypodensity in the left thyroid gland, incompletely evaluated on current examination and can be further evaluated with thyroid ultrasound. No supraclavicular lymphad enopathy. AIRWAYS: Patent centrally. LUNGS and PLEURA: No suspicious pulmonary nodules. No pleural effusions. MEDIASTINUM and ZAN: No evidence of mediastinal hematoma. No lymphadenopathy. HEART AND PERICARDIUM: Heart is normal in size. No pericardial effusion. CHEST WALL: No axillary lymphadenopathy. Chest wall appears normal. VASCULATURE: Thoracic aorta and pulmonary arteries are normal in caliber. ABDOMEN and PELVIS: LIVER: Hepatic steatosis. GALLBLADDER: Postcholecystectomy. BILE DUCTS: Normal caliber. SPLEEN: Within normal limits. PANCREAS: Within normal limits. ADRENAL GLANDS: Within normal limits. KIDNEYS and URETERS: No hydronephrosis or hydroureter. No evidence for nephroureterolithiasis. URINARY BLADDER: Within normal limits. STOMACH and BOWEL: Limited evaluation without adequate distention due to lack of oral contrast. Withi n the limits there appears to be no abnormal bowel wall thickening. No bowel obstruction. REPRODUCTIVE ORGANS: Within normal limits. MESENTERY/PERITONEAL CAVITY: Very small amount of free fluid in the pelvis.. 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 Multiple prominent superior and inferior mesente claribel lymph nodes are seen. LYMPH NODES: No abdominal or pelvic lymphadenopathy. ABDOMINAL WALL: Within normal limits. VASCULATURE: Within normal limits. MUSCULOSKELETAL, THORACIC AND LUMBAR SPINE: No acute fracture is identified in the chest, abdomen or pelvis. No fracture of the thoracic or the lumbar spine. IMPRESSION: 1. 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 2. Multiple prominent superior and inferior mesenteric lymph nodes. Attention on follow-up imaging. 3. Subcentimeter hypodensity in the left thyroid gland, incompletely evaluated on current examinatio n and can be further evaluated with thyroid ultrasound. Reviewed, dictated and finalized at location A. IMPRESSION: 1. 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 2. Multiple prominent superior and inferior mesenteric lymph nodes. Attention on follow-up imaging. 3. Subcentimeter hypodensity in the left thyroid gland, incompletely evaluated on current examination and can be further evaluated with thyroid ultrasound.
--- OUTSIDE RECORDS SUMMARY | 2024-07-18 07:59 | XMS_ITS ---
Author Organization [facility] Address [address] [facility] [address] [place] [address] Care Team Providers Care Manager Home Healthcare Name Role Phone Minna Guardado Primary Care Provider Bhargav Saenz Unavailable [phone] Louis Montanez Unavailable Unavailable REASON FOR VISIT RE:Catherine Murphy. 1940 Encounters Encounter Location Date Provider Diagnosis [facility] [address] [facility] [address] [place] [address] 04/18/2024 Bhargav Oh Plan Of Treatment No Information Progress Notes * Beny MURPHYnoahDOB:1940 (83 yo F)Acc No.[id number]:04/18/2024 Patient: Catherine LUCIA :1940 A ge:83 Y S ex:Female Address:[facility] [place], [address] * true * Date: Generated for Cheikhi mariaelena/Fakaeg/eTransmitting on: 0 07/18/2024 07:59 AM CDT
--- OUTSIDE RECORDS SUMMARY | 2024-07-18 07:59 | XMS_ITS ---
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 Vital Signs Temperature 98.6 degrees Fahrenheit 05/06/19 25 Blood pressure systolic 124 mm Hg 05/06/19 25 Blood pressure diastolic 66 mm Hg 025 Heart Rate 77 /min 05/06/2024 Height 5'2 in 05/06/2024 Weight 152 lbs 05/06/2024 BMI 27.8 kg/m2 05/06/2024 Oximetry 96 % 05/06/2024 Height-cm 157.48 cm 05/06/2024 Weight-kg 68.95 kg 05/06/2024 Encounters Encounter Location Date Provider Diagnosis [facility] [address] [facility] [address] [place] [address] 05/06/2024 Bhargav Oh 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 E&M 15698 05/06/2024 Other hearing loss of left ear [...] therapy, I recommended an audiology consult. E&M 52702 Progress Notes * Catherine MURPHYDOB:1940 (84 yo F)Acc No.[id number]:05/06/2024 Progress Notes Patient: Catherine LUCIA Provider: Lei Kingston MD :1940 A ge:84 Y S ex:Female Date:05/06/2024 Address[place] [place] [address] Pcp:Minna Guardado Subjective: * Chief Complaints: * [...] q21 days 11/26/2023 - NGS / IHC [id number] 0 TMB 1.1 mut/mB MSI cannot be [...] U/mL Pertinent imaging studies 05/05/2024 CT AP ([facility]) Diffuse large bowel wall thickening with extensive pericolonic inflammatory changes, especially at the rectum. Small amount of pelvic ascites. Impression:Diffuse infectious/inflammatory colitis, similar to prior exam. No distinct evidence for active malignancy or metastatic disease. 02/18/2024 CT AP ([facility]) Persistent colonic wall thickening consistent with colitis which could be infectious, inflammatory, ischemic in etiology or given the chronicity potentially related to radiation or chemotherapy treatment. Minimal ascites in the deep pelvis. No evidence of metastatic disease. 11/07/2023 CT CAP ([facility]) Significant interval improvement in peritoneal [...] appearance: C haperone present in room , [employer] present in room. Eyes: N o icteric [...] * Visit Code: * Procedure Codes: * CAREGIVER Sign off status: Completed true * Provider: Lei Kingston MD Date: 0 05/06/2024 Generated for Cheikhi mariaelena/[place]/eTransmitting on: 0 07/18/2024 07:59 AM CDT History and Physical Notes * [...] q21 days 11/26/2023 - NGS / IHC [id number] 0 TMB 1.1 mut/mB MSI cannot be [...] U/mL Pertinent imaging studies 05/05/2024 CT AP ([facility]) Diffuse large bowel wall thickening with extensive pericolonic inflammatory changes, especially at the rectum. Small amount of pelvic ascites. Impression:Diffuse infectious/inflammatory colitis, similar to prior exam. No distinct evidence for active malignancy or metastatic disease. 02/18/2024 CT AP ([facility]) Persistent colonic wall thickening consistent with colitis which could be infectious, inflammatory, ischemic in etiology or given the chronicity potentially related to radiation or chemotherapy treatment. Minimal ascites in the deep pelvis. No evidence of metastatic disease. 11/07/2023 CT CAP ([facility]) Significant interval improvement in peritoneal [...] Category Not es General Examination General appearance: Silver Solderer e present in room , [employer] present in room Eyes: No icteric sclerae [...]
--- OUTSIDE RECORDS SUMMARY | 2024-07-18 08:00 | XMS_ITS | Clinical Summary ---
Author Organization [facility] Address [address] [place] [address] Care Team Providers Care Research Associate Professor Name Role Phone Minna Guardado GLASS POLISHER Primary Care Provider + Allergies No known [...] time/day for 1 week, then stop 05/27/19 Active Additional Information Patient not taking.Reported on 07/01/2024 triamcinolone (KENALOG) 0.1 % paste Apply 0.25 inches to teeth 2 (two) times a day as needed 05/14/19 Active Active Problems Problem Noted Date Diagnosed [...] 128 QID both eyes (OU) Corneal pachymetry 2013 2016 2018 2020 2021 right eye (OD) [...] Encounters Date Type Department Care Team Description 07/01/2024 3:20 PM CDT Imaging Exam [facility] [address] [facility] [address] 2nd [address] [place] [address] 07/01/2024 2:30 PM CDT Office Visit [facility] [address] 2[address] [place] [address] Shruthi Whittaker MD PhD S/P cataract surgery, right (Primary Dx); S/P cataract surgery, left; Encounter for observation for other suspected diseases and conditions ruled out 06/04/2024 9:30 AM LEGAL CONTRACTS SPECIALIST Office Visit [facility] [address] [facility] 6th [place] [address] Shruthi Whittaker MD PhD S/P cataract surgery, left (Primary Dx); S/P cataract surgery, right 05/27/2024 1:30 PM LEGAL CONTRACTS SPECIALIST Office Visit [facility] [address], [address] [place] [address] Sue Diaz MD S/P cataract surgery, left (Primary Dx) 05/27/2024 10:47 AM LEGAL CONTRACTS SPECIALIST Anesthesia Event [facility] Surgery Center Operating Room [address] [facility] [place] [address] Chavez Schuster MD Gangloff, Kerry Marie, GLASS POLISHER 05/27/2024 10:45 AM LEGAL CONTRACTS SPECIALIST - 05/27/2024 11:30 AM [facility] Surgery [facility] Surgery Center Operating Room [address] [facility] [place] [address] Shruthi Whittaker MD PhD EXTRACTION CATARACT - PHACOEMULSIFICATION AND LENS IMPLANT - left eye 05/27/2024 8:54 AM LEGAL CONTRACTS SPECIALIST - 05/27/2024 11:43 AM [facility] Surgery Center Operating Room [address] [facility] [place] [place] [address] Shruthi Whittaker MD PhD Nuclear sclerotic cataract of left eye (Primary Dx) Discharge Disposition: Discharge to home or self care 05/26/[address] [facility] Ophthalmology [address] [place] [address] Shruthi Whittaker MD PhD 05/06/[address] [facility] Ophthalmology [address] [place] [address] Outpatient Health [address] [place] [phone] Shruthi Whittaker MD PhD 05/06/[address] [facility] Op[facility]mology [address] [place] [phone] Shruthi Whittaker MD PhD 04/23/2024 9:45 AM [facility] Office Visit [facility] [address] [place] [phone] Sue Diaz MD S/P cataract surgery, right [...] 11/08/2016 TONSILLECTOMY N/A ANKLE FRACTURE SURGERY Right 1980's TUBAL LIGATION Bilateral Years ago SALPINGOOPHORECTOMY 07/30/2023 SALPINGO-OOPHORECTOMY ROBOTIC; OMENTECTOMY performed by Bhargav Oh MD at [facility] OR MAIN CARPAL TUNNEL RELEASE [...] cancer History of claustrophobia History of chemotherapy 2023- Family History Medical History Relation Name Comments [...] on file Legal Sex Female 4:23 AM LEGAL CONTRACTS SPECIALIST Gender Identity Not on file Sexual Orientation Not on file Obstetrics History Para Term AB IAB SAB Ectopic Multiple Livin g Live Births 3 3 3 3 3 Date Outcome GA Total Labor Labor/2nd/3rd Weight Sex Type Anes PTL Angela A1 A5 Name Clin 06/21 Term 4.281 kg (9 lb 7 oz) M Vag-S pont N Living Clarke 03/16 Term 3.572 kg (7 lb 14 oz) F Vag-S pont N Carlota 12/21 Term 3.997 kg (8 lb 13 oz) F Vag-S pont N Noa Last Filed Vital Signs Vital Sign Reading Time Taken Comments Blood Pressure 160/70 05/27/2024 11:35 AM LEGAL CONTRACTS SPECIALIST Pulse 75 05/27/2024 11:35 AM LEGAL CONTRACTS SPECIALIST Temperature 36.5 C (97.7 F) 05/27/2024 11:13 AM LEGAL CONTRACTS SPECIALIST Respiratory Rate 22 05/27/2024 11:35 AM LEGAL CONTRACTS SPECIALIST Oxygen Saturation 100% 05/27/2024 11:35 AM LEGAL CONTRACTS SPECIALIST Inhaled Oxygen Concentration - - Weight 64.9 kg (143 lb) 05/27/2024 9:05 AM LEGAL CONTRACTS SPECIALIST Height 158.8 cm (5' 2.5 ) 05/27/2024 9:05 AM LEGAL CONTRACTS SPECIALIST Body Mass Index 25.74 05/27/2024 9:05 AM LEGAL CONTRACTS SPECIALIST Plan of Treatment Health Maintenance Due Date [...] 01/08/2018, 04/2008 Medical Devices Implanted Type Area Diesel Locomotive Firer/Fireman Device Identifier Shelf Expiration Date Model / Serial / Lot [employer] Lens Iol Tecnis Smplcty 1-Pc Clr Bradford 21.5 Diopter [id number] - [id number] - [id number] Implanted:Qty: 1 on 03/25/2024 by Shruthi Whittaker MD PhD at [facility] Right: Eye [employer] [id number] 03/06/2026 [id number] / [id number] / [employer] Lens Iol Tecnis Simplicity Single Piece Clear [place] 22.5 Diopter [id number] - [id number] - [id number] Implanted:Qty: 1 on 05/27/2024 by Shruthi Whittaker MD PhD at [facility] Left: Eye [employer] [id number] 01/30/2026 [id number] / [id number] / Procedures Procedure Name Priority Date/Time Associated Diagnosis Comments RETINA, OCT NON-BILLABLE - OS - LEFT EYE Routine 07/01/2024 3:18 PM CDT S/P cataract surgery, left Encounter for observation for other suspected diseases and conditions ruled out EXTRACTION CATARACT WITH LENS IMPLANT. 05/27/2024 10:47 AM LEGAL CONTRACTS SPECIALIST Anterior subcapsular polar cataract, nonsenile Nuclear sclerotic cataract of left eye from Last 3 Months Results * OCT, Retina Non-Billable - OS - Left Eye (07/01/2024 3:18 PM CDT) Anatomical Region Laterality Modality Head Other Narrative 07/01/2024 3:18 PM CDT OS: ERM with minimal VMT us Shruthi Whittaker MD PhD OPHTH TOMOGRAPHY Claribel l Result from Last 3 Months Insurance MEDICARE [facility] MEDICARE [employer] MEDICARE SUPPLEMENT MEDICARE [facility] MEDICARE SUPPLEMENT Care Teams Research Associate Professor Relationship Specialty Start Date End Date Minna Guardado NP PCP - General Nurse Practitioner 05/08/18
--- OUTSIDE RECORDS SUMMARY | 2024-07-18 08:00 | XMS_ITS | Clinical Summary ---
Author Organization [facility] Address [address] [facility] [place] [address] Care Team Providers Care Pickle Maker Name Role Phone Tanika Bardales MD Primary Care Provider [phone] Source Comments [facility],non-owned Affiliates and Associated Physician Practices is amultiple site organization consisting of ambulatory clinics and hospital sitesin [place], [place], [place] and [place]. This disclosure is being madepursuant to the Care Everywhere program and may not contain all information available regarding this patient. Last updated 17.Hachimenroppi Allergies No known active allergies Medications * [...] CDT Oxygen Saturation 99% 04/01/2020 12:31 PM IRONWORKER HELPER SHOP Inhaled Oxygen Concentration - - Weight - [...] VACCINE ( - season) 2023 07/03/2020, 06/04/2020 DEPRESSION SCREENING 04/09/2024 MEDICARE AWV CALENDAR YEAR 2024 INFLUENZA VACCINE (Season Ended) 2024 12/13/2019, 01/08/2018, 01/20/2017, Additional history exists HEPATITIS B VACCINE Aged Out No longe [...] age to complete this topic Care Teams Pickle Maker Relationship Specialty Start Date End Date Tanika Bardales MD [facility] [place] [id number] PCP - General 09/09/19
--- OUTSIDE RECORDS SUMMARY | 2024-07-18 08:00 | XMS_ITS | Patient Health Record ---
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
--- OUTSIDE RECORDS SUMMARY | 2024-07-18 08:00 | XMS_ITS | Referral Summary ---
Author Organization [facility] Address [address] [place] [address] Care Team Providers Care Unscrambler Name Role Phone Minna Guardado NP Primary Care Provider + Encounters Date Type Department Care Team Description 07/01/2024 3:20 PM CDT Imaging Exam [facility] Ophthalmology [address] [address] [place] [address] 07/01/2024 2:30 PM CDT Office Visit [facility] [address] 2[address] [place] [address] Shruthi Whittaker MD PhD S/P cataract surgery, right (Primary Dx); S/P cataract surgery, left; Encounter for observation for other suspected diseases and conditions ruled out 06/04/2024 9:30 AM SOLID GLASS ROD DOWEL MACHINE OPERATOR Office Visit [facility] [address] [facility] Outpatient Health 6th [place] [phone] Shruthi Whittaker MD PhD S/P cataract surgery, left (Primary Dx); S/P cataract surgery, right 05/27/2024 1:30 PM SOLID GLASS ROD DOWEL MACHINE OPERATOR Office Visit [facility]mology [address] [facility] [address], [address] [place] [address] Sue Diaz MD S/P cataract surgery, left (Primary Dx) 05/27/2024 10:45 AM SOLID GLASS ROD DOWEL MACHINE OPERATOR - 05/27/2024 11:30 AM SOLID GLASS ROD DOWEL MACHINE OPERATOR Surgery [facility] Surgery Center Operating Room [address] [facility] [place] [address] Shruthi Whittaker MD PhD EXTRACTION CATARACT - PHACOEMULSIFICATION AND LENS IMPLANT - left eye 05/27/2024 10:47 AM SOLID GLASS ROD DOWEL MACHINE OPERATOR Anesthesia Event [facility] Center Operating Room [address] [facility] [place] [address] Chavez Schuster MD Gangloff, Kerry Marie, TOOL ADJUSTER 05/27/2024 8:54 AM SOLID GLASS ROD DOWEL MACHINE OPERATOR - 05/27/2024 11:43 AM SOLID GLASS ROD DOWEL MACHINE OPERATOR Hospital Encounter [facility] Surgery Center Operating Room [address] [facility] [place] [address] Shruthi Whittaker MD PhD Nuclear sclerotic cataract of left eye (Primary Dx) Discharge Disposition: Discharge to home or self care 05/26/2024 Telephone [facility] Ophthalmology [address] [place] [address] Shruthi Whittaker MD PhD 05/06/2024 Telephone [facility] [address] [place] [phone] Shruthi Whittaker MD PhD 05/06/2024 Telephone [facility] [address] [place] [phone] Shruthi Whittaker MD PhD 04/23/2024 9:45 AM SOLID GLASS ROD DOWEL MACHINE OPERATOR Office Visit [facility]mology [address] [place] [phone] Sue Diaz MD S/P cataract surgery, right [...] 1 week, then stop 05/27/19 25 Active Additional Information Patient not taking.Reported on 07/01/2024 triamcinolone (KENALOG) 0.1 % paste Apply 0.25 inches to teeth 2 (two) times a day as needed 05/14/19 25 Active Active Problems Problem Noted Date [...] on file Legal Sex Female 4:23 AM SOLID GLASS ROD DOWEL MACHINE OPERATOR Gender Identity Not on file Sexual Orientation Not on file Last Filed Vital Signs Vital Sign Reading Time Taken Comments Blood Pressure 160/70 05/27/2024 11:35 AM SOLID GLASS ROD DOWEL MACHINE OPERATOR Pulse 75 05/27/2024 11:35 AM SOLID GLASS ROD DOWEL MACHINE OPERATOR Temperature 36.5 C (97.7 F) 05/27/2024 11:13 AM SOLID GLASS ROD DOWEL MACHINE OPERATOR Respiratory Rate 22 05/27/2024 11:35 AM SOLID GLASS ROD DOWEL MACHINE OPERATOR Oxygen Saturation 100% 05/27/2024 11:35 AM SOLID GLASS ROD DOWEL MACHINE OPERATOR Inhaled Oxygen Concentration - - Weight 64.9 kg (143 lb) 05/27/2024 9:05 AM SOLID GLASS ROD DOWEL MACHINE OPERATOR Height 158.8 cm (5' 2.5 ) 05/27/2024 9:05 AM SOLID GLASS ROD DOWEL MACHINE OPERATOR Body Mass Index 25.74 05/27/2024 9:05 AM SOLID GLASS ROD DOWEL MACHINE OPERATOR Plan of Treatment Not on file Medical Devices Implanted Type Area Tugboat Mate Device Identifier Shelf Expiration Date Model / Serial / Lot [employer] Lens Iol Tecnis Smplcty 1-Pc Clr [place] 21.5 Diopter [id number] - [id number] - [id number] Implanted:Qty: 1 on 03/25/2024 by Shruthi Whittaker MD PhD at [facility] Right: Eye [employer] [id number] 03/06/2026 [id number] / [id number] / [employer] Lens Iol Tecnis Simplicity Single Piece Clear [place] 22.5 Diopter [id number] - [id number] - [id number] Implanted:Qty: 1 on 05/27/2024 by Shruthi Whittaker MD PhD at [facility] Left: Eye [employer] [id number] 01/30/2026 [id number] / [id number] / Procedures Procedure Name Priority Date/Time Associated Diagnosis Comments RETINA, OCT NON-BILLABLE - OS - LEFT EYE Routine 07/01/2024 3:18 PM CDT S/P cataract surgery, left Encounter for observation for other suspected diseases and conditions ruled out EXTRACTION CATARACT WITH LENS IMPLANT. 05/27/2024 10:47 AM SOLID GLASS ROD DOWEL MACHINE OPERATOR Anterior subcapsular polar cataract, nonsenile Nuclear sclerotic cataract of left eye from Last 3 Months Results * OCT, Retina Non-Billable - OS - Left Eye (07/01/2024 3:18 PM CDT) Anatomical Region Laterality Modality Head Other Narrative 07/01/2024 3:18 PM CDT OS: ERM with minimal VMT us Shruthi Whittaker MD PhD OPHTH TOMOGRAPHY Claribel l Result from Last 3 Months Insurance MEDICARE [facility] MEDICARE [facility] MEDICARE SUPPLEMENT MEDICARE [facility] MEDICARE SUPPLEMENT Care Teams Unscrambler Relationship Specialty Start Date End Date Minna Guardado NP PCP - General Nurse Practitioner 05/08/18
--- OUTSIDE RECORDS SUMMARY | 2024-07-18 08:00 | XMS_ITS | Continuity of Care Document ---
Author Organization [facility] Address [address] [place] [address] Phone Care Team Providers Care Payroll Lead Name Role Phone Daniel Mcfarland MD Unavailable [...] - Active Procedures Procedure Date OFFICE/OUTPATIENT VISIT [facility] Advance Directives Directive Yes / [...] IENT VISIT [facility], [address], [place], [address], [place] tel:[phone] [facility] knee arthritis 3 [address] Sanchez. [address], [place], [place], [id number] . tel: [phone] Family History Family Member Type Diagnosis Age [...]
--- OUTSIDE RECORDS SUMMARY | 2024-07-18 08:00 | XMS_ITS ---
Author Organization [facility] Address [address] [facility] [address] [place] [address] Care Team Providers Care Ged Tutor Name Role Phone Minna Guardado Primary Care Provider Bhargav Saenz Unavailable [phone] Louis Montanez Unavailable Unavailable REASON FOR VISIT Catherine Murphy. 1940 Encounters Encounter Location Date Provider Diagnosis [facility] [address] [facility] [address] [place] [address] 04/18/2024 Bhargav Oh Plan Of Treatment No Information Progress Notes * Beny MURPHYnoahDOB:1940 (83 yo F)Acc No.[id number]:04/18/2024 Patient: Catherine LUCIA :1940 A ge:83 Y S ex:Female Address:[facility] [address], [place], [address] * true * Date: Generated for Cheikhi mariaelena/Krystinag/eTransmitting on: 0 07/18/2024 07:59 AM CDT
--- OUTSIDE RECORDS SUMMARY | 2024-07-18 08:00 | XMS_ITS | Clinical Summary ---
Author Organization [facility] Betzy Montoya Address [address] [place] [address] Care Team Providers Care Security Door Installer Name Role Phone Unavailable Primary Care Provider [...] Encounters Date Type Department Care Team Description 07/09/2024 Telephone [facility] Gynecologic Oncology [place] [address] [place] [phone] Sandra Angelo, Needs Appointment 07/07/2024 Orders Only [facility] Oncology and Hematology - [place] [place] [address] Louis Montanez MD Skin lesion of chest wall (Primary Dx) 07/07/2024 Orders Only [facility] Oncology and Hematology - [place] [place] [address] Louis Montanez MD Malignant neoplasm of ovary, unspecified laterality (CMS/HCC) 07/02/2024 4:00 PM CDT Telephone Check Up [facility] Oncology and Hematology - [place] [place] [address] Louis Montanez MD Skin lesion of chest wall (Primary Dx) 06/27/2024 Orders Only [facility] Oncology and Hematology - [place] [address] [place] [address] Louis Montanez MD 06/23/2024 Orders Only [facility] Oncology and Hematology - [place] [address] [place] [address] Louis Montanez MD Malignant neoplasm of ovary, unspecified laterality (CMS/HCC) 06/18/2024 Orders Only [facility] Oncology and Hematology - [place] [place] [address] Louis Montanez MD 06/18/2024 Telephone [facility] Oncology and Hematology - [place] [address] [place] [phone] Louis Montanez MD Abnormal Mammo Results 06/12/2024 8:45 AM MARKETING SERVICES MANAGER Office Visit [facility] Oncology [facility] Hematology [facility] [address] Louis Montanez MD Malignant neoplasm of ovary, unspecified laterality (CMS/HCC) (Primary Dx); Visit for screening mammogram 06/10/2024 Orders Only [facility] Oncology [facility] Hematology [facility] [address] Louis Montanez MD 06/09/2024 Orders Only [facility] Oncology [facility] Hematology [facility] [address] [place] [phone] Louis Montanez MD Malignant neoplasm of ovary, unspecified laterality (CMS/HCC) 05/28/2024 External Device Data STL ABSTRACTION Provider, Abstract 05/26/2024 Orders Only [facility] Oncology [facility] Hematology [facility] [address] [place] [id number] Louis Montanez MD Malignant neoplasm of ovary, unspecified laterality (CMS/HCC) 05/15/2024 8:30 AM MARKETING SERVICES MANAGER Office Visit [facility] Oncology [facility] [address] [place] [phone] Louis Montanez MD Malignant neoplasm of ovary, unspecified laterality (CMS/HCC) (Primary Dx) 05/15/2024 Orders Only [facility] Oncology [facility] Hematology [place] [address] [address] [place] [address] Louis Montanez MD Malignant neoplasm of ovary, unspecified laterality (CMS/HCC) (Primary Dx) 05/12/2024 Orders Only [facility] Oncology [facility] Hematology [facility] [address] [place] [id number] Louis Montanez MD Malignant neoplasm of ovary, unspecified laterality (CMS/HCC) 05/07/2024 External Device Data STL ABSTRACTION Provider, Abstract 05/07/2024 Abstract [facility] Oncology and Hematology - [place] [place] [address] Louis Montanez MD 05/07/2024 Abstract [facility] Oncology and Hematology - [place] [address] [place] [address] Louis Montanez MD 05/05/2024 Orders Only [facility] Oncology and Hematology - [place] [address] [place] [address] Louis Montanez MD 2024 External Device Data STL ABSTRACTION Provider, Abstract 04/28/2024 Orders Only [facility] Oncology and Hematology - [place] [address] [place] [id number] Louis Montanez MD Malignant neoplasm of ovary, unspecified laterality (CMS/HCC) 04/25/2024 Orders Only [facility] Oncology and Hematology - [place] [address] [place] [phone] Louis Montanez MD 04/21/2024 Orders Only [facility] Oncology and Hematology - [place] [address] [place] [address] Louis Montanez MD Malignant neoplasm of ovary, [...] on file Legal Sex Female 8:31 AM MARKETING SERVICES MANAGER Gender Identity Not on file Sexual Orientation Not on file Last Filed Vital Signs Vital Sign Reading Time Taken Comments Blood Pressure 124/73 06/12/2024 8:53 AM MARKETING SERVICES MANAGER Pulse 73 06/12/2024 8:53 AM MARKETING SERVICES MANAGER Temperature 35.5 C (95.9 F) 06/12/2024 8:53 AM MARKETING SERVICES MANAGER Respiratory Rate 15 06/12/2024 8:53 AM MARKETING SERVICES MANAGER Oxygen Saturation 96% 06/12/2024 8:53 AM MARKETING SERVICES MANAGER Inhaled Oxygen Concentration - - Weight 63.4 kg (139 lb 12.8 oz) 06/12/2024 8:53 AM MARKETING SERVICES MANAGER Height 157.5 cm (5' 2 ) 08/16/2023 2:37 PM CDT Body Mass Index 25.57 08/16/2023 2:37 PM CDT Plan of Treatment Upcoming Encounters Date Type Department Care Team (Late st Contact Info) Description 08/08/2024 12:30 PM CDT Office Visit [facility] Oncology and Hematology - [place] [address] [facility] [address] [place] [address] Louis Montanez MD [address] [address] Health Maintenance Due Date Last Done [...] BASIC METABOLIC PANEL Routine 06/09/2024 2:44 PM MARKETING SERVICES MANAGER CHG CA 125 Routine 06/09/2024 1:30 PM MARKETING SERVICES MANAGER BASIC METABOLIC PANEL Routine 05/15/2024 9:56 AM MARKETING SERVICES MANAGER CBC WITH DIFFERENTIAL Routine 05/12/2024 2:[address] ABDOMEN PELVIS W CONTRAST Routine 05/05/2024 11:46 AM MARKETING SERVICES MANAGER BASIC METABOLIC PANEL Routine 04/24/2024 12:47 PM MARKETING SERVICES MANAGER from Last 3 Months Results * PET [...] * BASIC METABOLIC PANEL (06/09/2024 2:44 PM MARKETING SERVICES MANAGER) Only the most recent of3 resultswithin the time period is included. Blood us Louis Montanez MD CHEMISTRY ORDERABLES Final Resu lt * CHG CA 125 (06/09/2024 1:30 PM MARKETING SERVICES MANAGER) Louis Montanez MD CHG - LABORATORY Final Result * CBC WITH DIFFERENTIAL (05/12/2024 2:02 PM MARKETING SERVICES MANAGER) Blood us Provider Scanning HEMATOLOGY ORDERABLES Final Re sult * CT ABDOMEN PELVIS W CONTRAST (05/05/2024 11:46 AM MARKETING SERVICES MANAGER) Anatomical Region Laterality Modality Abdomen Computed Tomogra phy Louis Montanez MD CT ORDERABLES Final Result from Last 3 Months Insurance [facility] MEDICARE PART A AND B MEDICARE PART A AND B BCBS SUPP RX [employer] Medicare Part D RX [employer] Commercial Advance Directives For more information, please contact: [phone] * Full Code (Latest Code Status on File) Date Activated Date Inactivated Comments 07/30/2023 8:32 PM 07/31/2023 12:10 PM * Full Code Date Activated Date Inactivated Comments 07/30/2023 12:16 PM 07/30/2023 8:32 PM * Full Code Date Activated Date Inactivated Comments 07/30/2023 10:39 AM 07/30/2023 12:16 PM
[2024-07-18 08:26] LABS: Estimated Glomerular Filt Rate 60
== END 2024-07-18 07:57 | disposition home or self-care (01) ==
LOC: ANHIMG 07:57
PROVIDERS: PCP Nurse Practitioner Family; Visit Provider Internal Medicine Hematology & Oncology
DX: C56.9 Malignant neoplasm of unspecified ovary (principal)
CPT/HCPCS: 71260; 74177; Q9967

== ENCOUNTER 2024-08-05 09:01 | Outpatient (CLI) | payer MEDICARE, SELFPAY ==
--- OUTSIDE RECORDS SUMMARY | 2024-08-05 09:44 | XMS_ITS | Encounter Summary ---
Author Organization [facility] [employer] [facility] Address [address] [place] [address] Care Team Providers Care Weld Technician Name Role Phone Unavailable Primary Care Provider Unavailabl e Encounter Details Date Type Department Care Team (Late Contact Info) Description 08/04/2024 Orders Only [facility] Oncology and Hematology - [place] [address] [facility] [address] [place] [address] Louis Montanez MD [address] [facility] [address] [place] [address] Malignant neoplasm of ovary, unspecified [...] on file Legal Sex Female 8:31 AM FORKLIFT TECHNICIAN Gender Identity Not on file Sexual Orientation Not on file documented as of this encounter Plan of Treatment Upcoming Encounters Date Type Department Care Team (Late Contact Info) Description 08/08/2024 12:30 PM CDT Office Visit [facility] Oncology and Hematology - [place] [address] [facility] [address] [place] [address] Louis Montanez MD [address] [facility] [address] [place] [address] documented as of this encounter Procedures Procedure Name Priority Date/Time Associated Diagnosis Comments CANCER ANTIGEN 125 Routine 08/01/2024 2: 11 PM CDT COMPREHENSIVE METABOLIC PANEL Routine 08/01/2024 10:35 AM CDT documented in this encounter Results * CANCER ANTIGEN 125 (08/01/2024 2:11 PM CDT) Blood Louis Montanez MD CHEMISTRY ORDERABLES Final Resu lt * COMPREHENSIVE METABOLIC PANEL (08/01/2024 10:35 AM CDT) Blood us Louis Montanez MD CHEMISTRY ORDERABLES Final Resu lt documented in this encounter Visit Diagnoses Diagnosis Malignant neoplasm of ovary, unspecified laterality (CMS/HCC) documented in this encounter
--- OUTSIDE RECORDS SUMMARY | 2024-08-05 09:44 | XMS_ITS | Continuity of Care Document ---
Author Organization [facility] Address [address] [place] [address] Phone Care Team Providers Care Airdrop Systems Technician Name Role Phone Daniel Mcfarland MD Unavailable [...] - Active Procedures Procedure Date OFFICE/OUTPATIENT VISIT [facility] Advance Directives Directive Yes / No Effective [...] Providers Copied on Encounter OFFICE/OUTPAT IENT VISIT [facility] Orthopa[facility], [address], [place], [address], [place] tel:[phone] [facility] knee arthritis 3 [address]. [address], [place], [place], [id number] . tel: [phone] Family History Family Member Type Diagnosis Age At Onset No Information Payers Payer name Insurance type Covered republican ID Authoriza tion(s) No Information Social History [...]
--- OUTSIDE RECORDS SUMMARY | 2024-08-05 09:44 | XMS_ITS ---
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 E&M [id number] 05/06/2024 Other hearing loss of left ear [...] therapy, I recommended an audiology consult. E&M 00610 Progress Notes * Catherine MURPHYDOB:1940 (84 yo F)Acc No.[id number]:05/06/2024 Progress Notes Patient: Catherine LUCIA Provider: Lei Kingston MD :1940 A ge:84 Y S ex:Female Date:05/06/2024 [address] [place] [address] Pcp:Minna Guardado Subjective: * Chief Complaints: * [...] q21 days 11/26/2023 - NGS / IHC [id number] 0 TMB 1.1 mut/mB MSI cannot be [...] U/mL Pertinent imaging studies 05/05/2024 CT AP ([facility]) Diffuse large bowel wall thickening with extensive pericolonic inflammatory changes, especially at the rectum. Small amount of pelvic ascites. Impression:Diffuse infectious/inflammatory colitis, similar to prior exam. No distinct evidence for active malignancy or metastatic disease. 02/18/2024 CT AP ([facility]) Persistent colonic wall thickening consistent with colitis which could be infectious, inflammatory, ischemic in etiology or given the chronicity potentially related to radiation or chemotherapy treatment. Minimal ascites in the deep pelvis. No evidence of metastatic disease. 11/07/2023 CT CAP ([facility]) Significant interval improvement in peritoneal carcinomatosis from [...] appearance: C haperone present in room , Domestic Technician present in room. Eyes: N o icteric [...] * Visit Code: * Procedure Codes: * RAFT MAINTENANCE SUPERVISOR Sign off status: Completed true * Provider: Lei Kingston MD Date: 0 05/06/2024 Generated for Cheikhi mariaelena/[place]/eTransmitting on: 0 08/05/2024 09:44 AM CDT History and Physical Notes * [...] q21 days 11/26/2023 - NGS / IHC [id number] 0 TMB 1.1 mut/mB MSI cannot be [...] U/mL Pertinent imaging studies 05/05/2024 CT AP ([facility]) Diffuse large bowel wall thickening with extensive pericolonic inflammatory changes, especially at the rectum. Small amount of pelvic ascites. Impression:Diffuse infectious/inflammatory colitis, similar to prior exam. No distinct evidence for active malignancy or metastatic disease. 02/18/2024 CT AP ([facility]) Persistent colonic wall thickening consistent with colitis which could be infectious, inflammatory, ischemic in etiology or given the chronicity potentially related to radiation or chemotherapy treatment. Minimal ascites in the deep pelvis. No evidence of metastatic disease. 11/07/2023 CT CAP ([facility]) Significant interval improvement in peritoneal carcinomatosis from [...] Category Not es General Examination General appearance: Car Customizer e present in room , Domestic Technician present in room Eyes: No icteric sclerae [...]
--- OUTSIDE RECORDS SUMMARY | 2024-08-05 09:44 | XMS_ITS | Clinical Summary ---
Author Organization [facility] Betzy Montoya Address [address] [place] [address] Care Team Providers Care Water Carter Name Role Phone Unavailable Primary Care Provider [...] Encounters Date Type Department Care Team Description 08/04/2024 Orders Only [facility] Oncology and Hematology - Al[place] Josselyn Charles [address] Louis Montanez MD Malignant neoplasm of ovary, unspecified laterality ([facility]/HCC) 07/21/2024 Orders Only [facility] Oncology and Hematology - [place] Josselyn Charles [address] [place] [id number] Louis Montanez MD Malignant neoplasm of ovary, unspecified laterality (CMS/HCC) 07/18/2024 Telephone [facility] Oncology and Hematology - Alo Agnes Charles [address] [place] [id number] Louis Montanez MD Biopsy 07/18/2024 Orders Only [facility] Oncology and Hematology - Al[place] Agnes Charles [address] [place] [id number] Louis Montanez MD 07/09/2024 Telephone [facility] Gynecologic Oncology [place] [address] ANGEL [address] [place] [address] Sandra Angelo, DO Needs Appointment 07/07/2024 Orders Only [facility] Oncology and Hematology - Alo Josselyn Charles [address] [place] [id number] Louis Montanez MD Skin lesion of chest wall (Primary Dx) 07/07/2024 Orders Only [facility] Oncology and Hematology - Alo Josselyn Charles [address] [place] [id number] Louis Montanez MD Malignant neoplasm of ovary, unspecified laterality (CMS/HCC) 07/02/2024 4:00 PM CDT Telephone Check Up [facility] Oncology and Hematology - Alo Josselyn Charles [address] Louis Montanez MD Skin lesion of chest wall (Primary Dx) 06/27/2024 Orders Only [facility] Oncology and Hematology - Alo Agnes Charles [address] Louis Montanez MD 06/23/2024 Orders Only [facility] Oncology and Hematology - Alo [address] Charles [address] Louis Montanez MD Malignant neoplasm of ovary, unspecified laterality (CMS/HCC) 06/18/2024 Orders Only [facility] Oncology and Hematology - Alo [address] Charles [address] Louis Montanez MD 06/18/2024 Telephone [facility] Oncology and Hematology - Alo [address] Charles [address] Louis Montanez MD Abnormal Mammo Results 06/12/2024 8:45 AM FURNITURE REPRODUCER Office Visit [facility] Oncology and Hematology - [place] Agnes Charles [address] [place] [address] Louis Montanez MD Malignant neoplasm of ovary, unspecified laterality (CMS/HCC) (Primary Dx); Visit for screening mammogram 06/10/2024 Orders Only [facility] Oncology and Hematology - Al[place] Agnes Charles [address] [place] [address] Louis Montanez MD 06/09/2024 Orders Only [facility] Oncology and Hematology - Alo [address] [place] [address] Louis Montanez MD Malignant neoplasm of ovary, unspecified laterality (CMS/HCC) 05/28/2024 External Device Data STL ABSTRACTION Provider, Abstract 05/26/2024 Orders Only [facility] Oncology and Hematology - Al[place] Agnes Charles [address] [place] [address] Louis Montanez MD Malignant neoplasm of ovary, unspecified laterality (CMS/HCC) 05/15/2024 8:30 AM FURNITURE REPRODUCER Office Visit [facility] Oncology and Hematology - [place] [address] [place] [address] Louis Montanez MD Malignant neoplasm of ovary, unspecified laterality (CMS/HCC) (Primary Dx) 05/15/2024 Orders Only [facility] Oncology and Hematology - Alo [address]es Charles [address] [place] [address] Louis Montanez MD Malignant neoplasm of ovary, unspecified laterality (CMS/HCC) (Primary Dx) 05/12/2024 Orders Only [facility] Oncology and Hematology - Alo [address] [place] [address] Louis Montanez MD Malignant neoplasm of ovary, unspecified laterality (CMS/HCC) 05/07/2024 External Device Data STL ABSTRACTION Provider, Abstract 05/07/2024 Abstract [facility] Oncology and Hematology Alo [address] [place] [address] Louis Montanez MD 05/07/2024 Abstract [facility] Oncology and Hematology [facility] [address] [place] [address] Louis Montanez MD from Last [...] on file Legal Sex Female 8:31 AM FURNITURE REPRODUCER Gender Identity Not on file Sexual Orientation Not on file Last Filed Vital Signs Vital Sign Reading Time Taken Comments Blood Pressure 124/73 06/12/2024 8:53 AM FURNITURE REPRODUCER Pulse 73 06/12/2024 8:53 AM FURNITURE REPRODUCER Temperature 35.5 C (95.9 F) 06/12/2024 8:53 AM FURNITURE REPRODUCER Respiratory Rate 15 06/12/2024 8:53 AM FURNITURE REPRODUCER Oxygen Saturation 96% 06/12/2024 8:53 AM FURNITURE REPRODUCER Inhaled Oxygen Concentration - - Weight 63.4 kg (139 lb 12.8 oz) 06/12/2024 8:53 AM FURNITURE REPRODUCER Height 157.5 cm (5' 2 ) 08/16/2023 2:37 PM CDT Body Mass Index 25.57 08/16/2023 2:37 PM CDT Plan of Treatment Upcoming Encounters Date Type Department Care Team (Late st Contact Info) Description 08/08/2024 12:30 PM CDT Office Visit [facility] Oncology and Hematology - Alo [address] [facility] [address] Charles [address] [place] [address] Louis Montanez MD [address] [facility] [address] [place] [address] Health Maintenance Due Date Last [...] METABOLIC PANEL Routine 08/01/2024 10:[address] CHEST ABDOMEN PELVIS W CONT Routine 07/18/2024 12:00 PM CDT PET BONE IMG W CT SKL BSE MID THG Routine 06/24/2024 10:04 AM CDT MAMMO SCREENING BILAT Routine 06/18/2024 11:24 AM CDT BASIC METABOLIC PANEL Routine 06/09/2024 2:44 PM FURNITURE REPRODUCER CHG CA 125 Routine 06/09/2024 1:30 PM FURNITURE REPRODUCER BASIC METABOLIC PANEL Routine 05/15/2024 9:56 AM FURNITURE REPRODUCER CBC WITH DIFFERENTIAL Routine 05/12/2024 2:02 PM FURNITURE REPRODUCER from Last 3 Months Results * CANCER ANTIGEN 125 (08/01/2024 2:11 PM CDT) Blood us Louis Montanez MD CHEMISTRY ORDERABLES Final Resu lt * COMPREHENSIVE METABOLIC PANEL (08/01/2024 10:35 AM CDT) Blood us Louis Montanez MD CHEMISTRY ORDERABLES Final Resu lt * CT CHEST ABDOMEN PELVIS W CONT (07/18/2024 12:00 PM CDT) Anatomical Region Laterality Modality Chest Computed Tomogra phy us Louis Montanez MD CT ORDERABLES Final Result * PET BONE IMG W CT SKB MDTH (06/24/2024 10:04 AM CDT) Anatomical Region Laterality Modality Positron Emissio n Tomography (PET) Result [facility] Louis Montanez MD PE ORDERABLES Final Result * MAMMO SCREENING BILAT (06/18/2024 11:24 AM CDT) Anatomical Region Laterality Modality Breast Bilateral Mammography Louis Montanez MD MAMMO ORDERABLES Final Result * BASIC METABOLIC PANEL (06/09/2024 2:44 PM FURNITURE REPRODUCER) Only the most recent of2 resultswithin the time period is included. Blood Result [facility] Louis Montanez MD CHEMISTRY ORDERABLES Final Resu lt * CHG CA 125 (06/09/2024 1:30 PM FURNITURE REPRODUCER) Result [facility] Louis Montanez MD CHG - LABORATORY Final Result * CBC WITH DIFFERENTIAL (05/12/2024 2:02 PM FURNITURE REPRODUCER) Blood Result [facility] Provider Scanning HEMATOLOGY ORDERABLES Final Re sult from Last 3 Months Insurance [facility] SUPP MEDICARE PART A AND B BCBS SUPP RX [employer] Medicare Part D RX [employer] Commercial Advance Directives For more information, please contact: [phone] * Full Code (Latest Code Status on File) Date Activated Date Inactivated Comments 07/30/2023 8:32 PM 07/31/2023 12:10 PM * Full Code Date Activated Date Inactivated Comments 07/30/2023 12:16 PM 07/30/2023 8:32 PM * Full Code Date Activated Date Inactivated Comments 07/30/2023 10:39 AM 07/30/2023 12:16 PM
--- OUTSIDE RECORDS SUMMARY | 2024-08-05 09:44 | XMS_ITS | Patient Health Record ---
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
--- OUTSIDE RECORDS SUMMARY | 2024-08-05 09:44 | XMS_ITS ---
Author Organization [facility] Address [address] [facility] [address] [place] [address] Care Team Providers Care Media Center Director School Name Role Phone Minna Guardado Primary Care Provider Bhargav Saenz Unavailable [phone] Louis Montanez Unavailable Unavailable REASON FOR VISIT RE:Catherine Murphy. 1940 Encounters Encounter Location Date Provider Diagnosis [facility] [address] [facility] [address] [place] [address] 04/18/2024 Bhargav Oh Plan Of Treatment No Information Progress Notes * Beny MURPHYnoahDOB:1940 (83 yo F)Acc No.[id number]:04/18/2024 Patient: Catherine LUCIA :1940 A ge:83 Y S ex:Female Address:[facility] [place], [address] * true * Date: Generated for Cheikhi mariaelena/Fakaeg/eTransmitting on: 0 08/05/2024 09:43 AM CDT
--- OUTSIDE RECORDS SUMMARY | 2024-08-05 09:44 | XMS_ITS ---
Author Organization [facility] Address [address] [facility] [address] [place] [address] Care Team Providers Care Core Laying Machine Operator Name Role Phone Minna Guardado Primary Care Provider Bhargav Saenz Unavailable [phone] Louis Montanez Unavailable Unavailable REASON FOR VISIT Catherine Murphy. 1940 Encounters Encounter Location Date Provider Diagnosis [facility] [address] [facility] [address] [place] [address] 04/18/2024 Bhargav Oh Plan Of Treatment No Information Progress Notes * Beny MURPHYnoahDOB:1940 (83 yo F)Acc No.[id number]:04/18/2024 Patient: Catherine LUCIA :1940 A ge:83 Y S ex:Female Address:[address], [place], [address] * true * Date: Generated for Cheikhi mariaelena/Fakaeg/eTransmitting on: 0 08/05/2024 09:44 AM CDT
--- OUTSIDE RECORDS SUMMARY | 2024-08-05 09:44 | XMS_ITS | Clinical Summary ---
Author Organization [facility] Address [address] [facility] [place] [address] Care Team Providers Care Mold Maker Plastic Molds Name Role Phone Tanika Bardales MD Primary Care Provider [phone] Source Comments [facility],non-owned Affiliates and Associated Physician Practices is amultiple site organization consisting of ambulatory clinics and hospital sitesin [place], [place], [place] and [place]. This disclosure is being madepursuant to the Care Everywhere program and may not contain all information available regarding this patient. Last updated 17.[employer] Allergies No known active allergies Medications * Be aware that medications may not be up to date on this document. Alwaysverify current medications with the patient. aspirin (ASPIRIN) 325 MG tablet every 24 hours Activ e Coenzyme Q10 400 MG Co Q-10 400 mg capsule Take by oral route. Active atorvastatin (LIPITOR) 80 MG tablet atorvastatin 80 mg tablet TAKE 1 TABLET BY MOUTH EVERY DAY 9 Active omeprazole (PRILOSEC) 20 MG capsule omeprazole 20 mg capsule,delayed release Take by oral route. Active Active Problems Problem Noted Date Diagnosed Date Anxiety 04/01/2020 Gastroesophageal reflux disease 04/01/2020 Hyperlipidemia 04/01/2020 Borderline high blood pressure 01/22/2019 Social History Tobacco Use Types Packs/Day Years Used Date Smoking Tobacco: Never Assessed Comments Unknown Sex and Gender Information Value Date Recorded Sex Assigned at Not on file Legal Sex Female 3:13 PM CDT Gender Identity Not on file Sexual Orientation Not on file Last Filed Vital Signs Vital Sign Reading Time Taken Comments Blood Pressure 138/80 07/12/2020 2:23 PM CDT Pulse 80 07/12/2020 2:23 PM CDT Temperature 36.6 C (97.9 F) 07/12/2020 2:23 PM CDT Respiratory Rate 20 07/12/2020 2:23 PM CDT Oxygen Saturation 99% 04/01/2020 12:31 PM FEED ADVISER Inhaled Oxygen Concentration - - Weight - - Height - - Body Mass Index - - Plan of Treatment Health Maintenance Due Date Last Done Comments BONE DENSITY TESTING 1940 DTAP/TDAP/TD VACCINES (1 - Tdap) 1958 PNEUMOCOCCAL VACCINE 50+ (1 of 1 - PCV) 1989 ZOSTER VACCINE (1 of 2) 1989 Respiratory Syncytial Virus (RSV) Vaccine Pt: or over 60 yrs (1 - 1-dose 75+ series) 2014 COVID-19 VACCINE (3 - season) 2023 07/03/2020, 06/04/2020 DEPRESSION SCREENING [...] on patient's age to complete this topic [place] [address] MEDICARE ANTHEM MEDICARE ANTHEM ANTHEM SELF PAY NO INSURANCE Member Subscriber Plan / Payer (Ef fective for All Dates) Name:Catherine Mruphy Member ID:Not on file Relation to Subscriber:Not on file Name:CATHERINE MURPHY Subscriber ID:Not on file (Home) Address: [address] [place] [address] Payer ID:Not on file Group ID:Not on file Type:Self Pay Address: [place], [place] MEDICARE MEDICARE Care Teams Mold Maker Plastic Molds Relationship Specialty Start Date End Date Tanika Bardales MD [address] [place] [address] [address] [place] [address] PCP - General 09/09/19
[2024-08-05 11:48] LABS: Cholesterol 177 mg/dL (0-200); HDL Direct 62 mg/dL; Triglycerides 80 mg/dL (<150)
[2024-08-05 11:58] LABS: LDL Cholesterol Direct 71 mg/dL
== END 2024-08-05 09:02 | disposition home or self-care (01) ==
LOC: ANHLAB 09:04
PROVIDERS: PCP Nurse Practitioner Family; Visit Provider Nurse Practitioner Family
DX: E78.5 Hyperlipidemia, unspecified (principal); Z13.220 Encounter for screening for lipoid disorders
CPT/HCPCS: 36415; 80061

== ENCOUNTER 2024-08-05 11:22 | Outpatient (CLI) | payer MEDICARE, SELFPAY ==
--- NOTE | ~2024-08-05 | US_ITS ---
US thyroid INDICATION: Abnormal findings on CT. TECHNIQUE: Real-time sonographic images of the thyroid gland were obtained. COMPARISON: CT dated 07/19/2019 FINDINGS: The right thyroid lobe measures 5.2 x 1.6 x 1.7 cm. The left thyroid lobe measures 5.3 x 1 .6 x 1.4 cm. There is normal echotexture and echogenicity throughout the thyroid gland. There are mul tiple cysts of the thyroid gland, largest on the right superiorly measuring 7 mm and on the left rojelio uring 1.3 cm. These are benign. No discrete nodules identified. Normal vascular flow is present. IMPRESSION: 1. Multiple benign bilateral thyroid cysts. No suspicious sonographic abnormalities to suggest mirlande madsen. Reviewed, dictated and finalized at location A. IMPRESSION: 1. Multiple benign bilateral thyroid cysts. No suspicious sonographic abnormal ities to suggest malignancy.
--- OUTSIDE RECORDS SUMMARY | 2024-08-05 12:49 | XMS_ITS | Encounter Summary ---
Author Organization 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
--- OUTSIDE RECORDS SUMMARY | 2024-08-05 12:49 | XMS_ITS | Clinical Summary ---
Author Organization [facility] Address [address] [place] [address] Care Team Providers Care Mission Assessment Specialist Name Role Phone Minna Guardado INDIRECT FIRE INFANTRYMAN Primary Care Provider + Allergies No known [...] Description 07/01/2024 3:20 PM CDT Imaging Exam [facility] Ophthalmology [address] [facility] 2nd [address] [place] [address] 07/01/2024 2:30 PM CDT Office Visit [facility] Ophthalmology [address] [facility] [address] [place] [address] Shruthi Whittaker MD PhD S/P cataract surgery, right (Primary Dx); S/P cataract surgery, left; Encounter for observation for other suspected diseases and conditions ruled out 06/04/2024 9:30 AM APPLICATIONS SUPPORT ENGINEER Office Visit [facility] Ophthalmology [address] [facility] 6th [place] [address] Shruthi Whittaker MD PhD S/P cataract surgery, left (Primary Dx); S/P cataract surgery, right 05/27/2024 1:30 PM APPLICATIONS SUPPORT ENGINEER Office Visit [facility] Ophthalmology [address] [facility] [address], [address] [place] [address] Sue Diaz MD S/P cataract surgery, left (Primary Dx) 05/27/2024 10:47 AM APPLICATIONS SUPPORT ENGINEER Anesthesia Event [facility] Operating Room [address] [facility] [address] Chavez Schuster MD Gangloff, Kerry Marie, INDIRECT FIRE INFANTRYMAN 05/27/2024 10:45 AM APPLICATIONS SUPPORT ENGINEER - 05/27/2024 11:30 AM [facility] Surgery [facility] Operating Room [address] [facility] [place] [address] Shruthi Whittaker MD PhD EXTRACTION CATARACT - PHACOEMULSIFICATION AND LENS IMPLANT - left eye 05/27/2024 8:54 AM APPLICATIONS SUPPORT ENGINEER - 05/27/2024 11:43 AM [facility] Hospital Encounter [facility] Operating Room [address] [facility] [place] [address] Shruthi Whittaker MD PhD Nuclear sclerotic cataract of left eye (Primary Dx) Discharge Disposition: Discharge to home or self care 05/26/2024 Telephone [facility] Ophthalmology [address] [place] [address] Shruthi Whittaker MD PhD from Last 3 [...] OMENTECTOMY performed by Bhargav Oh MD at [facility] CARPAL TUNNEL RELEASE 04/09/1984 - 04/08/1985 [...] Relation Name Comments Heart disease Brother 3 [place] age 67. Hypertension Brother 3 Hypertension; Stomach cancer Brother 3 Diabetes Brother 4 Diabetes mellit us; Heart attack Father of [place] age 83 Heart disease Father Alzheimer's disease [...] on file Legal Sex Female 4:23 AM APPLICATIONS SUPPORT ENGINEER Gender Identity Not on file Sexual Orientation Not on file Obstetrics History Para Term AB IAB SAB Ectopic Multiple Livin g Live Births 3 3 3 3 3 Date Outcome GA Total Labor Labor//3rd Weight Sex Type Anes PTL Angela A1 [...] Comments Blood Pressure 160/70 05/27/2024 11:35 AM APPLICATIONS SUPPORT ENGINEER Pulse 75 05/27/2024 11:35 AM APPLICATIONS SUPPORT ENGINEER Temperature 36.5 C (97.7 F) 05/27/2024 11:13 AM APPLICATIONS SUPPORT ENGINEER Respiratory Rate 22 05/27/2024 11:35 AM APPLICATIONS SUPPORT ENGINEER Oxygen Saturation 100% 05/27/2024 11:35 AM APPLICATIONS SUPPORT ENGINEER Inhaled Oxygen Concentration - - Weight 64.9 kg (143 lb) 05/27/2024 9:05 AM APPLICATIONS SUPPORT ENGINEER Height 158.8 cm (5' 2.5 ) 05/27/2024 9:05 AM APPLICATIONS SUPPORT ENGINEER Body Mass Index 25.74 05/27/2024 9:05 AM APPLICATIONS SUPPORT ENGINEER Plan of Treatment Health Maintenance Due Date [...] 01/08/2018, 04/2008 Medical Devices Implanted Type Area Shaker Tender Device Identifier Shelf Expiration Date Model / Serial / Lot [employer] Lens Iol Tecnis Smplcty 1-Pc Clr Sanborn 21.5 Diopter [id number] - [id number] - [id number] Implanted:Qty: 1 on 03/25/2024 by Shruthi Whittaker MD PhD at [facility] Right: Eye [employer] [id number] 03/06/2026 [id number] / [id number] / [employer] Lens Iol Tecnis Simplicity Single Piece Clear [place] 22.5 Diopter [id number] - [id number] - [id number] Implanted:Qty: 1 on 05/27/2024 by Shruthi Whittaker MD PhD at [facility] Left: Eye [employer] [id number] 01/30/2026 [id number] / [id number] / Procedures Procedure Name Priority Date/Time Associated Diagnosis Comments RETINA, OCT NON-BILLABLE - OS - LEFT EYE Routine 07/01/2024 3:18 PM CDT S/P cataract surgery, left Encounter for observation for other suspected diseases and conditions ruled out EXTRACTION CATARACT WITH LENS IMPLANT. 05/27/2024 10:47 AM APPLICATIONS SUPPORT ENGINEER Anterior subcapsular polar cataract, nonsenile Nuclear sclerotic cataract of left eye from Last 3 Months Results * OCT, Retina Non-Billable - OS - Left Eye (07/01/2024 3:18 PM CDT) Anatomical Region Laterality Modality Head Other Narrative 07/01/2024 3:18 PM CDT OS: ERM with minimal VMT Shruthi Whittaker MD PhD OPHTH TOMOGRAPHY Claribel l Result from Last 3 Months Insurance MEDICARE [facility] MEDICARE [facility] MEDICARE SUPPLEMENT MEDICARE [facility] MEDICARE SUPPLEMENT Member Subscriber Plan / Payer (Ef fective 2019-Present) Name:AnneliseilyaKameron Relation to Subscriber:Self Name:Kameron Murphy Payer ID:[id number] Group ID:[id number] Type:COMMERCIAL Address: [address] [place] [id number] Care Teams Mission Assessment Specialist Relationship Specialty Start Date End Date Minna Guardado NP PCP - General Nurse Practitioner 05/08/18
--- OUTSIDE RECORDS SUMMARY | 2024-08-05 12:49 | XMS_ITS | Clinical Summary ---
Author Organization [facility] Address [address] [place] [address] Care Team Providers Care Vp Account Director Name Role Phone Tanika Bardales MD Primary Care Provider [phone] Source Comments [facility],non-owned Affiliates and Associated Physician Practices is amultiple site organization consisting of ambulatory clinics and hospital sitesin [place], [place], [place] and [place]. This disclosure is being madepursuant to the Care Everywhere program and may not contain all information available regarding this patient. Last updated 17.[employer] Allergies No known active allergies Medications * [...] CDT Oxygen Saturation 99% 04/01/2020 12:31 PM RUBBER TURNER Inhaled Oxygen Concentration - - Weight - [...] patient's age to complete this topic Insurance [facility] [place] [address] MEDICARE ANTHEM MEDICARE ANTHEM ANTHEM SELF PAY NO INSURANCE Member Subscriber Plan / Payer (Ef fective for All Dates) Name:Catherine Murphy Member ID:Not on file Relation to Subscriber:Not on file Name:CATHERINE MURPHY Subscriber ID:Not on file (Home) Address: [address] [place] [address] Payer ID:Not on file Group ID:Not on file Type:Self Pay Address: [place], [place] MEDICARE MEDICARE Care Teams Vp Account Director Relationship Specialty Start Date End Date Tanika Bardales MD [address] [place] [address] [address] [place] [address] PCP - General 09/09/19
--- OUTSIDE RECORDS SUMMARY | 2024-08-05 12:49 | XMS_ITS | Clinical Summary ---
Author Organization [facility] Betzy Montoya Address [address] [place] [address] Care Team Providers Care Marble Installer Supervisor Name Role Phone Unavailable Primary Care Provider [...] Department Care Team Description 08/04/2024 Orders Only [facility] Oncology and Hematology - Alo Josselyn Charles [address] Louis Montanez MD Malignant neoplasm of ovary, unspecified laterality ([facility]/HCC) 07/21/2024 Orders Only [facility] Oncology and Hematology - [place] Josselyn [address] [place] [id number] Louis Montanez MD Malignant neoplasm of ovary, unspecified laterality (CMS/HCC) 07/18/2024 Telephone [facility] Oncology and Hematology - Alo Agnes Charles [address] [place] [id number] Louis Montanez MD Biopsy 07/18/2024 Orders Only [facility] Oncology and Hematology - [place] Agnes Charles [address] [place] [id number] Louis Montanez MD 07/09/2024 Telephone [facility] Gynecologic Oncology [place] [address] [place] [phone] Sandra Angelo, DO Needs Appointment 07/07/2024 Orders Only [facility] Oncology and Hematology - [place] Josselyn [address] [place] [id number] Louis Montanez MD Skin lesion of chest wall (Primary Dx) 07/07/2024 Orders Only [facility] Oncology and Hematology - [place] Josselyn [address] [place] [id number] Louis Montanez MD Malignant neoplasm of ovary, unspecified laterality (CMS/HCC) 07/02/2024 4:00 PM CDT Telephone Check Up [facility] Oncology and Hematology - [place] Josselyn Charles [address] Louis Montanez MD Skin lesion of chest wall (Primary Dx) 06/27/2024 Orders Only [facility] Oncology and Hematology - [place] Agnes Charles [address] Louis Montanez MD 06/23/2024 Orders Only [facility] Oncology and Hematology - Alo [address] Louis Montanez MD Malignant neoplasm of ovary, unspecified laterality (CMS/HCC) 06/18/2024 Orders Only [facility] Oncology and Hematology - [address] Louis Montanez MD 06/18/2024 Telephone [facility] Oncology and Hematology - [address] Louis Montanez MD Abnormal Mammo Results 06/12/2024 8:45 AM HR ANALYST Office Visit [facility] Oncology and Hematology - [place] Agnes [address] [place] [id number] Louis Montanez MD Malignant neoplasm of ovary, unspecified laterality (CMS/HCC) (Primary Dx); Visit for screening mammogram 06/10/2024 Orders Only [facility] Oncology and Hematology - [place] Agnes [address] [place] [id number] Louis Montanez MD 06/09/2024 Orders Only [facility] Oncology and Hematology - Alo [address] [place] [id number] oLuis Montanez MD Malignant neoplasm of ovary, unspecified laterality (CMS/HCC) 05/28/2024 External Device Data STL ABSTRACTION Provider, Abstract 05/26/2024 Orders Only [facility] Oncology and Hematology - [place] Agnes [address] [place] [id number] Louis Montanez MD Malignant neoplasm of ovary, unspecified laterality (CMS/HCC) 05/15/2024 8:30 AM HR ANALYST Office Visit [facility] Oncology and Hematology - [place] [address] [place] [address] Louis Montanez MD Malignant neoplasm of ovary, unspecified laterality (CMS/HCC) (Primary Dx) 05/15/2024 Orders Only [facility] Oncology and Hematology - Alo [address] [place] [id number] Louis Montanez MD Malignant neoplasm of ovary, unspecified laterality (CMS/HCC) (Primary Dx) 05/12/2024 Orders Only [facility] Oncology and Hematology - [place]o [address] [place] [address] Louis Montanez MD Malignant neoplasm of ovary, unspecified laterality (CMS/HCC) 05/07/2024 External Device Data STL ABSTRACTION Provider, Abstract 05/07/2024 Abstract [facility] Oncology and Hematology [address] [place] [address] Louis Montanez MD 05/07/2024 Abstract [facility] Oncology and Hematology [facility] [address] [place] [address] Louis Montanez MD from Last [...] file Legal Sex Female 8:31 AM HR ANALYST Gender Identity Not on file Sexual Orientation Not on file Last Filed Vital Signs Vital Sign Reading Time Taken Comments Blood Pressure 124/73 06/12/2024 8:53 AM HR ANALYST Pulse 73 06/12/2024 8:53 AM HR ANALYST Temperature 35.5 C (95.9 F) 06/12/2024 8:53 AM HR ANALYST Respiratory Rate 15 06/12/2024 8:53 AM HR ANALYST Oxygen Saturation 96% 06/12/2024 8:53 AM HR ANALYST Inhaled Oxygen Concentration - - Weight 63.4 kg (139 lb 12.8 oz) 06/12/2024 8:53 AM HR ANALYST Height 157.5 cm (5' 2 ) 08/16/2023 2:37 PM CDT Body Mass Index 25.57 08/16/2023 2:37 PM CDT Plan of Treatment Upcoming Encounters Date Type Department Care Team (Late st Contact Info) Description 08/08/2024 12:30 PM CDT Office Visit [facility] Oncology and Hematology - [place] [address] [place] [address] Louis Montanez MD [address] [place] [address] Health Maintenance Due Date Last [...] BASIC METABOLIC PANEL Routine 06/09/2024 2:44 PM HR ANALYST CHG CA 125 Routine 06/09/2024 1:30 PM HR ANALYST BASIC METABOLIC PANEL Routine 05/15/2024 9:56 AM HR ANALYST CBC WITH DIFFERENTIAL Routine 05/12/2024 2:02 PM HR ANALYST from Last 3 Months Results * CANCER [...] Modality Positron Emissio n Tomography (PET) Result [facility] Louis Montanez MD PE ORDERABLES Final Result * MAMMO SCREENING BILAT (06/18/2024 11:24 AM CDT) Anatomical Region Laterality Modality Breast Bilateral Mammography Louis Montanez MD MAMMO ORDERABLES Final Result * BASIC METABOLIC PANEL (06/09/2024 2:44 PM HR ANALYST) Only the most recent of2 resultswithin the time period is included. Blood Result [facility] Louis Montanez MD CHEMISTRY ORDERABLES Final Resu lt * CHG CA 125 (06/09/2024 1:30 PM HR ANALYST) Result [facility] Louis Montanez MD CHG - LABORATORY Final Result * CBC WITH DIFFERENTIAL (05/12/2024 2:02 PM HR ANALYST) Blood Result [facility] Provider Scanning HEMATOLOGY ORDERABLES Final Re sult from Last 3 Months Insurance [facility] SUPP MEDICARE PART A AND B BCBS SUPP RX [employer] Medicare Part D RX [employer] Commercial Advance Directives For more information, please contact: [phone] * Full Code (Latest Code Status on File) Date Activated Date Inactivated Comments 07/30/2023 8:32 PM 07/31/2023 12:10 PM * Full Code Date Activated Date Inactivated Comments 07/30/2023 12:16 PM 07/30/2023 8:32 PM * Full Code Date Activated Date Inactivated Comments 07/30/2023 10:39 AM 07/30/2023 12:16 PM
--- OUTSIDE RECORDS SUMMARY | 2024-08-05 12:49 | XMS_ITS | Referral Summary ---
Author Organization [facility] Address [address] [place] [address] Care Team Providers Care Stone Mason Name Role Phone Minna Guardado NP Primary Care Provider + Encounters Date Type Department Care Team Description 07/01/2024 3:20 PM CDT Imaging Exam [facility] Ophthalmology [address] [place] [address] 07/01/2024 2:30 PM CDT Office Visit [facility] Ophthalmology [address] [place] [address] Shruthi Whittaker MD PhD S/P cataract surgery, right (Primary Dx); S/P cataract surgery, left; Encounter for observation for other suspected diseases and conditions ruled out 06/04/2024 9:30 AM P[employer]OR [employer] Office Visit [facility] Ophthalmology [address] [facility] 6th [place] [phone] Shruthi Whittaker MD PhD S/P cataract surgery, left (Primary Dx); S/P cataract surgery, right 05/27/2024 1:30 PM [employer] Office Visit [facility] Ophthalmology [address], [address] [place] [address] Sue Diaz MD S/P cataract surgery, left (Primary Dx) 05/27/2024 10:45 AM [employer] - 05/27/2024 11:30 AM [employer] Surgery [facility] Surgery Center Operating Room [address] [place] [address] Shruthi Whittaker MD PhD EXTRACTION CATARACT - PHACOEMULSIFICATION AND LENS IMPLANT - left eye 05/27/2024 10:47 AM [employer] Anesthesia Event [facility] Operating Room [address] [address] Chavez Schuster MD Gangloff, Kerry Marie, BOAT HAND 05/27/2024 8:54 AM [employer] - 05/27/2024 11:43 AM [employer] Hospital Encounter [facility] Operating Room [address] [place] [address] Shruthi Whittaker MD PhD Nuclear sclerotic cataract of left eye (Primary Dx) Discharge Disposition: Discharge to home or self care 05/26/2024 Telephone [facility]hthalmology [address] [facility] [place] [address] Shruthi Whittaker MD PhD from Last 3 Months Allergies No known [...] on file Legal Sex Female 4:23 AM P[employer] Gender Identity Not on file Sexual Orientation Not on file Last Filed Vital Signs Vital Sign Reading Time Taken Comments Blood Pressure 160/70 05/27/2024 11:35 AM P[employer] Pulse 75 05/27/2024 11:35 AM [employer] Temperature 36.5 C (97.7 F) 05/27/2024 11:13 AM P[employer] Respiratory Rate 22 05/27/2024 11:35 AM [employer] Oxygen Saturation 100% 05/27/2024 11:35 AM [employer] Inhaled Oxygen Concentration - - Weight 64.9 kg (143 lb) 05/27/2024 9:05 AM [employer] Height 158.8 cm (5' 2.5 ) 05/27/2024 9:05 AM [employer] Body Mass Index 25.74 05/27/2024 9:05 AM [employer] Plan of Treatment Not on file Medical Devices Implanted Type Area Mass Spectrometry Specialist Device Identifier Shelf Expiration Date Model / Serial / Lot [employer] Lens Iol Tecnis Smplcty 1-Pc Clr [place] 21.5 Diopter [id number] - [id number] - [id number] Implanted:Qty: 1 on 03/25/2024 by Shruthi Whittaker MD PhD at [facility] [place] Right: Eye [employer] [id number] 03/06/2026 [id number] / [id number] / [employer] Lens Iol Tecnis Simplicity Single Piece Clear [place] 22.5 Diopter [id number] - [id number] - [id number] Implanted:Qty: 1 on 05/27/2024 by Shruthi Whittaker MD PhD at [facility] Left: Eye [employer] [id number] 01/30/2026 [id number] / [id number] / Procedures Procedure Name Priority Date/Time Associated Diagnosis Comments RETINA, OCT NON-BILLABLE - OS - LEFT EYE Routine 07/01/2024 3:18 PM CDT S/P cataract surgery, left Encounter for observation for other suspected diseases and conditions ruled out EXTRACTION CATARACT WITH LENS IMPLANT. 05/27/2024 10:47 AM [employer] Anterior subcapsular polar cataract, nonsenile Nuclear sclerotic cataract of left eye from Last 3 Months Results * OCT, Retina Non-Billable - OS - Left Eye (07/01/2024 3:18 PM CDT) Anatomical Region Laterality Modality Head Other Narrative 07/01/2024 3:18 PM CDT OS: ERM with minimal VMT Shruthi Whittaker MD PhD [facility] [place] Result from Last 3 Months Insurance MEDICARE [facility] MEDICARE [facility] MEDICARE SUPPLEMENT MEDICARE [facility] MEDICARE SUPPLEMENT Care Teams Stone Mason Relationship Specialty Start Date End Date Minna Guardado NP PCP - General Nurse Practitioner 05/08/18
--- OUTSIDE RECORDS SUMMARY | 2024-08-05 12:49 | XMS_ITS | Continuity of Care Document ---
Author Organization [facility] Address [address] [place] [address] Phone Care Team Providers Care Lithographic Plate Maker Name Role Phone Daniel Mcfarland MD Unavailable [...] - Active Procedures Procedure Date OFFICE/OUTPATIENT VISIT [facility] Advance Directives Directive Yes / No Effective [...] Providers Copied on Encounter OFFICE/OUTPAT IENT VISIT [facility], [address], [place], [address], [place] tel:[phone] [facility] knee arthritis [address] Bruna Sanchez. [address], [place], [place], [id number] . tel: [phone] Family History Family Member Type Diagnosis Age [...]
== END 2024-08-05 11:23 | disposition home or self-care (01) ==
LOC: ANHIMG 11:23
PROVIDERS: PCP Nurse Practitioner Family; Visit Provider Nurse Practitioner Family
DX: R93.89 Abnormal findings on diagnostic imaging of other specified body structures (principal); E04.2 Nontoxic multinodular goiter
CPT/HCPCS: 76536

== ENCOUNTER 2025-02-02 09:46 | Outpatient (CLI) | payer MEDICARE, SELFPAY ==
--- OUTSIDE RECORDS SUMMARY | 2025-02-02 10:53 | XMS_ITS | Clinical Summary ---
Author Organization [facility] Address [address] [place] [address] Care Team Providers Care Crepe Maker Name Role Phone Minna Guardado SOFTWARE ENGINEER MOBILE Primary Care Provider + Allergies No known [...] Active Additional Information Patient not taking.Reported on 12/30/2024 triamcinolone (KENALOG) 0.1 % paste Apply 0.25 inches to teeth 2 (two) times a day as needed 05/14/19 25 Active oxyBUTYnin XL (DITROPAN-XL) 5 mg 24 hr tablet Take 1 tablet (5 mg total) by mouth daily Active Active Problems Problem Noted Date Diagnosed [...] Encounters Date Type Department Care Team Description 12/30/2024 1:00 PM CDT Office Visit [facility] [address] 2nd [address] [place] [address] Shruthi Whittaker MD PhD 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) 11/21/2024 1:30 PM CDT - 11/21/2024 11:59 PM CDT Hospital Encounter [facility] [place] [address] [place] [address] Malignant neoplasm of ovary, unspecified laterality (HCC) Discharge Disposition: Discharge to home or self [...] OMENTECTOMY performed by Bhargav Oh MD at [facility] OR MAIN CARPAL TUNNEL RELEASE 04/09/1984 [...] incontinence/bladder prolapse Menorrhagia 1985 menorrhagia Diabetes mellitus Hyperlipidemia Gallstones Anxiety TIA (transient ischemic attack) 12/2018 Skin cancer History of claustrophobia History of chemotherapy Family History Medical History Relation Name Comments Heart disease Brother 3 [place] age 67. Hypertension Brother 3 Hypertension; Stomach cancer Brother 3 Diabetes Brother 4 Diabetes mellit us; Heart attack Father of [place] age 83 Heart disease Father Alzheimer's disease [...] on file Legal Sex Female 4:23 AM ASSOCIATE FINANCIAL ANALYST Gender Identity Not on file Sexual [...] Comments Blood Pressure 160/70 05/27/2024 11:35 AM ASSOCIATE FINANCIAL ANALYST Pulse 75 05/27/2024 11:35 AM ASSOCIATE FINANCIAL ANALYST Temperature 36.5 C (97.7 F) 05/27/2024 11:13 AM ASSOCIATE FINANCIAL ANALYST Respiratory Rate 22 05/27/2024 11:35 AM ASSOCIATE FINANCIAL ANALYST Oxygen Saturation 100% 05/27/2024 11:35 AM ASSOCIATE FINANCIAL ANALYST Inhaled Oxygen Concentration - - Weight 64.9 kg (143 lb) 05/27/2024 9:05 AM ASSOCIATE FINANCIAL ANALYST Height 158.8 cm (5' 2.5) 05/27/2024 9:05 AM ASSOCIATE FINANCIAL ANALYST Body Mass Index 25.74 05/27/2024 9:05 AM ASSOCIATE FINANCIAL ANALYST Plan of Treatment Health Maintenance Due Date Last Done Comments Depression Screening 1940 Osteoporosis Screening-Bone Density Scan 1940 Hepatitis B Screening 1957 Well Visit 65+ 11/08/2018 11/08/2017, 09/18/2016 DTaP/Tdap/Td Vaccine (2 - Td or Tdap) 02/15/2021 02/15/2011 Influenza Vaccine (#1) 2024 , 12/13/2019, 04/30/2019, Additional history exists Fall Risk Assessment 05/27/2025 05/27/2024 Pneumococcal vaccine 65+ Completed 01/08/2018, 04/2008 Zoster Vaccine Completed 05/10/2020, 05/2019, 05/03/2007 Medical Devices Implanted Type [employer] Teacher Device Identifier Shelf Expiration Date Model / Serial / Lot [employer] Lens Iol Tecnis Smplcty 1-Pc Clr Acadia 21.5 Diopter [id number] - [id number] - [id number] Implanted:Qty: 1 on 03/25/2024 by Shruthi Whittaker MD PhD at [facility] [place] Right: Eye [place] [employer] [id number] 03/06/2026 [id number] / [id number] / [employer] Lens Iol Tecnis Simplicity Single Piece Clear Acadia 22.5 Diopter [id number] - [id number] - [id number] Implanted:Qty: 1 on 05/27/2024 by Shruthi Whittaker MD PhD at [facility] Left: Eye [place] [employer] [id number] 01/30/2026 [id number] / [id number] / Procedures Procedure Name Priority Date/Time Associated Diagnosis Comments CT CHEST ABDOMEN PELVIS W CONTRAST Schedule Routine, Read Routine (OP Routine) 11/21/2024 1:48 PM CDT Malignant neoplasm of ovary, unspecified laterality (HCC) from Last 3 Months Results * CT Chest Abdomen Pelvis W Contrast (11/21/2024 1:48 PM CDT) Anatomical Region Laterality Modality Body N/A Computed Tomogra phy 12/08/2024 6:29 PM CDT Narrative 12/08/2024 6:48 PM CDT EXAM DESCRIPTION: CT CHEST ABDOMEN PELVIS W CONTRAST REASON FOR STUDY: Malignant neoplasm of ovary Malignant neoplasm of ovary Dx: Malignant neoplasm of ovary, unspecified laterality (HCC) C56.9 (ICD-10-CM) TECHNIQUE: CT scan of the chest, abdomen, and pelvis performed with intravenous and without oral contrast using helical scanning technique with dynamic intravenous contrast injection. Reconstructed coronal and sagittal MPR images reviewed. All images stored on PACS. Automated exposure control was used as a dose optimization technique for this examination. CONTRAST TYPE/DOSE: 100mL of IOVERSOL 350 MG IODINE/ML INTRAVENOUS SYRINGE injected via intravenous COMPARISON: None FINDINGS: CHEST LUNGS: No nodules or masses. No pneumonia. Mild atelectasis/scarring is present bilaterally. PLEURA: No effusion. No pneumothorax. MEDIASTINUM/ZAN: No identified masses or abnormal nodes. There are calcified mediastinal lymph nodes. There are bilateral thyroid nodules measuring up to 8 mm. HEART: Heart size is normal with no pericardial effusion. VASCULATURE CHEST: No thoracic aortic aneurysm or dissection. AXILLA: No adenopathy. CHEST WALL: No masses. No subcutaneous air. HARDWARE/LINES/TUBES: None. MUSCULOSKELETAL CHEST: There are degenerative changes in the spine. ABDOMEN/PELVIS LIVER: Normal size. No identified cystic or solid masses. GALLBLADDER: Cholecystectomy. BILE DUCTS: No intrahepatic or extrahepatic ductal dilatation. SPLEEN: Normal size. No focal lesions. PANCREAS: Pancreas is partially fatty replaced. No identified cystic or solid masses. No significant calcifications. No adjacent inflammation or peripancreatic fluid collections. Pancreatic duct not dilated. ADRENALS: Normal. KIDNEYS/URINARY TRACT: A right renal hypodensity is most likely a cyst. No visualized stones. No hydronephrosis or hydroureter. Symmetric enhancement. Urinary bladder is collapsed. GI: No dilated bowel loops. No obvious wall thickening. Nonvisualized appendix. No significant diverticular disease. PERITONEUM: There is a small amount of free fluid in the pelvis. No free air. RETROPERITONEUM: No mass or adenopathy. REPRODUCTIVE: Hysterectomy. VASCULATURE ABDOMEN: Atherosclerotic disease in the aorta and iliacs. MUSCULOSKELETAL ABDOMEN PELVIS: No acute finding. There is minimal subluxation at L4-L5. OTHER: No significant abnormality. IMPRESSION: 1. No evidence of metastatic disease in the chest, abdomen or pelvis. 2. Small amount of free fluid in the pelvis. 3. Additional findings as above. Thyroid nodule recommendation: Based on size criteria alone, no specific follow-up imaging is indicated. If there is specific concerning laboratory or patient history, dedicated thyroid ultrasound could be considered for further evaluation. THIS IS AN ELECTRONICALLY VERIFIED FINAL REPORT 12/08/2024 6:48 PM - Electronically signed by Danny BELL T: Report ID: [id number] Reading Location: [place] [address] Procedure Note Danny Meehan MD - 12/08/2024 EXAM DESCRIPTION: CT CHEST ABDOMEN PELVIS W CONTRAST REASON FOR STUDY: Malignant neoplasm of ovary Malignant neoplasm of ovary Dx: Malignant neoplasm of ovary, unspecified laterality (HCC) C56.9 (ICD-10-CM) TECHNIQUE: CT scan of the chest, abdomen, and pelvis performed with intravenous and without oral contrast using helical scanning techniquewith dynamic intravenous contrast injection. Reconstructed coronal and sagittalMPR images reviewed. All images stored on PACS. Automated exposure control was used as a dose optimization technique for this examination. CONTRAST TYPE/DOSE: 100mL of IOVERSOL 350 MG IODINE/ML INTRAVENOUS SYRINGE injected via intravenous COMPARISON: None FINDINGS: CHEST LUNGS: No nodules or masses. No pneumonia. Mild atelectasis/scarringis present bilaterally. PLEURA: No effusion. No pneumothorax. MEDIASTINUM/ZAN: No identified masses or abnormal nodes. There are calcified mediastinal lymph nodes. There are bilateral thyroid nodules measuring up to 8 mm. HEART: Heart size is normal with no pericardial effusion. VASCULATURE CHEST: No thoracic aortic aneurysm or dissection. AXILLA: No adenopathy. CHEST WALL: No masses. No subcutaneous air. HARDWARE/LINES/TUBES: None. MUSCULOSKELETAL CHEST: There are degenerative changes in the spine. ABDOMEN/PELVIS LIVER: Normal size. No identified cystic or solid masses. GALLBLADDER: Cholecystectomy. BILE DUCTS: No intrahepatic or extrahepatic ductal dilatation. SPLEEN: Normal size. No focal lesions. PANCREAS: Pancreas is partially fatty replaced. No identified cystic or solid masses. No significant calcifications. No adjacent inflammation or peripancreatic fluid collections. Pancreatic duct not dilated. ADRENALS: Normal. KIDNEYS/URINARY TRACT: A right renal hypodensity is most likely a cyst.No visualized stones. No hydronephrosis or hydroureter. Symmetricenhancement. Urinary bladder is collapsed. GI: No dilated bowel loops. No obvious wall thickening. Nonvisualized appendix. No significant diverticular disease. PERITONEUM: There is a small amount of free fluid in the pelvis. Nofree air. RETROPERITONEUM: No mass or adenopathy. REPRODUCTIVE: Hysterectomy. VASCULATURE ABDOMEN: Atherosclerotic disease in the aorta and iliacs. MUSCULOSKELETAL ABDOMEN PELVIS: No acute finding. There is minimal subluxation at L4-L5. OTHER: No significant abnormality. IMPRESSION: 1. No evidence of metastatic disease in the chest, abdomen or pelvis. 2. Small amount of free fluid in the pelvis. 3. Additional findings as above. Thyroid nodule recommendation: Based on size criteria alone, no specific follow-up imaging is indicated. If there is specific concerning laboratoryor patient history, dedicated thyroid ultrasound could be considered forfurther evaluation. THIS IS AN ELECTRONICALLY VERIFIED FINAL REPORT 12/08/2024 6:48 PM - Electronically signed by Danny Meehan M.D. LL T: Report ID: [id number] Reading Location: [place] [address] Louis Montanez MD IMG CT PROCEDURES Final Result from Last 3 Months Insurance MEDICARE [facility] MEDICARE [facility] MEDICARE SUPPLEMENT MEDICARE [facility] MEDICARE SUPPLEMENT Care Teams Crepe Maker Relationship Specialty Start Date End Date Minna Guardado NP PCP - General Nurse Practitioner 05/08/18
--- OUTSIDE RECORDS SUMMARY | 2025-02-02 10:53 | XMS_ITS | Patient Health Record ---
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
--- OUTSIDE RECORDS SUMMARY | 2025-02-02 10:53 | XMS_ITS | Encounter Summary ---
Author Organization [facility] Address [address] [place] [address] Care Team Providers Care Community Case Manager Name Role Phone Unavailable Primary Care Provider Unavailabl e Encounter Details Date Type Department Care Team ( Contact Info) Description 02/02/2025 Orders Only [facility] Oncology and Hematology - [place] [address] [facility] [address] [place] [address] Louis Montanez MD [address] [facility] [address] [place] [address] Malignant neoplasm of ovary, unspecified laterality Social History Tobacco Use Types Packs/Day Years [...] on file 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 Gender Identity Not on file Sexual Orientation Not on file documented as of this encounter Plan of Treatment Upcoming Encounters Date Type Department Care Team (Late Contact Info) Description 02/04/2025 9:00 AM CDT Office Visit [facility] Oncology and H[facility]ology - [place] [address] [facility] [address] [place] [address] Louis Montanez MD [address] [facility] [address] [place] [address] documented as of this encounter Visit Diagnoses Diagnosis Malignant neoplasm of ovary, unspecified laterality documented in this encounter
--- OUTSIDE RECORDS SUMMARY | 2025-02-02 10:53 | XMS_ITS | Clinical Summary ---
Author Organization [employer] [facility] Address [address] [place] [address] Care Team Providers Care Decal Maker Name Role Phone Tanika Bardales MD Primary Care Provider [phone] Source Comments [facility],non-owned Affiliates and Associated Physician Practices is amultiple site organization consisting of ambulatory clinics and hospital sitesin [place], [place], [place] and [place]. This disclosure is being madepursuant to the Care Everywhere program and may not contain all information available regarding this patient. Last updated 17.[employer] Allergies No known active allergies Medications * [...] CDT Oxygen Saturation 99% 04/01/2020 12:31 PM ROD BUSTER Inhaled Oxygen Concentration - - Weight - [...] yrs (1 - 1-dose 75+ series) 2014 DEPRESSION SCREENING 04/09/2024 MEDICARE AWV CALENDAR YEAR 2024 COVID-19 VACCINE ( - season) 2024 07/03/2020, 06/04/2020 INFLUENZA VACCINE (#1) 2024 , 01/08/2018, 01/20/2017, Additional history exists HEPATITIS B [...] patient's age to complete this topic Insurance MEDICARE ANTHEM MEDICARE ANTHEM ANTHEM SELF PAY NO INSURANCE Member Subscriber Plan / Payer (Ef fective for All Dates) Name:Catherine Murphy Member ID:Not on file Relation to Subscriber:Not on file Name:CATHERINE MURPHY Subscriber ID:Not on file (Home) Address: [address] [place] [address] Payer ID:Not on file Group ID:Not on file Type:Self Pay Address: [place], [place] MEDICARE MEDICARE Member Subscriber Plan / Payer (Ef fective for All Dates) Name:Catherine Murphy Member ID:[id number] Relation to Subscriber:Self Name:Catherine Murphy Subscriber ID:[id number] Payer ID:Not on file Group ID:Not on file Type:Medicare Address: [place] [id number] Care Teams Decal Maker Relationship Specialty Start Date End Date Tanika Bardales MD [address] [place] [address] [address] [place] [id number] PCP - General 09/09/19
--- OUTSIDE RECORDS SUMMARY | 2025-02-02 10:53 | XMS_ITS | Clinical Summary ---
Author Organization [facility] Betzy Montoya Address [address] [place] [address] Care Team Providers Care Drop Wire Aligner Name Role Phone Unavailable Primary Care Provider [...] in Packet Take by mouth daily. Active IRON, CARBONYL ORAL Take by mouth. Activ e CYANOCOBALAMIN, VITAMIN B-12, ORAL Take by mouth. Activ e doxycycline hyclate (VIBRAMYCIN) 100 mg tablet Take 100 mg by mouth daily. 06/04/19 25 Active lidocaine-prilo wade (EMLA) 2.5-2.5 % CreamIndication s:Malignant neoplasm of ovary, unspecified laterality Apply to affected area see administration instructions. 30 Gram 1 08/15/19 25 Active ondansetron (ZOFRAN ODT) 8 mg Tablet, Rapid DissolveIndicat ions:Malignant neoplasm of ovary, unspecified laterality Dissolve 1 tablet on top of tongue then swallow with saliva every 8 hours as needed for nausea or vomiting 30 Tablet 1 08/15/19 25 Active oxyBUTYnin (DITROPAN XL) 5 mg Extended Release 24 hour tablet Take 1 Tablet by mouth daily. 10/18/19 25 Active dexAMETHasone (DECADRON) 4 mg tabletIndicatio ns:Malignant neoplasm of ovary, unspecified laterality TAKE 1 TABLET BY MOUTH TWICE A DAY THE DAY BEFORE TREATMENT, DAY OF TREATMENT, AND DAY AFTER TREATMENT 6 Tablet 1 12/16/19 25 Active nitrofurantoin (MACROBID) 100 mg capsule Take 1 Capsule (100 mg) by mouth 2 times daily for 3 days. 6 Capsule 01/15/20 25 025 Active Problems Problem Noted Date Diagnosed Date Family history of melanoma 09/13/2023 Encounters Date Type Department Care Team Description 02/02/2025 Refill [facility] Oncology and Hematology - [place] [address] [place] [id number] Louis Montanez MD Malignant neoplasm of ovary, unspecified laterality 02/02/2025 Orders Only [facility] Oncology and Hematology - [place] [address] [place] [phone] Louis Montanez MD Malignant neoplasm of ovary, unspecified laterality 01/27/2025 External Device Data STL ABSTRACTION Provider, Abstract 01/26/2025 Orders Only [facility] Oncology and Hematology - [place] [address] [place] [address] Louis Montanez MD Malignant neoplasm of ovary, unspecified laterality 01/19/2025 Orders Only [facility] Oncology and Hematology - [place] [address] [place] [address] Louis Montanez MD Malignant neoplasm of ovary, unspecified laterality 01/14/2025 Telephone [facility] Oncology and Hematology - [place] [address] [place] [address] Louis Montanez MD UTI 01/12/2025 Orders Only [facility] Oncology and Hematology - [place] [address] [place] [id number] Louis Montanez MD Malignant neoplasm of ovary, unspecified laterality 01/05/2025 Orders Only [facility] Oncology and Hematology - [place] [address] [place] [phone] Louis Montanez MD Malignant neoplasm of ovary, unspecified laterality (CMS/HCC) 12/29/2024 Orders Only [facility] Oncology and Hematology - [place] [address] [place] [address] Louis Montanez MD Malignant neoplasm of ovary, unspecified laterality (CMS/HCC) 12/25/2024 Orders Only [facility] Oncology and Hematology - [place] [address] [place] [id number] Louis Montanez MD 12/24/2024 11:30 AM CDT Office Visit [facility] Oncology and Hematology - [place] [address] [place] [address] Louis Montanez MD Malignant neoplasm of ovary, unspecified laterality (CMS/HCC) (Primary Dx) 12/24/2024 Refill [facility] Oncology and Hematology - [place] [address] [place] [address] Louis Montanez MD Urinary tract infection without hematuria, site unspecified (Primary Dx) 12/22/2024 Orders Only [facility] Oncology and Hematology - [place] [address] [place] [address] Louis Montanez MD Malignant neoplasm of ovary, unspecified laterality (CMS/HCC) 12/19/2024 Orders Only [facility] Oncology and Hematology - [place] [address] [place] [address] Louis Montanez MD 12/19/2024 Telephone [facility] Gynecologic Oncology [place] [address] [facility] [address] [place] [address] Mary Ellen Whitehead MD Needs Appointment 12/15/2024 Refill [facility] Oncology and Hematology - [place] [address] [place] [address] Louis Montanez MD Malignant neoplasm of ovary, unspecified laterality (CMS/HCC) 12/15/2024 Orders Only [facility] Oncology and Hematology - [place] [address] [place] [phone] Louis Montanez MD Malignant neoplasm of ovary, unspecified laterality (CMS/HCC) 12/09/2024 External Device Data STL ABSTRACTION Provider, Abstract 12/09/2024 Orders Only [facility] Oncology and Hematology - [place] [address] [place] [phone] Louis Montanez MD 12/08/2024 Orders Only [facility] Oncology and Hematology - [place] [address] [place] [phone] Louis Montanez MD Malignant neoplasm of ovary, unspecified laterality (CMS/HCC) 12/03/2024 8:30 AM CDT Office Visit [facility] Oncology and Hematology - [place] [address] [place] [address] Louis Montanez MD Malignant neoplasm of ovary, unspecified laterality (CMS/HCC) (Primary Dx) 12/03/2024 Orders Only [facility] Oncology and Hematology - [place] [address] [place] [address] Louis Montanez MD 12/02/2024 Orders Only [facility] Oncology and Hematology - [place] [address] [place] [address] Louis Montanez MD 12/01/2024 Orders Only [facility] Oncology and Hematology - [place] [address] [place] [address] Louis Montanez MD Malignant neoplasm of ovary, unspecified laterality (CMS/HCC) 11/27/2024 Telephone [facility] Oncology and Hematology - [place] [address] [place] [address] Louis Montanez MD Results (Patient had CT scan done at [facility] on 11/21/2024) 11/26/2024 External Device Data STL ABSTRACTION Provider, Abstract 11/24/2024 Orders Only [facility] Oncology and Hematology - [place] [address] [place] [address] Louis Montanez MD Malignant neoplasm of ovary, unspecified laterality (CMS/HCC) 11/17/2024 Orders Only [facility] Oncology and Hematology - [place] [address] [place] [address] Louis Montanez MD Malignant neoplasm of ovary, unspecified laterality (CMS/HCC) 11/12/2024 8:45 AM CDT Office Visit [facility] Oncology and Hematology - [place] [address] [place] [address] Louis Montanez MD Malignant neoplasm of ovary, unspecified laterality (CMS/HCC) (Primary Dx) 11/12/2024 External Device Data STL ABSTRACTION Provider, Abstract 11/11/2024 Orders Only [facility] Oncology and Hematology - [place] [address] [place] [address] Louis Montanez MD 11/10/2024 Orders Only [facility] Oncology and Hematology - [place] [address] [place] [address] Louis Montanez MD Malignant neoplasm of ovary, unspecified laterality (CMS/HCC) 11/03/2024 Orders Only [facility] Oncology and Hematology - [place] [address] [place] [address] Louis Montanez MD Malignant neoplasm [...] on file 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 Gender Identity Not on file Sexual Orientation Not on file Last Filed Vital Signs Vital Sign Reading Time Taken Comments Blood Pressure 144/79 12/24/2024 11:27 AM CDT Pulse 93 12/24/2024 11:24 AM CDT Temperature 36.1 C (96.9 F) 12/24/2024 11:24 AM CDT Respiratory Rate 15 12/24/2024 11:24 AM CDT Oxygen Saturation 95% 12/24/2024 11:24 AM CDT Inhaled Oxygen Concentration - - Weight 63.5 kg (140 lb) 12/24/2024 11:24 AM CDT Height 157.5 cm (5' 2) 08/16/2023 2:37 PM CDT Body Mass Index 25.61 08/16/2023 2:37 PM CDT Plan of Treatment Upcoming Encounters Date Type Department Care Team (Late st Contact Info) Description 02/04/2025 9:00 AM CDT Office Visit [facility] Oncology and Hematology - [place] [address] [facility] [address] [place] [address] Louis Montanez MD [address] [facility] [address] [place] [address] Health Maintenance Due Date Last Done Comments DTAP/TDAP/TD VACCINES (1 - Tdap) 1959 Traditional Medicare (ACO) Annual Wellness Visit 05/01 PNEUMOCOCCAL VACCINE 50+ YEARS (1 of 1 - PCV) 05/01/18 90 ZOSTER VACCINE (1 of 2) 1989 OSTEOPOROSIS SCREENING 2004 RSV VACCINE (60+ or ) (1 - 1-dose 75+ series) 2014 INFLUENZA VACCINE (#1) 2024 Procedures Procedure Name Priority Date/Time Associated Diagnosis Comments CBC WITH AUTODIFFERENTIAL Routine 2024 12:42 PM CDT CHG CA 15 3 Routine 12/19/2024 1:31 PM CDT COMPREHENSIVE METABOLIC PANEL Routine 12/19/2024 12:49 PM CDT CBC WITH AUTODIFFERENTIAL Routine 2024 12:31 PM CDT URINE CULTURE Routine 12/03/2024 12:03 PM CDT CHG CA 15 3 Routine 12/01/2024 11:07 AM CDT COMPREHENSIVE METABOLIC PANEL Routine 12/01/2024 10:40 AM CDT CBC WITH AUTODIFFERENTIAL Routine 2024 10:[address] CHEST ABDOMEN PELVIS W CONT Routine 11/21/2024 8:50 AM CDT CHG CA 125 Routine 11/10/2024 12:42 PM CDT COMPREHENSIVE METABOLIC PANEL Routine 11/10/2024 12:39 PM CDT from Last 3 Months Results * CBC WITH AUTODIFFERENTIAL (12/24/2024 12:42 PM CDT) Only the most recent of3 resultswithin the time period is included. Blood us Louis Taylord MD HEMATOLOGY ORDERABLES Final Res ult * CHG CA 15 3 (12/19/2024 1:31 PM CDT) Only the most recent of2 resultswithin the time period is included. Result Janene Montanez MD CHG - LABORATORY Final Result * COMPREHENSIVE METABOLIC PANEL (12/19/2024 12:49 PM CDT) Only the most recent of3 resultswithin the time period is included. Blood Result Janene Montanez MD CHEMISTRY ORDERABLES Final Resu lt * URINE CULTURE (12/03/2024 12:03 PM CDT) Urine us Louis Montanez MD MICROBIOLOGY - GENERAL ORDERABL ES Final Result * CT CHEST ABDOMEN PELVIS W CONT (11/21/2024 8:50 AM CDT) Anatomical Region Laterality Modality Chest Computed Tomogra phy Result Janene Montanez MD CT ORDERABLES Final Result * CHG CA 125 (11/10/2024 12:42 PM CDT) Result Janene Montanez MD CHG - LABORATORY Final Result from Last 3 Months Insurance [facility] SUPP MEDICARE PART A AND B MEDICARE PART A AND B BCBS SUPP RX [employer] Medicare Part D RX [employer] Commercial Advance Directives For more information, please contact: [phone] * Full Code (Latest Code Status on File) Date Activated Date Inactivated Comments 07/30/2023 8:32 PM 07/31/2023 12:10 PM * Full Code Date Activated Date Inactivated Comments 07/30/2023 12:16 PM 07/30/2023 8:32 PM * Full Code Date Activated Date Inactivated Comments 07/30/2023 10:39 AM 07/30/2023 12:16 PM
--- OUTSIDE RECORDS SUMMARY | 2025-02-02 10:53 | XMS_ITS | Encounter Summary ---
Author Organization [facility] [employer] [facility] Address [address] [place] [address] Care Team Providers Care Swimming Pool Serviceperson Name Role Phone Unavailable Primary Care Provider Unavailabl e Reason for Visit * Reason Comments Med Refill Encounter Details Date Type Department Care Team (Late Contact Info) Description 02/02/2025 Refill [facility] Oncology and Hematology - [place] [address] [facility] [address] [place] [address] Louis Montanez MD [address] [facility] [address] [place] [address] Malignant neoplasm of ovary, unspecified [...] on file 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 Gender Identity Not on file Sexual Orientation Not on file documented as of this encounter Plan of Treatment Upcoming Encounters Date Type Department Care Team (Late Contact Info) Description 02/04/2025 9:00 AM CDT Office Visit [facility] Oncology and Hematology [facility] [address] [facility] [address] [place] [address] Louis Montanez MD [address] [facility] [address] [place] [address] documented as of this encounter Visit Diagnoses Diagnosis Malignant neoplasm of ovary, unspecified laterality documented in this encounter
[2025-02-02 11:09] LABS: Cholesterol 182 mg/dL (0-200); HDL Direct 63 mg/dL; Triglycerides 105 mg/dL (<150)
[2025-02-02 11:48] LABS: Thyroid Stimulating Hormone Reflex 3.160 uIU/mL (0.465-4.68)
== END 2025-02-02 09:47 | disposition home or self-care (01) ==
LOC: ANHLAB 09:47
PROVIDERS: PCP Nurse Practitioner Family; Visit Provider Nurse Practitioner Family
DX: F41.9 Anxiety disorder, unspecified (principal); Z13.29 Encounter for screening for other suspected endocrine disorder; N39.0 Urinary tract infection, site not specified; E78.5 Hyperlipidemia, unspecified; Z13.220 Encounter for screening for lipoid disorders
CPT/HCPCS: 36415; 80053; 80061; 81001; 84443; 85025; 86304; 87086

== ENCOUNTER 2025-03-11 08:22 | Outpatient (CLI) | payer MEDICARE, SELFPAY ==
--- NOTE | ~2025-03-11 | CT_ITS ---
EXAMINATION: CT chest abdomen pelvis w con DATE: 03/11/2025 08:48 INDICATION: Malignant neoplasm of ovary. TECHNIQUE: Computed tomography (CT) of the chest, abdomen, and pelvis was performed with 100 mL Omnipaque 350 intravenous contrast. Automated exposure control and iterative reconstruction technique were employed. The dose-length product was 357.21 mGy-cm. COMPARISON: CT 07/18/2024 FINDINGS: CHEST CT: There is mild scarring at the lung apices. A calcified right lung nodule and calcified mediastinal lymph nodes are consistent with old granulomatous disease. There is mild atelectasis bilaterally. No pleural effusion. The heart size is normal. No pericardial effusion. There is a right internal jugular port with tip in right atrium. There are nodules in the thyroid measuring up to 7 mm, likely not clinically significant. There is severe thoracic spondylosis. ABDOMEN/PELVIS CT: The liver is normal. There are changes of cholecystectomy. Calcifications in the spleen are consistent with old granulomatous disease. The pancreas and adrenal glands are normal. There is cortical thinning of the kidneys. There are no dilated loops of bowel. There are no pathologically enlarged lymph nodes. There is no free intraperitoneal fluid. 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 There is mild lumbar spondylosis. IMPRESSION: 1. No evidence of metastatic disease. Reviewed, dictated and finalized at location [facility]. [facility]
--- OUTSIDE RECORDS SUMMARY | 2025-03-11 08:42 | XMS_ITS | Encounter Summary ---
Author Organization [facility] [employer] Address [address] [place] [address] Care Team Providers Care Sinker Puller Name Role Phone Unavailable Primary Care Provider Unavailabl e Encounter Details Date Type Department Care Team (Late st Contact Info) Description 03/09/2025 Orders Only [facility] Oncology and Hematology - [place] [address] [facility] [address] [place] [address] Louis Montanez MD [address] [facility] [address] [place] [address] Malignant neoplasm of ovary, unspecified [...] on file 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 Gender Identity Not on file Sexual Orientation Not on file documented as of this encounter Plan of Treatment Upcoming Encounters Date Type Department Care Team (Late st Contact Info) Description 03/18/2025 9:00 AM BUILDING MECHANIC Office Visit [facility] Oncology and Hematology [facility] [address] [facility] [address] [place] [address] Louis Montanez MD [address] [facility] [address] [place] [address] documented as of this encounter Visit Diagnoses Diagnosis Malignant neoplasm of ovary, unspecified laterality (CMS/HCC) documented in this encounter
--- OUTSIDE RECORDS SUMMARY | 2025-03-11 08:42 | XMS_ITS | Clinical Summary ---
Author Organization [facility] Address [address] [place] [address] Care Team Providers Care Straight Cutter Machine Name Role Phone Tanika Bardales MD Primary Care Provider [phone] Source Comments [facility],non-owned Affiliates and Associated Physician Practices is amultiple site organization consisting of ambulatory clinics and hospital sitesin [place], [place], [place] and [place]. This disclosure is being madepursuant to the Care Everywhere program and may not contain all information available regarding this patient. Last updated 17.[employer] Allergies No known active allergies Medications * [...] CDT Oxygen Saturation 99% 04/01/2020 12:31 PM ANESTHESIOLOGY FACULTY Inhaled Oxygen Concentration - - Weight - [...] age to complete this topic Insurance MEDICARE [facility] MEDICARE ADVANTAGE MEDICARE ANTHEM SELF PAY NO INSURANCE Member Subscriber Plan / Payer (Ef fective for All Dates) Name:Catherine Murphy Member ID:Not on file Relation to Subscriber:Not on file Name:CATHERINE MURPHY Subscriber ID:Not on file (Home) Address: [address] [place] [address] Payer ID:Not on file Group ID:Not on file Type:Self Pay Address: [place], [place] MEDICARE MEDICARE Care Teams Straight Cutter Machine Relationship Specialty Start Date End Date Tanika Bardales MD [facility] [place] [id number] PCP - General 09/09/19
--- OUTSIDE RECORDS SUMMARY | 2025-03-11 08:42 | XMS_ITS | Clinical Summary ---
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 Hypertension Brother 3 Hypertension; Stomach cancer Brother 3 Diabetes Brother 4 Diabetes mellit us; Heart attack Father of [place] age 83 Heart disease Father Alzheimer's disease [...] on file Legal Sex Female 4:23 AM DIRECTOR OF BUSINESS DEVELOPMENT Gender Identity Not on file Sexual Orientation [...] Comments Blood Pressure 160/70 05/27/2024 11:35 AM DIRECTOR OF BUSINESS DEVELOPMENT Pulse 75 05/27/2024 11:35 AM DIRECTOR OF BUSINESS DEVELOPMENT Temperature 36.5 C (97.7 F) 05/27/2024 11:13 AM DIRECTOR OF BUSINESS DEVELOPMENT Respiratory Rate 22 05/27/2024 11:35 AM DIRECTOR OF BUSINESS DEVELOPMENT Oxygen Saturation 100% 05/27/2024 11:35 AM DIRECTOR OF BUSINESS DEVELOPMENT Inhaled Oxygen Concentration - - Weight 64.9 kg (143 lb) 05/27/2024 9:05 AM DIRECTOR OF BUSINESS DEVELOPMENT Height 158.8 cm (5' 2.5) 05/27/2024 9:05 AM DIRECTOR OF BUSINESS DEVELOPMENT Body Mass Index 25.74 05/27/2024 9:05 AM DIRECTOR OF BUSINESS DEVELOPMENT Plan of Treatment Health Maintenance Due Date [...] 05/2019, 05/03/2007 Medical Devices Implanted Type Area Farm Implement Mechanic Device Identifier Shelf Expiration Date Model / Serial / Lot [employer] Lens Iol Tecnis Smplcty 1-Pc Clr [place] 21.5 Diopter [id number] - [id number] - [id number] Implanted:Qty: 1 on 03/25/2024 by Shruthi Whittaker MD PhD at [facility] Right: Eye [employer] [id number] 03/06/2026 [id number] / [id number] / [employer] Lens Iol Tecnis Simplicity Single Piece Clear [place] 22.5 Diopter [id number] - [id number] - [id number] Implanted:Qty: 1 on 05/27/2024 by Shruthi Whittaker MD PhD at [facility] Left: Eye [employer] [id number] 01/30/2026 [id number] / [id number] / Insurance MEDICARE [facility] MEDICARE [facility] MEDICARE SUPPLEMENT MEDICARE [facility] MEDICARE SUPPLEMENT Care Teams Barnworker Groom Relationship Specialty Start Date End Date Minna Guardado NP PCP - General Nurse Practitioner 05/08/18
--- OUTSIDE RECORDS SUMMARY | 2025-03-11 08:42 | XMS_ITS | Clinical Summary ---
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 10/18/19 25 Active dexAMETHasone (DECADRON) 4 mg tabletIndicatio ns:Malignant neoplasm of ovary, unspecified laterality (CMS/HCC) TAKE 1 TAB] BY MOUTH TWICE A DAY THE DAY BEFORE TREATMENT, DAY OF TREATMENT, AND DAY AFTER TREATMENT 6 Tablet 2 02/03/20 25 Active Active Problems Problem Noted Date Diagnosed Date Family history of melanoma 09/13/2023 Encounters Date Type Department Care Team Description 03/09/2025 Orders Only [facility] Oncology and Hematology - [place] [address] [place] [id number] Louis Montanez MD Malignant neoplasm of ovary, unspecified laterality (CMS/HCC) 03/02/2025 Orders Only [facility] Oncology and Hematology - [place] [address] [place] [id number] Louis Montanez MD Malignant neoplasm of ovary, unspecified laterality (CMS/HCC) 02/24/2025 Orders Only [facility] Oncology and Hematology - [place] [address] [place] [id number] Louis Montanez MD 02/23/2025 Orders Only [facility] Oncology and Hematology - [place] [address] [place] [address] Louis Montanez MD Malignant neoplasm of ovary, unspecified laterality (CMS/HCC) 02/16/2025 Orders Only [facility] Oncology and Hematology - [place] [address] [place] [address] Louis Montanez MD Malignant neoplasm of ovary, unspecified laterality (CMS/HCC) 02/09/2025 Orders Only [facility] Oncology and Hematology - [place] [address] [place] [address] Louis Montanez MD Malignant neoplasm of ovary, unspecified laterality (CMS/HCC) 02/04/2025 9:00 AM CDT Office Visit [facility] Oncology and Hematology - [place] [address] Louis Montanez MD Malignant neoplasm of ovary, unspecified laterality (CMS/HCC) (Primary Dx) 02/04/2025 External Device Data STL ABSTRACTION Provider, Abstract 02/04/2025 External Device Data STL ABSTRACTION Provider, Abstract 02/03/2025 Orders Only [facility] Oncology and Hematology - [place] [address] Louis Montanez MD 02/02/2025 Refill [facility] Oncology and Hematology - [place] [address] [place] [id number] Louis Montanez MD Malignant neoplasm of ovary, unspecified laterality (CMS/HCC) 02/02/2025 Orders Only [facility] Oncology and Hematology - [place] [address] Louis Montanez MD Malignant neoplasm of ovary, unspecified laterality (CMS/HCC) 01/27/2025 External Device Data STL ABSTRACTION Provider, Abstract 01/26/2025 Orders Only [facility] Oncology and Hematology - [place] [address] [place] [id number] Louis Montanez MD Malignant neoplasm of ovary, unspecified laterality (CMS/HCC) 01/19/2025 Orders Only [facility] Oncology and Hematology - [place] [address] [place] [id number] Louis Montanez MD Malignant neoplasm of ovary, unspecified laterality (CMS/HCC) 01/14/2025 Telephone [facility] Oncology and Hematology - [place] [address] [place] [id number] Louis Montanez MD UTI 01/12/2025 Orders Only [facility] Oncology and Hematology - [place] [address] [place] [id number] Louis Montanez MD Malignant neoplasm of ovary, unspecified laterality (CMS/HCC) 01/05/2025 Orders Only [facility] Oncology and Hematology - [place] [address] [place] [id number] Louis Montanez MD Malignant neoplasm of ovary, unspecified laterality (CMS/HCC) 12/29/2024 Orders Only [facility] Oncology and Hematology - [place] [address] [place] [id number] Louis Montanez MD Malignant neoplasm of ovary, unspecified laterality (CMS/HCC) 12/25/2024 Orders Only [facility] Oncology and Hematology - [place] [address] [place] [id number] Louis Montanez MD 12/24/2024 11:30 AM CDT Office Visit [facility] Oncology and Hematology - [place] [address] [place] [id number] Louis Montanez MD Malignant neoplasm of ovary, unspecified laterality (CMS/HCC) (Primary Dx) 12/24/2024 Refill [facility] Oncology and Hematology - [place] [address] [place] [phone] Louis Montanez MD Urinary tract infection without hematuria, site unspecified (Primary Dx) 12/22/2024 Orders Only [facility] Oncology and Hematology - [place] [address] [place] [address] Louis Montanez MD Malignant neoplasm of ovary, unspecified laterality (CMS/HCC) 12/19/2024 Orders Only [facility] Oncology and Hematology - [place] [address] [place] [id number] Louis Montanez MD 12/19/2024 Telephone [facility] Gynecologic Oncology [place] [address] [place] [phone] Mary Ellen Whitehead MD Needs Appointment 12/15/2024 Refill [facility] Oncology and Hematology - [place] [address] [place] [address] Louis Montanez MD Malignant neoplasm of ovary, unspecified laterality (CMS/HCC) 12/15/2024 Orders Only [facility] Oncology and Hematology [facility] [address] [place] [address] Louis Montanez MD Malignant neoplasm of ovary, [...] on file Legal Sex Female 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 Gender Identity Not on file Sexual Orientation Not on file Last Filed Vital Signs Vital Sign Reading Time Taken Comments Blood Pressure 150/78 02/04/2025 9:21 AM CDT Pulse 67 02/04/2025 9:13 AM CDT Temperature 37.1 C (98.7 F) 02/04/2025 9:13 AM CDT Respiratory Rate 14 02/04/2025 9:13 AM CDT Oxygen Saturation 95% 02/04/2025 9:13 AM CDT Inhaled Oxygen Concentration - - Weight 63.4 kg (139 lb 12.8 oz) 02/04/2025 9:13 AM CDT Height 157.5 cm (5' 2) 08/16/2023 2:37 PM CDT Body Mass Index 25.57 08/16/2023 2:37 PM CDT Plan of Treatment Upcoming Encounters Date Type Department Care Team (Late st Contact Info) Description 03/18/2025 9:00 AM [employer]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 Office Visit [facility] Oncology and Hematology - [place] [address] [facility] [address] [place] [address] Louis Montanez MD [address] [facility] [address] [place] [address] Health Maintenance Due Date Last Done Comments DTAP/TDAP/TD VACCINES (1 - Tdap) 1958 PNEUMOCOCCAL VACCINE 50+ YEARS (1 of 1 - PCV) 05/01/18 90 ZOSTER VACCINE (1 of 2) 1989 OSTEOPOROSIS SCREENING 2004 RSV VACCINE (60+ or ) (1 - 1-dose 75+ series) 2014 INFLUENZA VACCINE (#1) 2024 Procedures Procedure Name Priority Date/Time Associated Diagnosis Comments CBC WITH AUTODIFFERENTIAL Routine 2024 11:59 AM [employer]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 COMPREHENSIVE METABOLIC PANEL Routine 02/23/2025 11:18 AM 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 CHG CA 15 3 Routine 02/02/2025 12:27 PM CDT COMPREHENSIVE METABOLIC PANEL Routine 02/02/2025 11:52 AM CDT CBC WITH AUTODIFFERENTIAL Routine 2024 11:40 AM CDT CBC WITH AUTODIFFERENTIAL Routine 2024 12:42 PM CDT CHG CA 15 3 Routine 12/19/2024 1:31 PM CDT COMPREHENSIVE METABOLIC PANEL Routine 12/19/2024 12:49 PM CDT CBC WITH AUTODIFFERENTIAL Routine 2024 12:31 PM CDT from Last 3 Months Results * CBC WITH AUTODIFFERENTIAL (02/23/2025 11:59 AM [employer]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) Only the most recent of4 resultswithin the time period is included. Blood us Louis Montanez MD HEMATOLOGY ORDERABLES Final Res ult * COMPREHENSIVE METABOLIC PANEL (02/23/2025 11:18 AM [employer]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) Only the most recent of3 resultswithin the time period is included. Blood us Louis Montanez MD CHEMISTRY ORDERABLES Final Resu lt * CHG CA 15 3 (02/02/2025 12:27 PM CDT) Only the most recent of2 resultswithin the time period is included. us Louis Montanez MD CHG - LABORATORY Final Result from Last 3 Months Insurance [facility] SUPP MEDICARE PART A AND B MEDICARE PART A AND B BCBS SUPP RX [employer] Medicare Part D RX [employer] Commercial Advance Directives For more information, please contact: [phone] * Full Code (Latest Code Status on File) Date Activated Date Inactivated Comments 07/30/2023 8:32 PM 07/31/2023 12:10 PM * Full Code Date Activated Date Inactivated Comments 07/30/2023 12:16 PM 07/30/2023 8:32 PM * Full Code Date Activated Date Inactivated Comments 07/30/2023 10:39 AM 07/30/2023 12:16 PM
== END 2025-03-11 08:23 | disposition home or self-care (01) ==
PROVIDERS: PCP Nurse Practitioner Family; Visit Provider Internal Medicine Hematology & Oncology
DX: C56.9 Malignant neoplasm of unspecified ovary (principal)
CPT/HCPCS: 71260; 74177; Q9967